=== PATIENT | male | born 1950 | race American Indian/Alaskan Native ===

== ENCOUNTER 2018-10-21 16:12 | Inpatient (IN) | payer MEDICARE ==
--- NOTE | 2018-10-21 17:28 | XRay Report ---
FINAL REPORT EXAM: XR CHEST 1V AP HISTORY: hypertension TECHNIQUE: Frontal portable view of the chest Comparison: Chest x-ray dated August 31, 2018 FINDINGS: The there is the appearance of patchy areas of pulmonary consolidation in both lung bases. Atelectasi s versus There is no evidence of pneumothorax or pleural fluid collection. The cardiomediastinal silhouette is not significantly changed. A right central venous catheter is not significantly changed with the tip projected in the region the right atrium. IMPRESSION: 1. Infiltrates. Atelectasis versus infiltrates both lung bases. If further imaging is required, CT may be helpful.
[2018-10-21] MEDS ORDERED: NACL 0.9% 500 ML 500 ML IV ONE (17:33)
[2018-10-21] MEDS ORDERED: MERREM 1,000 MG in NACL 0.9% 100 ML IV ONE (17:48)
[2018-10-21] MEDS ORDERED: VANCOMYCIN PHARMACY TO DOSE IV SCH (18:00)
--- NOTE | 2018-10-21 18:25 | Emergency Department Report ---
ED General Adult HPI - General Chief complaint: Medical Clearance Stated complaint: LOW HEMOGLOBIN Time Seen by Provider: 10/21/18 17:00 Source: EMS Mode of arrival: Stretcher Limitations: Physical Limitation - History of Present Illness Initial comments: This is a 68-year-old apparent total care patient from a assisted who was sent to dialysis. The information that I have received is very skeletal. The triage note states that dialysis found him to have a hemoglobin of 6.5. Patient has severe and extensive comorbidity. Apparently there is an extensive decubitus ulcer which was noted by nursing staff on arrival. The patient has a vas cath and a PEG tube. He has an indwelling Avila. He is awake but does not communicate to me. Although, the nursing staff stated that he was somewhat responsive to them. No further history is available to me at this time. The patient was admitted to this facility ICU in August 2018 with the followi ng discharge information: Consult to Case Management [CONS] Urgent Services Needed at Discharge: Home Health Services Notified:: no Additional Physician Instructions: [facility] M [phone] O [phone] F [phone] OUTPATIENT PARENTERAL ANTIBIOTIC THERAPY ORDERS Diagnoses: Psedomonas Aeriginosa Antimicrobial administration:Upon discharge will arrange Meropenem 500 mg q 24 hours for a total of 10 days until September 21, 2018 Remove Midline line after last dose unless otherwise instructed. Lines: MidLine Lab monitoring: CBC, BUN, Creatinine, ALT, AST, CK, vancomycin trough once a week preferly on Sunday morning. Please fax results to [phone] and call [phone] for critical lab results. May Hinojosa NP/Vicky Coon MD Date: 09/13/18 Primary care physician: [employer]TER Hospitalization Condition: Fair Hospital course: Patient is a 68 yo man with a history of HTN, DM, HLD, Obesity, ESRD on HD (T,R,Sa) presents to ED for AMS with lethargy. Pt history taken from and ED staff. As per , the patient went to [facility] for his scheduled dialysis session, but was found to be confused, and hypotensive. Pt seen and evaluated in ED and found to have Acute Respiratory Failure, as well as ESRD, Severe Sepsis with systolic blood pressure in the 70's, and Encephalopathy. Pt found to have poor prognosis. Pt poor prognosis discussed with . Pt admitted to ICU and initiated on Sepsis protocol, as well as IV pressor support, Intubated. Patient is now off pressors subsequently extubated. 09/12/18 CT abd/pelvis wo contrast IMPRESSION: Right lower lobe opacity. Corre late for pneumonia. Thickened bladder wall which could represent cystitis or trabeculation. No obvious abscess on noncontrast CT. 09/13/18 CT chest wo contrast Impression: Ill-defined density right lower lobe suggestive of pneumonitis. Single enlarged lymph node in the mediastinum. CT head wo contrast IMPRESSION: 1. No acute intracranial findings. 2. Chronic ischemic and atrophic changes. Cultures: 08/20/2018 blood culture: Klebsiella, Proteus, Enterococcus species 08/20/2018 urine culture: Pseudomonas aeruginosa (MDR but S to FQs) 08/20/2018 tracheal aspirate culture: Klebsiella, MRSA 08/22/2018 blood culture: no growth 09/09/2018 blood culture no growth 09/09/2018 urine culture Pseudomonas Aerugionosa Sepsis with multiple sources of infection, PNA/UTI/Sacral Debuticus Ulcer. Abx changed managed by ID, Acute hypoxemic resp failure. Resolved. Continue O2 to maintain sats greater than 92%. MRSA pneumonia. Continue antibiotics per infectious disease. Toxic metabolic encephalopathy. Cont to treat underlying causes. Also, patient with baseline multiple CVAs with likely underlying vascular dementia. Repeat CT negative. Vascular dementia. Neurology evaluated, NO CORDOVA Sacral unstageable Ulcer. Present on admission.- Surgeon consulted. Debridement planned for Sunday, Had extensive discussion about q2hr turns. Recommend hospital Bed Bilateral Heel ULCER-POA. CONTINUE WOUND CARE. ESRD. Cont HD per nephrology Anemia of ESRD, acute on chronic, worsening s/p 2units PRBC transfused, now stable. F/U H&H and transfuse for hemoglobin less than 7.0 Bladder mass. Urology follow-up, ask for exchange of catheter. Work up for mass outpatient. Hypokalemia. Replete potassium as needed. Diabetes mellitus type 2. Continue Accu-Cheks and sliding scale insulin. History of CVAs. Disposition. OT for passive range of motion. poor prognosis. D/w Had extensive discussion with spouse. she is adamant about taking patient home. Discharge post debridement. DVT/GI prophy reviewed I called at [phone] and gave her an update, she still wants to take him home, no hospice which I recommended Waiting on hospital bed and sacral debridement. Anticipate discharge home today after sacral debridement and hemodialysis and home abx setup Infectious Disease to arrange home abx ID Recs: Agree with surgical deridment of sacral wound on 09/16/18 -Continue Meropenem 500 mg every 24 hours to cover HAP/UTI, D5 of 10 -may need to repeat CT of chest in 4-6 weeks to rule out lung cancer upon discharge consider rehab placement for wound care and IV antibiotics Upon discharge will arrange Meropenem 500 mg q 24 hours for 10 days until September 21, 2018 Consult placed with Case Management Disposition: [id number] HOME [facility] Time spent for discharge: 36 minutes -: unknown Severity scale (0 -10): 0 - Related Data Previous Rx's Medication Instructions Recorded Last Taken Type Prazosin [Minipress] 2 mg PO HS #60 capsule 18 08/19/18 Rx ALBUTEROL NEB's [Proventil 0.083% 2.5 mg IH Q3HRT PRN #30 nebu 09/16/18 Unknown Rx NEBS] Famotidine [Pepcid] 20 mg FEEDTUBE DAILY #30 tablet 09/16/18 Unknown Rx Insulin Glargine [Lantus VIAL] 30 units SUB-Q QHS #90 units 09/16/18 Unknown Rx Lipase/Protease/Amylase [Pancreaze 1 each FEEDTUBE PRN PRN #30 capsule 09/16/[address],500 Unit] Lispro Insulin [Humalog] 1 dose SUB-Q Q4HR PRN #100 units 09/16/18 Unknown Rx Meropenem [Merrem] 500 mg IV Q24H #1 vial 09/16/18 Unknown Rx Min Oil/Petrolatum [Artificial 1 applic OU Q4HR PRN #1 tube 09/16/18 Unknown Rx Tears Ophth Oint] Petrolatum,White [Vaseline Lip 1 applic TP Q2HR PRN #1 tube 09/16/18 Unknown Rx Therapy] Scopolamine [Transderm-Scop] 1 each TD Q3D 30 Days patch 09/16/18 Unknown Rx Simple Syrup 15 ml FEEDTUBE PRN PRN #30 09/16/18 Unknown Rx oral.liqd Simple Syrup 30 ml FEEDTUBE PRN PRN #30 09/16/18 Unknown Rx oral.liqd Sodium Bicarbonate 325 mg FEEDTUBE PRN PRN #30 tablet 09/16/18 Unknown Rx hydrALAZINE [Apresoline TAB] 50 mg PO Q8HR #90 tablet 09/16/18 Unknown Rx Allergies Allergy/AdvReac Type Severity Reaction Status Date / Time No Known Allergies Allergy Verified 08/20/18 12:20 ED Review of Systems ROS: Stated complaint: LOW HEMOGLOBIN Other details as noted in HPI Comment: Unobtainable due to pts medical conditions ED Past Medical Hx - Past Medical History Hx Hypertension: Yes Hx Heart Attack/AMI: No Hx Congestive Heart Failure: No Hx Diabetes: Yes Hx Deep Vein Thrombosis: No Hx Liver Disease: No Hx Renal Disease: Yes Hx Sickle Cell Disease: No Hx Seizures: No Hx Kidney Stones: No Hx Asthma: No Hx COPD: No Hx Dementia: Yes Additional medical history: HIGH CHOLESTEROL - Surgical History Hx Coronary Stent: No Hx Pacemaker: No Hx Internal Defibrillator: No Additional Surgical History: SOFT TISSUE REMOVED FROM BACK. PARTIAL THYROIDECTOMY - Social History Smoking Status: Unknown if ever smoked Other Social History: assisted resident - Medications Home Medications: Home Medications Medication Instructions Recorded Confirmed Last Taken Type Prazosin [Minipress] 2 mg PO HS #60 capsule 08/07/18 08/20/18 08/19/18 Rx ALBUTEROL NEB's [Proventil 0.083% 2.5 mg IH Q3HRT PRN #30 nebu 09/16/18 Unknown Rx NEBS] Famotidine [Pepcid] 20 mg FEEDTUBE DAILY #30 tablet 09/16/18 Unknown Rx Insulin Glargine [Lantus VIAL] 30 units SUB-Q QHS #90 units 09/16/18 Unknown Rx Lipase/Protease/Amylase [Pancreaze 1 each FEEDTUBE PRN PRN #30 capsule 09/16/[address],500 Unit] Lispro Insulin [Humalog] 1 dose SUB-Q Q4HR PRN #100 units 09/16/18 Unknown Rx Meropenem [Merrem] 500 mg IV Q24H #1 vial 09/16/18 Unknown Rx Min Oil/Petrolatum [Artificial 1 applic OU Q4HR PRN #1 tube 09/16/18 Unknown Rx Tears Ophth Oint] Petrolatum,White [Vaseline Lip 1 applic TP Q2HR PRN #1 tube 09/16/18 Unknown Rx Therapy] Scopolamine [Transderm-Scop] 1 each TD Q3D 30 Days patch 09/16/18 Unknown Rx Simple Syrup 15 ml FEEDTUBE PRN PRN #30 09/16/18 Unknown Rx oral.liqd Simple Syrup 30 ml FEEDTUBE PRN PRN #30 09/16/18 Unknown Rx oral.liqd Sodium Bicarbonate 325 mg FEEDTUBE PRN PRN #30 tablet 09/16/18 Unknown Rx hydrALAZINE [Apresoline TAB] 50 mg PO Q8HR #90 tablet 09/16/18 Unknown Rx ED Physical Exam - General Limitations: Physical Limitation General appearance: lethargic - Head Head exam: Present: atraumatic - Eye Eye exam: Absent: scleral icterus - ENT ENT exam: Present: mucous membranes dry - Neck Neck exam: Present: normal inspection - Respiratory Respiratory exam: Present: normal lung sounds bilaterally. Absent: respiratory distress, accessory muscle use - Cardiovascular Cardiovascular Exam: Present: tachycardia - GI/Abdominal GI/Abdominal exam: Present: soft, other (peg). Absent: distended, tenderness, guarding, rebound, rigid - Extremities Exam Extremities exam: Present: normal inspection - Back Exam Back exam: Present: normal inspection - Neurological Exam Neurological exam: Present: other ED Course Vital Signs 10/21/18 10/21/18 10/21/18 16:46 18:00 18:16 Temperature Pulse Rate 90 140 H 142 H Respiratory 20 21 Rate Blood Pressure 147/82 Blood Pressure 122/84 [Left] O2 Sat by Pulse 98 Oximetry 10/21/18 10/21/18 18:30 18:44 Temperature 98.9 F Pulse Rate 146 H Respiratory 17 Rate Blood Pressure 147/82 Blood Pressure [Left] O2 Sat by Pulse Oximetry - Reevaluation(s) Reevaluation #1: I have called the lab to ascertain why the chemistries are not ready. They're checking into it. 10/21/18 19:25 Reevaluation #2: Discussed with nephrology by Dr. Giles. 10/21/18 19:41 ED Medical Decision Making - Lab Data Result diagrams: 10/21/18 18:27 01/14/19 18:27 Laboratory Results - last 24 hr 10/21/18 18:11 POC Glucose 217 H Laboratory Results - last 24 hr 10/21/18 18:11 POC Glucose 217 H Laboratory Results - last 24 hr 10/21/18 10/21/18 18:11 18:27 WBC 15.9 H RBC 2.83 L Hgb 7.7 L Hct 24.6 L MCV 87 MCH 27 L MCHC 31 L RDW 17.6 H Plt Count 439 Lymph % (Auto) 13.0 L [place] % (Auto) 7.3 Eos % (Auto) 0.1 Baso % (Auto) 0.1 Lymph # 2.1 [place] # 1.2 H Eos # 0.0 Baso # 0.0 Seg Neutrophils % 79.5 H Seg Neutrophils # 12.7 H POC Glucose 217 H Laboratory Results - last 24 hr 10/21/18 10/21/18 18:11 18:27 WBC 15.9 H RBC 2.83 L Hgb 7.7 L Hct 24.6 L MCV 87 MCH 27 L MCHC 31 L RDW 17.6 H Plt Count 439 Lymph % (Auto) 13.0 L [place] % (Auto) 7.3 Eos % (Auto) 0.1 Baso % (Auto) 0.1 Lymph # 2.1 [place] # 1.2 H Eos # 0.0 Baso # 0.0 Seg Neutrophils % 79.5 H Seg Neutrophils # 12.7 H POC Glucose 217 H Laboratory Results - last 24 hr 10/21/18 10/21/18 10/21/18 18:11 18:27 18:27 WBC 15.9 H RBC 2.83 L Hgb 7.7 L Hct 24.6 L MCV 87 MCH 27 L MCHC 31 L RDW 17.6 H Plt Count 439 Lymph % (Auto) 13.0 L [place] % (Auto) 7.3 Eos % (Auto) 0.1 Baso % (Auto) 0.1 Lymph # 2.1 [place] # 1.2 H Eos # 0.0 Baso # 0.0 Seg Neutrophils % 79.5 H Seg Neutrophils # 12.7 H POC Glucose 217 H Blood Type A POSITIVE Laboratory Results - last 24 hr 10/21/18 10/21/18 10/21/18 18:11 18:27 18:27 WBC 15.9 H RBC 2.83 L Hgb 7.7 L Hct 24.6 L MCV 87 MCH 27 L MCHC 31 L RDW 17.6 H Plt Count 439 Lymph % (Auto) 13.0 L [place] % (Auto) 7.3 Eos % (Auto) 0.1 Baso % (Auto) 0.1 Lymph # 2.1 [place] # 1.2 H Eos # 0.0 Baso # 0.0 Seg Neutrophils % 79.5 H Seg Neutrophils # 12.7 H PT INR VBG pH POC Glucose 217 H Blood Type A POSITIVE 10/21/18 10/21/18 18:27 18:27 WBC RBC Hgb Hct MCV MCH MCHC RDW Plt Count Lymph % (Auto) [place] % (Auto) Eos % (Auto) Baso % (Auto) Lymph # [place] # Eos # Baso # Seg Neutrophils % Seg Neutrophils # PT 14.6 INR 1.10 VBG pH 7.417 POC Glucose Blood Type - Radiology Data Radiology results: report reviewed (bibasilar slight inf) Critical Care Time: Yes Critical care time in (mins) excluding proc time.: 50 Critical care attestation.: If time is entered above; I have spent that time in minutes in the direct care of this critically ill patient, excluding procedure time. ED Disposition Clinical Impression: ESRD (end stage renal disease) Sepsis Qualifiers: Sepsis type: sepsis due to unspecified organism Qualified Code(s): A41.9 - Sepsis, unspecified organism Disposition: DC-01 TO HOME OR SELFCARE Is pt being admited?: Yes Does the pt Need Aspirin: No Condition: Stable Referrals: PRIMARY CARE, [Primary Care Provider] - 3-5 Days
[2018-10-21 18:59] LABS: Basophils % (Auto) 0.1 % (0.0-1.8); Eosinophils % (Auto) 0.1 % (0.0-4.3); Hematocrit 24.6 % (35.5-45.6); Hemoglobin 7.7 gm/dl (11.8-15.2); Lymphocytes # (Auto) 2.1 K/mm3 (1.2-5.4); Mean Corpuscular HGB Conc 31 % (32-34); Mean Corpuscular Volume 87 fl (84-94); Monocytes # (Auto) 1.2 K/mm3 (0.0-0.8); Monocytes % (Auto) 7.3 % (0.0-7.3); Platelet Count 439 K/mm3 (140-440); Red Blood Count 2.83 M/mm3 (3.65-5.03); Red Cell Distribution Width 17.6 % (13.2-15.2)
[2018-10-21] MEDS ORDERED: NACL 0.9% 1000 ML 500 ML IV ONE (18:59)
[2018-10-21 19:08] LABS: INR 1.1 (0.87-1.13)
[2018-10-21 19:28] LABS: Alanine Aminotransferase 9 units/L (7-56); Albumin 2.5 g/dL (3.9-5); BUN/Creatinine Ratio 17; Blood Urea Nitrogen 24 mg/dL (9-20); Hemolysis Index 0
[2018-10-21 19:37] LABS: Bilirubin,Direct < 0.2 mg/dL (0-0.2)
[2018-10-21] MEDS ORDERED: VANCOMYCIN 1,500 MG in NACL 0.9% 500 ML 500 ML IV ONE (20:00)
[2018-10-21] MEDS ORDERED: D50W (25GM) Syringe IV PRN (21:53)
[2018-10-21] MEDS ORDERED: ROBITUSSIN PO PRN (21:56)
[2018-10-21] MEDS ORDERED: LEVAQUIN 750MG/150ML 750 MG/150 ML BAG IV SCH (22:00)
[2018-10-21] MEDS ORDERED: ZOSYN/NS 3.375GM/50ML 3.375 GM/50 ML BAG IV SCH (22:00)
[2018-10-21] MEDS ORDERED: TYLENOL PO PRN (22:00)
[2018-10-21] MEDS ORDERED: TYLENOL PO ONE (23:00)
[2018-10-22 00:46] LABS: Bilirubin,Urine NEG (Negative); Blood,Urine MOD (Negative); Color,Urine Yellow (Yellow); Mucus,Urine 1+ /HPF
[2018-10-22 00:47] LABS: RBC,Urine > 182.0 /HPF (0.0-6.0); WBC,Urine > 182.0 /HPF (0.0-6.0)
[2018-10-22] MEDS ORDERED: ZOSYN/NS 4.5GM/100ML 0 GM/0 ML VIAL IV ONE (02:02)
[2018-10-22] MEDS ORDERED: LEVAQUIN 750MG/150ML 750 MG/150 ML BAG IV ONE (02:12)
[2018-10-22] MEDS: HEPARIN SUB-Q SCH ×3 (02:25→21:04)
[2018-10-22] MEDS ORDERED: KCL 10MEQ/100ML 10 MEQ/100 ML BAG IV SCH (05:00)
[2018-10-22 05:56] LABS: Hematocrit 22.4 % (35.5-45.6); Hemoglobin 6.9 gm/dl (11.8-15.2); Mean Corpuscular HGB Conc 31 % (32-34); Mean Corpuscular Volume 88 fl (84-94); Platelet Count 384 K/mm3 (140-440); Red Blood Count 2.55 M/mm3 (3.65-5.03); Red Cell Distribution Width 17.4 % (13.2-15.2)
[2018-10-22] MEDS ORDERED: HEPARIN ONE (06:10)
--- NOTE | 2018-10-22 07:11 | History and Physical Report ---
CHIEF COMPLAINT: Discovery of low hemoglobin. HISTORY OF PRESENTING ILLNESS: The patient is a 68-year-old male transferred from longterm for dialysis and the patient was reported to have a low hemoglobin of 6.5, and because of that, the patient was sent into the Emergency Room for evaluation. There was also complaint of extensive decubitus ulcers on the patient's body . There is no history of fever, No history of chills, No history of chest pain. There is history of cough and difficulty in breathing. The patient is a total care patient and unable to give any history. PAST MEDICAL HISTORY: Pertinent for hypertension; diabetes mellitus; end-stage renal disease, on dialysis; dementia; high cholesterol. PAST SURGICAL HISTORY: Pertinent for soft tissue removal from the back, partial thyroidectomy. FAMILY HISTORY: Noncontributory. SOCIAL HISTORY: The patient stays at a longterm. Does not smoke, does not drink alcohol, and does not use illicit drugs. MEDICATIONS: The patient is on prazosin 2mg mg by mouth at bedtime; albuterol inhaler 2.5 mg every 3 hours as needed for shortness of breath; Pepcid 20 mg through the feeding tube daily; Lantus insulin 30 units subcutaneous at bedtime; Pancrease ____ per feeding tube, frequency unknown; Humalog insulin subcutaneous q. 4 hours, dose unknown; meropenem 500 mg IV q. 24 hours; ____ one application to the right eye every 4 hours; Vaseline lip therapy one application topically every 2 hours; scopolamine transdermal patch one patch transdermally every 3 days; Simple syrup 15 mL via feeding tube p.r.n.; sodium bicarbonate 325 mg per feeding tube p.r.n., frequency unknown; hydralazine 50 mg by tube q. 8 hours. ALLERGIES: There are no known drug allergies. REVIEW OF SYSTEMS: CONSTITUTIONAL: There are no fevers, no chills, no diaphoresis. HEENT: There is no headache or sore throat. CARDIOVASCULAR SYSTEM: There is no chest pain or orthopnea. RESPIRATORY SYSTEM: Cough is present, congestion is present, and difficulty in breathing is present. GASTROINTESTINAL SYSTEM: There is no nausea, no vomiting. No abdominal pain, diarrhea, or constipation. NEUROLOGICAL SYSTEM: There is no numbness, no dizziness, no altered mental status. MUSCULOSKELETAL SYSTEM: There is no joint pain or swelling. DERMATOLOGICAL SYSTEM: There is no skin rash or itching. GENITOURINARY SYSTEM: There is dysuria. There is no hematuria or flank pain. Rest of system review is normal. PHYSICAL EXAMINATION: GENERAL: At the time of exam, the patient was found to be alert, disoriented x 3, and not in acute distress. VITAL SIGNS: Show temperature of 98.9 degrees Fahrenheit, pulse of 90, respirations 20, blood pressure 122/84, O2 sat of 98% on room air. HEENT: Shows pupils to be equal, round, reactive to light and accommodation. Extraocular muscles are intact. NECK: Supple with no JVD or carotid bruits. CARDIOVASCULAR SYSTEM: Shows normal first and second heart sounds with no gallops or murmurs. RESPIRATORY SYSTEM: Shows good air entry on both sides of the lungs with scattered crackles bilaterally. GASTROINTESTINAL SYSTEM: Shows abdomen to be full, soft, nontender with no organomegaly or rigidity. NEUROLOGIC: Shows no new focal deficit. The is patient is disoriented x 3. MUSCULOSKELETAL SYSTEM: Shows no joint swelling or tenderness. DERMATOLOGICAL SYSTEM: Shows dryness of the skin all over with both lower legs padded at the heels due to decubitus ulcer. GENITOURINARY SYSTEM: Shows no costovertebral angle tenderness. PERTINENT LABORATORY AND IMAGING STUDIES: The patient had chest x-ray that shows atelectasis versus infiltrate in both lung bases. Lab results; the patient's CBC shows elevated white count of 15,900 with low hemoglobin of 7.7, low hematocrit of 24.6. CBC with differential showing elevated segmented neutrophil count of 79.5%. The patient's coagulation studies were unremarkable. The patient's arterial blood gas shows high pH of 7.49 with low PCO2 of 30, normal PO2 of 83, and normal O2 sat of 97% and this was done on room air. The patient's chemistry showed low sodium of 134, low potassium level of 3.0 with low chloride level of 95.7. Has elevated blood glucose level of 224 with first lactic acid level showing high value of 2.2. The patient's urinalysis show high urine WBCs of greater than 182 with moderate urine leukocyte esterase and high urine RBCs of 182. DIAGNOSES: 1. End-stage renal disease, on dialysis. 2. Sepsis. 3. Hypokalemia. 4. Anemia. 5. Urinary tract infection. PLAN OF ACTION: 1. The patient will be admitted to telemetry. 2. The patient will be on Accu-Cheks a.c. and at bedtime followed by low-dose sliding scale using Regular insulin coverage. 3. The patient will continue nephrology consult with Dr. Giles, requested by the Emergency Room physician. 4. The patient will have wound care nurse consult for management of decubitus ulcer. 5. The patient will be on Tylenol 650 mg by mouth or per tube q. 4 hours for fever and headache. 6. The patient will be on IV Levaquin 750 mg daily and also the patient will be on IV vancomycin, with pharmacy to dose. 7. The patient will be on IV Zosyn 3.375 g q. 8 hours. 8. The patient will have IV potassium chloride replacement 20 mEq in 200 mL normal saline given over 2 hours. JOB# [id number] OCN/NTS MTDD
--- NOTE | 2018-10-22 09:02 | Consultation ---
History of Present Illness - History of Present Illness Thank you for the consultation ! Patient was evaluated today My assessment and plan are as follows; End-stage renal disease: Patient is currently on maintenance hemodialysis follwo labs , no need for urgent dialysis today , he is hypokalemic will follow in AM [facility] HD has had HD yesterday we'll need to reevaluate in the morning Anemia in end-stage renal disease: Severe requiring packed red blood cell transfusion Secondary hyperparathyroidism: Check phosphorus and PTH level Extensive decubitus ulcer Malnutrition risk high Leukocytosis severe 17.8 thousand somewhat worse compared to yesterday lifted count normal Lactic acidosis upon admission 2.2 Hypokalemia potassium was 3.0 yesterday patient does need follow-up Significant pyuria recommend doing a urine culture patient also does have hematuria as well as proteinuria History of bladder mass, status post PEG tube placement, history of gram- negative bacteremia, respiratory failure prognosis very poor , mortality risk very high , discussed with , she wants him to be full code and said Keep him going Expectations of family are unrealistically high , prognosis very poor, Had a long discussion with patient's at length over the phone explained that the patient's prognosis is very poor due to comorbidities, his mortality risk is very high. This was clarified with the patient's , We will continue to follow and make recommendations from renal standpoint. Thank you for the consultation Author: Janak Matias M.D. [facility], [address] [place] [address] Tel; [phone] Source of information: From patient History of present illness Patient is 68-year-old -Indian male who has been [facility], case was discussed with patient's is currently being dialyzed on Sunday schedule and has had hemodialysis yesterday. Patient has also been noted to have been severely anemic with a hemoglobin of 6.5. Patient is a very poor historian and is unable to provide me with any history he also appears to be encephalopathic even though he is alert. Patient currently is being dialyzed with a dialysis catheter and concurrently also have a PEG tube and a Avila catheter. Patient's health has been declining overall progressively however according to his she wants him to continue the current treatment plan knowing that his prognosis is not so good she wishes him to be a full code Past medical history is significant for, End-stage renal disease Chronic encephalopathy Sepsis hypotension and gram-negative bacteremia Anemia and end-stage renal disease Sacral decubitus ulcer Adult failure to thrive status post PEG tube placement Bladder mass Current allergies: Reviewed from the chart Social history: Unable to obtain due to encephalopathy Family history reviewed from the chart Current medication reviewed from the chart Review of systems Limited due to encephalopathy Patient's wishes him to be a full code even though she is aware that his health is not very good All other review of system could not be obtained due to above Physical examination Vitals: Reviewed General: No acute distress, encephalopathic HEENT: Oral mucosa moist no pallor or icterus Neck: Supple without any JVD thyromegaly or nodular mass patient has a central venous catheter Chest: Clear to auscultation Heart: Regular rate and rhythm S1-S2 heard no S3-S4 Abdomen: Soft nontender, bowel sounds present no renal bruit no suprapubic masses no CVA tenderness noted Extremity: Minimal edema dry skin no peripheral cyanosis Endocrine: Thyroid not enlarged Psychiatric: No agitation and aggression noted Musculoskeletal: No joint effusion noted Labs and x-rays: Reviewed from this admission Medications and Allergies Allergies Allergy/AdvReac Type Severity Reaction Status Date / Time No Known Allergies Allergy Verified 08/20/18 12:20 Home Medications Medication Instructions Recorded Confirmed Last Taken Type Prazosin [Minipress] 2 mg PO HS #60 capsule 08/07/18 10/21/18 10/20/18 Rx Insulin Glargine [Lantus VIAL] 40 units SUB-Q QHS 10/21/18 10/21/18 10/20/18 History Losartan [Cozaar] 100 mg PO QDAY 10/21/18 10/21/18 10/20/18 History cloNIDine [Catapres] 0.2 mg PO TID 10/21/18 10/21/18 10/21/18 History hydrALAZINE [Apresoline TAB] 100 mg PO Q8H 10/21/18 10/21/18 10/21/18 History Active Meds: Active Medications Acetaminophen (Tylenol) 650 mg PO Q4H PRN PRN Reason: Fever >101 Dextrose (D50w (25gm) Syringe) 50 ml IV PRN PRN PRN Reason: Hypoglycemia Guaifenesin (Robitussin) 200 mg PO Q4H PRN PRN Reason: Cough Heparin Sodium (Porcine) (Heparin) 5,000 unit SUB-Q Q12HR [facility]UEL Last Admin: 10/22/18 02:25 Dose: 5,000 unit Documented by: Piperacillin Sod/Tazobactam Sod (Zosyn/Ns 2.25 Gm/50ml) 2.25 gm in 50 mls @ 100 mls/hr IV Q8HR [facility]UEL Levofloxacin/Dextrose (Levaquin 500mg/100ml) 500 mg in 100 mls @ 100 mls/hr IV Q48HR@2200 SAMUEL Insulin Human Regular (Humulin R) 0 units SUB-Q Q6HR SAMUEL; Protocol Exam - Vital Signs Vital signs: Vital Signs Pulse Resp BP Pulse Ox 90 20 122/84 98 10/21/18 16:46 10/21/18 16:46 10/21/18 16:46 10/21/18 16:46 Results - Lab Results 10/22/18 05:11 10/21/18 18:27 Most recent lab results Calcium 9.0 mg/dL (8.4-10.2) 10/21/18 18:27
--- NOTE | 2018-10-22 09:39 | Progress Note ---
Assessment and Plan Assessment and plan: --Anemia; of chronic kidney disease Type and cross, transfuse 1 unit PRBC during hemodialysis today --End-stage renal disease; requiring hemodialysis HD per schedule, nephrology following --Hypokalemia; replenish per protocol and monitor levels Management per nephrology --Sepsis; continue empiric antibiotics follow cultures --Urinary tract infection; continue empiric antibiotics, follow cultures --Lactic acidosis; probably secondary to UTI, levels improved --Stage IV sacral decubitus ulcer; wound care surgeon has evaluated the patient Possible surgical debridement tomorrow --DVT prophylaxis; heparin renal dose History Interval history: Patient seen and examined medical records reviewed New events reported by nursing staff Patient chronically ill-looking minimally communicative Vital signs reviewed Hospitalist Physical - Constitutional Vitals: Temp Pulse Resp BP Pulse Ox 98.2 F 105 H 18 126/66 100 10/22/18 07:28 10/22/18 07:28 10/22/18 07:28 10/22/18 07:28 10/22/18 07:28 General appearance: Present: mild distress, cachectic, other (chronically ill looking ) - Neck Neck: Present: supple, normal ROM - Respiratory Respiratory effort: normal Respiratory: bilateral: diminished, rhonchi, negative: rales, wheezing - Cardiovascular Rhythm: regular Heart Sounds: Present: S1 & S2 - Extremities Extremities: no ischemia Extremity abnormal: edema - Abdominal General gastrointestinal: soft, non-tender, non-distended, normal bowel sounds - Integumentary Integumentary: Present: clear, warm, erythema (large stage IV sacral decubitus ulcer) - Psychiatric Psychiatric: other (noncommunicative) - Neurologic Neurologic: moves all extremities Results - Labs CBC & Chem 7: 10/22/18 05:11 10/21/18 18:27 Labs: Laboratory Last Values WBC 17.8 K/mm3 (4.5-11.0) H 10/22/18 05:11 RBC 2.55 M/mm3 (3.65-5.03) L 10/22/18 05:11 Hgb 6.9 gm/dl (11.8-15.2) L 10/22/18 05:11 Hct 22.4 % (35.5-45.6) L 10/22/18 05:11 MCV 88 fl (84-94) 10/22/18 05:11 MCH 27 pg (28-32) L 10/22/18 05:11 MCHC 31 % (32-34) L 10/22/18 05:11 RDW 17.4 % (13.2-15.2) H 10/22/18 05:11 Plt Count 384 K/mm3 (140-440) 10/22/18 05:11 Lymph % (Auto) 13.0 % (13.4-35.0) L 10/21/18 18:27 [place] % (Auto) 7.3 % (0.0-7.3) 10/21/18 18:27 Eos % (Auto) 0.1 % (0.0-4.3) 10/21/18 18:27 Baso % (Auto) 0.1 % (0.0-1.8) 10/21/18 18:27 Lymph # 2.1 K/mm3 (1.2-5.4) 10/21/18 18:27 [place] # 1.2 K/mm3 (0.0-0.8) H 10/21/18 18:27 Eos # 0.0 K/mm3 (0.0-0.4) 10/21/18 18:27 Baso # 0.0 K/mm3 (0.0-0.1) 10/21/18 18:27 Seg Neutrophils % 79.5 % (40.0-70.0) H 10/21/18 18:27 Seg Neutrophils # 12.7 K/mm3 (1.8-7.7) H 10/21/18 18:27 PT 14.6 Sec. (12.2-14.9) 10/21/18 18:27 INR 1.10 (0.87-1.13) 10/21/18 18:27 POC ABG pH 7.493 (7.35-7.45) H 10/21/18 19:26 POC ABG pCO2 30.3 (35-45) L 10/21/18 19:26 POC ABG pO2 83 (80-105) 10/21/18 19:26 POC ABG HCO3 23.2 10/21/18 19:26 POC ABG Total CO2 24 10/21/18 19:26 POC ABG O2 Sat 97 10/21/18 19: POC ABG Base Excess 0 10/21/18 19:26 VBG pH 7.417 (7.320-7.420) 10/21/18 18:27 FiO2 21 % 10/21/18 19:26 Sodium 134 mmol/L (137-145) L 10/21/18 18:27 Potassium 3.0 mmol/L (3.6-5.0) L 10/21/18 18:27 Chloride 95.7 mmol/L (98-107) L 10/21/18 18:27 Carbon Dioxide 24 mmol/L (22-30) 10/21/18 18:27 Anion Gap 17 mmol/L 10/21/18 18:27 BUN 24 mg/dL (9-20) H 10/21/18 18:27 Creatinine 1.4 mg/dL (0.8-1.5) 10/21/18 18:27 Estimated GFR > 60 ml/min 10/21/18 18:27 BUN/Creatinine Ratio 17 % 10/21/18 18:27 Glucose 224 mg/dL (75-100) H 10/21/18 18:27 POC Glucose 224 (70-105) H 10/22/18 08:57 Lactic Acid 1.20 mmol/L (0.7-2.0) 10/21/18 20:20 Calcium 9.0 mg/dL (8.4-10.2) 10/21/18 18:27 Total Bilirubin 0.40 mg/dL (0.1-1.2) 10/21/18 18:27 Direct Bilirubin < 0.2 mg/dL (0-0.2) 10/21/18 18:27 Indirect Bilirubin 0.2 mg/dL 10/21/18 18:27 AST 14 units/L (5-40) 10/21/18 18:27 ALT 9 units/L (7-56) 10/21/18 18:27 Alkaline Phosphatase 95 units/L (35-129) 10/21/18 18:27 Total Protein 7.5 g/dL (6.3-8.2) 10/21/18 18:27 Albumin 2.5 g/dL (3.9-5) L 10/21/18 18:27 Albumin/Globulin Ratio 0.5 % 10/21/18 18:27 Urine Color Yellow (Yellow) 10/22/18 00:16 Urine Turbidity Turbid (Clear) 10/22/18 00:16 Urine pH 5.0 (5.0-7.0) 10/22/18 00:16 Ur Specific [place] 1.018 (1.003-1.030) 10/22/18 00:16 Urine Protein 100 mg/dl mg/dL (Negative) 10/22/18 00:16 Urine Glucose (UA) 150 mg/dL (Negative) 10/22/18 00:16 Urine Ketones Tr mg/dL (Negative) 10/22/18 00:16 Urine Blood Mod (Negative) 10/22/18 00:16 Urine Nitrite Neg (Negative) 10/22/18 00:16 Urine Bilirubin Neg (Negative) 10/22/18 00:16 Urine Urobilinogen 2.0 mg/dL (<2.0) 10/22/18 00:16 Ur Leukocyte Esterase Mod (Negative) 10/22/18 00:16 Urine WBC (Auto) > 182.0 /HPF (0.0-6.0) H 10/22/18 00:16 Urine RBC (Auto) > 182.0 /HPF (0.0-6.0) 10/22/18 00:16 U Epithel Cells (Auto) 5.0 /HPF (0-13.0) 10/22/18 00:16 Urine WBC Clumps 3+ /HPF 10/22/18 00:16 Urine Mucus 1+ /HPF 10/22/18 00:16 Blood Type A POSITIVE 10/21/18 18:27 Antibody Screen Negative 10/21/18 18: Crossmatch See Detail 10/21/18 18:
[2018-10-22] MEDS ORDERED: NON-FORMULARY (Losartan [Cozaar] 100 MG) PO SCH (10:00)
[2018-10-22] MEDS ORDERED: PANCREAZE DR 10,500 UNIT FEEDTUBE PRN ×2 (10:10→14:19)
[2018-10-22] MEDS ORDERED: SIMPLE SYRUP FEEDTUBE PRN ×4 (10:10→14:19)
[2018-10-22] MEDS ORDERED: SODIUM BICARBONATE FEEDTUBE PRN ×2 (10:10→14:19)
[2018-10-22] MEDS ORDERED: NACL 0.9% 500 ML 500 ML IV ONE (10:30)
[2018-10-22] MEDS: HumuLIN R SUB-Q SCH ×2 (12:00→17:10)
[2018-10-22] MEDS: APRESOLINE PO SCH ×3 (12:30→21:05)
[2018-10-22] MEDS: COZAAR PO SCH (12:30)
[2018-10-22] MEDS: ZOSYN/NS 2.25 GM/50ML 2.25 GM/50 ML BAG IV SCH ×2 (13:50→21:05)
[2018-10-22] MEDS: CATAPRES PO SCH ×2 (14:03→21:00)
--- NOTE | 2018-10-22 14:14 | Consultation ---
History of Present Illness Consult date: 10/22/18 Reason for consult: other (Sacral pressure ulcer) - History of present illness History of present illness: 68 yo male with a large sacral pressure ulcer. He has had multiple strokes and is chronically non-ambulatory. He is non-conversant. Past History Past Medical History: diabetes, hypertension, stroke Medications and Allergies Allergies Allergy/AdvReac Type Severity Reaction Status Date / Time No Known Allergies Allergy Verified 08/20/18 12:20 Home Medications Medication Instructions Recorded Confirmed Last Taken Type Prazosin [Minipress] 2 mg PO HS #60 capsule 08/07/18 10/21/18 10/20/18 Rx Insulin Glargine [Lantus VIAL] 40 units SUB-Q QHS 10/21/18 10/21/18 10/20/18 History Losartan [Cozaar] 100 mg PO QDAY 10/21/18 10/21/18 10/20/18 History cloNIDine [Catapres] 0.2 mg PO TID 10/21/18 10/21/18 10/21/18 History hydrALAZINE [Apresoline TAB] 100 mg PO Q8H 10/21/18 10/21/18 10/21/18 History Active Meds: Active Medications Acetaminophen (Tylenol) 650 mg PO Q4H PRN PRN Reason: Fever >101 Lipase/Protease/Amylase (Pancreradha Dr 10,500 Unit) 1 each FEEDTUBE PRN PRN PRN Reason: For Clogged Feeding Tube Clonidine HCl (Catapres) 0.2 mg PO TID SAMUEL Dextrose (D50w (25gm) Syringe) 50 ml IV PRN PRN PRN Reason: Hypoglycemia Guaifenesin (Robitussin) 200 mg PO Q4H PRN PRN Reason: Cough Heparin Sodium (Porcine) (Heparin) 5,000 unit SUB-Q Q12HR [facility] Last Admin: 10/22/18 02:25 Dose: 5,000 unit Documented by: Hydralazine HCl (Apresoline) 100 mg PO Q8HR [facility] Last Admin: 10/22/18 12:30 Dose: 100 mg Documented by: Piperacillin Sod/Tazobactam Sod (Zosyn/Ns 2.25 Gm/50ml) 2.25 gm in 50 mls @ 100 mls/hr IV Q8HR [facility] Levofloxacin/Dextrose (Levaquin 500mg/100ml) 500 mg in 100 mls @ 100 mls/hr IV Q48HR@2200 [facility] Insulin Glargine (Lantus) 40 units SUB-Q QHS [facility] Insulin Human Regular (Humulin R) 0 units SUB-Q Q6HR [facility]; Protocol Losartan Potassium (Cozaar) 100 mg PO QDAY [facility] Last Admin: 10/22/18 12:30 Dose: 100 mg Documented by: Prazosin HCl (Minipress) 2 mg PO HS [facility]UEL Simple Syrup (Simple Syrup) 15 ml FEEDTUBE PRN PRN PRN Reason: Hypoglycemia Simple Syrup (Simple Syrup) 30 ml FEEDTUBE PRN PRN PRN Reason: Hypoglycemia Sodium Bicarbonate (Sodium Bicarbonate) 325 mg FEEDTUBE PRN PRN PRN Reason: For Clogged Feeding Tube Review of Systems All systems: negative (none) Exam Vital Signs Pulse Resp BP Pulse Ox 90 20 122/84 98 10/21/18 16:46 10/21/18 16:46 10/21/18 16:46 10/21/18 16:46 - General physical appearance Positive: well developed, well nourished, no distress - Eyes Positive: PERRL, normal occular movement - ENT Positive: normal pinna, normal nares, normal mucosa, no hearing loss, no congestion - Neck Positive: no masses, no bruits, trachea midline, no venous distension - Respiratory Positive: normal expansion, normal respiratory effort, clear to auscultation - Cardiovascular Rhythm: regular Heart Sounds: Present: S1 & S2. Absent: rub, click - Extremities Extremities: no ischemia, pulses symmetrical, No edema - Breasts Breasts: deferred - Abdomen Abdomen: Present: soft, bowel sounds normal. Absent: tender, distended Hernia: none - Genitourinary Male Genitourinary: deferred - Integumentary other (There is a 15 X 12 X 3 cm stage 4 sacral pressure ulcer with necrotic skin, SQ, muscle and bone. There is also some fecal soilage within the wound.) Results - Labs 10/22/18 05:11 10/21/18 18:27 Abnormal lab results 10/21/18 10/21/18 10/21/18 Range/Units 18:11 18:27 18:27 WBC 15.9 H (4.5-11.0) K/mm3 RBC 2.83 L (3.65-5.03) M/mm3 Hgb 7.7 L (11.8-15.2) gm/dl Hct 24.6 L (35.5-45.6) % MCH 27 L (28-32) pg MCHC 31 L (32-34) % RDW 17.6 H (13.2-15.2) % Lymph % (Auto) 13.0 L (13.4-35.0) % [place] # 1.2 H (0.0-0.8) K/mm3 Seg Neutrophils % 79.5 H (40.0-70.0) % Seg Neutrophils # 12.7 H (1.8-7.7) K/mm3 POC ABG pH (7.35-7.45) POC ABG pCO2 (35-45) Sodium (137-145) mmol/L Potassium (3.6-5.0) mmol/L Chloride (98-107) mmol/L BUN (9-20) mg/dL Glucose (75-100) mg/dL POC Glucose 217 H (70-105) Lactic Acid (0.7-2.0) mmol/L Albumin (3.9-5) g/dL Urine WBC (Auto) (0.0-6.0) /HPF Crossmatch See Detail 10/21/18 10/21/18 10/21/18 Range/Units 18:27 18:27 19:26 WBC (4.5-11.0) K/mm3 RBC (3.65-5.03) M/mm3 Hgb (11.8-15.2) gm/dl Hct (35.5-45.6) % MCH (28-32) pg MCHC (32-34) % RDW (13.2-15.2) % Lymph % (Auto) (13.4-35.0) % [place] # (0.0-0.8) K/mm3 Seg Neutrophils % (40.0-70.0) % Seg Neutrophils # (1.8-7.7) K/mm3 POC ABG pH 7.493 H (7.35-7.45) POC ABG pCO2 30.3 L (35-45) Sodium 134 L (137-145) mmol/L Potassium 3.0 L (3.6-5.0) mmol/L Chloride 95.7 L (98-107) mmol/L BUN 24 H (9-20) mg/dL Glucose 224 H (75-100) mg/dL POC Glucose (70-105) Lactic Acid 2.20 H* (0.7-2.0) mmol/L Albumin 2.5 L (3.9-5) g/dL Urine WBC (Auto) (0.0-6.0) /HPF Crossmatch 10/22/18 10/22/18 10/22/18 Range/Units 00:16 05:11 08:57 WBC 17.8 H (4.5-11.0) K/mm3 RBC 2.55 L (3.65-5.03) M/mm3 Hgb 6.9 L (11.8-15.2) gm/dl Hct 22.4 L (35.5-45.6) % MCH 27 L (28-32) pg MCHC 31 L (32-34) % RDW 17.4 H (13.2-15.2) % Lymph % (Auto) (13.4-35.0) % [place] # (0.0-0.8) K/mm3 Seg Neutrophils % (40.0-70.0) % Seg Neutrophils # (1.8-7.7) K/mm3 POC ABG pH (7.35-7.45) POC ABG pCO2 (35-45) Sodium (137-145) mmol/L Potassium (3.6-5.0) mmol/L Chloride (98-107) mmol/L BUN (9-20) mg/dL Glucose (75-100) mg/dL POC Glucose 224 H (70-105) Lactic Acid (0.7-2.0) mmol/L Albumin (3.9-5) g/dL Urine WBC (Auto) > 182.0 H (0.0-6.0) /HPF Crossmatch 10/22/18 Range/Units 11:58 WBC (4.5-11.0) K/mm3 RBC (3.65-5.03) M/mm3 Hgb (11.8-15.2) gm/dl Hct (35.5-45.6) % MCH (28-32) pg MCHC (32-34) % RDW (13.2-15.2) % Lymph % (Auto) (13.4-35.0) % [place] # (0.0-0.8) K/mm3 Seg Neutrophils % (40.0-70.0) % Seg Neutrophils # (1.8-7.7) K/mm3 POC ABG pH (7.35-7.45) POC ABG pCO2 (35-45) Sodium (137-145) mmol/L Potassium (3.6-5.0) mmol/L Chloride (98-107) mmol/L BUN (9-20) mg/dL Glucose (75-100) mg/dL POC Glucose 212 H (70-105) Lactic Acid (0.7-2.0) mmol/L Albumin (3.9-5) g/dL Urine WBC (Auto) (0.0-6.0) /HPF Crossmatch Diabetes panel 10/21/18 Range/Units 18:27 Sodium 134 L (137-145) mmol/L Potassium 3.0 L (3.6-5.0) mmol/L Chloride 95.7 L (98-107) mmol/L Carbon Dioxide 24 (22-30) mmol/L BUN 24 H (9-20) mg/dL Creatinine 1.4 (0.8-1.5) mg/dL Glucose 224 H (75-100) mg/dL Calcium 9.0 (8.4-10.2) mg/dL AST 14 (5-40) units/L ALT 9 (7-56) units/L Alkaline Phosphatase 95 (35-129) units/L Total Protein 7.5 (6.3-8.2) g/dL Albumin 2.5 L (3.9-5) g/dL Calcium panel 10/21/18 Range/Units 18:27 Calcium 9.0 (8.4-10.2) mg/dL Albumin 2.5 L (3.9-5) g/dL Pituitary panel 10/21/18 Range/Units 18:27 Sodium 134 L (137-145) mmol/L Potassium 3.0 L (3.6-5.0) mmol/L Chloride 95.7 L (98-107) mmol/L Carbon Dioxide 24 (22-30) mmol/L BUN 24 H (9-20) mg/dL Creatinine 1.4 (0.8-1.5) mg/dL Glucose 224 H (75-100) mg/dL Calcium 9.0 (8.4-10.2) mg/dL Adrenal panel 10/21/18 Range/Units 18:27 Sodium 134 L (137-145) mmol/L Potassium 3.0 L (3.6-5.0) mmol/L Chloride 95.7 L (98-107) mmol/L Carbon Dioxide 24 (22-30) mmol/L BUN 24 H (9-20) mg/dL Creatinine 1.4 (0.8-1.5) mg/dL Glucose 224 H (75-100) mg/dL Calcium 9.0 (8.4-10.2) mg/dL Total Bilirubin 0.40 (0.1-1.2) mg/dL AST 14 (5-40) units/L ALT 9 (7-56) units/L Alkaline Phosphatase 95 (35-129) units/L Total Protein 7.5 (6.3-8.2) g/dL Albumin 2.5 L (3.9-5) g/dL Assessment and Plan - Patient Problems (1) Pressure ulcer of sacral region, stage 4 Current Visit: Yes Status: Acute Plan to address problem: 1) Off loading 2) Will debride his sacral pressure ulcer in the OR tomorrow if a room is available. 3) Local wound care 4) Intense nutritional support
[2018-10-22] MEDS: LANTUS SUB-Q SCH (21:04)
[2018-10-22] MEDS: MINIPRESS PO SCH (21:05)
[2018-10-22] MEDS ORDERED: VANCOMYCIN 1,500 MG in NACL 0.9% 500 ML 500 ML IV SCH (22:00)
[2018-10-23] MEDS: HumuLIN R SUB-Q SCH ×4 (00:45→23:55)
[2018-10-23] MEDS: ZOSYN/NS 2.25 GM/50ML 2.25 GM/50 ML BAG IV SCH ×3 (05:08→23:18)
[2018-10-23] MEDS: APRESOLINE PO SCH ×2 (05:08→23:17)
[2018-10-23 06:22] LABS: Calcium 8.6 mg/dL (8.4-10.2)
--- NOTE | 2018-10-23 07:18 | Anesthesia Consultation ---
Anesthesia Consult and Med Hx Date of service: 10/23/18 (Patient with dementia, unable to participate with exam.) - Airway Anesthetic Teeth Evaluation: Poor ROM Head & Neck: Inadequate Mental/Hyoid Distance: Inadequate Mallampati Class: Class III - Pulmonary Exam CTA: Yes - Cardiac Exam Cardiac Exam: RRR - Pre-Operative Health Status ASA Pre-Surgery Classification: ASA4 Proposed Anesthetic Plan: General - Pulmonary Hx Smoking: Yes (quit over 30 yrs ago) Hx Asthma: No Hx Respiratory Symptoms: No SOB: Yes (patient is bedbound and is in [facility]. ) COPD: No Hx Pneumonia: No Hx Sleep Apnea: Yes ( reports snoring with occasionally gasping.) - Cardiovascular System Hx Hypertension: Yes Hx Coronary Artery Disease: No Hx Heart Attack/AMI: No Hx Angina: No Hx Percutaneous Transluminal Coronary Angioplasty (PTCA): No Hx Cardia Arrhythmia: No Hx Pacemaker: No Hx Internal Defibrillator: No Hx Valvular Heart Disease: No Hx Heart Murmur: No Hx Peripheral Vascular Disease: No - Central Nervous System Hx Neuromuscular Disorder: No Hx Seizures: No CVA: Yes (2014) Hx Back Pain: No Hx Psychiatric Problems: Yes (dementia) - Gastrointestinal Hx Ulcer: No Hx Gastroesophageal Reflux Disease: No - Endocrine Hx Renal Disease: Yes Hx End Stage Renal Disease: Yes (on dialysis ()) Hx Liver Disease: No Hx Insulin Dependent Diabetes: Yes Hx Thyroid Disease: Yes Hx Hypothyroidism: No Hx Hyperthyroidism: No - Hematic Hx Anemia: Yes Hx Sickle Cell Disease: No - Other Systems Hx Alcohol Use: No Hx Substance Use: No Hx Cancer: No Hx Obesity: No - Additional Comments Anesthesia Medical History Comments: Spoke with patient's , Lilibeth Mendoza. Patient is in [place] [facility], with dementia and noncommunicative. Has had previous procedures with no GAC, no FHAC per . Obtained phone consent from Mrs. Mendoza.
[2018-10-23 08:24] LABS: Hemoglobin 6.8 gm/dl (11.8-15.2)
--- NOTE | 2018-10-23 08:50 | Progress Note ---
Subjective Interval history: Patient was seen today for follow-up on multiple renal related issues Events of this hospitalization noted Interdisciplinary notes were reviewed Resting comfortably Remains encephalopathic On dialysis Sunday Vitals labs intake output medications were reviewed Social history: Reviewed Allergies: Reviewed Family history: Reviewed Physical examination HEENT: Oral mucosa moist no pallor or icterus Neck: Supple no JVD Chest: Clear to auscultation anteriorly Central venous catheter: Present right upper chest CVS: Regular rate and rhythm S1 and S2 heard Abdomen: Soft nontender no suprapubic masses no organomegaly appreciable Extremity: Dry skin less than 1+ peripheral edema Musculoskeletal: No joint effusion noted in knees and ankle Neurological: Alert awake Dermatology: No petechial rashes Psychiatry: Encephalopathic Assessment and plan End-stage renal disease: Patient will need hemodialysis treatment but she will also need two units of packed red blood cell with dialysis today which will be ordered Will give erythropoietin 40,000 units subcutaneous 1. Patient will be given potassium 20 mEq oral, will place him on 4K bath with dialysis ultrafiltration only as tolerated Patient is overall in very poor health, his prognosis is very poor this has been clearly explained to his she wants him to be a full code, Anemia in end-stage renal disease: This is multifactorial some also nutritional Stage IV decubitus ulcer, possible sepsis, hypokalemia, chronic encephalopathy Continue to monitor lab replace potassium We'll continue to follow and make recommendation from renal standpoint Objective - Vital Signs Vital signs: Vital Signs - 12hr 10/22/18 22:00 Pulse Rate 99 H - Lab 10/23/18 08:14 10/23/18 05:23 Most recent lab results Calcium 8.6 mg/dL (8.4-10.2) 10/23/18 05:23 Medications & Allergies - Medications Allergies/Adverse Reactions: Allergies No Known Allergies Allergy (Verified 08/20/18 12:20) Home Medications: Home Medications Medication Instructions Recorded Confirmed Last Taken Type Prazosin [Minipress] 2 mg PO HS #60 capsule 08/07/18 10/21/18 10/20/18 Rx Insulin Glargine [Lantus VIAL] 40 units SUB-Q QHS 10/21/18 10/21/18 10/20/18 History Losartan [Cozaar] 100 mg PO QDAY 10/21/18 10/21/18 10/20/18 History cloNIDine [Catapres] 0.2 mg PO TID 10/21/18 10/21/18 10/21/18 History hydrALAZINE [Apresoline TAB] 100 mg PO Q8H 10/21/18 10/21/18 10/21/18 History Active Medications: Generic Name Dose Route Start Last Admin Trade Name Freq PRN Reason Stop Dose Admin Acetaminophen 650 mg 10/21/18 22:00 Tylenol PO Q4H PRN Fever >101 Lipase/Protease/Amylase 1 each 10/22/18 14:[address] 10,500 Unit FEEDTUBE PRN PRN For Clogged Feeding Tube Clonidine HCl 0.2 mg 10/22/18 14:00 10/22/18 21:00 Catapres PO 0.2 mg TID SAMUEL Administration Dextrose 50 ml 10/21/18 21:53 D50w (25gm) Syringe IV PRN PRN Hypoglycemia Guaifenesin 200 mg 10/21/18 21:56 Robitussin PO Q4H PRN Cough Heparin Sodium (Porcine) 5,000 unit 10/21/18 22:00 10/22/18 21:04 Heparin SUB-Q 5,000 unit Q12HR [facility]UEL Administration Hydralazine HCl 100 mg 10/22/18 10:00 10/23/18 05:08 Apresoline PO 100 mg Q8HR [facility]UEL Administration Piperacillin Sod/Tazobactam Sod 2.25 gm in 50 mls @ 100 mls/hr 10/22/18 14:00 10/23/18 05:08 Zosyn/Ns 2.25 Gm/50ml IV 100 mls/hr Q8HR [facility] Administration Levofloxacin/Dextrose 500 mg in 100 mls @ 100 mls/hr 10/23/18 22:00 Levaquin 500mg/100ml IV Q48HR@2200 SAMUEL Insulin Glargine 40 units 10/22/18 22:00 10/22/18 21:04 Lantus SUB-Q 40 units QHS SAMUEL Administration Insulin Human Regular 0 units 10/22/18 00:00 10/23/18 06:32 Humulin R SUB-Q Not Given Q6HR [facility] Protocol Losartan Potassium 100 mg 10/22/18 10:30 10/22/18 12:30 Cozaar PO 100 mg QDAY SAMUEL Administration Prazosin HCl 2 mg 10/22/18 22:00 10/22/18 21:05 Minipress PO 2 mg HS SAMUEL Administration Simple Syrup 15 ml 10/22/18 14:19 Simple Syrup FEEDTUBE PRN PRN Hypoglycemia Simple Syrup 30 ml 10/22/18 14:19 Simple Syrup FEEDTUBE PRN PRN Hypoglycemia Sodium Bicarbonate 325 mg 10/22/18 14:19 Sodium Bicarbonate FEEDTUBE PRN PRN For Clogged Feeding Tube
[2018-10-23] MEDS ORDERED: NACL 0.9% 100 ML IV PRN (08:51)
[2018-10-23] MEDS ORDERED: POTASSIUM CHLORIDE FEEDTUBE ONE (08:52)
[2018-10-23] MEDS ORDERED: PROCRIT SUB-Q ONE (09:00)
[2018-10-23] MEDS: HEPARIN SUB-Q SCH ×2 (13:16→23:17)
[2018-10-23] MEDS: CATAPRES PO SCH ×2 (13:17→23:19)
[2018-10-23] MEDS: COZAAR PO SCH (13:17)
[2018-10-23] MEDS ORDERED: NACL 0.9% 1000 ML 1,000 ML IV SCH (14:40)
[2018-10-23] MEDS ORDERED: NACL 0.9% 1000 ML 1,000 ML ONE (14:40)
[2018-10-23] MEDS ORDERED: NACL 0.9% 500 ML 500 ML IV ONE (15:00)
--- NOTE | 2018-10-23 15:02 | Progress Note ---
Assessment and Plan Assessment and plan: --Stage IV sacral decubitus ulcer; wound care surgeon has evaluated the patient surgical debridement today --Anemia; of chronic kidney disease Type and cross, transfused 1 unit PRBC during hemodialysis Hemoglobin remains low, additional unit of PRBC transfusion during dialysis --End-stage renal disease; requiring hemodialysis HD per schedule, nephrology following --Hypokalemia; replenish per protocol and monitor levels Management per nephrology --Sepsis; continue empiric antibiotics follow cultures --Urinary tract infection; continue empiric antibiotics, follow cultures --Lactic acidosis; probably secondary to UTI, levels improved --DVT prophylaxis; heparin renal dose History Interval history: Patient has no new complaints No new events reported by the nursing staff Scheduled for surgical debridement of sacral decubitus ulcer Vital signs reviewed Hospitalist Physical - Constitutional Vitals: Temp Pulse Resp BP Pulse Ox 99.3 F 122 H 16 151/63 100 10/23/18 13:48 10/23/18 13:48 10/23/18 13:48 10/23/18 13:48 10/23/18 08:33 General appearance: Present: mild distress, cachectic, other (chronically ill looking ) - EENT Eyes: Present: PERRL, EOM intact - Neck Neck: Present: supple, normal ROM - Respiratory Respiratory effort: normal Respiratory: negative: rales, rhonchi, wheezing - Cardiovascular Rhythm: regular Heart Sounds: Present: S1 & S2 - Extremities Extremities: no ischemia - Abdominal General gastrointestinal: soft, non-tender, non-distended, normal bowel sounds - Integumentary Integumentary: Present: clear, warm - Psychiatric Psychiatric: other (noncommunicative) - Neurologic Neurologic: other (noncommunicative) Results - Labs CBC & Chem 7: 10/23/18 08:14 10/23/18 05:23 Labs: Laboratory Last Values WBC 17.8 K/mm3 (4.5-11.0) H 10/22/18 05:11 RBC 2.55 M/mm3 (3.65-5.03) L 10/22/18 05:11 Hgb 6.8 gm/dl (11.8-15.2) L 10/23/18 08:14 POC Hgb 7.5 (12-17) L 10/23/18 14:33 Hct 22.0 % (35.5-45.6) L 10/23/18 08:14 POC Hct 22 (38-51) L 10/23/18 14:33 MCV 88 fl (84-94) 10/22/18 05:11 MCH 27 pg (28-32) L 10/22/18 05:11 MCHC 31 % (32-34) L 10/22/18 05:11 RDW 17.4 % (13.2-15.2) H 10/22/18 05:11 Plt Count 384 K/mm3 (140-440) 10/22/18 05:11 Lymph % (Auto) 13.0 % (13.4-35.0) L 10/21/18 18:27 [place] % (Auto) 7.3 % (0.0-7.3) 10/21/18 18:27 Eos % (Auto) 0.1 % (0.0-4.3) 10/21/18 18:27 Baso % (Auto) 0.1 % (0.0-1.8) 10/21/18 18:27 Lymph # 2.1 K/mm3 (1.2-5.4) 10/21/18 18:27 [place] # 1.2 K/mm3 (0.0-0.8) H 10/21/18 18:27 Eos # 0.0 K/mm3 (0.0-0.4) 10/21/18 18:27 Baso # 0.0 K/mm3 (0.0-0.1) 10/21/18 18:27 Seg Neutrophils % 79.5 % (40.0-70.0) H 10/21/18 18:27 Seg Neutrophils # 12.7 K/mm3 (1.8-7.7) H 10/21/18 18:27 PT 14.6 Sec. (12.2-14.9) 10/21/18 18:27 INR 1.10 (0.87-1.13) 10/21/18 18:27 POC ABG pH 7.493 (7.35-7.45) H 10/21/18 19:26 POC ABG pCO2 30.3 (35-45) L 10/21/18 19: POC ABG pO2 83 (80-105) 10/21/18 19: POC ABG HCO3 23.2 10/21/18 19:26 POC ABG Total CO2 24 10/21/18 19:26 POC ABG O2 Sat 97 10/21/18 19:26 POC ABG Base Excess 0 10/21/18 19:26 VBG pH 7.417 (7.320-7.420) 10/21/18 18:27 POC Sodium 142 mmol/L (138-146) 10/23/18 14:33 POC Potassium 3.6 (3.5-4.9) 10/23/18 14:33 POC Chloride 101 (98-109) 10/23/18 14:33 FiO2 21 % 10/21/18 19:26 Sodium 140 mmol/L (137-145) 10/23/18 05:23 Potassium 3.2 mmol/L (3.6-5.0) L 10/23/18 05:23 Chloride 102.7 mmol/L (98-107) 10/23/18 05:23 Carbon Dioxide 26 mmol/L (22-30) 10/23/18 05:23 Anion Gap 15 mmol/L 10/23/18 05:23 POC BUN 15 mg/dl (8-26) 10/23/18 14:33 BUN 35 mg/dL (9-20) H 10/23/18 05:23 Creatinine 2.3 mg/dL (0.8-1.5) H D 10/23/18 05:23 Estimated GFR 34 ml/min 10/23/18 05:23 BUN/Creatinine Ratio 15 % 10/23/18 05:23 Glucose 179 mg/dL (75-100) H 10/23/18 05:23 POC Glucose 169 (70-105) H 10/23/18 14:33 Lactic Acid 1.20 mmol/L (0.7-2.0) 10/21/18 20:20 Calcium 8.6 mg/dL (8.4-10.2) 10/23/18 05:23 Total Bilirubin 0.40 mg/dL (0.1-1.2) 10/21/18 18:27 Direct Bilirubin < 0.2 mg/dL (0-0.2) 10/21/18 18:27 Indirect Bilirubin 0.2 mg/dL 10/21/18 18:27 AST 14 units/L (5-40) 10/21/18 18:27 ALT 9 units/L (7-56) 10/21/18 18:27 Alkaline Phosphatase 95 units/L (35-129) 10/21/18 18:27 Total Protein 7.5 g/dL (6.3-8.2) 10/21/18 18:27 Albumin 2.5 g/dL (3.9-5) L 10/21/18 18:27 Albumin/Globulin Ratio 0.5 % 10/21/18 18:27 Urine Color Yellow (Yellow) 10/22/18 00:16 Urine Turbidity Turbid (Clear) 10/22/18 00:16 Urine pH 5.0 (5.0-7.0) 10/22/18 00:16 Ur Specific [place] 1.018 (1.003-1.030) 10/22/18 00:16 Urine Protein 100 mg/dl mg/dL (Negative) 10/22/18 00:16 Urine Glucose (UA) 150 mg/dL (Negative) 10/22/18 00:16 Urine Ketones Tr mg/dL (Negative) 10/22/18 00:16 Urine Blood Mod (Negative) 10/22/18 00:16 Urine Nitrite Neg (Negative) 10/22/18 00:16 Urine Bilirubin Neg (Negative) 10/22/18 00:16 Urine Urobilinogen 2.0 mg/dL (<2.0) 10/22/18 00:16 Ur Leukocyte Esterase Mod (Negative) 10/22/18 00:16 Urine WBC (Auto) > 182.0 /HPF (0.0-6.0) H 10/22/18 00:16 Urine RBC (Auto) > 182.0 /HPF (0.0-6.0) 10/22/18 00:16 U Epithel Cells (Auto) 5.0 /HPF (0-13.0) 10/22/18 00:16 Urine WBC Clumps 3+ /HPF 10/22/18 00:16 Urine Mucus 1+ /HPF 10/22/18 00:16 Random Vancomycin 14 ug/mL (0-40.0) 10/23/18 05:23 Blood Type A POSITIVE 10/21/18 18:27 Antibody Screen Negative 10/21/18 18:27 Crossmatch See Detail 10/21/18 18:27 Nutrition/Malnutrition Assess - Dietary Evaluation Nutrition/Malnutrition Findings: Nutrition Notes Start: 10/22/18 14:10 Freq: Status: Active Protocol: Document 10/22/18 14:10 SOPHIE (Rec: 10/22/18 14:19 SOPHIE [email or web address]) Nutrition Notes Need for 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 Burn Absent Trauma Absent GI Symptoms None Difficulty In Swallowing Food Allergy No Current % PO Negligible #1 Nutrition Diagnosis Increased nutrient needs ( specify in comment below) Comments: protein Etiology increased demands of wound healing As Evidenced by Signs and Symptoms pt with multiple decubitus ulcers Is patient on ventilator? No Is Patient Ambulatory and/or Out of Bed No REE-([facility]-confined to bed) 2034.020 Calculation Used for Recommendations [facility] Additional Notes Pro needs 1.2-1.4g/k- 129g/day Fluid needs 1-1.5L/day Nutrition Intervention Nutrition Support: Nepro at 50ml/hr. Provide 100ml water flush q4h. Kcal 2,160 Protein (gm) 97 Fluid (mL) 872 Goal #1 TF tolerance Goal #2 TF to meet >80% energy and pro needs Goal #3 Wound healing Anticipated Discharge Needs: Continue TF Follow-Up By: 10/24/18 Additional Comments F/U: new TF
[2018-10-23] MEDS ORDERED: ZEMURON IV ONE (15:53)
[2018-10-23] MEDS ORDERED: DILAUDID ONE (15:53)
[2018-10-23] MEDS ORDERED: XYLOCAINE MPF 2% ONE (15:53)
[2018-10-23] MEDS ORDERED: AMIDATE IV ONE (15:53)
--- NOTE | 2018-10-23 17:22 | Procedure Note ---
Date of procedure: 10/23/18 Pre-op diagnosis: Stage 4 sacral pressure ulcer Post-op diagnosis: same Procedure: Debridement of necrotic skin, SQ, muscle and fascia with final wound measurements 18 X 13 X 4 cm * Description of procedure: Pt was intubated supine on his stretcher. He was repositioned prone on the OR table. Lower back, buttocks and upper thighs were prepped and draped. Necrotic skin, SQ, muscle and pre-sacral fascia were surgically debrided with the Bovie and curved Diaz scissors. C&S of SQ pus was obtained. Hemostasis was obtained with the Bovie. Final wound measurements were as noted above. Wound was irrigated with warm saline. Wound was packed open with two dilute Betadine moistened Kerlix rolls followed by dry gauze and ABD's. The ABD's were secured with tape and mesh underwear placed. Pt tolerated the procedure well. He was extubated in the OR and was taken to PACU in stabl condition. Anesthesia: GETA Surgeon: DAVE VILLARREAL Estimated blood loss: 50-100ml Pathology: list (C&S) Specimen disposition: to lab Condition: stable Disposition: PACU
[2018-10-23] MEDS ORDERED: VANCOMYCIN/NS 1 GM/250 ML 1 GM/250 ML BAG IV SCH (18:00)
[2018-10-23] MEDS ORDERED: VANCOMYCIN/NS 1 GM/250 ML 1 GM/250 ML BAG IV ONE (18:00)
[2018-10-23] MEDS ORDERED: SUBLIMAZE ONE (18:22)
--- NOTE | 2018-10-23 18:25 | Anesthesia Day of Surgery ---
Anesthesia Day of Surgery - Day of Surgery Patient Examined: Yes Patient H&P Reviewed: Yes Patient is NPO: Yes
--- NOTE | 2018-10-23 18:25 | Post Anesthesia Evaluation ---
- Post Anesthesia Evaluation Patient Participated: Yes Airway Patent: Yes Stable Respiratory Function: Yes Nausea/Vomiting: No Temp > 96.8F: Yes Pain Manageable: Yes Adequeate Hydration: Yes Anesthesia Complications: No
[2018-10-23] MEDS ORDERED: SUBLIMAZE IV ONE (18:56)
[2018-10-23] MEDS ORDERED: XOPENEX IH ONE ×2 (20:00→20:14)
--- NOTE | 2018-10-23 21:51 | Event Note ---
Date: 10/23/18 Patient in PACU on ventilator with minimal support for >1hr. Awake, apparently at baseline mentation. Patient extubated at 1999. Initially experienced desaturation and tachycardia which was attributed to poor cough and increased secretions. Assisted breathing with AMBU and suctioned airway resulting in prompt return to SpO2 100%. Administered levalbuterol neb and transitioned to NC 2L (baseline O2 requirement). Stable respiratory status at time of transfer to floor.
[2018-10-23] MEDS ORDERED: LEVAQUIN 500MG/100ML 500 MG/100 ML BAG IV SCH (22:00)
[2018-10-23] MEDS: MINIPRESS PO SCH (23:17)
[2018-10-23] MEDS: LANTUS SUB-Q SCH (23:18)
[2018-10-24] MEDS ORDERED: NACL 0.9% 500 ML 500 ML IV ONE (03:00)
[2018-10-24] MEDS: APRESOLINE PO SCH ×3 (06:18→22:39)
[2018-10-24] MEDS: ZOSYN/NS 2.25 GM/50ML 2.25 GM/50 ML BAG IV SCH ×3 (06:27→22:40)
[2018-10-24] MEDS: HumuLIN R SUB-Q SCH ×5 (06:27→23:10)
--- NOTE | 2018-10-24 09:33 | Progress Note ---
Subjective Interval history: Patient was seen today for follow-up on multiple renal related issues Events of this hospitalization noted Interdisciplinary notes were reviewed Resting comfortably Remains encephalopathic On dialysis Sunday Vitals labs intake output medications were reviewed Social history: Reviewed Allergies: Reviewed Family history: Reviewed Physical examination HEENT: Oral mucosa moist no pallor or icterus Neck: Supple no JVD Chest: Clear to auscultation anteriorly Central venous catheter: Present right upper chest CVS: Regular rate and rhythm S1 and S2 heard Abdomen: Soft nontender no suprapubic masses no organomegaly appreciable Extremity: Dry skin less than 1+ peripheral edema Musculoskeletal: No joint effusion noted in knees and ankle Neurological: Alert awake Dermatology: No petechial rashes Psychiatry: Encephalopathic Assessment and plan; End-stage renal disease patient will continue to be on hemodialysis on Sunday and Sunday, he is not in the best of his health and will be prone to problems during dialysis this has been discussed with patient's who wants to continue with full care for now Will dialyze only as tolerated Blood pressure has been on the low normal side 105/51 heart rate 113, would like to reduce hydralazine to 50 mg 3 times a day Status post debridement Encephalopathy: Multifactorial chronic Anemia in end-stage renal disease some resulting from blood loss last hemoglobin is 6.8 which was 6.9 yesterday and 7.7 on October 21 patient does need a follow-up Hypokalemia 3.2 yesterday will need a follow-up lab Continue to monitor lab replace potassium We'll continue to follow and make recommendation from renal standpoint Objective - Vital Signs Vital signs: Vital Signs - 12hr 10/23/18 10/23/18 10/23/18 22:00 23:17 23:58 Temperature 99.2 F Pulse Rate 117 H Pulse Rate [ 91 H Right Brachial] Respiratory Rate Blood Pressure 145/77 Blood Pressure [Left] O2 Sat by Pulse 100 Oximetry 10/24/18 10/24/18 10/24/18 02:00 02:54 03:22 Temperature 100.2 F H 101.0 F H Pulse Rate 115 H 111 H Pulse Rate [ Right Brachial] Respiratory 20 26 H Rate Blood Pressure 113/59 109/64 Blood Pressure 108/50 [Left] O2 Sat by Pulse 99 Oximetry 10/24/18 10/24/18 10/24/18 03:23 03:29 03:30 Temperature 100.5 F H Pulse Rate 121 H 59 L 117 H Pulse Rate [ Right Brachial] Respiratory 26 H Rate Blood Pressure Blood Pressure [Left] O2 Sat by Pulse 99 100 100 Oximetry 10/24/18 10/24/18 10/24/18 03:31 03:55 03:56 Temperature 100 F H Pulse Rate 118 H 114 H 114 H Pulse Rate [ Right Brachial] Respiratory 26 H Rate Blood Pressure 134/65 Blood Pressure [Left] O2 Sat by Pulse 100 100 100 Oximetry 10/24/18 10/24/18 10/24/18 03:57 04:21 05:24 Temperature 100.1 F H 99.8 F H Pulse Rate 113 H 108 H Pulse Rate [ Right Brachial] Respiratory Rate Blood Pressure 144/64 147/60 Blood Pressure [Left] O2 Sat by Pulse 100 98 Oximetry 10/24/18 10/24/18 10/24/18 05:27 05:39 07:51 Temperature 99.1 F 98.8 F 98.1 F Pulse Rate 91 H 113 H Pulse Rate [ Right Brachial] Respiratory 24 18 Rate Blood Pressure 108/44 102/42 105/51 Blood Pressure [Left] O2 Sat by Pulse 100 100 Oximetry - Lab 10/23/18 08:14 10/23/18 05:23 Most recent lab results Calcium 8.6 mg/dL (8.4-10.2) 10/23/18 05:23 Medications & Allergies - Medications Allergies/Adverse Reactions: Allergies No Known Allergies Allergy (Verified 08/20/18 12:20) Home Medications: Home Medications Medication Instructions Recorded Confirmed Last Taken Type Prazosin [Minipress] 2 mg PO HS #60 capsule 08/07/18 10/21/18 10/20/18 Rx Insulin Glargine [Lantus VIAL] 40 units SUB-Q QHS 10/21/18 10/21/18 10/20/18 History Losartan [Cozaar] 100 mg PO QDAY 10/21/18 10/21/18 10/20/18 History cloNIDine [Catapres] 0.2 mg PO TID 10/21/18 10/21/18 10/21/18 History hydrALAZINE [Apresoline TAB] 100 mg PO Q8H 10/21/18 10/21/18 10/21/18 History Active Medications: Generic Name Dose Route Start Last Admin Trade Name Freq PRN Reason Stop Dose Admin Acetaminophen 650 mg 10/21/18 22:00 10/24/18 03:07 Tylenol PO 650 mg Q4H PRN Administration Fever >101 Lipase/Protease/Amylase 1 each 10/22/18 14:19 [place] Cat 10,500 Unit FEEDTUBE PRN PRN For Clogged Feeding Tube Clonidine HCl 0.2 mg 10/22/18 14:00 10/23/18 23:19 Catapres PO Not Given TID SAMUEL Dextrose 50 ml 10/21/18 21:53 D50w (25gm) Syringe IV PRN PRN Hypoglycemia Guaifenesin 200 mg 10/21/18 21:56 Robitussin PO Q4H PRN Cough Heparin Sodium (Porcine) 5,000 unit 10/21/18 22:00 10/23/18 23:17 Heparin SUB-Q 5,000 unit Q12HR SAMUEL Administration Hydralazine HCl 100 mg 10/22/18 10:00 10/24/18 06:18 Apresoline PO Not Given Q8HR SAMUEL Piperacillin Sod/Tazobactam Sod 2.25 gm in 50 mls @ 100 mls/hr 10/22/18 14:00 10/24/18 06:27 Zosyn/Ns 2.25 Gm/50ml IV 100 mls/hr Q8HR SAMUEL Administration Levofloxacin/Dextrose 500 mg in 100 mls @ 100 mls/hr 10/23/18 22:00 10/23/18 23:17 Levaquin 500mg/100ml IV 100 mls/hr Q48HR@2200 SAMUEL Administration Sodium Chloride 100 mls @ 999 mls/hr 10/23/18 08:51 Nacl 0.9% IV DIMPLE PRN Hypotension Vancomycin HCl 1 gm in 250 mls @ 167.007 mls/hr 10/24/18 10:00 Vancomycin/Ns 1 Gm/250 Ml IV 10/24/18 11:29 ONCE ONE Insulin Glargine 40 units 10/22/18 22:00 10/23/18 23:18 Lantus SUB-Q 40 units QHS SAMUEL Administration Insulin Human Regular 0 units 10/22/18 00:00 10/24/18 06:27 Humulin R SUB-Q 3 units Q6HR SAMUEL Administration Protocol Losartan Potassium 100 mg 10/22/18 10:30 10/23/18 13:17 Cozaar PO Not Given QDAY SAMUEL Prazosin HCl 2 mg 10/22/18 22:00 10/23/18 23:17 Minipress PO 2 mg HS SAMUEL Administration Simple Syrup 15 ml 10/22/18 14:19 Simple Syrup FEEDTUBE PRN PRN Hypoglycemia Simple Syrup 30 ml 10/22/18 14:19 Simple Syrup FEEDTUBE PRN PRN Hypoglycemia Sodium Bicarbonate 325 mg 10/22/18 14:19 Sodium Bicarbonate FEEDTUBE PRN PRN For Clogged Feeding Tube
[2018-10-24] MEDS ORDERED: APRESOLINE PO SCH (09:35)
[2018-10-24] MEDS ORDERED: VANCOMYCIN/NS 1 GM/250 ML 1 GM/250 ML BAG IV ONE (10:00)
[2018-10-24 10:44] LABS: Basophils % (Auto) 0.2 % (0.0-1.8); Eosinophils % (Auto) 0.2 % (0.0-4.3); Hematocrit 24.1 % (35.5-45.6); Hemoglobin 7.5 gm/dl (11.8-15.2); Lymphocytes # (Auto) 1.7 K/mm3 (1.2-5.4); Lymphocytes % (Auto) 14.6 % (13.4-35.0); Mean Corpuscular HGB Conc 31 % (32-34); Mean Corpuscular Volume 88 fl (84-94); Monocytes # (Auto) 0.9 K/mm3 (0.0-0.8); Monocytes % (Auto) 7.4 % (0.0-7.3); Platelet Count 331 K/mm3 (140-440); Red Blood Count 2.73 M/mm3 (3.65-5.03)
--- NOTE | 2018-10-24 10:59 | Progress Note ---
Assessment and Plan - Patient Problems (1) Pressure ulcer of sacral region, stage 4 Current Visit: Yes Status: Acute Plan to address problem: 1) I will talk to the pt's re: a diverting colostomy. I believe this would be helpful re wound healing. 2) Place a wound vac 3) Pt can be discharged from my perspective. He can f[facility]u in [facility]. 4) He should off load his sacral area at all times. 5) Continue intense nutritional support. Subjective Date of service: 10/24/18 Patient Reports: Positive: no new complaints Objective Vital Signs - 12hr 10/23/18 10/23/18 10/24/18 23:17 23:58 02:00 Temperature 99.2 F 100.2 F H Pulse Rate 117 H 115 H Respiratory 20 Rate Blood Pressure 145/77 Blood Pressure 108/50 [Left] O2 Sat by Pulse 99 Oximetry 10/24/18 10/24/18 10/24/18 02:54 03:22 03:23 Temperature 101.0 F H 100.5 F H Pulse Rate 111 H 121 H Respiratory 26 H 26 H Rate Blood Pressure 113/59 109/64 Blood Pressure [Left] O2 Sat by Pulse 99 Oximetry 10/24/18 10/24/18 10/24/18 03:29 03:30 03:31 Temperature 100 F H Pulse Rate 59 L 117 H 118 H Respiratory 26 H Rate Blood Pressure 134/65 Blood Pressure [Left] O2 Sat by Pulse 100 100 100 Oximetry 10/24/18 10/24/18 10/24/18 03:55 03:56 03:57 Temperature 100.1 F H Pulse Rate 114 H 114 H Respiratory Rate Blood Pressure 144/64 Blood Pressure [Left] O2 Sat by Pulse 100 100 Oximetry 10/24/18 10/24/18 10/24/18 04:21 05:24 05:27 Temperature 99.8 F H 99.1 F Pulse Rate 113 H 108 H Respiratory Rate Blood Pressure 147/60 108/44 Blood Pressure [Left] O2 Sat by Pulse 100 98 Oximetry 10/24/18 10/24/18 05:39 07:51 Temperature 98.8 F 98.1 F Pulse Rate 91 H 113 H Respiratory 24 18 Rate Blood Pressure 102/42 105/51 Blood Pressure [Left] O2 Sat by Pulse 100 100 Oximetry - Labs 10/24/18 09:31 10/23/18 05:23
[2018-10-24 11:04] LABS: Albumin 1.9 g/dL (3.9-5); Calcium 8.4 mg/dL (8.4-10.2)
[2018-10-24] MEDS ORDERED: PANCREAZE DR 10,500 UNIT FEEDTUBE PRN (11:15)
[2018-10-24] MEDS ORDERED: SIMPLE SYRUP FEEDTUBE PRN ×2 (11:15)
[2018-10-24] MEDS ORDERED: SODIUM BICARBONATE FEEDTUBE PRN (11:15)
[2018-10-24] MEDS: COZAAR PO SCH (11:21)
[2018-10-24] MEDS: HEPARIN SUB-Q SCH ×2 (11:22→22:38)
[2018-10-24] MEDS: CATAPRES PO SCH ×4 (11:28→22:47)
--- NOTE | 2018-10-24 12:45 | Progress Note ---
Assessment and Plan Assessment and plan: --Stage IV sacral decubitus ulcer; s/p surgical debridement, continue wound care Surgery recommended wound VAC, antibiotics, outpatient wound care upon discharge --Anemia; of chronic kidney disease Status post 2 units PRBC transfusion, Hb 7.5 additional unit of PRBC transfusion as needed during dialysis --End-stage renal disease; requiring hemodialysis HD per schedule, nephrology following --Hypokalemia; replenish per protocol and monitor levels Management per nephrology --Sepsis; positive cultures probably contamination Repeat blood cultures, consider thyroid evaluation if needed --Urinary tract infection; continue empiric antibiotics, follow cultures --Lactic acidosis; probably secondary to UTI, levels improved --DVT prophylaxis; heparin renal dose History Interval history: Patient seen and exam and medical records reviewed Patient feels better no new complaints Underwent extensive surgical debridement of sacral decubitus ulcers yesterday Vital signs noted Hospitalist Physical - Constitutional Vitals: Temp Pulse Resp BP Pulse Ox 98.1 F 94 H 18 100/52 100 10/24/18 07:51 10/24/18 11:21 10/24/18 07:51 10/24/18 11:28 10/24/18 07:51 General appearance: Present: mild distress, cachectic, other (chronically ill looking ) - EENT Eyes: Present: PERRL, EOM intact - Neck Neck: Present: supple, normal ROM - Respiratory Respiratory effort: normal Respiratory: bilateral: diminished, negative: rales, rhonchi, wheezing - Cardiovascular Rhythm: regular Heart Sounds: Present: S1 & S2 - Extremities Extremities: no ischemia, pulses intact - Abdominal General gastrointestinal: soft, non-tender, non-distended, normal bowel sounds - Integumentary Integumentary: Present: clear, warm - Psychiatric Psychiatric: other (minimally communicate if) - Neurologic Neurologic: other (minimally communicative) Results - Labs CBC & Chem 7: 10/24/18 09:31 10/24/18 12:07 Labs: Laboratory Last Values WBC 11.8 K/mm3 (4.5-11.0) H 10/24/18 09:31 RBC 2.73 M/mm3 (3.65-5.03) L 10/24/18 09:31 Hgb 7.5 gm/dl (11.8-15.2) L 10/24/18 09:31 POC Hgb 7.5 (12-17) L 10/23/18 14:33 Hct 24.1 % (35.5-45.6) L 10/24/18 09:31 POC Hct 22 (38-51) L 10/23/18 14:33 MCV 88 fl (84-94) 10/24/18 09:31 MCH 27 pg (28-32) L 10/24/18 09:31 MCHC 31 % (32-34) L 10/24/18 09:31 RDW 17.0 % (13.2-15.2) H 10/24/18 09:31 Plt Count 331 K/mm3 (140-440) 10/24/18 09:31 Lymph % (Auto) 14.6 % (13.4-35.0) 10/24/18 09:31 [place] % (Auto) 7.4 % (0.0-7.3) H 10/24/18 09:31 Eos % (Auto) 0.2 % (0.0-4.3) 10/24/18 09:31 Baso % (Auto) 0.2 % (0.0-1.8) 10/24/18 09:31 Lymph # 1.7 K/mm3 (1.2-5.4) 10/24/18 09:31 [place] # 0.9 K/mm3 (0.0-0.8) H 10/24/18 09:31 Eos # 0.0 K/mm3 (0.0-0.4) 10/24/18 09:31 Baso # 0.0 K/mm3 (0.0-0.1) 10/24/18 09:31 Seg Neutrophils % 77.6 % (40.0-70.0) H 10/24/18 09:31 Seg Neutrophils # 9.1 K/mm3 (1.8-7.7) H 10/24/18 09:31 PT 14.6 Sec. (12.2-14.9) 10/21/18 18:27 INR 1.10 (0.87-1.13) 10/21/18 18:27 POC ABG pH 7.493 (7.35-7.45) H 10/21/18 19:26 POC ABG pCO2 30.3 (35-45) L 10/21/18 19:26 POC ABG pO2 83 (80-105) 10/21/18 19:26 POC ABG HCO3 23.2 10/21/18 19:26 POC ABG Total CO2 24 10/21/18 19:26 POC ABG O2 Sat 97 10/21/18 19:26 POC ABG Base Excess 0 10/21/18 19:26 VBG pH 7.417 (7.320-7.420) 10/21/18 18:27 POC Sodium 142 mmol/L (138-146) 10/23/18 14:33 POC Potassium 3.6 (3.5-4.9) 10/23/18 14:33 POC Chloride 101 (98-109) 10/23/18 14:33 FiO2 21 % 10/21/18 19:26 Sodium 142 mmol/L (137-145) 10/24/18 09:31 Potassium 3.3 mmol/L (3.6-5.0) L 10/24/18 09:31 Chloride 104.6 mmol/L (98-107) 10/24/18 09:31 Carbon Dioxide 26 mmol/L (22-30) 10/24/18 09:31 Anion Gap 15 mmol/L 10/24/18 09:31 POC BUN 15 mg/dl (8-26) 10/23/18 14:33 BUN 24 mg/dL (9-20) H 10/24/18 09:31 Creatinine 2.6 mg/dL (0.8-1.5) H 10/24/18 09:31 Estimated GFR 30 ml/min 10/24/18 09:31 BUN/Creatinine Ratio 9 % 10/24/18 09:31 Glucose 213 mg/dL (75-100) H 10/24/18 09:31 POC Glucose 270 (70-105) H 10/24/18 06:01 Lactic Acid 1.20 mmol/L (0.7-2.0) 10/21/18 20:20 Calcium 8.4 mg/dL (8.4-10.2) 10/24/18 09:31 Phosphorus 2.00 mg/dL (2.5-4.5) L 10/24/18 09:31 Magnesium 1.80 mg/dL (1.7-2.3) 10/24/18 09:31 Total Bilirubin 0.70 mg/dL (0.1-1.2) 10/24/18 09:31 Direct Bilirubin < 0.2 mg/dL (0-0.2) 10/21/18 18:27 Indirect Bilirubin 0.2 mg/dL 10/21/18 18:27 AST 12 units/L (5-40) 10/24/18 09:31 ALT 7 units/L (7-56) 10/24/18 09:31 Alkaline Phosphatase 68 units/L (35-129) 10/24/18 09:31 Total Protein 6.0 g/dL (6.3-8.2) L 10/24/18 09:31 Albumin 1.9 g/dL (3.9-5) L 10/24/18 09:31 Albumin/Globulin Ratio 0.5 % 10/24/18 09:31 Urine Color Yellow (Yellow) 10/22/18 00:16 Urine Turbidity Turbid (Clear) 10/22/18 00:16 Urine pH 5.0 (5.0-7.0) 10/22/18 00:16 Ur Specific [place] 1.018 (1.003-1.030) 10/22/18 00:16 Urine Protein 100 mg/dl mg/dL (Negative) 10/22/18 00:16 Urine Glucose (UA) 150 mg/dL (Negative) 10/22/18 00:16 Urine Ketones Tr mg/dL (Negative) 10/22/18 00:16 Urine Blood Mod (Negative) 10/22/18 00:16 Urine Nitrite Neg (Negative) 10/22/18 00:16 Urine Bilirubin Neg (Negative) 10/22/18 00:16 Urine Urobilinogen 2.0 mg/dL (<2.0) 10/22/18 00:16 Ur Leukocyte Esterase Mod (Negative) 10/22/18 00:16 Urine WBC (Auto) > 182.0 /HPF (0.0-6.0) H 10/22/18 00:16 Urine RBC (Auto) > 182.0 /HPF (0.0-6.0) 10/22/18 00:16 U Epithel Cells (Auto) 5.0 /HPF (0-13.0) 10/22/18 00:16 Urine WBC Clumps 3+ /HPF 10/22/18 00:16 Urine Mucus 1+ /HPF 10/22/18 00:16 Random Vancomycin 14 ug/mL (0-40.0) 10/23/18 05:23 Blood Type A POSITIVE 10/21/18 18:27 Antibody Screen Negative 10/21/18 18:27 Crossmatch See Detail 10/21/18 18:27 Nutrition/Malnutrition Assess - Dietary Evaluation Nutrition/Malnutrition Findings: Nutrition Notes Start: 10/22/18 14:10 Freq: Status: Active Protocol: Document 10/22/18 14:10 SOPHIE (Rec: 10/22/18 14:19 SOPHIE [email or web address]) Nutrition Notes Need for Assessment generated from: MD Order right of way clearer Initial or Follow up Assessment Current Diagnosis CKD (stage V CKD) Decubitus(Pressure Ulcer) Diabetes Sepsis Hypertension Hyperlipidemia Other Pertinent Diagnosis Anemia, UTI Current Diet No diet ordered Labs/Tests Reviewed Pertinent Medications Reviewed Height 5 ft 10 in Weight 92 kg [place] Body Weight (lbs) 166.0 BMI 29.0 Weight Status Overweight Subjective/Other Information RD consulted for TF; pt also screened for chewing difficulty, skin risk (Chao score: 11), and hx of receiving NTR support. Burn Absent Trauma Absent GI Symptoms None Difficulty In Swallowing Food Allergy No Current % PO Negligible #1 Nutrition Diagnosis Increased nutrient needs ( specify in comment below) Comments: protein Etiology increased demands of wound healing As Evidenced by Signs and Symptoms pt with multiple decubitus ulcers Is patient on ventilator? No Is Patient Ambulatory and/or Out of Bed No REE-([facility]-confined to bed) 2034.020 Calculation Used for Recommendations [facility] Additional Notes Pro needs 1.2-1.4g/k- 129g/day Fluid needs 1-1.5L/day Nutrition Intervention Nutrition Support: Nepro at 50ml/hr. Provide 100ml water flush q4h. Kcal 2,160 Protein (gm) 97 Fluid (mL) 872 Goal #1 TF tolerance Goal #2 TF to meet >80% energy and pro needs Goal #3 Wound healing Anticipated Discharge Needs: Continue TF Follow-Up By: 10/24/18 Additional Comments F/U: new TF
[2018-10-24 12:53] LABS: Calcium 8.4 mg/dL (8.4-10.2)
[2018-10-24] MEDS ORDERED: K-DUR PO ONE (13:00)
[2018-10-24] MEDS ORDERED: POTASSIUM CHLORIDE PO ONE (16:00)
[2018-10-24] MEDS: MINIPRESS PO SCH (22:37)
[2018-10-24] MEDS: LANTUS SUB-Q SCH (23:11)
[2018-10-25] MEDS: APRESOLINE PO SCH ×3 (05:54→21:33)
[2018-10-25] MEDS: ZOSYN/NS 2.25 GM/50ML 2.25 GM/50 ML BAG IV SCH ×3 (05:56→21:56)
[2018-10-25] MEDS: HumuLIN R SUB-Q SCH ×4 (06:40→18:11)
[2018-10-25] MEDS: CATAPRES PO SCH ×3 (08:50→20:45)
--- NOTE | 2018-10-25 08:51 | Progress Note ---
Subjective Interval history: Patient was seen today for follow-up on multiple renal related issues on hemodialysis Sunday No significant change in status Remains encephalopathic Vitals labs intake output medications were reviewed Social history: Reviewed Allergies: Reviewed Family history: Reviewed Physical examination HEENT: Oral mucosa moist no pallor or icterus Neck: Supple no JVD Chest: Clear to auscultation anteriorly Central venous catheter: Present right upper chest CVS: Regular rate and rhythm S1 and S2 heard Abdomen: Soft nontender no suprapubic masses no organomegaly appreciable Extremity: Dry skin less than 1+ peripheral edema Musculoskeletal: No joint effusion noted in knees and ankle Neurological: Alert awake Dermatology: No petechial rashes Psychiatry: Encephalopathic Assessment and plan; End-stage renal disease patient will continue to be on hemodialysis on Sunday and Sunday overall health has been very poor, prognosis is very poor Current hemoglobin 6.6, multi-factorial, potassium currently better 3.8 May require packed red blood cell transfusion Chronic indwelling Avila catheter Continue with supportive care Hypertension volume continue to monitor Encephalopathy: Multifactorial chronic Hypokalemia 3.2 yesterday will need a follow-up lab Continue to monitor lab replace potassium We'll continue to follow and make recommendation from renal standpoint Objective - Vital Signs Vital signs: Vital Signs - 12hr 10/24/18 10/24/18 10/25/18 22:00 22:37 02:00 Temperature 98.3 F Pulse Rate 91 H 93 H Pulse Rate [ 93 H Right Brachial] Respiratory 20 20 Rate Blood Pressure 127/53 Blood Pressure 133/65 [Left] O2 Sat by Pulse 100 100 Oximetry 10/25/18 10/25/18 10/25/18 05:54 07:41 08:00 Temperature 98.0 F Pulse Rate 129 H 72 Pulse Rate [ Right Brachial] Respiratory 20 Rate Blood Pressure 134/68 148/78 Blood Pressure [Left] O2 Sat by Pulse 100 100 100 Oximetry - Lab 10/25/18 09:50 10/25/18 09:50 Most recent lab results Calcium 8.4 mg/dL (8.4-10.2) 10/24/18 12:07 Phosphorus 2.00 mg/dL (2.5-4.5) L 10/24/18 09:31 Magnesium 1.80 mg/dL (1.7-2.3) 10/24/18 09:31 Medications & Allergies - Medications Allergies/Adverse Reactions: Allergies No Known Allergies Allergy (Verified 08/20/18 12:20) Home Medications: Home Medications Medication Instructions Recorded Confirmed Last Taken Type Prazosin [Minipress] 2 mg PO HS #60 capsule 08/07/18 10/21/18 10/20/18 Rx Insulin Glargine [Lantus VIAL] 40 units SUB-Q QHS 10/21/18 10/21/18 10/20/18 History Losartan [Cozaar] 100 mg PO QDAY 10/21/18 10/21/18 10/20/18 History cloNIDine [Catapres] 0.2 mg PO TID 10/21/18 10/21/18 10/21/18 History hydrALAZINE [Apresoline TAB] 100 mg PO Q8H 10/21/18 10/21/18 10/21/18 History Active Medications: Generic Name Dose Route Start Last Admin Trade Name Freq PRN Reason Stop Dose Admin Acetaminophen 650 mg 10/21/18 22:00 10/24/18 03:07 Tylenol PO 650 mg Q4H PRN Administration Fever >101 Lipase/Protease/Amylase 1 each 10/24/18 11:[address] 10,500 Unit FEEDTUBE PRN PRN For Clogged Feeding Tube Clonidine HCl 0.2 mg 10/22/18 14:00 10/24/18 22:47 Catapres PO 0.2 mg TID SAMUEL Administration Dextrose 50 ml 10/21/18 21:53 D50w (25gm) Syringe IV PRN PRN Hypoglycemia Guaifenesin 200 mg 10/21/18 21:56 Robitussin PO Q4H PRN Cough Heparin Sodium (Porcine) 5,000 unit 10/21/18 22:00 10/24/18 22:38 Heparin SUB-Q 5,000 unit Q12HR SAMUEL Administration Hydralazine HCl 50 mg 10/24/18 14:00 10/25/18 05:54 Apresoline PO 50 mg Q8HR SAMUEL Administration Piperacillin Sod/Tazobactam Sod 2.25 gm in 50 mls @ 100 mls/hr 10/22/18 14:00 10/25/18 05:56 Zosyn/Ns 2.25 Gm/50ml IV 100 mls/hr Q8HR SAMUEL Administration Levofloxacin/Dextrose 500 mg in 100 mls @ 100 mls/hr 10/23/18 22:00 10/23/18 23:17 Levaquin 500mg/100ml IV 100 mls/hr Q48HR@2200 SAMUEL Administration Sodium Chloride 100 mls @ 999 mls/hr 10/23/18 08:51 Nacl 0.9% IV DIMPLE PRN Hypotension Insulin Glargine 40 units 10/22/18 22:00 10/24/18 23:11 Lantus SUB-Q 40 units QHS SAMUEL Administration Insulin Human Regular 0 units 10/22/18 00:00 10/25/18 06:42 Humulin R SUB-Q 2 units Q6HR SAMUEL Administration Protocol Losartan Potassium 100 mg 10/22/18 10:30 10/24/18 11:21 Cozaar PO 100 mg QDAY SAMUEL Administration Prazosin HCl 2 mg 10/22/18 22:00 10/24/18 22:37 Minipress PO 2 mg HS SAMUEL Administration Simple Syrup 15 ml 10/24/18 11:15 Simple Syrup FEEDTUBE PRN PRN Hypoglycemia Simple Syrup 30 ml 10/24/18 11:15 Simple Syrup FEEDTUBE PRN PRN Hypoglycemia Sodium Bicarbonate 325 mg 10/24/18 11:15 Sodium Bicarbonate FEEDTUBE PRN PRN For Clogged Feeding Tube
[2018-10-25] MEDS: HEPARIN SUB-Q SCH ×2 (09:12→21:30)
[2018-10-25] MEDS: COZAAR PO SCH (09:17)
[2018-10-25 10:16] LABS: Basophils % (Auto) 0.3 % (0.0-1.8); Eosinophils # (Auto) 0.1 K/mm3 (0.0-0.4); Eosinophils % (Auto) 1.1 % (0.0-4.3); Hematocrit 20.8 % (35.5-45.6); Hemoglobin 6.6 gm/dl (11.8-15.2); Lymphocytes # (Auto) 1.4 K/mm3 (1.2-5.4); Lymphocytes % (Auto) 15.3 % (13.4-35.0); Mean Corpuscular HGB Conc 32 % (32-34); Mean Corpuscular Volume 89 fl (84-94); Monocytes # (Auto) 0.5 K/mm3 (0.0-0.8); Monocytes % (Auto) 5.8 % (0.0-7.3); Platelet Count 316 K/mm3 (140-440); Red Blood Count 2.35 M/mm3 (3.65-5.03); Red Cell Distribution Width 16.6 % (13.2-15.2)
[2018-10-25 10:45] LABS: Calcium 8.3 mg/dL (8.4-10.2)
[2018-10-25] MEDS ORDERED: NACL 0.9 (PRIMING MACHINE ONLY DIALYSIS) MC ONE (11:27)
--- NOTE | 2018-10-25 12:01 | Progress Note ---
Assessment and Plan Assessment and plan: --Stage IV sacral decubitus ulcer; s/p surgical debridement, continue wound care Surgery recommended wound VAC, antibiotics, outpatient wound care upon discharge --Anemia; of chronic kidney disease Status post 2 units PRBC transfusion, Hb 7.5 additional unit of PRBC transfusion as needed during dialysis --End-stage renal disease; requiring hemodialysis HD per schedule, nephrology following --Hypokalemia; replenish per protocol and monitor levels Management per nephrology --Sepsis; positive cultures probably contamination Repeat blood cultures, consider thyroid evaluation if needed --Urinary tract infection; continue empiric antibiotics, follow cultures --Lactic acidosis; probably secondary to UTI, levels improved --DVT prophylaxis; heparin renal dose Discharge planning ; per Case management Home health services, wound care, wound VAC in plan of care reviewed with the patient's nurse patient's and the case management History Interval history: Patient seen and examined medical records reviewed patient is scheduled for hemodialysis today No new complaints, vital signs noted Awaiting wound VAC and to set up home health services Hospitalist Physical - Constitutional Vitals: Temp Pulse Resp BP Pulse Ox 98.3 F 86 18 171/87 100 10/25/18 09:30 10/25/18 11:45 10/25/18 09:30 10/25/18 11:45 10/25/18 08:00 General appearance: Present: no acute distress, well-nourished - EENT Eyes: Present: PERRL, EOM intact - Neck Neck: Present: supple, normal ROM - Respiratory Respiratory effort: normal Respiratory: bilateral: diminished, negative: rales, rhonchi, wheezing - Cardiovascular Rhythm: regular Heart Sounds: Present: S1 & S2 - Extremities Extremities: no ischemia - Abdominal General gastrointestinal: soft, non-tender, non-distended, normal bowel sounds - Integumentary Integumentary: Present: clear, warm - Psychiatric Psychiatric: appropriate mood/affect, other (minimally communicative ) - Neurologic Neurologic: other (residual weakness) Results - Labs CBC & Chem 7: 10/25/18 09:50 10/25/18 09:50 Labs: Laboratory Last Values WBC 8.8 K/mm3 (4.5-11.0) 10/25/18 09:50 RBC 2.35 M/mm3 (3.65-5.03) L 10/25/18 09:50 Hgb 6.6 gm/dl (11.8-15.2) L 10/25/18 09:50 POC Hgb 7.5 (12-17) L 10/23/18 14:33 Hct 20.8 % (35.5-45.6) L 10/25/18 09:50 POC Hct 22 (38-51) L 10/23/18 14:33 MCV 89 fl (84-94) 10/25/18 09:50 MCH 28 pg (28-32) 10/25/18 09:50 MCHC 32 % (32-34) 10/25/18 09:50 RDW 16.6 % (13.2-15.2) H 10/25/18 09:50 Plt Count 316 K/mm3 (140-440) 10/25/18 09:50 Lymph % (Auto) 15.3 % (13.4-35.0) 10/25/18 09:50 [place] % (Auto) 5.8 % (0.0-7.3) 10/25/18 09:50 Eos % (Auto) 1.1 % (0.0-4.3) 10/25/18 09:50 Baso % (Auto) 0.3 % (0.0-1.8) 10/25/18 09:50 Lymph # 1.4 K/mm3 (1.2-5.4) 10/25/18 09:50 [place] # 0.5 K/mm3 (0.0-0.8) 10/25/18 09:50 Eos # 0.1 K/mm3 (0.0-0.4) 10/25/18 09:50 Baso # 0.0 K/mm3 (0.0-0.1) 10/25/18 09:50 Seg Neutrophils % 77.5 % (40.0-70.0) H 10/25/18 09:50 Seg Neutrophils # 6.8 K/mm3 (1.8-7.7) 10/25/18 09:50 PT 14.6 Sec. (12.2-14.9) 10/21/18 18:27 INR 1.10 (0.87-1.13) 10/21/18 18:27 POC ABG pH 7.493 (7.35-7.45) H 10/21/18 19:26 POC ABG pCO2 30.3 (35-45) L 10/21/18 19:26 POC ABG pO2 83 (80-105) 10/21/18 19:26 POC ABG HCO3 23.2 10/21/18 19:26 POC ABG Total CO2 24 10/21/18 19:26 POC ABG O2 Sat 97 10/21/18 19:26 POC ABG Base Excess 0 10/21/18 19:26 VBG pH 7.417 (7.320-7.420) 10/21/18 18:27 POC Sodium 142 mmol/L (138-146) 10/23/18 14:33 POC Potassium 3.6 (3.5-4.9) 10/23/18 14:33 POC Chloride 101 (98-109) 10/23/18 14:33 FiO2 21 % 10/21/18 19:26 Sodium 142 mmol/L (137-145) 10/25/18 09:50 Potassium 3.8 mmol/L (3.6-5.0) 10/25/18 09:50 Chloride 105.9 mmol/L (98-107) 10/25/18 09:50 Carbon Dioxide 26 mmol/L (22-30) 10/25/18 09:50 Anion Gap 14 mmol/L 10/25/18 09:50 POC BUN 15 mg/dl (8-26) 10/23/18 14:33 BUN 31 mg/dL (9-20) H 10/25/18 09:50 Creatinine 2.9 mg/dL (0.8-1.5) H 10/25/18 09:50 Estimated GFR 26 ml/min 10/25/18 09:50 BUN/Creatinine Ratio 11 % 10/25/18 09:50 Glucose 170 mg/dL (75-100) H 10/25/18 09:50 POC Glucose 202 (70-105) H 10/25/18 06:33 Lactic Acid 1.20 mmol/L (0.7-2.0) 10/21/18 20:20 Calcium 8.3 mg/dL (8.4-10.2) L 10/25/18 09:50 Phosphorus 2.00 mg/dL (2.5-4.5) L 10/24/18 09:31 Magnesium 1.80 mg/dL (1.7-2.3) 10/24/18 09:31 Total Bilirubin 0.70 mg/dL (0.1-1.2) 10/24/18 09:31 Direct Bilirubin < 0.2 mg/dL (0-0.2) 10/21/18 18:27 Indirect Bilirubin 0.2 mg/dL 10/21/18 18:27 AST 12 units/L (5-40) 10/24/18 09:31 ALT 7 units/L (7-56) 10/24/18 09:31 Alkaline Phosphatase 68 units/L (35-129) 10/24/18 09:31 Total Protein 6.0 g/dL (6.3-8.2) L 10/24/18 09:31 Albumin 1.9 g/dL (3.9-5) L 10/24/18 09:31 Albumin/Globulin Ratio 0.5 % 10/24/18 09:31 Urine Color Yellow (Yellow) 10/22/18 00:16 Urine Turbidity Turbid (Clear) 10/22/18 00:16 Urine pH 5.0 (5.0-7.0) 10/22/18 00:16 Ur Specific [place] 1.018 (1.003-1.030) 10/22/18 00:16 Urine Protein 100 mg/dl mg/dL (Negative) 10/22/18 00:16 Urine Glucose (UA) 150 mg/dL (Negative) 10/22/18 00:16 Urine Ketones Tr mg/dL (Negative) 10/22/18 00:16 Urine Blood Mod (Negative) 10/22/18 00:16 Urine Nitrite Neg (Negative) 10/22/18 00:16 Urine Bilirubin Neg (Negative) 10/22/18 00:16 Urine Urobilinogen 2.0 mg/dL (<2.0) 10/22/18 00:16 Ur Leukocyte Esterase Mod (Negative) 10/22/18 00:16 Urine WBC (Auto) > 182.0 /HPF (0.0-6.0) H 10/22/18 00:16 Urine RBC (Auto) > 182.0 /HPF (0.0-6.0) 10/22/18 00:16 U Epithel Cells (Auto) 5.0 /HPF (0-13.0) 10/22/18 00:16 Urine WBC Clumps 3+ /HPF 10/22/18 00:16 Urine Mucus 1+ /HPF 10/22/18 00:16 Random Vancomycin 14 ug/mL (0-40.0) 10/23/18 05:23 Blood Type A POSITIVE 10/21/18 18:27 Antibody Screen Negative 10/21/18 18:27 Crossmatch See Detail 10/21/18 18:27 Nutrition/Malnutrition Assess - Dietary Evaluation Nutrition/Malnutrition Findings: Nutrition Notes Start: 10/22/18 14:10 Freq: Status: Active Protocol: Document 10/24/18 15:56 RM (Rec: 10/24/18 16:06 RM [id number]) Nutrition Notes Initial or Follow up Reassessment Current Diagnosis CKD (stage V CKD) Decubitus(Pressure Ulcer) Diabetes Sepsis Hypertension Hyperlipidemia Other Pertinent Diagnosis Anemia, UTI, on HD (M/W/F), Sacral ulcer Current Diet Nepro at 50 ml/hr Labs/Tests Reviewed Pertinent Medications Reviewed Height 5 ft 10 in Weight 92 kg [place] Body Weight (lbs) 166.0 BMI 29.0 Weight Status Overweight Subjective/Other Information Observed Nepro infusing at 50 ml/hr. Per nurse pt is tolerating TF. Percent of energy/protein needs met: 106%/88% Burn Absent Trauma Absent #1 Nutrition Diagnosis Increased nutrient needs ( specify in comment below) Diagnosis Progress(for reassessment Continues documentation) Is patient on ventilator? No Is Patient Ambulatory and/or Out of Bed No REE-([facility]-confined to bed) 2034.020 Calculation Used for Recommendations [facility] Additional Notes Pro needs 1.2-1.4g/k- 129g/day Fluid needs 1-1.5L/day Nutrition Intervention Nutrition Support: Nepro at 50ml/hr. Provide 100ml water flush q4h. Kcal 2,160 Protein (gm) 97 Fluid (mL) 872 Goal #1 Continue to meet at least 75% of calorie an protein needs via TF Goal #2 Wound healing Anticipated Discharge Needs: TF Follow-Up By: 10/31/18 Additional Comments Follow for TF tolerance
[2018-10-25] MEDS: VANCOMYCIN/NS 1 GM/250 ML 1 GM/250 ML BAG IV SCH (18:11)
[2018-10-25] MEDS: MINIPRESS PO SCH (21:32)
[2018-10-25] MEDS: LEVAQUIN PO SCH (21:32)
[2018-10-26] MEDS: LANTUS SUB-Q SCH
[2018-10-26] MEDS: HumuLIN R SUB-Q SCH ×7 (00:05→17:39)
[2018-10-26] MEDS: APRESOLINE PO SCH ×3 (06:10→21:17)
[2018-10-26] MEDS: ZOSYN/NS 2.25 GM/50ML 2.25 GM/50 ML BAG IV SCH ×3 (06:11→23:14)
[2018-10-26] MEDS: CATAPRES PO SCH ×3 (08:58→21:06)
[2018-10-26] MEDS: COZAAR PO SCH (08:59)
[2018-10-26] MEDS: HEPARIN SUB-Q SCH ×2 (09:00→21:37)
--- NOTE | 2018-10-26 14:51 | Progress Note ---
Assessment and Plan Assessment: * ESRD * Decubitus ulcer, stage 4 --s/p debridement, wound vac * Encephalopathy * Anemia in ESRD * Hypertension * Bladder mass Plan: * Continue dialysis on MWF schedule for now * UF as tolerated * Note surgery recommendation for a diverting colostomy * Epogen TIW prn * Transfuse pRBC per primary team * Avoid nephrotoxins Subjective Date of service: 10/26/18 Interval history: No acute events Objective - Vital Signs Vital signs: Vital Signs - 12hr 10/26/18 10/26/18 10/26/18 06:10 07:32 08:53 Temperature 98.5 F Pulse Rate 84 72 Pulse Rate [ From Monitor] Respiratory 20 Rate Blood Pressure 153/73 129/63 O2 Sat by Pulse 100 100 Oximetry 10/26/18 10/26/18 10/26/18 08:58 08:59 10:00 Temperature Pulse Rate 72 72 Pulse Rate [ 72 From Monitor] Respiratory 20 Rate Blood Pressure 129/63 129/63 O2 Sat by Pulse Oximetry 10/26/18 10/26/18 13:21 13:40 Temperature 98.7 F Pulse Rate 132 H 132 H Pulse Rate [ From Monitor] Respiratory 20 Rate Blood Pressure 162/74 164/72 O2 Sat by Pulse 100 Oximetry - General Appearance General appearance: well-developed EENT: ATNC Respiratory: Present: Clear to Ascultation Cardiology: regular, S1S2 Gastrointestinal: no tenderness, no distended Neurologic: other (nonverbal) Musculoskeletal: other (no edema) - Lab 10/25/18 09:50 10/25/18 09:50 Most recent lab results Calcium 8.3 mg/dL (8.4-10.2) L 10/25/18 09:50 Phosphorus 2.00 mg/dL (2.5-4.5) L 10/24/18 09:31 Magnesium 1.80 mg/dL (1.7-2.3) 10/24/18 09:31 Medications & Allergies - Medications Allergies/Adverse Reactions: Allergies No Known Allergies Allergy (Verified 08/20/18 12:20) Home Medications: Home Medications Medication Instructions Recorded Confirmed Last Taken Type Prazosin [Minipress] 2 mg PO HS #60 capsule 08/07/18 10/21/18 10/20/18 Rx Insulin Glargine [Lantus VIAL] 40 units SUB-Q QHS 10/21/18 10/21/18 10/20/18 History Losartan [Cozaar] 100 mg PO QDAY 10/21/18 10/21/18 10/20/18 History cloNIDine [Catapres] 0.2 mg PO TID 10/21/18 10/21/18 10/21/18 History hydrALAZINE [Apresoline TAB] 100 mg PO Q8H 10/21/18 10/21/18 10/21/18 History Active Medications: Generic Name Dose Route Start Last Admin Trade Name Freq PRN Reason Stop Dose Admin Acetaminophen 650 mg 10/21/18 22:00 10/24/18 03:07 Tylenol PO 650 mg Q4H PRN Administration Fever >101 Lipase/Protease/Amylase 1 each 10/24/18 11:15 Pancreaze 10,500 Unit FEEDTUBE PRN PRN For Clogged Feeding Tube Clonidine HCl 0.2 mg 10/22/18 14:00 10/26/18 13:40 Catapres PO 0.2 mg TID SAMUEL Administration Dextrose 50 ml 10/21/18 21:53 D50w (25gm) Syringe IV PRN PRN Hypoglycemia Guaifenesin 200 mg 10/21/18 21:56 Robitussin PO Q4H PRN Cough Heparin Sodium (Porcine) 5,000 unit 10/21/18 22:00 10/26/18 09:00 Heparin SUB-Q 5,000 unit Q12HR SAMUEL Administration Hydralazine HCl 50 mg 10/24/18 14:00 10/26/18 13:40 Apresoline PO 50 mg Q8HR SAMUEL Administration Piperacillin Sod/Tazobactam Sod 2.25 gm in 50 mls @ 100 mls/hr 10/22/18 14:00 10/26/18 14:02 Zosyn/Ns 2.25 Gm/50ml IV Infused Q8HR SAMUEL Infusion Sodium Chloride 100 mls @ 999 mls/hr 10/23/18 08:51 Nacl 0.9% IV DIMPLE PRN Hypotension Vancomycin HCl 1 gm in 250 mls @ 167.007 mls/hr 10/25/18 18:00 10/25/18 18:11 Vancomycin/Ns 1 Gm/250 Ml IV 167.007 mls/hr [id number]@1800 SAMUEL Administration Insulin Glargine 40 units 10/22/18 22:00 10/26/18 00:00 Lantus SUB-Q 40 units QHS SAMUEL Administration Insulin Human Regular 0 units 10/22/18 00:00 10/26/18 11:45 Humulin R SUB-Q Not Given Q6HR [facility] Protocol Levofloxacin 500 mg 10/25/18 22:00 10/25/18 21:32 Levaquin PO 500 mg Q48HR@2200 SAMUEL Administration Losartan Potassium 100 mg 10/22/18 10:30 10/26/18 08:59 Cozaar PO Not Given QDAY SAMUEL Prazosin HCl 2 mg 10/22/18 22:00 10/25/18 21:32 Minipress PO 2 mg HS SAMUEL Administration Simple Syrup 15 ml 10/24/18 11:15 Simple Syrup FEEDTUBE PRN PRN Hypoglycemia Simple Syrup 30 ml 10/24/18 11:15 Simple Syrup FEEDTUBE PRN PRN Hypoglycemia Sodium Bicarbonate 325 mg 10/24/18 11:15 Sodium Bicarbonate FEEDTUBE PRN PRN For Clogged Feeding Tube
--- NOTE | 2018-10-26 15:46 | Progress Note ---
Assessment and Plan Assessment and plan: --End-stage renal disease; requiring hemodialysis HD per schedule, nephrology following --Stage IV sacral decubitus ulcer; s/p surgical debridement, continue wound care Surgery recommended wound VAC, antibiotics, outpatient wound care upon discharge --Anemia; of chronic kidney disease Status post 2 units PRBC transfusion, Hb 7.5 additional unit of PRBC transfusion as needed during dialysis --Hypokalemia; replenish per protocol and monitor levels Management per nephrology --Sepsis; positive cultures probably contamination Repeat blood cultures, consider thyroid evaluation if needed --Urinary tract infection; continue empiric antibiotics, follow cultures --Lactic acidosis; probably secondary to UTI, levels improved --DVT prophylaxis; heparin renal dose Discharge planning ; per Case management Pending, Home health services, wound care, wound VAC plan of care reviewed with the patient's nurse Patient is medically stable for discharge History Interval history: Patient seen and examined medical records reviewed No new events reported by the nursing Patient is clinically stable for discharge Awaiting wound VAC, home health services, and wound care Patient alert and awake, minimally communicative Vital signs noted Hospitalist Physical - Constitutional Vitals: Temp Pulse Resp BP Pulse Ox 98.7 F 132 H 20 164/72 100 10/26/18 13:21 10/26/18 13:40 10/26/18 13:21 10/26/18 13:40 10/26/18 13:21 General appearance: Present: no acute distress, well-nourished - EENT Eyes: Present: PERRL, EOM intact - Neck Neck: Present: supple, normal ROM - Respiratory Respiratory effort: normal Respiratory: bilateral: diminished, negative: rales, rhonchi, wheezing - Cardiovascular Rhythm: regular Heart Sounds: Present: S1 & S2 - Extremities Extremities: no ischemia, No edema - Abdominal General gastrointestinal: soft, non-tender, non-distended, normal bowel sounds - Integumentary Integumentary: Present: clear, warm - Psychiatric Psychiatric: other (non communicative) - Neurologic Neurologic: other (noncommunicative) Results - Labs CBC & Chem 7: 10/25/18 09:50 10/25/18 09:50 Labs: Laboratory Last Values WBC 8.8 K/mm3 (4.5-11.0) 10/25/18 09:50 RBC 2.35 M/mm3 (3.65-5.03) L 10/25/18 09:50 Hgb 6.6 gm/dl (11.8-15.2) L 10/25/18 09:50 POC Hgb 7.5 (12-17) L 10/23/18 14:33 Hct 20.8 % (35.5-45.6) L 10/25/18 09:50 POC Hct 22 (38-51) L 10/23/18 14:33 MCV 89 fl (84-94) 10/25/18 09:50 MCH 28 pg (28-32) 10/25/18 09:50 MCHC 32 % (32-34) 10/25/18 09:50 RDW 16.6 % (13.2-15.2) H 10/25/18 09:50 Plt Count 316 K/mm3 (140-440) 10/25/18 09:50 Lymph % (Auto) 15.3 % (13.4-35.0) 10/25/18 09:50 [place] % (Auto) 5.8 % (0.0-7.3) 10/25/18 09:50 Eos % (Auto) 1.1 % (0.0-4.3) 10/25/18 09:50 Baso % (Auto) 0.3 % (0.0-1.8) 10/25/18 09:50 Lymph # 1.4 K/mm3 (1.2-5.4) 10/25/18 09:50 [place] # 0.5 K/mm3 (0.0-0.8) 10/25/18 09:50 Eos # 0.1 K/mm3 (0.0-0.4) 10/25/18 09:50 Baso # 0.0 K/mm3 (0.0-0.1) 10/25/18 09:50 Seg Neutrophils % 77.5 % (40.0-70.0) H 10/25/18 09:50 Seg Neutrophils # 6.8 K/mm3 (1.8-7.7) 10/25/18 09:50 PT 14.6 Sec. (12.2-14.9) 10/21/18 18:27 INR 1.10 (0.87-1.13) 10/21/18 18:27 POC ABG pH 7.493 (7.35-7.45) H 10/21/18 19:26 POC ABG pCO2 30.3 (35-45) L 10/21/18 19:26 POC ABG pO2 83 (80-105) 10/21/18 19:26 POC ABG HCO3 23.2 10/21/18 19:26 POC ABG Total CO2 24 10/21/18 19:26 POC ABG O2 Sat 97 10/21/18 19:26 POC ABG Base Excess 0 10/21/18 19:26 VBG pH 7.417 (7.320-7.420) 10/21/18 18:27 POC Sodium 142 mmol/L (138-146) 10/23/18 14:33 POC Potassium 3.6 (3.5-4.9) 10/23/18 14:33 POC Chloride 101 (98-109) 10/23/18 14:33 FiO2 21 % 10/21/18 19:26 Sodium 142 mmol/L (137-145) 10/25/18 09:50 Potassium 3.8 mmol/L (3.6-5.0) 10/25/18 09:50 Chloride 105.9 mmol/L (98-107) 10/25/18 09:50 Carbon Dioxide 26 mmol/L (22-30) 10/25/18 09:50 Anion Gap 14 mmol/L 10/25/18 09:50 POC BUN 15 mg/dl (8-26) 10/23/18 14:33 BUN 31 mg/dL (9-20) H 10/25/18 09:50 Creatinine 2.9 mg/dL (0.8-1.5) H 10/25/18 09:50 Estimated GFR 26 ml/min 10/25/18 09:50 BUN/Creatinine Ratio 11 % 10/25/18 09:50 Glucose 170 mg/dL (75-100) H 10/25/18 09:50 POC Glucose 116 (70-105) H 10/26/18 11:42 Lactic Acid 1.20 mmol/L (0.7-2.0) 10/21/18 20:20 Calcium 8.3 mg/dL (8.4-10.2) L 10/25/18 09:50 Phosphorus 2.00 mg/dL (2.5-4.5) L 10/24/18 09:31 Magnesium 1.80 mg/dL (1.7-2.3) 10/24/18 09:31 Total Bilirubin 0.70 mg/dL (0.1-1.2) 10/24/18 09:31 Direct Bilirubin < 0.2 mg/dL (0-0.2) 10/21/18 18:27 Indirect Bilirubin 0.2 mg/dL 10/21/18 18:27 AST 12 units/L (5-40) 10/24/18 09:31 ALT 7 units/L (7-56) 10/24/18 09:31 Alkaline Phosphatase 68 units/L (35-129) 10/24/18 09:31 Total Protein 6.0 g/dL (6.3-8.2) L 10/24/18 09:31 Albumin 1.9 g/dL (3.9-5) L 10/24/18 09:31 Albumin/Globulin Ratio 0.5 % 10/24/18 09:31 Urine Color Yellow (Yellow) 10/22/18 00:16 Urine Turbidity Turbid (Clear) 10/22/18 00:16 Urine pH 5.0 (5.0-7.0) 10/22/18 00:16 Ur Specific [place] 1.018 (1.003-1.030) 10/22/18 00:16 Urine Protein 100 mg/dl mg/dL (Negative) 10/22/18 00:16 Urine Glucose (UA) 150 mg/dL (Negative) 10/22/18 00:16 Urine Ketones Tr mg/dL (Negative) 10/22/18 00:16 Urine Blood Mod (Negative) 10/22/18 00:16 Urine Nitrite Neg (Negative) 10/22/18 00:16 Urine Bilirubin Neg (Negative) 10/22/18 00:16 Urine Urobilinogen 2.0 mg/dL (<2.0) 10/22/18 00:16 Ur Leukocyte Esterase Mod (Negative) 10/22/18 00:16 Urine WBC (Auto) > 182.0 /HPF (0.0-6.0) H 10/22/18 00:16 Urine RBC (Auto) > 182.0 /HPF (0.0-6.0) 10/22/18 00:16 U Epithel Cells (Auto) 5.0 /HPF (0-13.0) 01/15/19 00:16 Urine WBC Clumps 3+ /HPF 10/22/18 00:16 Urine Mucus 1+ /HPF 10/22/18 00:16 Random Vancomycin 14 ug/mL (0-40.0) 10/23/18 05:23 Blood Type A POSITIVE 10/21/18 18:27 Antibody Screen Negative 10/21/18 18:27 Crossmatch See Detail 10/21/18 18:27 Nutrition/Malnutrition Assess - Dietary Evaluation Nutrition/Malnutrition Findings: Nutrition Notes Start: 10/22/18 14:10 Freq: Status: Active Protocol: Document 10/24/18 15:56 RM (Rec: 10/24/18 16:06 RM [id number]) Nutrition Notes Initial or Follow up Reassessment Current Diagnosis CKD (stage V CKD) Decubitus(Pressure Ulcer) Diabetes Sepsis Hypertension Hyperlipidemia Other Pertinent Diagnosis Anemia, UTI, on HD (M/W/F), Sacral ulcer Current Diet Nepro at 50 ml/hr Labs/Tests Reviewed Pertinent Medications Reviewed Height 5 ft 10 in Weight 92 kg [place] Body Weight (lbs) 166.0 BMI 29.0 Weight Status Overweight Subjective/Other Information Observed Nepro infusing at 50 ml/hr. Per nurse pt is tolerating TF. Percent of energy/protein needs met: 106%/88% Burn Absent Trauma Absent #1 Nutrition Diagnosis Increased nutrient needs ( specify in comment below) Diagnosis Progress(for reassessment Continues documentation) Is patient on ventilator? No Is Patient Ambulatory and/or Out of Bed No REE-([facility]-confined to bed) 2034.020 Calculation Used for Recommendations [facility] Additional Notes Pro needs 1.2-1.4g/k- 129g/day Fluid needs 1-1.5L/day Nutrition Intervention Nutrition Support: Nepro at 50ml/hr. Provide 100ml water flush q4h. Kcal 2,160 Protein (gm) 97 Fluid (mL) 872 Goal #1 Continue to meet at least 75% of calorie an protein needs via TF Goal #2 Wound healing Anticipated Discharge Needs: TF Follow-Up By: 10/31/18 Additional Comments Follow for TF tolerance
[2018-10-26] MEDS: MINIPRESS PO SCH (21:16)
[2018-10-27] MEDS: LANTUS SUB-Q SCH ×2 (01:15→22:34)
[2018-10-27] MEDS: HumuLIN R SUB-Q SCH ×4 (01:17→18:16)
[2018-10-27] MEDS: APRESOLINE PO SCH ×3 (05:11→21:13)
[2018-10-27] MEDS: ZOSYN/NS 2.25 GM/50ML 2.25 GM/50 ML BAG IV SCH ×3 (06:04→21:54)
[2018-10-27 06:41] LABS: Hematocrit 24.8 % (35.5-45.6); Hemoglobin 7.8 gm/dl (11.8-15.2); Mean Corpuscular HGB Conc 32 % (32-34); Mean Corpuscular Volume 87 fl (84-94); Platelet Count 352 K/mm3 (140-440); Red Blood Count 2.83 M/mm3 (3.65-5.03); Red Cell Distribution Width 16.9 % (13.2-15.2)
[2018-10-27 06:56] LABS: Calcium 8.5 mg/dL (8.4-10.2)
--- NOTE | 2018-10-27 07:48 | Progress Note ---
Assessment and Plan Assessment and plan: --Stage IV sacral decubitus ulcer; s/p surgical debridement, continue wound care Surg rec wound VAC, antibiotics, outpatient wound care upon discharge --End-stage renal disease; requiring hemodialysis HD per schedule, nephrology following --Anemia; of chronic kidney disease Status post 2 units PRBC transfusion, Hb 7.5 additional unit of PRBC transfusion as needed during dialysis --Hypokalemia; corrected --Severe protein calorie malnutrition; nutrition supplements nutrition consult --Sepsis; positive cultures probably contamination Repeat blood cultures, consider thyroid evaluation if needed --Urinary tract infection; continue empiric antibiotics, follow cultures --Lactic acidosis; probably secondary to UTI, levels improved --DVT prophylaxis; heparin renal dose Discharge planning ; per Case management Pending, Home health services, wound care, wound VAC plan of care reviewed with the patient's nurse Patient is medically stable for discharge History Interval history: Patient seen and examined medical records reviewed No new events reported by nursing staff Medically stable for discharge Awaiting, wound VAC and to set up home health services Patient is comfortable Vital signs noted Hospitalist Physical - Constitutional Vitals: Temp Pulse Resp BP Pulse Ox 98.2 F 76 16 116/63 100 10/27/18 07:10 10/27/18 05:11 10/27/18 07:10 10/27/18 07:10 10/27/18 02:58 General appearance: Present: no acute distress, well-nourished - EENT Eyes: Present: PERRL, EOM intact - Neck Neck: Present: supple, normal ROM - Respiratory Respiratory effort: normal Respiratory: bilateral: diminished, negative: rales, rhonchi, wheezing - Cardiovascular Rhythm: regular Heart Sounds: Present: S1 & S2 - Extremities Extremities: no ischemia, No edema - Abdominal General gastrointestinal: soft, non-tender, non-distended, other (PEG tube in place) - Integumentary Integumentary: Present: clear, warm, erythema (stage IV decubitus ulcer sacrum) - Psychiatric Psychiatric: other (noncommunicative) - Neurologic Neurologic: other (noncommunicative) Results - Labs CBC & Chem 7: 10/27/18 06:20 10/27/18 06:20 Labs: Laboratory Last Values WBC 8.1 K/mm3 (4.5-11.0) 10/27/18 06:20 RBC 2.83 M/mm3 (3.65-5.03) L 10/27/18 06:20 Hgb 7.8 gm/dl (11.8-15.2) L 10/27/18 06:20 POC Hgb 7.5 (12-17) L 10/23/18 14:33 Hct 24.8 % (35.5-45.6) L 10/27/18 06:20 POC Hct 22 (38-51) L 10/23/18 14:33 MCV 87 fl (84-94) 10/27/18 06:20 MCH 28 pg (28-32) 10/27/18 06:20 MCHC 32 % (32-34) 10/27/18 06:20 RDW 16.9 % (13.2-15.2) H 10/27/18 06:20 Plt Count 352 K/mm3 (140-440) 10/27/18 06:20 Lymph % (Auto) 15.3 % (13.4-35.0) 10/25/18 09:50 Dawson % (Auto) 5.8 % (0.0-7.3) 10/25/18 09:50 Eos % (Auto) 1.1 % (0.0-4.3) 10/25/18 09:50 Baso % (Auto) 0.3 % (0.0-1.8) 10/25/18 09:50 Lymph # 1.4 K/mm3 (1.2-5.4) 10/25/18 09:50 Dawson # 0.5 K/mm3 (0.0-0.8) 10/25/18 09:50 Eos # 0.1 K/mm3 (0.0-0.4) 10/25/18 09:50 Baso # 0.0 K/mm3 (0.0-0.1) 10/25/18 09:50 Seg Neutrophils % 77.5 % (40.0-70.0) H 10/25/18 09:50 Seg Neutrophils # 6.8 K/mm3 (1.8-7.7) 10/25/18 09:50 PT 14.6 Sec. (12.2-14.9) 10/21/18 18:27 INR 1.10 (0.87-1.13) 10/21/18 18:27 POC ABG pH 7.493 (7.35-7.45) H 10/21/18 19:26 POC ABG pCO2 30.3 (35-45) L 10/21/18 19:26 POC ABG pO2 83 (80-105) 10/21/18 19:26 POC ABG HCO3 23.2 10/21/18 19:26 POC ABG Total CO2 24 10/21/18 19:26 POC ABG O2 Sat 97 10/21/18 19:26 POC ABG Base Excess 0 10/21/18 19:26 VBG pH 7.417 (7.320-7.420) 10/21/18 18:27 POC Sodium 142 mmol/L (138-146) 10/23/18 14:33 POC Potassium 3.6 (3.5-4.9) 10/23/18 14:33 POC Chloride 101 (98-109) 10/23/18 14:33 FiO2 21 % 10/21/18 19:26 Sodium 141 mmol/L (137-145) 10/27/18 06:20 Potassium 3.7 mmol/L (3.6-5.0) 10/27/18 06:20 Chloride 101.4 mmol/L (98-107) 10/27/18 06:20 Carbon Dioxide 28 mmol/L (22-30) 10/27/18 06:20 Anion Gap 15 mmol/L 10/27/18 06:20 POC BUN 15 mg/dl (8-26) 10/23/18 14:33 BUN 32 mg/dL (9-20) H 10/27/18 06:20 Creatinine 2.4 mg/dL (0.8-1.5) H 10/27/18 06:20 Estimated GFR 33 ml/min 10/27/18 06:20 BUN/Creatinine Ratio 13 % 10/27/18 06:20 Glucose 175 mg/dL (75-100) H 10/27/18 06:20 POC Glucose 178 (70-105) H 10/27/18 06:32 Lactic Acid 1.20 mmol/L (0.7-2.0) 10/21/18 20:20 Calcium 8.5 mg/dL (8.4-10.2) 10/27/18 06:20 Phosphorus 2.00 mg/dL (2.5-4.5) L 10/24/18 09:31 Magnesium 1.80 mg/dL (1.7-2.3) 10/24/18 09:31 Total Bilirubin 0.70 mg/dL (0.1-1.2) 10/24/18 09:31 Direct Bilirubin < 0.2 mg/dL (0-0.2) 10/21/18 18:27 Indirect Bilirubin 0.2 mg/dL 10/21/18 18:27 AST 12 units/L (5-40) 10/24/18 09:31 ALT 7 units/L (7-56) 10/24/18 09:31 Alkaline Phosphatase 68 units/L (35-129) 10/24/18 09:31 Total Protein 6.0 g/dL (6.3-8.2) L 10/24/18 09:31 Albumin 1.9 g/dL (3.9-5) L 10/24/18 09:31 Albumin/Globulin Ratio 0.5 % 10/24/18 09:31 Urine Color Yellow (Yellow) 10/22/18 00:16 Urine Turbidity Turbid (Clear) 10/22/18 00:16 Urine pH 5.0 (5.0-7.0) 10/22/18 00:16 Ur Specific Mark Center 1.018 (1.003-1.030) 10/22/18 00:16 Urine Protein 100 mg/dl mg/dL (Negative) 10/22/18 00:16 Urine Glucose (UA) 150 mg/dL (Negative) 10/22/18 00:16 Urine Ketones Tr mg/dL (Negative) 10/22/18 00:16 Urine Blood Mod (Negative) 10/22/18 00:16 Urine Nitrite Neg (Negative) 10/22/18 00:16 Urine Bilirubin Neg (Negative) 10/22/18 00:16 Urine Urobilinogen 2.0 mg/dL (<2.0) 10/22/18 00:16 Ur Leukocyte Esterase Mod (Negative) 10/22/18 00:16 Urine WBC (Auto) > 182.0 /HPF (0.0-6.0) H 10/22/18 00:16 Urine RBC (Auto) > 182.0 /HPF (0.0-6.0) 10/22/18 00:16 U Epithel Cells (Auto) 5.0 /HPF (0-13.0) 10/22/18 00:16 Urine WBC Clumps 3+ /HPF 10/22/18 00:16 Urine Mucus 1+ /HPF 10/22/18 00:16 Random Vancomycin 14 ug/mL (0-40.0) 10/23/18 05:23 Blood Type A POSITIVE 10/21/18 18:27 Antibody Screen Negative 10/21/18 18:27 Crossmatch See Detail 10/21/18 18:27 Nutrition/Malnutrition Assess - Dietary Evaluation Nutrition/Malnutrition Findings: Nutrition Notes Start: 10/22/18 14:10 Freq: Status: Active Protocol: Document 10/24/18 15:56 RM (Rec: 10/24/18 16:06 RM [id number]) Nutrition Notes Initial or Follow up Reassessment Current Diagnosis CKD (stage V CKD) Decubitus(Pressure Ulcer) Diabetes Sepsis Hypertension Hyperlipidemia Other Pertinent Diagnosis Anemia, UTI, on HD (M/W/F), Sacral ulcer Current Diet Nepro at 50 ml/hr Labs/Tests Reviewed Pertinent Medications Reviewed Height 5 ft 10 in Weight 92 kg [place] Body Weight (lbs) 166.0 BMI 29.0 Weight Status Overweight Subjective/Other Information Observed Nepro infusing at 50 ml/hr. Per nurse pt is tolerating TF. Percent of energy/protein needs met: 106%/88% Burn Absent Trauma Absent #1 Nutrition Diagnosis Increased nutrient needs ( specify in comment below) Diagnosis Progress(for reassessment Continues documentation) Is patient on ventilator? No Is Patient Ambulatory and/or Out of Bed No REE-([facility]-confined to bed) 2034.020 Calculation Used for Recommendations [facility] Additional Notes Pro needs 1.2-1.4g/k- 129g/day Fluid needs 1-1.5L/day Nutrition Intervention Nutrition Support: Nepro at 50ml/hr. Provide 100ml water flush q4h. Kcal 2,160 Protein (gm) 97 Fluid (mL) 872 Goal #1 Continue to meet at least 75% of calorie an protein needs via TF Goal #2 Wound healing Anticipated Discharge Needs: TF Follow-Up By: 10/31/18 Additional Comments Follow for TF tolerance
[2018-10-27] MEDS: CATAPRES PO SCH ×3 (08:00→19:58)
[2018-10-27] MEDS: COZAAR PO SCH (09:35)
[2018-10-27] MEDS: HEPARIN SUB-Q SCH ×2 (09:36→21:14)
[2018-10-27 11:01] LABS: Anisocytosis 1+; Band Neutrophils # (Manual) 0.1 K/mm3; Basophils % (Manual) 0 % (0.0-1.8); Platelet Estimate Consistent w Auto; Total Cells Counted 100
--- NOTE | 2018-10-27 11:57 | Progress Note ---
Assessment and Plan Assessment: * ESRD * Decubitus ulcer, stage 4; infected --s/p debridement, wound vac --Wound cx: Enterococcus (Oct 24) * Encephalopathy * Anemia in ESRD * Hypertension * Bladder mass Plan: * Continue dialysis on MWF schedule for now * UF as tolerated * Note surgery recommendation for a diverting colostomy * Abx per primary team * Epogen TIW prn * Transfuse pRBC per primary team * Avoid nephrotoxins Subjective Date of service: 10/27/18 Interval history: No acute events Objective - Vital Signs Vital signs: Vital Signs - 12hr 10/27/18 10/27/18 10/27/18 02:58 05:11 07:10 Temperature 98.8 F 98.2 F Pulse Rate 82 76 Respiratory 20 16 Rate Blood Pressure 117/67 117/67 116/63 O2 Sat by Pulse 100 Oximetry 10/27/18 10/27/18 10/27/18 08:00 08:04 08:31 Temperature Pulse Rate 80 80 Respiratory Rate Blood Pressure 116/63 O2 Sat by Pulse 100 99 Oximetry 10/27/18 09:35 Temperature Pulse Rate 80 Respiratory Rate Blood Pressure 116/63 O2 Sat by Pulse Oximetry - General Appearance General appearance: well-developed, well-nourished EENT: ATNC Respiratory: Present: Clear to Ascultation Cardiology: regular, S1S2 Gastrointestinal: normal, no tenderness, no distended Integumentary: warm and dry Neurologic: other (nonverbal) Musculoskeletal: other (no edema) Psychiatric: cooperative - Lab 10/27/18 06:20 10/27/18 06:20 Most recent lab results Calcium 8.5 mg/dL (8.4-10.2) 10/27/18 06:20 Phosphorus 2.00 mg/dL (2.5-4.5) L 10/24/18 09:31 Magnesium 1.80 mg/dL (1.7-2.3) 10/24/18 09:31 Medications & Allergies - Medications Allergies/Adverse Reactions: Allergies No Known Allergies Allergy (Verified 08/20/18 12:20) Home Medications: Home Medications Medication Instructions Recorded Confirmed Last Taken Type Prazosin [Minipress] 2 mg PO HS #60 capsule 08/07/18 10/21/18 10/20/18 Rx Insulin Glargine [Lantus VIAL] 40 units SUB-Q QHS 10/21/18 10/21/18 10/20/18 History Losartan [Cozaar] 100 mg PO QDAY 10/21/18 10/21/18 10/20/18 History cloNIDine [Catapres] 0.2 mg PO TID 10/21/18 10/21/18 10/21/18 History hydrALAZINE [Apresoline TAB] 100 mg PO Q8H 10/21/18 10/21/18 10/21/18 History Active Medications: Generic Name Dose Route Start Last Admin Trade Name Freq PRN Reason Stop Dose Admin Acetaminophen 650 mg 10/21/18 22:00 10/24/18 03:07 Tylenol PO 650 mg Q4H PRN Administration Fever >101 Lipase/Protease/Amylase 1 each 10/24/18 11:15 Pancreazsammi Cat 10,500 Unit FEEDTUBE PRN PRN For Clogged Feeding Tube Clonidine HCl 0.2 mg 10/22/18 14:00 10/27/18 08:00 Catapres PO Not Given TID SAMUEL Dextrose 50 ml 10/21/18 21:53 D50w (25gm) Syringe IV PRN PRN Hypoglycemia Guaifenesin 200 mg 10/21/18 21:56 Robitussin PO Q4H PRN Cough Heparin Sodium (Porcine) 5,000 unit 10/21/18 22:00 10/27/18 09:36 Heparin SUB-Q 5,000 unit Q12HR SAMUEL Administration Hydralazine HCl 50 mg 10/24/18 14:00 10/27/18 05:11 Apresoline PO 50 mg Q8HR SAMUEL Administration Piperacillin Sod/Tazobactam Sod 2.25 gm in 50 mls @ 100 mls/hr 10/22/18 14:00 10/27/18 06:50 Zosyn/Ns 2.25 Gm/50ml IV Infused Q8HR SAMUEL Infusion Sodium Chloride 100 mls @ 999 mls/hr 10/23/18 08:51 Nacl 0.9% IV DIMPLE PRN Hypotension Vancomycin HCl 1 gm in 250 mls @ 167.007 mls/hr 10/25/18 18:00 10/25/18 18:11 Vancomycin/Ns 1 Gm/250 Ml IV 167.007 mls/hr [email or web address] SAMUEL Administration Insulin Glargine 40 units 10/22/18 22:00 10/27/18 01:15 Lantus SUB-Q 40 units QHS SAMUEL Administration Insulin Human Regular 0 units 10/22/18 00:00 10/27/18 06:39 Humulin R SUB-Q 1 units Q6HR SAMUEL Administration Protocol Levofloxacin 500 mg 10/25/18 22:00 10/25/18 21:32 Levaquin PO 500 mg Q48HR@2200 SAMUEL Administration Losartan Potassium 100 mg 10/22/18 10:30 10/27/18 09:35 Cozaar PO Not Given QDAY SAMUEL Prazosin HCl 2 mg 10/22/18 22:00 10/26/18 21:16 Minipress PO 2 mg HS SAMUEL Administration Simple Syrup 15 ml 10/24/18 11:15 Simple Syrup FEEDTUBE PRN PRN Hypoglycemia Simple Syrup 30 ml 10/24/18 11:15 Simple Syrup FEEDTUBE PRN PRN Hypoglycemia Sodium Bicarbonate 325 mg 10/24/18 11:15 Sodium Bicarbonate FEEDTUBE PRN PRN For Clogged Feeding Tube
[2018-10-27] MEDS: MINIPRESS PO SCH (21:13)
[2018-10-27] MEDS: LEVAQUIN PO SCH (21:14)
[2018-10-28] MEDS: HumuLIN R SUB-Q SCH ×4 (01:02→18:32)
[2018-10-28] MEDS: APRESOLINE PO SCH ×3 (05:03→21:39)
[2018-10-28] MEDS: ZOSYN/NS 2.25 GM/50ML 2.25 GM/50 ML BAG IV SCH (05:04)
[2018-10-28 06:17] LABS: Basophils % (Auto) 0.1 % (0.0-1.8); Eosinophils % (Auto) 0.6 % (0.0-4.3); Hematocrit 25.3 % (35.5-45.6); Lymphocytes # (Auto) 1.5 K/mm3 (1.2-5.4); Lymphocytes % (Auto) 19.7 % (13.4-35.0); Mean Corpuscular HGB Conc 32 % (32-34); Mean Corpuscular Volume 88 fl (84-94); Monocytes # (Auto) 0.7 K/mm3 (0.0-0.8); Monocytes % (Auto) 8.5 % (0.0-7.3); Platelet Count 327 K/mm3 (140-440); Red Blood Count 2.87 M/mm3 (3.65-5.03); Red Cell Distribution Width 16.9 % (13.2-15.2)
[2018-10-28 06:59] LABS: Calcium 8.8 mg/dL (8.4-10.2)
[2018-10-28] MEDS: CATAPRES PO SCH ×3 (08:28→20:22)
--- NOTE | 2018-10-28 09:01 | Progress Note ---
Assessment and Plan Assessment: * ESRD * Decubitus ulcer, stage 4; infected --s/p debridement, wound vac --Wound cx: Enterococcus (Oct 24) * Encephalopathy * Anemia in ESRD * Hypertension * Bladder mass Plan: * Continue dialysis on MWF schedule for now * UF as tolerated * Note surgery recommendation for a diverting colostomy * Abx per primary team * Epogen TIW prn * Transfuse pRBC per primary team * Avoid nephrotoxins Subjective Date of service: 10/28/18 Interval history: Patient has no complaints. Objective - Vital Signs Vital signs: Vital Signs - 12hr 10/27/18 10/28/18 10/28/18 21:13 01:43 05:03 Temperature 98.6 F Pulse Rate 90 98 H 98 H Respiratory 20 Rate Blood Pressure 157/71 158/77 158/77 O2 Sat by Pulse 99 Oximetry 10/28/18 07:49 Temperature 98.2 F Pulse Rate 96 H Respiratory 20 Rate Blood Pressure 156/74 O2 Sat by Pulse 99 Oximetry - General Appearance General appearance: well-developed, well-nourished EENT: ATNC Respiratory: Present: Clear to Ascultation Cardiology: regular, S1S2 Gastrointestinal: normal, no tenderness, no distended Neurologic: other (nonverbal) - Lab 10/28/18 Unknown 10/28/18 Unknown Most recent lab results Calcium 8.8 mg/dL (8.4-10.2) 10/28/18 Unknown Phosphorus 2.00 mg/dL (2.5-4.5) L 10/24/18 09:31 Magnesium 1.80 mg/dL (1.7-2.3) 10/24/18 09:31 Medications & Allergies - Medications Allergies/Adverse Reactions: Allergies No Known Allergies Allergy (Verified 08/20/18 12:20) Home Medications: Home Medications Medication Instructions Recorded Confirmed Last Taken Type Prazosin [Minipress] 2 mg PO HS #60 capsule 08/07/18 10/21/18 10/20/18 Rx Insulin Glargine [Lantus VIAL] 40 units SUB-Q QHS 10/21/18 10/21/18 10/20/18 History Losartan [Cozaar] 100 mg PO QDAY 10/21/18 10/21/18 10/20/18 History cloNIDine [Catapres] 0.2 mg PO TID 0110/21/18 10/21/18 History hydrALAZINE [Apresoline TAB] 100 mg PO Q8H 10/21/18 10/21/18 10/21/18 History Active Medications: Generic Name Dose Route Start Last Admin Trade Name Freq PRN Reason Stop Dose Admin Acetaminophen 650 mg 10/21/18 22:00 10/24/18 03:07 Tylenol PO 650 mg Q4H PRN Administration Fever >101 Lipase/Protease/Amylase 1 each 10/24/18 11:15 Pancreaze 10,500 Unit FEEDTUBE PRN PRN For Clogged Feeding Tube Clonidine HCl 0.2 mg 10/22/18 14:00 10/28/18 08:28 Catapres PO Not Given TID ASMUEL Dextrose 50 ml 10/21/18 21:53 D50w (25gm) Syringe IV PRN PRN Hypoglycemia Guaifenesin 200 mg 10/21/18 21:56 Robitussin PO Q4H PRN Cough Heparin Sodium (Porcine) 5,000 unit 10/21/18 22:00 10/27/18 21:14 Heparin SUB-Q 5,000 unit Q12HR SAMUEL Administration Hydralazine HCl 50 mg 10/24/18 14:00 10/28/18 05:03 Apresoline PO 50 mg Q8HR SAMUEL Administration Piperacillin Sod/Tazobactam Sod 2.25 gm in 50 mls @ 100 mls/hr 10/22/18 14:00 10/28/18 05:04 Zosyn/Ns 2.25 Gm/50ml IV 100 mls/hr Q8HR SAMUEL Administration Sodium Chloride 100 mls @ 999 mls/hr 10/23/18 08:51 Nacl 0.9% IV DIMPLE PRN Hypotension Vancomycin HCl 1 gm in 250 mls @ 167.007 mls/hr 10/25/18 18:00 10/25/18 18:11 Vancomycin/Ns 1 Gm/250 Ml IV 167.007 mls/hr [email or web address] SAMUEL Administration Insulin Glargine 40 units 10/22/18 22:00 10/27/18 22:34 Lantus SUB-Q 40 units QHS SAMUEL Administration Insulin Human Regular 0 units 10/22/18 00:00 10/28/18 06:10 Humulin R SUB-Q Not Given Q6HR [facility] Protocol Levofloxacin 500 mg 10/25/18 22:00 10/27/18 21:14 Levaquin PO 500 mg Q48HR@2200 SAMUEL Administration Losartan Potassium 100 mg 10/22/18 10:30 10/27/18 09:35 Cozaar PO Not Given QDAY SAMUEL Prazosin HCl 2 mg 10/22/18 22:00 10/27/18 21:13 Minipress PO 2 mg HS SAMUEL Administration Simple Syrup 15 ml 10/24/18 11:15 Simple Syrup FEEDTUBE PRN PRN Hypoglycemia Simple Syrup 30 ml 10/24/18 11:15 Simple Syrup FEEDTUBE PRN PRN Hypoglycemia Sodium Bicarbonate 325 mg 10/24/18 11:15 Sodium Bicarbonate FEEDTUBE PRN PRN For Clogged Feeding Tube
[2018-10-28] MEDS: COZAAR PO SCH (09:02)
[2018-10-28] MEDS: HEPARIN SUB-Q SCH ×2 (09:03→21:38)
[2018-10-28] MEDS ORDERED: NACL 0.9 (PRIMING MACHINE ONLY DIALYSIS) MC ONE (11:36)
--- NOTE | 2018-10-28 13:12 | Progress Note ---
Assessment and Plan Assessment and plan: --Stage IV sacral decubitus ulcer; s/p surgical debridement, continue wound care Surgery recommended diverting colostomy, patient/ refused Surg rec wound VAC, antibiotics, outpatient wound care upon discharge --End-stage renal disease; requiring hemodialysis HD per schedule, nephrology following --Anemia; of chronic kidney disease Status post 2 units PRBC transfusion, Hb 7.5 additional unit of PRBC transfusion as needed during dialysis --Hypokalemia; corrected --Severe protein calorie malnutrition; nutrition supplements nutrition consult --Sepsis; positive cultures probably contamination Repeat blood cultures, consider thyroid evaluation if needed --Urinary tract infection; continue empiric antibiotics, follow cultures --Lactic acidosis; probably secondary to UTI, levels improved --DVT prophylaxis; heparin renal dose Discharge planning ; per Case management Pending, Home health services, wound care, wound VAC plan of care reviewed with the patient's nurse Patient is medically stable for discharge History Interval history: Patient seen and examined medical records reviewed No new events reported by nursing staff Patient is scheduled for hemodialysis today Awaiting wound VAC delivery and resumption of home health services Vital signs reviewed Hospitalist Physical - Constitutional Vitals: Temp Pulse Resp BP Pulse Ox 98.2 F 93 H 18 139/63 100 10/28/18 10:13 10/28/18 12:15 10/28/18 10:13 10/28/18 12:15 10/28/18 10:00 General appearance: Present: no acute distress, well-nourished - EENT Eyes: Present: PERRL, EOM intact - Neck Neck: Present: supple, normal ROM - Respiratory Respiratory effort: normal Respiratory: bilateral: diminished, negative: rales, rhonchi, wheezing - Cardiovascular Rhythm: regular Heart Sounds: Present: S1 & S2 - Extremities Extremities: no ischemia, No edema - Abdominal General gastrointestinal: soft, non-tender, non-distended, normal bowel sounds, other (PEG in place) - Integumentary Integumentary: Present: clear, warm - Psychiatric Psychiatric: other (noncommunicative) - Neurologic Neurologic: other (noncommunicative) Results - Labs CBC & Chem 7: 10/28/18 Unknown 10/28/18 Unknown Labs: Laboratory Last Values WBC 7.7 K/mm3 (4.5-11.0) 10/28/18 Unknown RBC 2.87 M/mm3 (3.65-5.03) L 10/28/18 Unknown Hgb 8.0 gm/dl (11.8-15.2) L 10/28/18 Unknown POC Hgb 7.5 (12-17) L 10/23/18 14:33 Hct 25.3 % (35.5-45.6) L 10/28/18 Unknown POC Hct 22 (38-51) L 10/23/18 14:33 MCV 88 fl (84-94) 10/28/18 Unknown MCH 28 pg (28-32) 10/28/18 Unknown MCHC 32 % (32-34) 10/28/18 Unknown RDW 16.9 % (13.2-15.2) H 10/28/18 Unknown Plt Count 327 K/mm3 (140-440) 10/28/18 Unknown Lymph % (Auto) 19.7 % (13.4-35.0) 10/28/18 Unknown [place] % (Auto) 8.5 % (0.0-7.3) H 10/28/18 Unknown Eos % (Auto) 0.6 % (0.0-4.3) 10/28/18 Unknown Baso % (Auto) 0.1 % (0.0-1.8) 10/28/18 Unknown Lymph # 1.5 K/mm3 (1.2-5.4) 10/28/18 Unknown [place] # 0.7 K/mm3 (0.0-0.8) 10/28/18 Unknown Eos # 0.0 K/mm3 (0.0-0.4) 10/28/18 Unknown Baso # 0.0 K/mm3 (0.0-0.1) 10/28/18 Unknown Add Manual Diff Complete 10/27/18 06:20 Total Counted 100 10/27/18 06:20 Seg Neutrophils % 71.1 % (40.0-70.0) H 10/28/18 Unknown Seg Neuts % (Manual) 66.0 % (40.0-70.0) 10/27/18 06:20 Band Neutrophils % 1.0 % 10/27/18 06:20 Lymphocytes % (Manual) 16.0 % (13.4-35.0) 10/27/18 06:20 Reactive Lymphs % (Man) 2.0 % 10/27/18 06:20 Monocytes % (Manual) 12.0 % (0.0-7.3) H 10/27/18 06:20 Eosinophils % (Manual) 3.0 % (0.0-4.3) 10/27/18 06:20 Basophils % (Manual) 0 % (0.0-1.8) 10/27/18 06:20 Metamyelocytes % 0 % 10/27/18 06:20 Myelocytes % 0 % 10/27/18 06:20 Promyelocytes % 0 % 10/27/18 06:20 Blast Cells % 0 % 10/27/18 06:20 Nucleated RBC % Not Reportable 10/27/18 06:20 Seg Neutrophils # 5.5 K/mm3 (1.8-7.7) 10/28/18 Unknown Seg Neutrophils # Man 5.3 K/mm3 (1.8-7.7) 10/27/18 06:20 Band Neutrophils # 0.1 K/mm3 10/27/18 06:20 Lymphocytes # (Manual) 1.3 K/mm3 (1.2-5.4) 10/27/18 06:20 Abs React Lymphs (Man) 0.2 K/mm3 10/27/18 06:20 Monocytes # (Manual) 1.0 K/mm3 (0.0-0.8) H 10/27/18 06:20 Eosinophils # (Manual) 0.2 K/mm3 (0.0-0.4) 10/27/18 06:20 Basophils # (Manual) 0.0 K/mm3 (0.0-0.1) 10/27/18 06:20 Metamyelocytes # 0.0 K/mm3 10/27/18 06:20 Myelocytes # 0.0 K/mm3 10/27/18 06:20 Promyelocytes # 0.0 K/mm3 10/27/18 06:20 Blast Cells # 0.0 K/mm3 10/27/18 06:20 WBC Morphology Not Reportable 10/27/18 06:20 Hypersegmented Neuts Not Reportable 10/27/18 06:20 Hyposegmented Neuts Not Reportable 10/27/18 06:20 Hypogranular Neuts Not Reportable 10/27/18 06:20 Smudge Cells Not Reportable 10/27/18 06:20 Toxic Granulation Not Reportable 10/27/18 06:20 Toxic Vacuolation Not Reportable 10/27/18 06:20 Dohle Bodies Not Reportable 10/27/18 06:20 Pelger-Huet Anomaly Not Reportable 10/27/18 06:20 Sang Rods Not Reportable 10/27/18 06:20 Platelet Estimate Consistent w auto 10/27/18 06:20 Clumped Platelets Not Reportable 10/27/18 06:20 Plt Clumps, EDTA Not Reportable 10/27/18 06:20 Large Platelets Not Reportable 10/27/18 06:20 Giant Platelets Not Reportable 10/27/18 06:20 Platelet Satelliting Not Reportable 10/27/18 06:20 Plt Morphology Comment Not Reportable 10/27/18 06:20 RBC Morphology Not Reportable 10/27/18 06:20 Dimorphic RBCs Not Reportable 10/27/18 06:20 Polychromasia Not Reportable 10/27/18 06:20 Hypochromasia Not Reportable 10/27/18 06:20 Poikilocytosis Not Reportable 10/27/18 06:20 Anisocytosis 1+ 10/27/18 06:20 Microcytosis Not Reportable 10/27/18 06:20 Macrocytosis Not Reportable 10/27/18 06:20 Spherocytes Not Reportable 10/27/18 06:20 Pappenheimer Bodies Not Reportable 10/27/18 06:20 Sickle Cells Not Reportable 10/27/18 06:20 Target Cells Not Reportable 10/27/18 06:20 Tear Drop Cells Not Reportable 10/27/18 06:20 Ovalocytes Not Reportable 10/27/18 06:20 Helmet Cells Not Reportable 10/27/18 06:20 [place] Bodies Not Reportable 10/27/18 06:20 [place] Rings Not Reportable 10/27/18 06:20 [place] Cells Not Reportable 10/27/18 06:20 Bite Cells Not Reportable 10/27/18 06:20 Crenated Cell Not Reportable 10/27/18 06:20 Elliptocytes Not Reportable 10/27/18 06:20 Acanthocytes (Spur) Not Reportable 10/27/18 06:20 Rouleaux Not Reportable 10/27/18 06:20 Hemoglobin C Crystals Not Reportable 10/27/18 06:20 Schistocytes Not Reportable 10/27/18 06:20 Malaria parasites Not Reportable 10/27/18 06:20 David Bodies Not Reportable 10/27/18 06:20 Hem Pathologist Commnt No 10/27/18 06:20 PT 14.6 Sec. (12.2-14.9) 10/21/18 18:27 INR 1.10 (0.87-1.13) 10/21/18 18:27 POC ABG pH 7.493 (7.35-7.45) H 10/21/18 19:26 POC ABG pCO2 30.3 (35-45) L 10/21/18 19:26 POC ABG pO2 83 (80-105) 10/21/18 19:26 POC ABG HCO3 23.2 10/21/18 19:26 POC ABG Total CO2 24 10/21/18 19:26 POC ABG O2 Sat 97 10/21/18 19:26 POC ABG Base Excess 0 10/21/18 19:26 VBG pH 7.417 (7.320-7.420) 10/21/18 18:27 POC Sodium 142 mmol/L (138-146) 10/23/18 14:33 POC Potassium 3.6 (3.5-4.9) 10/23/18 14:33 POC Chloride 101 (98-109) 10/23/18 14:33 FiO2 21 % 10/21/18 19:26 Sodium 141 mmol/L (137-145) 10/28/18 Unknown Potassium 3.6 mmol/L (3.6-5.0) 10/28/18 Unknown Chloride 101.0 mmol/L (98-107) 10/28/18 Unknown Carbon Dioxide 29 mmol/L (22-30) 10/28/18 Unknown Anion Gap 15 mmol/L 10/28/18 Unknown POC BUN 15 mg/dl (8-26) 10/23/18 14:33 BUN 41 mg/dL (9-20) H 10/28/18 Unknown Creatinine 2.6 mg/dL (0.8-1.5) H 10/28/18 Unknown Estimated GFR 30 ml/min 10/28/18 Unknown BUN/Creatinine Ratio 16 % 10/28/18 Unknown Glucose 129 mg/dL (75-100) H 10/28/18 Unknown POC Glucose 117 (70-105) H 10/28/18 06:12 Lactic Acid 1.20 mmol/L (0.7-2.0) 10/21/18 20:20 Calcium 8.8 mg/dL (8.4-10.2) 10/28/18 Unknown Phosphorus 2.00 mg/dL (2.5-4.5) L 10/24/18 09:31 Magnesium 1.80 mg/dL (1.7-2.3) 10/24/18 09:31 Total Bilirubin 0.70 mg/dL (0.1-1.2) 10/24/18 09:31 Direct Bilirubin < 0.2 mg/dL (0-0.2) 10/21/18 18:27 Indirect Bilirubin 0.2 mg/dL 10/21/18 18:27 AST 12 units/L (5-40) 10/24/18 09:31 ALT 7 units/L (7-56) 10/24/18 09:31 Alkaline Phosphatase 68 units/L (35-129) 10/24/18 09:31 Total Protein 6.0 g/dL (6.3-8.2) L 10/24/18 09:31 Albumin 1.9 g/dL (3.9-5) L 10/24/18 09:31 Albumin/Globulin Ratio 0.5 % 10/24/18 09:31 Urine Color Yellow (Yellow) 10/22/18 00:16 Urine Turbidity Turbid (Clear) 10/22/18 00:16 Urine pH 5.0 (5.0-7.0) 10/22/18 00:16 Ur Specific [place] 1.018 (1.003-1.030) 10/22/18 00:16 Urine Protein 100 mg/dl mg/dL (Negative) 10/22/18 00:16 Urine Glucose (UA) 150 mg/dL (Negative) 10/22/18 00:16 Urine Ketones Tr mg/dL (Negative) 10/22/18 00:16 Urine Blood Mod (Negative) 10/22/18 00:16 Urine Nitrite Neg (Negative) 10/22/18 00:16 Urine Bilirubin Neg (Negative) 10/22/18 00:16 Urine Urobilinogen 2.0 mg/dL (<2.0) 10/22/18 00:16 Ur Leukocyte Esterase Mod (Negative) 10/22/18 00:16 Urine WBC (Auto) > 182.0 /HPF (0.0-6.0) H 10/22/18 00:16 Urine RBC (Auto) > 182.0 /HPF (0.0-6.0) 10/22/18 00:16 U Epithel Cells (Auto) 5.0 /HPF (0-13.0) 10/22/18 00:16 Urine WBC Clumps 3+ /HPF 10/22/18 00:16 Urine Mucus 1+ /HPF 10/22/18 00:16 Random Vancomycin 14 ug/mL (0-40.0) 10/23/18 05:23 Blood Type A POSITIVE 10/21/18 18:27 Antibody Screen Negative 10/21/18 18:27 Crossmatch See Detail 10/21/18 18:27 Nutrition/Malnutrition Assess - Dietary Evaluation Nutrition/Malnutrition Findings: Nutrition Notes Start: 10/22/18 14:10 Freq: Status: Active Protocol: Document 10/24/18 15:56 RM (Rec: 10/24/18 16:06 RM [id number]) Nutrition Notes Initial or Follow up Reassessment Current Diagnosis CKD (stage V CKD) Decubitus(Pressure Ulcer) Diabetes Sepsis Hypertension Hyperlipidemia Other Pertinent Diagnosis Anemia, UTI, on HD (M/W/F), Sacral ulcer Current Diet Nepro at 50 ml/hr Labs/Tests Reviewed Pertinent Medications Reviewed Height 5 ft 10 in Weight 92 kg [place] Body Weight (lbs) 166.0 BMI 29.0 Weight Status Overweight Subjective/Other Information Observed Nepro infusing at 50 ml/hr. Per nurse pt is tolerating TF. Percent of energy/protein needs met: 106%/88% Burn Absent Trauma Absent #1 Nutrition Diagnosis Increased nutrient needs ( specify in comment below) Diagnosis Progress(for reassessment Continues documentation) Is patient on ventilator? No Is Patient Ambulatory and/or Out of Bed No REE-([facility]-confined to bed) 2034. Calculation Used for Recommendations [facility] Additional Notes Pro needs 1.2-1.4g/k- 129g/day Fluid needs 1-1.5L/day Nutrition Intervention Nutrition Support: Nepro at 50ml/hr. Provide 100ml water flush q4h. Kcal 2,160 Protein (gm) 97 Fluid (mL) 872 Goal #1 Continue to meet at least 75% of calorie an protein needs via TF Goal #2 Wound healing Anticipated Discharge Needs: TF Follow-Up By: 10/31/18 Additional Comments Follow for TF tolerance
--- NOTE | 2018-10-28 14:13 | Discharge Summary ---
Providers - Providers Date of Admission: 10/21/18 21:46 Date of discharge: 10/29/18 Attending physician: LALITHA VARMA 10/21/18 19:36 Consult to Physician [CONS] Urgent Comment: Dr. Zimmer spoke with Dr. Giles @ 1939 Consulting Provider: FRANK GILES Physician Instructions: Reason For Exam: ESRD on dialysis 10/22/18 06:00 Consult to Wound/ET Nurse [CONS] Routine Reason For Exam: wound eval, large sacral wound, foul smell 10/22/18 10:11 Consult to Dietitian/Nutrition [CONS] Routine Physician Instructions: Assess nutrtn needs, initiate, modify, manage TF Reason For Exam: Reason for Consult: Write/Manage Tube Feeding Reason for Consult: Write/Manage Tube Feeding 10/24/18 11:15 Consult to Dietitian/Nutrition [CONS] Routine Physician Instructions: Assess nutrtn needs, initiate, modify, manage TF Reason For Exam: Reason for Consult: Write/Manage Tube Feeding Reason for Consult: Write/Manage Tube Feeding Primary care physician: MANAGER [employer]ER[employer]ESSING Hospitalization Reason for admission: Anemia Hb 6.5, Hemodialysis Condition: Stable Pertinent studies: CXR : infiltrates,atelectasis Procedures: Surgical debredement ; Stage IV sacral decubitus ulcer Hospital course: 68 yr old male patient , a [place] resident was admitted with low Hb,anemia with Hb of 6.5 and stage IV sacral decubitus ulcer. Patient evalated by nephrology,received HD per schedule received Blood transfusion during HD,Patient was also evaluated by wound care and wound care surgeon Had surgical debredement and received epmperic antibiotics. Case management evaluated and family wants to be discharged on [facility],wound care. Wound vac was set up and today patient is comfortable and is stable at discharge. Cleared by nephrology and surgery for DC Discharge diagnosis: --Stage IV sacral decubitus ulcer; s/p surgical debridement, wound care Surgery recommended diverting colostomy, patient/ refused Surg rec wound VAC, antibiotics, outpatient wound care upon discharge --End-stage renal disease; requiring hemodialysis HD per schedule, nephrology evaluated --Anemia; of chronic kidney disease S/P 2 units PRBC transfusion, Hb 7.5 additional unit of PRBC transfusion if needed during dialysis --Hypokalemia; corrected --Severe protein calorie malnutrition; nutrition supplements nutrition consult --Sepsis; positive cultures probably contamination Repeat blood cultures, --Urinary tract infection; on empiric antibiotics, follow cultures --Lactic acidosis; probably secondary to UTI, levels improved --DVT prophylaxis; heparin renal dose Discharge planning ; per Case management Home health services, wound care, wound VAC Patient is medically stable for discharge Disposition: [id number] HOME UNDER HOME [facility] Time spent for discharge: 35 min Core Measure Documentation - Palliative Care Palliative Care/ Comfort Measures: Not Applicable - Core Measures Any of the following diagnoses?: none Exam - Constitutional Vitals: Temp Pulse Resp BP Pulse Ox 98.3 F 95 H 18 141/73 100 10/28/18 13:00 10/28/18 13:00 10/28/18 13:00 10/28/18 13:00 10/28/18 10:00 General appearance: Present: no acute distress, well-nourished, cachectic - EENT Eyes: Present: PERRL, EOM intact - Neck Neck: Present: supple, normal ROM - Respiratory Respiratory effort: normal Respiratory: bilateral: diminished, negative: rales, rhonchi, wheezing - Cardiovascular Rhythm: regular Heart Sounds: Present: S1 & S2 - Extremities Extremities: no ischemia, No edema - Abdominal General gastrointestinal: Present: soft, non-tender, non-distended, normal bowel sounds - Integumentary Integumentary: Present: clear, warm - Musculoskeletal Musculoskeletal: strength equal bilaterally - Psychiatric Psychiatric: appropriate mood/affect, cooperative - Neurologic Neurologic: CNII-XII intact, moves all extremities Plan Activity: advance as tolerated, fall precautions Diet: other (tube feeds per protocol) Wound: per wound nurse instructions Additional Instructions: Follow-up renal/hemodialysis per schedule MWF. out Patient wound care with Dr. Villarreal per scheduled Follow up with: JESUS AMBROSE MD [Primary Care Provider] - 3-5 Days FRANK GILES MD [Staff Physician] - 7 Days DAVE VILLARREAL MD [Staff Physician] - 3 Days Prescriptions: Clindamycin [Clindamycin CAP] 300 mg PO Q6H #40 capsule hydrALAZINE [Apresoline TAB] 50 mg PO Q8HR #90 tablet
[2018-10-28] MEDS: VANCOMYCIN/NS 1 GM/250 ML 1 GM/250 ML BAG IV SCH (16:59)
[2018-10-28] MEDS: LANTUS SUB-Q SCH (21:39)
[2018-10-28] MEDS: MINIPRESS PO SCH (21:39)
[2018-10-29] MEDS: HumuLIN R SUB-Q SCH ×3 (00:57→11:47)
[2018-10-29] MEDS: APRESOLINE PO SCH (05:22)
[2018-10-29] MEDS: CATAPRES PO SCH (08:47)
--- NOTE | 2018-10-29 09:27 | Progress Note ---
Assessment and Plan Assessment: * ESRD * Decubitus ulcer, stage 4; infected --s/p debridement, wound vac --Wound cx: Enterococcus (Oct 24) * Encephalopathy * Anemia in ESRD * Hypertension * Bladder mass Plan: * Continue dialysis on MWF schedule for now * UF as tolerated * Note surgery recommendation for a diverting colostomy * Abx per primary team * Epogen TIW prn * Transfuse pRBC per primary team * Avoid nephrotoxins Subjective Date of service: 10/29/18 Objective - Vital Signs Vital signs: Vital Signs - 12hr 10/28/18 10/29/18 10/29/18 21:29 02:35 07:37 Temperature 98.7 F 97.7 F Pulse Rate 109 H 102 H Respiratory 20 20 Rate Blood Pressure 148/67 153/65 O2 Sat by Pulse 100 100 98 Oximetry 10/29/18 08:47 Temperature Pulse Rate 102 H Respiratory Rate Blood Pressure 153/65 O2 Sat by Pulse Oximetry - General Appearance General appearance: well-developed EENT: ATNC Respiratory: Present: Clear to Ascultation Cardiology: regular, S1S2 Gastrointestinal: normal, no tenderness, no distended Integumentary: warm and dry Neurologic: other (nonverbal) Musculoskeletal: other (no edema) - Lab 10/28/18 Unknown 10/28/18 Unknown Most recent lab results Calcium 8.8 mg/dL (8.4-10.2) 10/28/18 Unknown Phosphorus 2.00 mg/dL (2.5-4.5) L 10/24/18 09:31 Magnesium 1.80 mg/dL (1.7-2.3) 10/24/18 09:31 Medications & Allergies - Medications Allergies/Adverse Reactions: Allergies No Known Allergies Allergy (Verified 08/20/18 12:20) Home Medications: Home Medications Medication Instructions Recorded Confirmed Last Taken Type Prazosin [Minipress] 2 mg PO HS #60 capsule 08/07/18 10/21/18 10/20/18 Rx Insulin Glargine [Lantus VIAL] 40 units SUB-Q QHS 10/21/18 10/21/18 10/20/18 History Losartan [Cozaar] 100 mg PO QDAY 10/21/18 10/21/18 10/20/18 History cloNIDine [Catapres] 0.2 mg PO TID 10/21/18 10/21/1819 History Clindamycin [Clindamycin CAP] 300 mg PO Q6H #40 capsule 10/29/18 Unknown Rx Losartan [Cozaar] 100 mg PO QDAY #30 tablet 10/29/18 Unknown Rx hydrALAZINE [Apresoline TAB] 50 mg PO Q8HR #90 tablet 10/29/18 Unknown Rx Active Medications: Generic Name Dose Route Start Last Admin Trade Name Freq PRN Reason Stop Dose Admin Acetaminophen 650 mg 10/21/18 22:00 10/24/18 03:07 Tylenol PO 650 mg Q4H PRN Administration Fever >101 Lipase/Protease/Amylase 1 each 10/24/18 11:[address] 10,500 Unit FEEDTUBE PRN PRN For Clogged Feeding Tube Clonidine HCl 0.2 mg 10/22/18 14:00 10/29/18 08:47 Catapres PO 0.2 mg TID SAMUEL Administration Dextrose 50 ml 10/21/18 21:53 D50w (25gm) Syringe IV PRN PRN Hypoglycemia Guaifenesin 200 mg 10/21/18 21:56 10/28/18 17:05 Robitussin PO 200 mg Q4H PRN Administration Cough Heparin Sodium (Porcine) 5,000 unit 10/21/18 22:00 10/28/18 21:38 Heparin SUB-Q 5,000 unit Q12HR SAMUEL Administration Hydralazine HCl 50 mg 10/24/18 14:00 10/29/18 05:22 Apresoline PO 50 mg Q8HR SAMUEL Administration Sodium Chloride 100 mls @ 999 mls/hr 10/23/18 08:51 Nacl 0.9% IV DIMPLE PRN Hypotension Vancomycin HCl 1 gm in 250 mls @ 167.007 mls/hr 10/25/18 18:00 10/28/18 18:30 Vancomycin/Ns 1 Gm/250 Ml IV Infused [id number]@1800 SAMUEL Infusion Insulin Glargine 40 units 10/22/18 22:00 10/28/18 21:39 Lantus SUB-Q 40 units QHS SAMUEL Administration Insulin Human Regular 0 units 10/22/18 00:00 10/29/18 05:21 Humulin R SUB-Q Not Given Q6HR [facility] Protocol Levofloxacin 500 mg 10/25/18 22:00 10/27/18 21:14 Levaquin PO 500 mg Q48HR@2200 SAMUEL Administration Losartan Potassium 100 mg 10/22/18 10:30 10/28/18 09:02 Cozaar PO Not Given QDAY SAMUEL Prazosin HCl 2 mg 10/22/18 22:00 10/28/18 21:39 Minipress PO 2 mg HS SAMUEL Administration Simple Syrup 15 ml 10/24/18 11:15 Simple Syrup FEEDTUBE PRN PRN Hypoglycemia Simple Syrup 30 ml 10/24/18 11:15 Simple Syrup FEEDTUBE PRN PRN Hypoglycemia Sodium Bicarbonate 325 mg 10/24/18 11:15 Sodium Bicarbonate FEEDTUBE PRN PRN For Clogged Feeding Tube
[2018-10-29] MEDS: HEPARIN SUB-Q SCH (09:53)
[2018-10-29] MEDS: COZAAR PO SCH (09:53)
[2018-10-29 09:54] VITALS: BP 133/70
--- NOTE | 2018-10-29 13:50 | Progress Note ---
Assessment and Plan - Patient Problems (1) Pressure ulcer of sacral region, stage 4 Current Visit: Yes Status: Acute Plan to address problem: 1) Off load 2) F/u in Wound Clinic in one week 3) Continue wound vac Subjective Date of service: 10/29/18 Patient Reports: Positive: no new complaints Objective Vital Signs - 12hr 10/29/18 10/29/18 10/29/18 02:35 07:37 08:47 Temperature 98.7 F 97.7 F Pulse Rate 109 H 102 H 102 H Pulse Rate [ From Monitor] Respiratory 20 20 Rate Blood Pressure 148/67 153/65 153/65 O2 Sat by Pulse 100 98 Oximetry 10/29/18 10/29/18 10/29/18 09:53 09:55 10:00 Temperature Pulse Rate 97 H Pulse Rate [ 97 H From Monitor] Respiratory 20 Rate Blood Pressure 133/70 133/70 O2 Sat by Pulse 100 Oximetry - Integumentary other (Wound vac is in place on his sacrum.) - Labs 10/28/18 Unknown 10/28/18 Unknown
== END 2018-10-29 14:00 | disposition home health service (06) | DRG 853 ==
LOC: ED 16:12 → 2B-ACE 21:46
PROVIDERS: ADMIT Internal Medicine; ATTEND Internal Medicine
PROC: 4A033R1 Measurement of Arterial Saturation, Peripheral, Percutaneous Approach (ICD-10-PCS; 2018-10-21)
PROC: 30233N1 Transfusion of Nonautologous Red Blood Cells into Peripheral Vein, Percutaneous Approach (ICD-10-PCS; 2018-10-22)
PROC: 0KBP0ZZ Excision of Left Hip Muscle, Open Approach (ICD-10-PCS; principal; 2018-10-23)
PROC: 0KBN0ZZ Excision of Right Hip Muscle, Open Approach (ICD-10-PCS; 2018-10-23)
PROC: 5A1935Z Respiratory Ventilation, Less than 24 Consecutive Hours (ICD-10-PCS; 2018-10-23)
PROC: 0BH17EZ Insertion of Endotracheal Airway into Trachea, Via Natural or Artificial Opening (ICD-10-PCS; 2018-10-23)
PROC: 5A1D70Z Performance of Urinary Filtration, Intermittent, Less than 6 Hours Per Day (ICD-10-PCS; 2018-10-23)
PROC: 5A1D70Z Performance of Urinary Filtration, Intermittent, Less than 6 Hours Per Day (ICD-10-PCS; 2018-10-25)
PROC: 5A1D70Z Performance of Urinary Filtration, Intermittent, Less than 6 Hours Per Day (ICD-10-PCS; 2018-10-28)
DX: A41.9 Sepsis, unspecified organism (principal); L89.154 Pressure ulcer of sacral region, stage 4; N18.6 End stage renal disease; E43 Unspecified severe protein-calorie malnutrition; N39.0 Urinary tract infection, site not specified; E87.2 Acidosis; I12.0 Hypertensive chronic kidney disease with stage 5 chronic kidney disease or end stage renal disease; G93.40 Encephalopathy, unspecified; E87.6 Hypokalemia; N32.9 Bladder disorder, unspecified; E11.22 Type 2 diabetes mellitus with diabetic chronic kidney disease; F03.90 Unspecified dementia, unspecified severity, without behavioral disturbance, psychotic disturbance, mood disturbance, and anxiety; E78.00 Pure hypercholesterolemia, unspecified; E89.0 Postprocedural hypothyroidism; D63.1 Anemia in chronic kidney disease; G47.30 Sleep apnea, unspecified; Z79.4 Long term (current) use of insulin; Z79.899 Other long term (current) drug therapy; Z86.73 Personal history of transient ischemic attack (TIA), and cerebral infarction without residual deficits; Z95.828 Presence of other vascular implants and grafts; E11.51 Type 2 diabetes mellitus with diabetic peripheral angiopathy without gangrene; Z93.1 Gastrostomy status; Z68.29 Body mass index [BMI] 29.0-29.9, adult; Z87.891 Personal history of nicotine dependence; Z74.01 Bed confinement status; Z99.2 Dependence on renal dialysis
CPT/HCPCS: 36415; 71045; 80048; 80053; 80076; 80202; 81001; 82140; 82803; 82805; 82962; 83735; 84100; 85007; 85014; 85018; 85025; 85027; 85610; 86850; 86900; 86901; 86920; 87040; 87075; 87116; 93005; 93010; 94002; 94760; 96374; G0378; J1170; J1644; J1815; J1956; J2185; J2543; J3010; J3370; J3480; J7030; J7040; P9016

== ENCOUNTER 2019-01-10 15:16 | Inpatient (IN) | payer MEDICARE ==
[2019-01-10] MEDS ORDERED: NACL 0.9% 500 ML 500 ML IV ONE (15:44)
--- NOTE | 2019-01-10 16:28 | Emergency Department Report ---
ED Recheck HPI - General Chief Complaint: Recheck/Abnormal Lab/Rx Stated Complaint: LOW RBC/HIGH WBC Time Seen by Provider: 01/10/19 16:19 Source: EMS Mode of arrival: Stretcher Limitations: Altered Mental Status - History of Present Illness Initial Comments: Patient is a 68-year-old male that presents emergency room for abnormal labs. Patient at bedside and states that the patient is at baseline and was at dialysis today and found to have a elevated WBCs and low H&H. states that the patient has been medical responsive for several years since his last stroke. Patient is nonverbal. Patient essentially stares into space most of the day. denies any complaints at this time. On initial eval patient found to be tachycardic and hypotensive and with a fever. Patient is minimally responsive but is at bedside and states this is the patient's baseline MD Complaint: abnormal lab -: Sudden Symptoms Since Prior Visit: no new symptoms Associated Symptoms: none - Related Data Home Medications Medication Instructions Recorded Confirmed Last Taken Insulin Glargine [Lantus VIAL] 40 units SUB-Q QHS 10/21/18 10/30/18 10/20/18 cloNIDine [Catapres] 0.2 mg PO TID 10/21/18 10/30/18 10/21/18 Previous Rx's Medication Instructions Recorded Last Taken Type Prazosin [Minipress] 2 mg PO HS #60 capsule 08/07/18 10/20/18 Rx Clindamycin [Clindamycin CAP] 300 mg PO Q6H #40 capsule 10/29/18 Unknown Rx hydrALAZINE [Apresoline TAB] 50 mg PO Q8HR #90 tablet 10/29/18 Unknown Rx dilTIAZem [Cardizem] 60 mg PO Q6HR #90 tablet 11/04/18 Unknown Rx Allergies Allergy/AdvReac Type Severity Reaction Status Date / Time No Known Allergies Allergy Verified 01/10/19 16:37 ED Review of Systems ROS: Stated complaint: LOW RBC/HIGH WBC Other details as noted in HPI Comment: Unobtainable due to pts medical conditions ED Past Medical Hx - Past Medical History Previous Medical History?: Yes Hx Hypertension: Yes Hx CVA: Yes Hx Heart Attack/AMI: No Hx Congestive Heart Failure: No Hx Diabetes: Yes Hx Deep Vein Thrombosis: No Hx Liver Disease: No Hx Renal Disease: Yes ([id number]-W-[id number]) Hx Sickle Cell Disease: No Hx Seizures: No Hx Kidney Stones: No Hx Asthma: No Hx COPD: No Hx Dementia: Yes Hx HIV: No Additional medical history: HIGH CHOLESTEROL, ANEMIA - Surgical History Past Surgical History?: Yes Hx Coronary Stent: No Hx Pacemaker: No Hx Internal Defibrillator: No Additional Surgical History: SOFT TISSUE REMOVED FROM BACK, G-tube. PARTIAL THYROIDECTOMY. Rt permacath - Family History Family history: no significant - Social History Smoking Status: Former Smoker Substance Use Type: None - Medications Home Medications: Home Medications Medication Instructions Recorded Confirmed Last Taken Type Prazosin [Minipress] 2 mg PO HS #60 capsule 08/07/18 10/30/18 10/20/18 Rx Insulin Glargine [Lantus VIAL] 40 units SUB-Q QHS 10/21/18 10/30/18 10/20/18 History cloNIDine [Catapres] 0.2 mg PO TID 10/21/18 10/30/18 10/21/18 History Clindamycin [Clindamycin CAP] 300 mg PO Q6H #40 capsule 10/29/18 10/30/18 Unknown Rx hydrALAZINE [Apresoline TAB] 50 mg PO Q8HR #90 tablet 10/29/18 10/30/18 Unknown Rx dilTIAZem [Cardizem] 60 mg PO Q6HR #90 tablet 11/04/18 Unknown Rx ED Physical Exam - General Limitations: Altered Mental Status General appearance: obtunded - Head Head exam: Present: atraumatic, normocephalic - Eye Eye exam: Present: normal appearance, PERRL Pupils: Present: normal accommodation - ENT ENT exam: Present: mucous membranes dry - Neck Neck exam: Present: normal inspection - Respiratory Respiratory exam: Present: normal lung sounds bilaterally. Absent: respiratory distress, wheezes, rales - Cardiovascular Cardiovascular Exam: Present: regular rate, normal rhythm, other (right chest dialysis cath). Absent: systolic murmur, diastolic murmur, rubs, gallop - GI/Abdominal GI/Abdominal exam: Present: soft, normal bowel sounds - Rectal Rectal exam: Present: deferred - Extremities Exam Extremities exam: Present: normal inspection (except he feels) - Back Exam Back exam: Present: normal inspection (except back wound), other (wound noted to back with wound VAC in place) - Neurological Exam Neurological exam: Present: altered - Expanded Neurological Exam Expanded Speech: Present: total aphasia Best Eye Response ([place]): (4) open spontaneously Best Motor Response (Jacy): (2) extension to pain Best Verbal Response ([place]): (2) incomprehsible sounds [place] Total: 8 - Psychiatric Psychiatric exam: Present: normal affect, normal mood - Skin Skin exam: Present: warm, dry, normal color, other (lateral heel wounds noted. Wound on back and wound VAC is in place). Absent: rash ED Course Vital Signs 01/10/19 01/10/19 01/10/19 15:16 15:38 15:45 Temperature 99.4 F 99.4 F Pulse Rate 125 H 128 H 123 H Respiratory 32 H 42 H 38 H Rate Blood Pressure Blood Pressure 91/50 91/50 91/58 [Left] O2 Sat by Pulse 100 100 100 Oximetry 01/10/19 01/10/19 01/10/19 16:44 17:00 17:30 Temperature Pulse Rate 125 H 120 H 117 H Respiratory 40 H 38 H 40 H Rate Blood Pressure Blood Pressure 98/49 96/51 110/49 [Left] O2 Sat by Pulse 100 100 100 Oximetry 01/10/19 01/10/19 01/10/19 18:44 18:46 19:00 Temperature Pulse Rate 120 H 113 H 118 H Respiratory 42 H 47 H Rate Blood Pressure 106/52 Blood Pressure [Left] O2 Sat by Pulse 100 Oximetry 01/10/19 01/10/19 01/10/19 19:15 19:30 19:46 Temperature Pulse Rate 117 H 112 H 113 H Respiratory 39 H 43 H 46 H Rate Blood Pressure 107/48 108/53 112/50 Blood Pressure [Left] O2 Sat by Pulse 100 100 Oximetry 01/10/19 01/10/19 01/10/19 20:00 20:15 20:30 Temperature Pulse Rate 107 H 103 H 112 H Respiratory 39 H 26 H 44 H Rate Blood Pressure 108/51 111/51 107/52 Blood Pressure [Left] O2 Sat by Pulse 100 98 Oximetry 01/10/19 01/10/19 01/10/19 20:45 21:00 21:15 Temperature Pulse Rate 110 H 112 H 107 H Respiratory 41 H 47 H 49 H Rate Blood Pressure 109/44 101/50 106/53 Blood Pressure [Left] O2 Sat by Pulse Oximetry 01/10/19 01/10/19 01/10/19 21:30 21:45 22:00 Temperature Pulse Rate 109 H 110 H 104 H Respiratory 40 H 42 H 39 H Rate Blood Pressure 105/54 107/52 92/48 Blood Pressure [Left] O2 Sat by Pulse Oximetry 01/10/19 01/10/19 22:16 22:30 Temperature Pulse Rate 102 H 107 H Respiratory 37 H 33 H Rate Blood Pressure 90/45 94/46 Blood Pressure [Left] O2 Sat by Pulse Oximetry - Reevaluation(s) Reevaluation #1: Initial evaluation done. Patient appears to be septic. Patient will be given antibiotics and a sepsis protocol started. 01/10/19 16:35 Heart rate and blood pressure have improved. 01/10/19 17:20 Heart rate and blood pressure continued to improve. After discussing the case with the hospitalist, the hospitalist request a central venous line be placed for better access and possible pressors. 01/10/19 18:23 Central venous line placed. See procedure note. Patient will have a Avila placed 01/10/19 19:16 - Consultations Consultation #1: Hospitalist consultation for admission. Hospitalist to admit patient. 01/10/19 18:09 - Central Line Placement Right Femoral Consent Obtained: verbal consent Time Out Performed: Yes Patient Placed on Monitor/Pulse Ox: Yes Prep: mask, gown, gloves Central Line Prep: Chlorhexidine scrub, sterile drapes applied Local Anesthesia Used: Lidocaine 1% Amount of Anesthesia Used (mls): 5 Ultrasound Used for Placement: Yes Central Line Lumen Inserted: triple Bloods Obtained for Lab: Yes Central Line Position: good blood return, all ports aspirated, flus, sutured in place with 2-0 Dressing Applied: Tegaderm Patient Tolerated Procedure: well Complications: none - EJ/Peripheral Line Neck L Time Out Performed: Yes Indications: nurses unable to establis Skin Cleansed in Sterile Fashion: Yes Size: 20 Dressing Placed: Tegaderm, tape Patient Tolerated Procedure: well ED Recheck MDM - Core Measures AMI Core Measures Followed: Yes - Medical Decision Making is a 68-year-old male that presents emergency room with complaints of abnormal labs at dialysis, patient was found to have elevated WBC and a low H&H. Patient was sent to the ER for further evaluation and treatment. Patient is presumed to be septic most likely secondary to skin wounds or dialysis catheter. Patient started on sepsis protocol and given antibiotics in the ER. Patient given fluids and blood pressure and heart rate improved. Vital signs reviewed. Labs reviewed. Chemistry essentially unremarkable. CBC shows low H&H and elevated white count. Patient type and screen. Patient required left IJ due to peripheral line unable to be obtained. Chest x-ray is negative for acute process. Patient will be admitted to the hospitalist service. Discussed plan of care with family. Family agrees plan of care and admission. Central line placed. Avila placed Critical Care Time: Yes Critical care attestation.: If time is entered above; I have spent that time in minutes in the direct care of this critically ill patient, excluding procedure time. Critical Care Time: 65 minutes ED Disposition Clinical Impression: Abnormal laboratory test, Encephalopathy, ESRD (end stage renal disease), Lactic acidosis Hypotension Qualifiers: Hypotension type: unspecified hypotension type Qualified Code(s): I95.9 - Hypotension, unspecified Sepsis Qualifiers: Sepsis type: sepsis due to unspecified organism Qualified Code(s): A41.9 - Sepsis, unspecified organism Anemia Qualifiers: Anemia type: unspecified type Qualified Code(s): D64.9 - Anemia, unspecified Disposition: DC-09 OP ADMIT IP TO THIS HOSP Is pt being admited?: Yes Does the pt Need Aspirin: No Condition: Critical Time of Disposition: 18:13
[2019-01-10] MEDS ORDERED: NACL 0.9% 1000 ML IV ONE (16:29)
[2019-01-10] MEDS ORDERED: MAXIPIME/NS 2 GM/100 ML 2 GM/100 ML BAG IV ONE ×2 (16:29→22:05)
[2019-01-10 16:38] LABS: Mean Corpuscular HGB Conc 29 % (32-34); Mean Corpuscular Volume 86 fl (84-94); Platelet Count 566 K/mm3 (140-440); Red Blood Count 2.77 M/mm3 (3.65-5.03)
[2019-01-10 16:43] LABS: Hematocrit 23.9 % (35.5-45.6); Hemoglobin 6.9 gm/dl (11.8-15.2); Red Cell Distribution Width 20.8 % (13.2-15.2)
[2019-01-10 16:48] LABS: INR 1.08 (0.87-1.13)
[2019-01-10] MEDS ORDERED: VANCOMYCIN/NS 1 GM/250 ML 1 GM/250 ML BAG IV ONE (16:53)
[2019-01-10 16:54] LABS: Albumin 2.5 g/dL (3.9-5); Calcium 8.8 mg/dL (8.4-10.2)
--- NOTE | 2019-01-10 17:15 | XRay Report ---
PROCEDURE: XR CHEST 1V AP TECHNIQUE: Single AP chest HISTORY: possible Sepsis COMPARISONS: FINDINGS: There is a right central venous catheter with catheter tip at the SVC. Cardiac and mediastinal contou rs are unremarkable. No focal pulmonary infiltrate identified. No pleural fluid collection seen. Pulm onary vasculature is unremarkable IMPRESSION: Right dialysis catheter in satisfactory position. No acute pulmonary findings. This document is electronically signed by Misha Morales MD., January 10 2019 05:13:21 PM ET
[2019-01-10 18:17] LABS: Basophils % (Manual) 0 % (0.0-1.8); Eosinophils % (Manual) 0 % (0.0-4.3); RBC Morphology Normal; Total Cells Counted 100
--- NOTE | 2019-01-10 18:18 | History and Physical Report ---
History of Present Illness Chief complaint: Unresponsive History of present illness: 68 YO Male with HTN, CVA, DM, HLD, ESRD on HD (M,W,F), Sacral Decubitus Ulcer, Chronic Indwelling Avila Catheter for Urinary Retention presents to ED for evaluation. Pt in nonverbal, nonambulatory, debilitated and unable to provide h istory. Pt history taken from ED staff, EMS, and who is at bedside during exam and interview. As per , the patient presented to dialysis clinic today for routine dialysis and was found to have an elevated WBC count, and decreased responsiveness. EMS notified, and upon arrival the patient was found to be in distress and patient subsequently transported to [facility] ED. PT seen and evaluated in ED and found to have Sepsis, Hypotension with systolic BP in the 80's, Encephalopathy, ESRD, Acute on Chronic Renal Failure. heart rate in the 140's. EMS was notified and the patient was transported to [facility] for further care and evaluation. Pt seen and evaluated in ED and found to have SIRS, ESRD, Acidosis, and Acute Hypoxemic Respiratory Failure. Pt initiated on Sepsis protocol and admitted to ICU. Pulmonary team consulted in ED, Nephrology team consulted in ED. No further history obtainable. Prior admission on 10/30/18 reviewed. All listed medication reconciled at time of admission. Q sofa:4 Past History Past Medical History: diabetes, ESRD, hypertension, hyperlipidemia, other (Urinary Retention) Past Surgical History: thyroidectomy, Other (G tube, ) Social history: , lives with family. denies: smoking, alcohol abuse, prescription drug abuse Family history: diabetes, hypertension Medications and Allergies Allergies Allergy/AdvReac Type Severity Reaction Status Date / Time No Known Allergies Allergy Verified 01/10/19 16:37 Home Medications Medication Instructions Recorded Confirmed Last Taken Type Prazosin [Minipress] 2 mg PO HS #60 capsule 08/07/18 10/30/18 10/20/18 Rx Insulin Glargine [Lantus VIAL] 40 units SUB-Q QHS 10/21/18 10/30/18 10/20/18 History cloNIDine [Catapres] 0.2 mg PO TID 10/21/18 10/30/18 10/21/18 History Clindamycin [Clindamycin CAP] 300 mg PO Q6H #40 capsule 10/29/18 10/30/18 Unknown Rx hydrALAZINE [Apresoline TAB] 50 mg PO Q8HR #90 tablet 10/29/18 10/30/18 Unknown Rx dilTIAZem [Cardizem] 60 mg PO Q6HR #90 tablet 11/04/18 Unknown Rx Active Meds: Active Medications Vancomycin HCl (Vancomycin/Ns 1 Gm/250 Ml) 1 gm in 250 mls @ 167.007 mls/hr IV ONCE ONE; Protocol Stop: 01/10/19 18:22 Review of Systems ROS unobtainable: due to mental status Exam - Constitutional Vitals: Temp Pulse Resp BP Pulse Ox 99.4 F 125 H 32 H 91/50 100 01/10/19 15:16 01/10/19 15:16 01/10/19 15:16 01/10/19 15:16 01/10/19 15:16 - EENT Eyes: Present: miosis ENT: hearing decreased - Neck Neck: Present: supple, normal ROM - Respiratory Respiratory effort: labored Respiratory: bilateral: diminished, rhonchi - Cardiovascular Rhythm: regular (tachycardia) Heart Sounds: Present: S1 & S2 - Extremities Extremities: pulses symmetrical, No edema Peripheral Pulses: abnormal (capillary refill greater than 3.5 seconds) - Abdominal General gastrointestinal: Present: soft, non-tender, non-distended, normal bowel sounds, other (G tube in place.) Male genitourinary: Present: normal - Integumentary Integumentary: Present: dry, clammy, decreased turgor - Musculoskeletal Musculoskeletal: generalized weakness - Psychiatric Psychiatric: no appropriate mood/affect, no intact judgment & insight, no memory intact - Neurologic Neurologic: no CNII-XII intact, moves all extremities, no gait normal Results - Labs CBC & Chem 7: 01/10/19 16:25 01/10/19 16:25 Labs: Abnormal lab results 01/10/19 01/10/19 01/10/19 Range/Units 16:25 16:25 16:25 WBC 29.3 H (4.5-11.0) K/mm3 RBC 2.77 L (3.65-5.03) M/mm3 Hgb 6.9 L (11.8-15.2) gm/dl Hct 23.9 L (35.5-45.6) % MCH 25 L (28-32) pg MCHC 29 L (32-34) % RDW 20.8 H (13.2-15.2) % Plt Count 566 H (140-440) K/mm3 Seg Neuts % (Manual) 87.0 H (40.0-70.0) % Lymphocytes % (Manual) 7.0 L (13.4-35.0) % Seg Neutrophils # Man 25.5 H (1.8-7.7) K/mm3 Monocytes # (Manual) 1.8 H (0.0-0.8) K/mm3 VBG pH 7.488 H (7.320-7.420) Sodium 131 L (137-145) mmol/L Chloride 94.7 L (98-107) mmol/L BUN 35 H (9-20) mg/dL Creatinine 2.1 H (0.8-1.5) mg/dL Glucose 285 H (75-100) mg/dL Lactic Acid (0.7-2.0) mmol/L Albumin 2.5 L (3.9-5) g/dL 01/10/19 Range/Units 16:25 WBC (4.5-11.0) K/mm3 RBC (3.65-5.03) M/mm3 Hgb (11.8-15.2) gm/dl Hct (35.5-45.6) % MCH (28-32) pg MCHC (32-34) % RDW (13.2-15.2) % Plt Count (140-440) K/mm3 Seg Neuts % (Manual) (40.0-70.0) % Lymphocytes % (Manual) (13.4-35.0) % Seg Neutrophils # Man (1.8-7.7) K/mm3 Monocytes # (Manual) (0.0-0.8) K/mm3 VBG pH (7.320-7.420) Sodium (137-145) mmol/L Chloride (98-107) mmol/L BUN (9-20) mg/dL Creatinine (0.8-1.5) mg/dL Glucose (75-100) mg/dL Lactic Acid 2.30 H* (0.7-2.0) mmol/L Albumin (3.9-5) g/dL Assessment and Plan - Patient Problems (1) Sepsis Current Visit: Yes Status: Acute Qualifiers: Sepsis type: sepsis due to unspecified organism Qualified Code(s): A41.9 - Sepsis, unspecified organism Plan to address problem: Admit to ICU, IVF resuscitation therapy, IV pressors as clinically indicated to maintain MAP greater than or equal to 60, IV antibiotic therapy, blood cultures, urinalysis, chest x ray, CT head when medically stable, monitor uop q shift, daily weight. The high probability of a clinically significant, sudden or life threatening deterioration of the [cardiac, renal, neuro, respiratory] system(s) required my full and direct attention, intervention and personal management. The aggregate critical care time was [65] minutes. This time is in addition to time spent performing reported procedures but includes the following: [x] Data Review and interpretation [x] Patient assessment and monitoring of vital signs [x] Documentation [x] Medication orders and management (2) Acute respiratory failure Current Visit: Yes Status: Acute Qualifiers: Respiratory failure complication: hypoxia Qualified Code(s): J96.01 - Acute respiratory failure with hypoxia Plan to address problem: supplemental oxygen, nebulizer therapy, NIPPV as clinically indicated, ABG, Chest x ray, pulse oximetry (3) Encephalopathy Current Visit: Yes Status: Acute Plan to address problem: CT Head when medically stable, neuro checks, treat sepsis, (4) Hypotension Current Visit: Yes Status: Acute Qualifiers: Hypotension type: unspecified hypotension type Qualified Code(s): I95.9 - Hypotension, unspecified Plan to address problem: IVF resuscitation therapy, IV pressors to maintain MAP above or equal to 60 (5) ESRD (end stage renal disease) Current Visit: Yes Status: Chronic Plan to address problem: Nephrology consulted in ED, monitor uop q shift, daily weigh, avoid nephrotoxic agents. (6) DVT prophylaxis Current Visit: No Status: Acute Plan to address problem: SCD to BLE while in bed, prophylactic heparin (7) Diabetes Current Visit: Yes Status: Acute Plan to address problem: ADA diet, insulin, accu check, Nutrition consult
[2019-01-10] MEDS ORDERED: NACL 0.9% 1000 ML 1,000 ML IV ONE (18:23)
[2019-01-10] MEDS ORDERED: SODIUM CHLORIDE FLUSH SYRINGE 10 ML IV PRN (18:26)
[2019-01-10] MEDS ORDERED: VANCOMYCIN 1,500 MG in NACL 0.9% 500 ML 500 ML IV ONE (18:26)
[2019-01-10] MEDS ORDERED: VANCOMYCIN PHARMACY TO DOSE IV SCH (19:00)
[2019-01-10 19:37] LABS: Albumin 2.4 g/dL (3.9-5); Bilirubin,Direct 0.2 mg/dL (0-0.2)
[2019-01-10] MEDS ORDERED: VANCOMYCIN 500 MG in NACL 0.9% 100 ML IV ONE (19:45)
[2019-01-10] MEDS: SODIUM CHLORIDE FLUSH SYRINGE 10 ML IV SCH (22:01)
[2019-01-10] MEDS ORDERED: HEPARIN ONE (22:05)
[2019-01-10] MEDS: HEPARIN SUB-Q SCH (22:07)
[2019-01-10] MEDS: MAXIPIME/NS 2 GM/100 ML 2 GM/100 ML BAG IV SCH (22:07)
[2019-01-11 02:45] LABS: Bacteria,Urine 2+ /HPF (Negative); Bilirubin,Urine NEG (Negative); Blood,Urine SM (Negative); Color,Urine Amber (Yellow); Urobilinogen,Urine < 2.0 mg/dL (<2.0)
[2019-01-11 04:14] LABS: Basophils % (Auto) 0.2 % (0.0-1.8); Eosinophils % (Auto) 0.2 % (0.0-4.3); Hemoglobin 6.5 gm/dl (11.8-15.2); Lymphocytes # (Auto) 1.8 K/mm3 (1.2-5.4); Lymphocytes % (Auto) 8.9 % (13.4-35.0); Mean Corpuscular HGB Conc 30 % (32-34); Mean Corpuscular Volume 85 fl (84-94); Monocytes # (Auto) 1.3 K/mm3 (0.0-0.8); Monocytes % (Auto) 6.4 % (0.0-7.3); Platelet Count 440 K/mm3 (140-440)
[2019-01-11 04:18] LABS: Red Cell Distribution Width 20.1 % (13.2-15.2)
[2019-01-11 04:37] LABS: Calcium 8.6 mg/dL (8.4-10.2)
--- NOTE | 2019-01-11 08:08 | Progress Note ---
Assessment and Plan Assessment and plan: --Sepsis; probably secondary to UTI Empiric antibiotics, follow cultures, supportive care --Hypertension/septic shock; fluid bolus, mild improvement Start Levophed as needed --Leukocytosis; secondary to sepsis --Sepsis secondary to urinary tract infection; Antibiotics, follow cultures, continue vancomycin and cefepime --Hematuria; probably traumatic Closely monitor, irrigate the bladder, if no improvement, CT abdomen and pelvis, urology consult --End-stage renal disease; on hemodialysis per schedule Nephrology consultation --Anemia; secondary to end-stage renal disease Transfuse 1 unit PRBC during dialysis --History of PEG in place; PEG care and PEG feeds per protocol --Type 2 diabetes mellitus Accu-Chek sliding scale coverage and ADA diet and insulin --History of BPH; on prazosin[Minipress] held due to hypotension --DVT prophylaxis; SCD, no pharmacologic anticoagulation in view of anemia, and hematuria --Full CODE STATUS Monitor the patient closely and adjust the management as needed Patient will be downgraded from ICU to IMCU Plan of care reviewed with the patient's nurse, will check that family and get additional history Critical care time 35 minutes History Interval history: Patient seen and examined medical records reviewed Admitted with sepsis and hypotension Blood pressures improved with fluid boluses Chronically looking, noncommunicative but responding to Simple commands by moving his head Vital signs noted Hospitalist Physical - Constitutional Vitals: Temp Pulse Resp BP Pulse Ox 99.4 F 113 H 26 H 107/50 98 01/10/19 15:38 01/11/19 06:15 01/11/19 06:15 01/11/19 06:15 01/10/19 20:15 General appearance: Present: mild distress, cachectic, disheveled, other (chronically ill-looking) - EENT Eyes: Present: PERRL, EOM intact - Neck Neck: Present: supple, normal ROM - Respiratory Respiratory: bilateral: diminished, rhonchi, negative: rales, wheezing - Cardiovascular Rhythm: regular Heart Sounds: Present: S1 & S2 - Extremities Extremities: no ischemia, No edema, abnormal (chronic skin changes) - Abdominal General gastrointestinal: soft, non-tender, non-distended, normal bowel sounds, other (PEG tube in place) - Integumentary Integumentary: Present: clear, warm - Psychiatric Psychiatric: cooperative - Neurologic Neurologic: other (residual weakness) Results - Labs CBC & Chem 7: 01/11/19 04:04 01/11/19 04:04 Labs: Laboratory Last Values WBC 20.0 K/mm3 (4.5-11.0) H 01/11/19 04:04 RBC 2.60 M/mm3 (3.65-5.03) L 01/11/19 04:04 Hgb 6.5 gm/dl (11.8-15.2) L 01/11/19 04:04 Hct 22.0 % (35.5-45.6) L 01/11/19 04:04 MCV 85 fl (84-94) 01/11/19 04:04 MCH 25 pg (28-32) L 01/11/19 04:04 MCHC 30 % (32-34) L 01/11/19 04:04 RDW 20.1 % (13.2-15.2) H 01/11/19 04:04 Plt Count 440 K/mm3 (140-440) 01/11/19 04:04 Lymph % (Auto) 8.9 % (13.4-35.0) L 01/11/19 04:04 [place] % (Auto) 6.4 % (0.0-7.3) 01/11/19 04:04 Eos % (Auto) 0.2 % (0.0-4.3) 01/11/19 04:04 Baso % (Auto) 0.2 % (0.0-1.8) 01/11/19 04:04 Lymph # 1.8 K/mm3 (1.2-5.4) 01/11/19 04:04 [place] # 1.3 K/mm3 (0.0-0.8) H 01/11/19 04:04 Eos # 0.0 K/mm3 (0.0-0.4) 01/11/19 04:04 Baso # 0.0 K/mm3 (0.0-0.1) 01/11/19 04:04 Add Manual Diff Complete 01/10/19 16:25 Total Counted 100 01/10/19 16:25 Seg Neutrophils % 84.3 % (40.0-70.0) H 01/11/19 04:04 Seg Neuts % (Manual) 87.0 % (40.0-70.0) H 01/10/19 16:25 Band Neutrophils % 0 % 01/10/19 16:25 Lymphocytes % (Manual) 7.0 % (13.4-35.0) L 01/10/19 16:25 Reactive Lymphs % (Man) 0 % 01/10/19 16:25 Monocytes % (Manual) 6.0 % (0.0-7.3) 01/10/19 16:25 Eosinophils % (Manual) 0 % (0.0-4.3) 01/10/19 16:25 Basophils % (Manual) 0 % (0.0-1.8) 01/10/19 16:25 Metamyelocytes % 0 % 01/10/19 16:25 Myelocytes % 0 % 01/10/19 16: Promyelocytes % 0 % 01/10/19 16: Blast Cells % 0 % 01/10/19 16:25 Nucleated RBC % Not Reportable 01/10/19 16:25 Seg Neutrophils # 16.8 K/mm3 (1.8-7.7) H 01/11/19 04:04 Seg Neutrophils # Man 25.5 K/mm3 (1.8-7.7) H 01/10/19 16:25 Band Neutrophils # 0.0 K/mm3 01/10/19 16:25 Lymphocytes # (Manual) 2.1 K/mm3 (1.2-5.4) 01/10/19 16:25 Abs React Lymphs (Man) 0.0 K/mm3 01/10/19 16:25 Monocytes # (Manual) 1.8 K/mm3 (0.0-0.8) H 01/10/19 16:25 Eosinophils # (Manual) 0.0 K/mm3 (0.0-0.4) 01/10/19 16:25 Basophils # (Manual) 0.0 K/mm3 (0.0-0.1) 01/10/19 16:25 Metamyelocytes # 0.0 K/mm3 01/10/19 16:25 Myelocytes # 0.0 K/mm3 01/10/19 16:25 Promyelocytes # 0.0 K/mm3 01/10/19 16:25 Blast Cells # 0.0 K/mm3 01/10/19 16:25 WBC Morphology Not Reportable 01/10/19 16:25 Hypersegmented Neuts Not Reportable 01/10/19 16:25 Hyposegmented Neuts Not Reportable 01/10/19 16:25 Hypogranular Neuts Not Reportable 01/10/19 16:25 Smudge Cells Not Reportable 01/10/19 16:25 Toxic Granulation Not Reportable 01/10/19 16:25 Toxic Vacuolation Not Reportable 01/10/19 16:25 Dohle Bodies Not Reportable 01/10/19 16:25 Pelger-Huet Anomaly Not Reportable 01/10/19 16:25 Sang Rods Not Reportable 01/10/19 16:25 Platelet Estimate Not Reportable 01/10/19 16:25 Clumped Platelets Not Reportable 01/10/19 16:25 Plt Clumps, EDTA Not Reportable 01/10/19 16:25 Large Platelets Not Reportable 01/10/19 16:25 Giant Platelets Not Reportable 01/10/19 16:25 Platelet Satelliting Not Reportable 01/10/19 16:25 Plt Morphology Comment Not Reportable 01/10/19 16:25 RBC Morphology Normal 01/10/19 16:25 Dimorphic RBCs Not Reportable 01/10/19 16:25 Polychromasia Not Reportable 01/10/19 16:25 Hypochromasia Not Reportable 01/10/19 16:25 Poikilocytosis Not Reportable 01/10/19 16:25 Anisocytosis Not Reportable 01/10/19 16:25 Microcytosis Not Reportable 01/10/19 16:25 Macrocytosis Not Reportable 01/10/19 16:25 Spherocytes Not Reportable 01/10/19 16:25 Pappenheimer Bodies Not Reportable 01/10/19 16:25 Sickle Cells Not Reportable 01/10/19 16:25 Target Cells Not Reportable 01/10/19 16:25 Tear Drop Cells Not Reportable 01/10/19 16:25 Ovalocytes Not Reportable 01/10/19 16:25 Helmet Cells Not Reportable 01/10/19 16:25 Montero-[place]lin Bodies Not Reportable 01/10/19 16:25 Robert Lee Rings Not Reportable 01/10/19 16:25 [place] Cells Not Reportable 01/10/19 16:25 Bite Cells Not Reportable 01/10/19 16:25 Crenated Cell Not Reportable 01/10/19 16:25 Elliptocytes Not Reportable 01/10/19 16:25 Acanthocytes (Spur) Not Reportable 01/10/19 16:25 Rouleaux Not Reportable 01/10/19 16:25 Hemoglobin C Crystals Not Reportable 01/10/19 16:25 Schistocytes Not Reportable 01/10/19 16:25 Malaria parasites Not Reportable 01/10/19 16:25 David Bodies Not Reportable 01/10/19 16:25 Hem Pathologist Commnt No 01/10/19 16:25 PT 14.7 Sec. (12.2-14.9) 01/10/19 16:25 INR 1.08 (0.87-1.13) 01/10/19 16:25 VBG pH 7.488 (7.320-7.420) H 01/10/19 16:25 Sodium 131 mmol/L (137-145) L 01/11/19 04:04 Potassium 3.8 mmol/L (3.6-5.0) 01/11/19 04:04 Chloride 97.6 mmol/L (98-107) L 01/11/19 04:04 Carbon Dioxide 22 mmol/L (22-30) 01/11/19 04:04 Anion Gap 15 mmol/L 01/11/19 04:04 BUN 42 mg/dL (9-20) H 01/11/19 04:04 Creatinine 2.5 mg/dL (0.8-1.5) H 01/11/19 04:04 Estimated GFR 31 ml/min 01/11/19 04:04 BUN/Creatinine Ratio 17 % 01/11/19 04:04 Glucose 235 mg/dL (75-100) H 01/11/19 04:04 Lactic Acid 1.10 mmol/L (0.7-2.0) 01/11/19 00:39 Calcium 8.6 mg/dL (8.4-10.2) 01/11/19 04:04 Total Bilirubin 0.40 mg/dL (0.1-1.2) 01/11/19 04:04 Direct Bilirubin 0.2 mg/dL (0-0.2) 01/10/19 16:25 Indirect Bilirubin 0.2 mg/dL 01/10/19 16:25 AST 13 units/L (5-40) 01/11/19 04:04 ALT 7 units/L (7-56) 01/11/19 04:04 Alkaline Phosphatase 104 units/L (35-129) 01/11/19 04:04 Total Protein 6.8 g/dL (6.3-8.2) 01/11/19 04:04 Albumin 2.0 g/dL (3.9-5) L 01/11/19 04:04 Albumin/Globulin Ratio 0.4 % 01/11/19 04:04 Urine Color [place] (Yellow) 01/11/19 02:24 Urine Turbidity Slightly-cloudy (Clear) 01/11/19 02:24 Urine pH 5.0 (5.0-7.0) 01/11/19 02:24 Ur Specific [place] 1.028 (1.003-1.030) 01/11/19 02:24 Urine Protein 30 mg/dl mg/dL (Negative) 01/11/19 02:24 Urine Glucose (UA) 50 mg/dL (Negative) 01/11/19 02:24 Urine Ketones Neg mg/dL (Negative) 01/11/19 02:24 Urine Blood Sm (Negative) 01/11/19 02:24 Urine Nitrite Neg (Negative) 01/11/19 02:24 Urine Bilirubin Neg (Negative) 01/11/19 02:24 Urine Urobilinogen < 2.0 mg/dL (<2.0) 01/11/19 02:24 Ur Leukocyte Esterase Tr (Negative) 01/11/19 02:24 Urine WBC (Auto) 10.0 /HPF (0.0-6.0) H 01/11/19 02:24 Urine RBC (Auto) 5.0 /HPF (0.0-6.0) 01/11/19 02:24 Urine Bacteria (Auto) 2+ /HPF (Negative) 01/11/19 02:24 Urine WBC Clumps 2+ /HPF 01/11/19 02:24 Urine Yeast (Budding) 2+ /HPF 01/11/19 02:24 Blood Type A POSITIVE 01/10/19 16:25 Antibody Screen Negative 01/10/19 16:25 Active Medications - Current Medications Current Medications: Generic Name Dose Route Start Last Admin Trade Name Freq PRN Reason Stop Dose Admin Heparin Sodium (Porcine) 5,000 unit 01/10/19 22:00 01/10/19 22:07 Heparin SUB-Q 5,000 unit Q12HR SAMUEL Administration Cefepime HCl 2 gm in 100 mls @ 200 mls/hr 01/10/19 22:00 01/10/19 22:07 Maxipime/Ns 2 Gm/100 Ml IV 200 mls/hr Q12HR SAMUEL Administration Protocol Vancomycin HCl 1 gm in 250 mls @ 166.667 mls/hr 01/11/19 19:00 Vancomycin/Ns 1 Gm/250 Ml IV Q24H SAMUEL Sodium Chloride 10 ml 01/10/19 22:00 01/10/19 22:01 Sodium Chloride Flush Syringe 10 Ml IV 10 ml BID SAMUEL Administration Sodium Chloride 10 ml 01/10/19 18:26 Sodium Chloride Flush Syringe 10 Ml IV PRN PRN LINE FLUSH
[2019-01-11] MEDS ORDERED: NACL 0.9% 500 ML 500 ML IV ONE (08:10)
[2019-01-11] MEDS ORDERED: NACL 0.9% 500 ML 500 ML ONE ×2 (09:28→12:29)
[2019-01-11] MEDS ORDERED: MAXIPIME/NS 2 GM/100 ML 2 GM/100 ML BAG IV ONE (09:29)
[2019-01-11] MEDS ORDERED: NACL 0.9% 50 ML ONE (09:29)
[2019-01-11] MEDS: MAXIPIME/NS 2 GM/100 ML 2 GM/100 ML BAG IV SCH (09:37)
[2019-01-11] MEDS: SODIUM CHLORIDE FLUSH SYRINGE 10 ML IV SCH ×2 (09:38→21:59)
[2019-01-11] MEDS ORDERED: SODIUM BICARBONATE FEEDTUBE PRN ×2 (09:44→11:48)
[2019-01-11] MEDS ORDERED: SIMPLE SYRUP FEEDTUBE PRN ×4 (09:44→11:48)
[2019-01-11] MEDS ORDERED: PANCREAZE DR 10,500 UNIT FEEDTUBE PRN ×2 (09:44→11:48)
--- NOTE | 2019-01-11 11:29 | Consultation ---
History of Present Illness - Reason for Consult Consult date: 01/11/19 end stage renal disease Requesting physician: DAVID TANNER - History of Present Illness 68 YO Male with HTN, CVA, DM, HLD, ESRD on HD (M,W,F), Sacral Decubitus Ulcer, Chronic Indwelling Avila Catheter for Urinary Retention presents to ED for evaluation. Pt in nonverbal, nonambulatory, debilitated and unable to provide history. Pt history taken from ED staff, EMS, patient was sent over from the dialysis clinic because of altered mental status. EMS notified, and upon arrival the patient was found to be in distress and patient subsequently transported to [facility] ED. PT seen and evaluated in ED and found to have Sepsis, Hypotension with systolic BP in the 80's, Encephalopathy, ESRD, Acute on Chronic Renal Failure. heart rate in the 140's. EMS was notified and the patient was transported to [facility] for further care and evaluation. Pt seen and evaluated in ED and found to have SIRS, ESRD, Acidosis, and Acute Hypoxemic Respiratory Failure. Pt initiated on Sepsis protocol and admitted to ICU. Patient seen in the emergency room. He currently has indwelling Avila catheter in place. Approximately 1500 of hemorrhagic urine in the back. Confirmed with patient's nurse that it is not irrigation fluid. Past History Past Medical History: diabetes, ESRD, hypertension, hyperlipidemia, other (Urinary Retention) Past Surgical History: thyroidectomy, Other (G tube, ) Social history: , lives with family. denies: smoking, alcohol abuse, prescription drug abuse Family history: diabetes, hypertension Medications and Allergies Allergies Allergy/AdvReac Type Severity Reaction Status Date / Time No Known Allergies Allergy Verified 01/10/19 16:37 Home Medications Medication Instructions Recorded Confirmed Last Taken Type Prazosin [Minipress] 2 mg PO HS #60 capsule 08/07/18 10/30/18 10/20/18 Rx Insulin Glargine [Lantus VIAL] 40 units SUB-Q QHS 10/21/18 10/30/18 10/20/18 History cloNIDine [Catapres] 0.2 mg PO TID 10/21/18 10/30/18 10/21/18 History Clindamycin [Clindamycin CAP] 300 mg PO Q6H #40 capsule 10/29/18 10/30/18 Unknown Rx hydrALAZINE [Apresoline TAB] 50 mg PO Q8HR #90 tablet 10/29/18 10/30/18 Unknown Rx dilTIAZem [Cardizem] 60 mg PO Q6HR #90 tablet 11/04/18 Unknown Rx Active Meds: Active Medications Lipase/Protease/Amylase (Marcos Cat 10,500 Unit) 1 each FEEDTUBE PRN PRN PRN Reason: For Clogged Feeding Tube Heparin Sodium (Porcine) (Heparin) 5,000 unit SUB-Q Q12HR SAMUEL Last Admin: 01/10/19 22:07 Dose: 5,000 unit Documented by: Cefepime HCl (Maxipime/Ns 1 Gm/100 Ml) 1 gm in 100 mls @ 200 mls/hr IV Q24H SAMUEL Insulin Human Lispro (Humalog) 0 unit SUB-Q Q6HR SAMUEL; Protocol Prazosin HCl (Minipress) 2 mg PO HS SAMUEL Simple Syrup (Simple Syrup) 15 ml FEEDTUBE PRN PRN PRN Reason: Hypoglycemia Simple Syrup (Simple Syrup) 30 ml FEEDTUBE PRN PRN PRN Reason: Hypoglycemia Sodium Bicarbonate (Sodium Bicarbonate) 325 mg FEEDTUBE PRN PRN PRN Reason: For Clogged Feeding Tube Sodium Chloride (Sodium Chloride Flush Syringe 10 Ml) 10 ml IV BID [facility] Last Admin: 01/11/19 09:38 Dose: 10 ml Documented by: Sodium Chloride (Sodium Chloride Flush Syringe 10 Ml) 10 ml IV PRN PRN PRN Reason: LINE FLUSH Review of Systems ROS unobtainable: due to mental status Exam - Vital Signs Vital signs: Vital Signs Temp Pulse Resp BP Pulse Ox 99.4 F 125 H 32 H 91/50 100 01/10/19 15:16 01/10/19 15:16 01/10/19 15:16 01/10/19 15:16 01/10/19 15:16 - General Appearance General appearance: chronically ill, frail EENT: PERRL, mucous membranes moist Neck: Present: neck supple, trachea midline, Other (right IJ PermCath in place). Absent: JVD/HJR, Masses Respiratory: Clear to Ascultation Heart: regular, normal heart rate, S1S2, no murmurs Gastrointestinal: Present: normal, normoactive bowel sounds Integumentary: other (no peripheral edema. Avila catheter in place.) Results - Lab Results 01/11/19 04:04 01/11/19 04:04 Most recent lab results Calcium 8.6 mg/dL (8.4-10.2) 01/11/19 04:04 Assessment and Plan Impression * End-stage renal disease * Urinary retention * Sepsis * Hypertension * Diabetes * History of CVA Recommendations * Patient has approximately 1500 mL of bloody urine urine in his Avila bag. No irrigation fluid as confirmed by his nurse * History of creatinine is noted to be 2.5 and clinically he is not volume overloaded. No urgent indication for dialysis today * He may have some recovery of his renal function * Shall monitor him off dialysis. Monitor fluid status and electrolytes closely * Avoid nephrotoxins * Consider urology evaluation for his gross hematuria * Consider packed RBC transfusion * IV antibiotic as per primary care team * Thank you very much for the consultation. Shall follow along with you
[2019-01-11] MEDS ORDERED: NACL 0.9% 500 ML IR ONE ×2 (11:36→11:37)
[2019-01-11] MEDS: HumaLOG SUB-Q SCH ×2 (13:48→18:56)
[2019-01-11] MEDS ORDERED: HumaLOG SUB-Q ONE ×2 (13:48→18:57)
--- NOTE | 2019-01-11 15:54 | Event Note ---
Date: 01/11/19 Patient continues to have hematuria, no clots Check CT abdomen and pelvis without contrast, renal ultrasound Monitor H&H, consult urology, informed . I also called and discussed patient condition and treatment plan with his Ms.Patricia Mendoza [phone], I answered all her questions. She reports that the patient never had urinary retention. She does not remember her seeing any urologist
--- NOTE | 2019-01-11 18:42 | Event Note ---
Date: 01/11/19 Patient downgraded to IMCU.
[2019-01-11] MEDS ORDERED: VANCOMYCIN/NS 1 GM/250 ML 1 GM/250 ML BAG IV SCH (19:00)
[2019-01-11] MEDS: HEPARIN SUB-Q SCH ×2 (20:06→21:58)
[2019-01-11] MEDS: MINIPRESS PO SCH (21:59)
[2019-01-11] MEDS ORDERED: HEPARIN ONE (22:03)
[2019-01-12] MEDS: HumaLOG SUB-Q SCH ×4 (00:22→17:49)
[2019-01-12] MEDS ORDERED: HumaLOG SUB-Q ONE ×2 (00:24→06:01)
[2019-01-12 04:59] LABS: Basophils % (Auto) 0.1 % (0.0-1.8); Hematocrit 23.8 % (35.5-45.6); Hemoglobin 7.3 gm/dl (11.8-15.2); Mean Corpuscular HGB Conc 31 % (32-34); Mean Corpuscular Volume 86 fl (84-94); Monocytes % (Auto) 6.3 % (0.0-7.3); Platelet Count 359 K/mm3 (140-440); Red Blood Count 2.78 M/mm3 (3.65-5.03)
[2019-01-12 05:24] LABS: Alanine Aminotransferase 6 units/L (7-56); Albumin 1.7 g/dL (3.9-5); BUN/Creatinine Ratio 16; Blood Urea Nitrogen 50 mg/dL (9-20); Calcium 9.1 mg/dL (8.4-10.2); Hemolysis Index 4
[2019-01-12 05:25] LABS: Bilirubin,Direct < 0.2 mg/dL (0-0.2)
--- NOTE | 2019-01-12 08:09 | Progress Note ---
Assessment and Plan consult dictated ct not done nubia cysto when stable make npo p midnight Subjective Date of service: 01/12/19 Principal diagnosis: hematuria Objective - Constitutional Vitals: Vital Signs - 12hr 01/11/19 01/11/19 01/11/19 20:16 20:30 20:46 Pulse Rate 111 H 111 H 112 H Respiratory 23 24 26 H Rate Blood Pressure 134/60 133/70 133/70 01/11/19 01/11/19 01/11/19 21:00 21:16 21:30 Pulse Rate 110 H 110 H 116 H Respiratory 26 H 30 H 29 H Rate Blood Pressure 142/68 142/68 155/62 01/11/19 01/11/19 01/11/19 21:46 22:00 22:16 Pulse Rate 108 H 109 H 113 H Respiratory 26 H 27 H 20 Rate Blood Pressure 155/62 137/64 155/62 01/11/19 01/11/19 01/11/19 22:30 22:46 23:00 Pulse Rate 133 H 123 H 127 H Respiratory 32 H 27 H 18 Rate Blood Pressure 126/54 137/64 117/47 01/11/19 01/11/19 01/11/19 23:15 23:30 23:46 Pulse Rate 128 H 128 H 124 H Respiratory 27 H 30 H 29 H Rate Blood Pressure 117/47 117/51 117/47 01/12/19 01/12/19 01/12/19 00:00 00:09 00:16 Pulse Rate 122 H 122 H 139 H Respiratory 29 H 32 H 32 H Rate Blood Pressure 126/58 126/58 117/51 01/12/19 01/12/19 01/12/19 00:30 00:46 01:00 Pulse Rate 120 H 115 H 117 H Respiratory 30 H 35 H 32 H Rate Blood Pressure 123/52 126/58 113/53 01/12/19 01/12/19 01/12/19 01:16 01:30 01:46 Pulse Rate 123 H 117 H 123 H Respiratory 25 H 28 H 25 H Rate Blood Pressure 123/52 104/53 113/53 01/12/19 01/12/19 01/12/19 02:00 02:16 02:30 Pulse Rate 113 H 120 H 118 H Respiratory 29 H 50 H 29 H Rate Blood Pressure 110/56 104/53 118/51 01/12/19 01/12/19 01/12/19 02:46 03:00 03:16 Pulse Rate 119 H 113 H 116 H Respiratory 28 H 31 H 32 H Rate Blood Pressure 110/56 127/61 127/61 01/12/19 01/12/19 01/12/19 03:30 03:46 04:00 Pulse Rate 125 H 119 H 117 H Respiratory 30 H 27 H 31 H Rate Blood Pressure 138/56 127/61 130/60 01/12/19 01/12/19 01/12/19 04:16 04:30 04:46 Pulse Rate 112 H 114 H 113 H Respiratory 22 27 H 27 H Rate Blood Pressure 130/60 112/55 130/60 01/12/19 01/12/19 01/12/19 05:00 05:16 05:30 Pulse Rate 110 H 110 H 110 H Respiratory 19 21 31 H Rate Blood Pressure 121/60 121/60 118/64 01/12/19 01/12/19 01/12/19 05:46 06:00 06:16 Pulse Rate 111 H 109 H 111 H Respiratory 24 27 H 15 Rate Blood Pressure 118/64 123/55 123/55 01/12/19 01/12/19 01/12/19 06:30 06:46 07:00 Pulse Rate 116 H 112 H 109 H Respiratory 26 H 18 27 H Rate Blood Pressure 126/57 126/57 116/57 01/12/19 01/12/19 07:16 07:30 Pulse Rate 113 H 111 H Respiratory 27 H 23 Rate Blood Pressure 116/57 117/60 General appearance: Present: mild distress - Labs CBC & Chem 7: 01/12/19 04:08 01/12/19 04:08 Labs: Abnormal lab results 01/10/19 01/11/19 01/11/19 Range/Units 16:25 13:34 18:55 WBC (4.5-11.0) K/mm3 RBC (3.65-5.03) M/mm3 Hgb (11.8-15.2) gm/dl Hct (35.5-45.6) % MCH (28-32) pg MCHC (32-34) % RDW (13.2-15.2) % Lymph % (Auto) (13.4-35.0) % Lymph # (1.2-5.4) K/mm3 [place] # (0.0-0.8) K/mm3 Seg Neutrophils % (40.0-70.0) % Seg Neutrophils # (1.8-7.7) K/mm3 Carbon Dioxide (22-30) mmol/L BUN (9-20) mg/dL Creatinine (0.8-1.5) mg/dL Glucose (75-100) mg/dL POC Glucose 225 H 163 H (70-105) ALT (7-56) units/L Total Protein (6.3-8.2) g/dL Albumin (3.9-5) g/dL Crossmatch See Detail 01/11/19 01/12/19 01/12/19 Range/Units 21:37 00:24 04:08 WBC 16.4 H (4.5-11.0) K/mm3 RBC 2.78 L (3.65-5.03) M/mm3 Hgb 7.3 L (11.8-15.2) gm/dl Hct 23.8 L (35.5-45.6) % MCH 26 L (28-32) pg MCHC 31 L (32-34) % RDW 19.0 H (13.2-15.2) % Lymph % (Auto) 6.0 L (13.4-35.0) % Lymph # 1.0 L (1.2-5.4) K/mm3 [place] # 1.0 H (0.0-0.8) K/mm3 Seg Neutrophils % 87.6 H (40.0-70.0) % Seg Neutrophils # 14.4 H (1.8-7.7) K/mm3 Carbon Dioxide (22-30) mmol/L BUN (9-20) mg/dL Creatinine (0.8-1.5) mg/dL Glucose (75-100) mg/dL POC Glucose 169 H 215 H (70-105) ALT (7-56) units/L Total Protein (6.3-8.2) g/dL Albumin (3.9-5) g/dL Crossmatch 01/12/19 Range/Units 04:08 WBC (4.5-11.0) K/mm3 RBC (3.65-5.03) M/mm3 Hgb (11.8-15.2) gm/dl Hct (35.5-45.6) % MCH (28-32) pg MCHC (32-34) % RDW (13.2-15.2) % Lymph % (Auto) (13.4-35.0) % Lymph # (1.2-5.4) K/mm3 [place] # (0.0-0.8) K/mm3 Seg Neutrophils % (40.0-70.0) % Seg Neutrophils # (1.8-7.7) K/mm3 Carbon Dioxide 20 L (22-30) mmol/L BUN 50 H (9-20) mg/dL Creatinine 3.2 H (0.8-1.5) mg/dL Glucose 225 H (75-100) mg/dL POC Glucose (70-105) ALT 6 L (7-56) units/L Total Protein 6.2 L (6.3-8.2) g/dL Albumin 1.7 L (3.9-5) g/dL Crossmatch Medications & Allergies - Medications Allergies/Adverse Reactions: Allergies No Known Allergies Allergy (Verified 01/10/19 16:37) Home Medications: Home Medications Medication Instructions Recorded Confirmed Last Taken Type Prazosin [Minipress] 2 mg PO HS #60 capsule 08/07/18 10/30/18 10/20/18 Rx Insulin Glargine [Lantus VIAL] 40 units SUB-Q QHS 10/21/18 10/30/18 10/20/18 History cloNIDine [Catapres] 0.2 mg PO TID 10/21/18 10/30/18 10/21/18 History Clindamycin [Clindamycin CAP] 300 mg PO Q6H #40 capsule 10/29/18 10/30/18 Unknown Rx hydrALAZINE [Apresoline TAB] 50 mg PO Q8HR #90 tablet 10/29/18 10/30/18 Unknown Rx dilTIAZem [Cardizem] 60 mg PO Q6HR #90 tablet 11/04/18 Unknown Rx Active Medications: Generic Name Dose Route Start Last Admin Trade Name Freq PRN Reason Stop Dose Admin Lipase/Protease/Amylase 1 each 01/11/19 09:44 Pancreaze 10,500 Unit FEEDTUBE PRN PRN For Clogged Feeding Tube Heparin Sodium (Porcine) 5,000 unit 01/10/19 22:00 01/11/19 21:58 Heparin SUB-Q 5,000 unit Q12HR SAMUEL Administration Cefepime HCl 1 gm in 100 mls @ 200 mls/hr 01/12/19 10:00 Maxipime/Ns 1 Gm/100 Ml IV Q24H SAMUEL Insulin Human Lispro 0 unit 01/11/19 12:00 01/12/19 05:57 Humalog SUB-Q 4 unit Q6HR SAMUEL Administration Protocol Prazosin HCl 2 mg 01/11/19 22:00 01/11/19 21:59 Minipress PO 2 mg HS SAMUEL Administration Simple Syrup 15 ml 01/11/19 09:44 Simple Syrup FEEDTUBE PRN PRN Hypoglycemia Simple Syrup 30 ml 01/11/19 09:44 Simple Syrup FEEDTUBE PRN PRN Hypoglycemia Sodium Bicarbonate 325 mg 01/11/19 09:44 Sodium Bicarbonate FEEDTUBE PRN PRN For Clogged Feeding Tube Sodium Chloride 10 ml 01/10/19 22:00 01/11/19 21:59 Sodium Chloride Flush Syringe 10 Ml IV 10 ml BID SAMUEL Administration Sodium Chloride 10 ml 01/10/19 18:26 Sodium Chloride Flush Syringe 10 Ml IV PRN PRN LINE FLUSH
--- NOTE | 2019-01-12 09:12 | Cat Scan Report ---
PROCEDURE: CT ABDOMEN PELVIS WO CON TECHNIQUE: CT imaging is obtained through the abdomen and pelvis without contrast HISTORY: hematuria COMPARISONS: 09/12/2018, 07/19/2018 FINDINGS: Imaged intrathoracic contents are remarkable for focal left basilar atelectasis versus airspace disea se. Kidneys are normal in size, axis and position. Moderate left hydroureteronephrosis. No nephrolithiasi s. Avila catheter within the urinary bladder with associated iatrogenic air. Heterogeneous material i s faintly seen in the urinary bladder. Unchanged cystic lesions showing both increased and decreased attenuation within both kidneys. No right-sided hydroureteronephrosis. Distended gallbladder is suggested surrounding edema. No calcified gallstones. The liver, pancreas, s pleen, and adrenal glands demonstrate an unremarkable noncontrast appearance. Percutaneous gastrostomy. Hollow enteric organs are normal in course and caliber. Moderate to large s tool burden. Mild perirectal edema is suggested. Appendix is normal. No intra-abdominal free air/flui d or lymphadenopathy. Aorta is normal in course and caliber with scattered atherosclerosis. Superficial soft tissues are unremarkable. Right iliac lytic lesion on coronal image 76 measures up t o 15 mm. Left sacroiliac lytic lesions also seen on coronal image 122 and axial series 2, image 127. IMPRESSION: Moderate left hydroureteronephrosis without obstructing stone. A Avila catheter is present in the uri nary bladder with associated iatrogenic air. Heterogeneous material faintly seen in the urinary bladd er is compatible with reported history of hematuria. Lytic lesions in the pelvis are compatible with metastatic disease. Distended gallbladder with suggested surrounding edema and no calcified gallstones. Consider follow-u p ultrasound as warranted. Moderate to large stool burden with mild perirectal edema is suggested. Correlation with symptoms of proctitis is requested. Focal left basilar atelectasis versus airspace disease This document is electronically signed by Flavio Javed MD., January 12 2019 09:10:25 AM ET
--- NOTE | 2019-01-12 09:15 | Progress Note ---
Assessment and Plan Assessment and plan: --Hematuria; urology evaluation noted and appreciated CT abdomen and pelvis/renal ultrasound, reports pending Continue supportive care, NPO from midnight for possible procedure --Sepsis; probably secondary to UTI Empiric antibiotics, follow cultures, supportive care --Hypertension/septic shock; fluid bolus, mild improvement Start Levophed as needed --Leukocytosis; secondary to sepsis --Sepsis secondary to urinary tract infection; Antibiotics, follow cultures, continue vancomycin and cefepime --End-stage renal disease; on hemodialysis per schedule Nephrology consultation --Anemia; secondary to end-stage renal disease Transfuse 1 unit PRBC during dialysis --History of PEG in place; PEG care and PEG feeds per protocol --Type 2 diabetes mellitus Accu-Chek sliding scale coverage and ADA diet and insulin --History of BPH; on prazosin[Minipress] held due to hypotension --DVT prophylaxis; SCD, no pharmacologic anticoagulation in view of anemia, and hematuria --Full CODE STATUS Monitor the patient closely and adjust the management as needed Patient will be downgraded from ICU to IMCU Plan of care reviewed with the patient's nurse, will check that family and get additional history Critical care time 35 minutes History Interval history: Patient seen and evaluated medical records reviewed Patient continues to have hematuria Urology evaluated the patient Recommend urology procedure tomorrow Nothing by mouth from midnight Patient noncommunicative Vital signs reviewed Hospitalist Physical - Constitutional Vitals: Temp Pulse Resp BP Pulse Ox 98.5 F 113 H 18 121/61 100 01/12/19 08:42 01/12/19 08:42 01/12/19 08:42 01/12/19 08:42 01/12/19 08:42 General appearance: Present: mild distress, cachectic, disheveled - EENT Eyes: Present: PERRL, EOM intact - Neck Neck: Present: supple, normal ROM - Respiratory Respiratory effort: normal Respiratory: bilateral: diminished, negative: rales, rhonchi, wheezing - Cardiovascular Rhythm: regular Heart Sounds: Present: S1 & S2 - Extremities Extremities: no ischemia, pulses intact, pulses symmetrical Peripheral Pulses: within normal limits - Abdominal General gastrointestinal: soft, non-tender, non-distended, distended - Integumentary Integumentary: Present: clear, warm - Psychiatric Psychiatric: other (non-communicative) - Neurologic Neurologic: other (noncommunicative) Results - Labs CBC & Chem 7: 01/12/19 04:08 01/12/19 04:08 Labs: Laboratory Last Values WBC 16.4 K/mm3 (4.5-11.0) H 01/12/19 04:08 RBC 2.78 M/mm3 (3.65-5.03) L 01/12/19 04:08 Hgb 7.3 gm/dl (11.8-15.2) L 01/12/19 04:08 Hct 23.8 % (35.5-45.6) L 01/12/19 04:08 MCV 86 fl (84-94) 01/12/19 04:08 MCH 26 pg (28-32) L 01/12/19 04:08 MCHC 31 % (32-34) L 01/12/19 04:08 RDW 19.0 % (13.2-15.2) H 01/12/19 04:08 Plt Count 359 K/mm3 (140-440) 01/12/19 04:08 Lymph % (Auto) 6.0 % (13.4-35.0) L 01/12/19 04:08 Gregg % (Auto) 6.3 % (0.0-7.3) 01/12/19 04:08 Eos % (Auto) 0.0 % (0.0-4.3) 01/12/19 04:08 Baso % (Auto) 0.1 % (0.0-1.8) 01/12/19 04:08 Lymph # 1.0 K/mm3 (1.2-5.4) L 01/12/19 04:08 Gregg # 1.0 K/mm3 (0.0-0.8) H 01/12/19 04:08 Eos # 0.0 K/mm3 (0.0-0.4) 01/12/19 04:08 Baso # 0.0 K/mm3 (0.0-0.1) 01/12/19 04:08 Add Manual Diff Complete 01/10/19 16:25 Total Counted 100 01/10/19 16:25 Seg Neutrophils % 87.6 % (40.0-70.0) H 01/12/19 04:08 Seg Neuts % (Manual) 87.0 % (40.0-70.0) H 01/10/19 16:25 Band Neutrophils % 0 % 01/10/19 16:25 Lymphocytes % (Manual) 7.0 % (13.4-35.0) L 01/10/19 16:25 Reactive Lymphs % (Man) 0 % 01/10/19 16:25 Monocytes % (Manual) 6.0 % (0.0-7.3) 01/10/19 16:25 Eosinophils % (Manual) 0 % (0.0-4.3) 01/10/19 16:25 Basophils % (Manual) 0 % (0.0-1.8) 01/10/19 16:25 Metamyelocytes % 0 % 01/10/19 16:25 Myelocytes % 0 % 01/10/19 16:25 Promyelocytes % 0 % 01/10/19 16: Blast Cells % 0 % 01/10/19 16:25 Nucleated RBC % Not Reportable 01/10/19 16:25 Seg Neutrophils # 14.4 K/mm3 (1.8-7.7) H 01/12/19 04:08 Seg Neutrophils # Man 25.5 K/mm3 (1.8-7.7) H 01/10/19 16:25 Band Neutrophils # 0.0 K/mm3 01/10/19 16:25 Lymphocytes # (Manual) 2.1 K/mm3 (1.2-5.4) 01/10/19 16:25 Abs React Lymphs (Man) 0.0 K/mm3 01/10/19 16:25 Monocytes # (Manual) 1.8 K/mm3 (0.0-0.8) H 01/10/19 16:25 Eosinophils # (Manual) 0.0 K/mm3 (0.0-0.4) 01/10/19 16:25 Basophils # (Manual) 0.0 K/mm3 (0.0-0.1) 01/10/19 16:25 Metamyelocytes # 0.0 K/mm3 01/10/19 16:25 Myelocytes # 0.0 K/mm3 01/10/19 16:25 Promyelocytes # 0.0 K/mm3 01/10/19 16:25 Blast Cells # 0.0 K/mm3 01/10/19 16:25 WBC Morphology Not Reportable 01/10/19 16:25 Hypersegmented Neuts Not Reportable 01/10/19 16:25 Hyposegmented Neuts Not Reportable 01/10/19 16:25 Hypogranular Neuts Not Reportable 01/10/19 16:25 Smudge Cells Not Reportable 01/10/19 16:25 Toxic Granulation Not Reportable 01/10/19 16:25 Toxic Vacuolation Not Reportable 01/10/19 16:25 Dohle Bodies Not Reportable 01/10/19 16:25 Pelger-Huet Anomaly Not Reportable 01/10/19 16:25 Sang Rods Not Reportable 01/10/19 16:25 Platelet Estimate Not Reportable 01/10/19 16:25 Clumped Platelets Not Reportable 01/10/19 16:25 Plt Clumps, EDTA Not Reportable 01/10/19 16:25 Large Platelets Not Reportable 01/10/19 16:25 Giant Platelets Not Reportable 01/10/19 16:25 Platelet Satelliting Not Reportable 01/10/19 16:25 Plt Morphology Comment Not Reportable 01/10/19 16:25 RBC Morphology Normal 01/10/19 16:25 Dimorphic RBCs Not Reportable 01/10/19 16:25 Polychromasia Not Reportable 01/10/19 16:25 Hypochromasia Not Reportable 01/10/19 16:25 Poikilocytosis Not Reportable 01/10/19 16:25 Anisocytosis Not Reportable 01/10/19 16:25 Microcytosis Not Reportable 01/10/19 16:25 Macrocytosis Not Reportable 01/10/19 16:25 Spherocytes Not Reportable 01/10/19 16:25 Pappenheimer Bodies Not Reportable 01/10/19 16:25 Sickle Cells Not Reportable 01/10/19 16:25 Target Cells Not Reportable 01/10/19 16:25 Tear Drop Cells Not Reportable 01/10/19 16:25 Ovalocytes Not Reportable 01/10/19 16:25 Helmet Cells Not Reportable 01/10/19 16:25 Montero-Atoka Bodies Not Reportable 01/10/19 16:25 Pitman Rings Not Reportable 01/10/19 16:25 [place]nee Cells Not Reportable 01/10/19 16:25 Bite Cells Not Reportable 01/10/19 16:25 Crenated Cell Not Reportable 01/10/19 16:25 Elliptocytes Not Reportable 01/10/19 16:25 Acanthocytes (Spur) Not Reportable 01/10/19 16:25 Rouleaux Not Reportable 01/10/19 16:25 Hemoglobin C Crystals Not Reportable 01/10/19 16:25 Schistocytes Not Reportable 01/10/19 16:25 Malaria parasites Not Reportable 01/10/19 16:25 David Bodies Not Reportable 01/10/19 16:25 Hem Pathologist Commnt No 01/10/19 16:25 PT 14.7 Sec. (12.2-14.9) 01/10/19 16:25 INR 1.08 (0.87-1.13) 01/10/19 16:25 VBG pH 7.488 (7.320-7.420) H 01/10/19 16:25 Sodium 138 mmol/L (137-145) D 01/12/19 04:08 Potassium 3.6 mmol/L (3.6-5.0) 01/12/19 04:08 Chloride 101.9 mmol/L (98-107) 01/12/19 04:08 Carbon Dioxide 20 mmol/L (22-30) L 01/12/19 04:08 Anion Gap 20 mmol/L 01/12/19 04:08 BUN 50 mg/dL (9-20) H 01/12/19 04:08 Creatinine 3.2 mg/dL (0.8-1.5) H 01/12/19 04:08 Estimated GFR 23 ml/min 01/12/19 04:08 BUN/Creatinine Ratio 16 % 01/12/19 04:08 Glucose 225 mg/dL (75-100) H 01/12/19 04:08 POC Glucose 284 (70-105) H 01/12/19 06:01 Lactic Acid 1.10 mmol/L (0.7-2.0) 01/11/19 00:39 Calcium 9.1 mg/dL (8.4-10.2) 01/12/19 04:08 Phosphorus 2.60 mg/dL (2.5-4.5) 01/12/19 04:08 Magnesium 2.00 mg/dL (1.7-2.3) 01/12/19 04:08 Total Bilirubin 0.40 mg/dL (0.1-1.2) 01/12/19 04:08 Direct Bilirubin < 0.2 mg/dL (0-0.2) 01/12/19 04:08 Indirect Bilirubin 0.2 mg/dL 01/12/19 04:08 AST 10 units/L (5-40) 01/12/19 04:08 ALT 6 units/L (7-56) L 01/12/19 04:08 Alkaline Phosphatase 97 units/L (35-129) 01/12/19 04:08 Total Protein 6.2 g/dL (6.3-8.2) L 01/12/19 04:08 Albumin 1.7 g/dL (3.9-5) L 01/12/19 04:08 Albumin/Globulin Ratio 0.4 % 01/12/19 04:08 Urine Color Isabel (Yellow) 01/11/19 02:24 Urine Turbidity Slightly-cloudy (Clear) 01/11/19 02:24 Urine pH 5.0 (5.0-7.0) 01/11/19 02:24 Ur Specific [place] 1.028 (1.003-1.030) 01/11/19 02:24 Urine Protein 30 mg/dl mg/dL (Negative) 01/11/19 02:24 Urine Glucose (UA) 50 mg/dL (Negative) 01/11/19 02:24 Urine Ketones Neg mg/dL (Negative) 01/11/19 02:24 Urine Blood Sm (Negative) 01/11/19 02:24 Urine Nitrite Neg (Negative) 01/11/19 02:24 Urine Bilirubin Neg (Negative) 01/11/19 02:24 Urine Urobilinogen < 2.0 mg/dL (<2.0) 01/11/19 02:24 Ur Leukocyte Esterase Tr (Negative) 01/11/19 02:24 Urine WBC (Auto) 10.0 /HPF (0.0-6.0) H 01/11/19 02:24 Urine RBC (Auto) 5.0 /HPF (0.0-6.0) 01/11/19 02:24 Urine Bacteria (Auto) 2+ /HPF (Negative) 01/11/19 02:24 Urine WBC Clumps 2+ /HPF 01/11/19 02:24 Urine Yeast (Budding) 2+ /HPF 01/11/19 02:24 Random Vancomycin 12.6 ug/mL (0-40.0) 01/12/19 04:08 Blood Type A POSITIVE 01/10/19 16:25 Antibody Screen Negative 01/10/19 16:25 Crossmatch See Detail 01/10/19 16:25 Active Medications - Current Medications Current Medications: Generic Name Dose Route Start Last Admin Trade Name Freq PRN Reason Stop Dose Admin Lipase/Protease/Amylase 1 each 01/11/19 09:[address] 10,500 Unit FEEDTUBE PRN PRN For Clogged Feeding Tube Heparin Sodium (Porcine) 5,000 unit 01/10/19 22:00 01/11/19 21:58 Heparin SUB-Q 5,000 unit Q12HR SAMUEL Administration Cefepime HCl 1 gm in 100 mls @ 200 mls/hr 01/12/19 10:00 Maxipime/Ns 1 Gm/100 Ml IV Q24H SAMUEL Vancomycin HCl 1 gm in 250 mls @ 250 mls/hr 01/12/19 12:00 Vancomycin/Ns 1 Gm/250 Ml IV 01/12/19 12:59 ONCE ONE Insulin Human Lispro 0 unit 01/11/19 12:00 01/12/19 05:57 Humalog SUB-Q 4 unit Q6HR SAMUEL Administration Protocol Prazosin HCl 2 mg 01/11/19 22:00 01/11/19 21:59 Minipress PO 2 mg HS SAMUEL Administration Simple Syrup 15 ml 01/11/19 09:44 Simple Syrup FEEDTUBE PRN PRN Hypoglycemia Simple Syrup 30 ml 01/11/19 09:44 Simple Syrup FEEDTUBE PRN PRN Hypoglycemia Sodium Bicarbonate 325 mg 01/11/19 09:44 Sodium Bicarbonate FEEDTUBE PRN PRN For Clogged Feeding Tube Sodium Chloride 10 ml 01/10/19 22:00 01/11/19 21:59 Sodium Chloride Flush Syringe 10 Ml IV 10 ml BID SAMUEL Administration Sodium Chloride 10 ml 01/10/19 18:26 Sodium Chloride Flush Syringe 10 Ml IV PRN PRN LINE FLUSH Nutrition/Malnutrition Assess - Dietary Evaluation Nutrition/Malnutrition Findings: Nutrition Notes Start: 01/11/19 11:42 Freq: Status: Active Protocol: Document 01/11/19 11:42 SOPHIE (Rec: 01/11/19 11:48 NHALL SR- [email or web address]) Nutrition Notes Need for Assessment generated from: MD Order Initial or Follow up Assessment Current Diagnosis CKD (stage V CKD),Decubitus( Pressure Ulcer),Diabetes, Sepsis,Hypertension, Respiratory Failure,Stroke, Hyperlipidemia Other Pertinent Diagnosis Hypotension, Encephalopathy Current Diet NPO Labs/Tests Na 131 BUN 42 Cr 2.5 BG 235 Pertinent Medications Reviewed Height 6 ft Weight 75.75 kg [place] Body Weight (kg) 80.90 BMI 22.6 Subjective/Other Information RD consulted for TF. Pt in ED at this time. He has a PEG tube. Burn Absent Trauma Absent #1 Nutrition Diagnosis Inadequate oral intake Etiology pt requires EN support As Evidenced by Signs and Symptoms pt NPO Is patient on ventilator? No Is Patient Ambulatory and/or Out of Bed No REE-([facility]-confined to bed) 6718.312 Calculation Used for Recommendations [facility] Additional Notes Pro needs 1.2-1.4g/k-106g /day Fluid needs 1-1.5L/day Nutrition Intervention Nutrition Support: Nepro at 45ml/hr with 125ml water flush q4h. Kcal 1,944 Protein (gm) 87 Carbohydrates (gm) 174 Fluid (mL) 785 Fiber (gm) 14 Goal #1 TF tolerance Goal #2 TF to meet 90-100% energy and pro needs Goal #3 Wound healing Goal #4 Wt maintenance and/or gain Anticipated Discharge Needs: Continue TF Follow-Up By: 01/13/19 Additional Comments F/U: new TF
--- NOTE | 2019-01-12 10:53 | Ultrasound Report ---
PROCEDURE: US RENAL BILAT TECHNIQUE: Transverse longitudinal sonograms obtained with salgado scale sonography HISTORY: hematuria/h/o urinary retention COMPARISONS: Abdominal CT January 12, 2019 FINDINGS: Right kidney measures 10.2 x 4.6 x 4.9 cm. Cortex 1.4 cm. Left kidney measures 9.1 x 5.4 x 6.1 cm. Cortex 1.5 cm. Kidneys demonstrate normal cortical thickness and echogenicity. 2.1 cm cyst superior pole right kidney. Kidneys demonstrate no calculus Fety-xg-fvkmemja hydronephrosis noted left kidney. This is similar to CT scan. Avila catheter bladder. Bladder is decompressed. IMPRESSION: Normal-sized kidneys with normal cortical thickness Simple cyst superior pole right kidney Edmy-ba-lywyrzut left hydronephrosis. Avila catheter bladder. This document is electronically signed by Herman Deluca MD., January 12 2019 10:50:53 AM ET
[2019-01-12] MEDS: MAXIPIME/NS 1 GM/100 ML 1 GM/100 ML BAG IV SCH (11:06)
[2019-01-12] MEDS: SODIUM CHLORIDE FLUSH SYRINGE 10 ML IV SCH ×2 (11:10→22:49)
[2019-01-12] MEDS: HEPARIN SUB-Q SCH ×2 (11:12→22:34)
--- NOTE | 2019-01-12 11:26 | Progress Note ---
Assessment and Plan Impression * End-stage renal disease * Urinary retention * Sepsis * Hypertension * Diabetes * History of CVA Recommendations * Patient has indwelling Avila catheter in place with bloody urine. * He has urinary retention. Approximately 300 mL of urine in the bag * Monitor renal function and fluid status and decide regarding need for next dialysis . No urgent indication for dialysis today * He may have some recovery of his renal function * Avoid nephrotoxins * Consider urology evaluation for his gross hematuria * Consider packed RBC transfusion * IV antibiotic as per primary care team Subjective Date of service: 01/12/19 Principal diagnosis: hematuria Interval history: Patient currently in IMCU. Not answering any questions. Objective - Vital Signs Vital signs: Vital Signs - 12hr 01/11/19 01/11/19 01/12/19 23:30 23:46 00:00 Temperature Pulse Rate 128 H 124 H 122 H Respiratory 30 H 29 H 29 H Rate Blood Pressure 117/51 117/47 126/58 Blood Pressure [Left] O2 Sat by Pulse Oximetry 01/12/19 01/12/19 01/12/19 00:09 00:16 00:30 Temperature Pulse Rate 122 H 139 H 120 H Respiratory 32 H 32 H 30 H Rate Blood Pressure 126/58 117/51 123/52 Blood Pressure [Left] O2 Sat by Pulse Oximetry 01/12/19 01/12/19 01/12/19 00:46 01:00 01:16 Temperature Pulse Rate 115 H 117 H 123 H Respiratory 35 H 32 H 25 H Rate Blood Pressure 126/58 113/53 123/52 Blood Pressure [Left] O2 Sat by Pulse Oximetry 01/12/19 01/12/19 01/12/19 01:30 01:46 02:00 Temperature Pulse Rate 117 H 123 H 113 H Respiratory 28 H 25 H 29 H Rate Blood Pressure 104/53 113/53 110/56 Blood Pressure [Left] O2 Sat by Pulse Oximetry 01/12/19 01/12/19 01/12/19 02:16 02:30 02:46 Temperature Pulse Rate 120 H 118 H 119 H Respiratory 50 H 29 H 28 H Rate Blood Pressure 104/53 118/51 110/56 Blood Pressure [Left] O2 Sat by Pulse Oximetry 01/12/19 01/12/19 01/12/19 03:00 03:16 03:30 Temperature Pulse Rate 113 H 116 H 125 H Respiratory 31 H 32 H 30 H Rate Blood Pressure 127/61 127/61 138/56 Blood Pressure [Left] O2 Sat by Pulse Oximetry 01/12/19 01/12/19 01/12/19 03:46 04:00 04:16 Temperature Pulse Rate 119 H 117 H 112 H Respiratory 27 H 31 H 22 Rate Blood Pressure 127/61 130/60 130/60 Blood Pressure [Left] O2 Sat by Pulse Oximetry 01/12/19 01/12/19 01/12/19 04:30 04:46 05:00 Temperature Pulse Rate 114 H 113 H 110 H Respiratory 27 H 27 H 19 Rate Blood Pressure 112/55 130/60 121/60 Blood Pressure [Left] O2 Sat by Pulse Oximetry 01/12/19 01/12/19 01/12/19 05:16 05:30 05:46 Temperature Pulse Rate 110 H 110 H 111 H Respiratory 21 31 H 24 Rate Blood Pressure 121/60 118/64 118/64 Blood Pressure [Left] O2 Sat by Pulse Oximetry 01/12/19 01/12/19 01/12/19 06:00 06:16 06:30 Temperature Pulse Rate 109 H 111 H 116 H Respiratory 27 H 15 26 H Rate Blood Pressure 123/55 123/55 126/57 Blood Pressure [Left] O2 Sat by Pulse Oximetry 01/12/19 01/12/19 01/12/19 06:46 07:00 07:16 Temperature Pulse Rate 112 H 109 H 113 H Respiratory 18 27 H 27 H Rate Blood Pressure 126/57 116/57 116/57 Blood Pressure [Left] O2 Sat by Pulse Oximetry 01/12/19 01/12/19 07:30 08:42 Temperature 98.5 F Pulse Rate 111 H 113 H Respiratory 23 18 Rate Blood Pressure 117/60 Blood Pressure 121/61 [Left] O2 Sat by Pulse 100 Oximetry - General Appearance General appearance: chronically ill, frail EENT: PERRL, mucous membranes moist Neck: no JVD, no thyromegaly, no carotid bruit, supple, other Respiratory: Present: Clear to Ascultation Cardiology: regular, normal heart rate Gastrointestinal: normal, normoactive bowel sounds, other (PEG tube in place) Integumentary: other (no edema) - Lab 01/12/19 04:08 01/12/19 04:08 Most recent lab results Calcium 9.1 mg/dL (8.4-10.2) 01/12/19 04:08 Phosphorus 2.60 mg/dL (2.5-4.5) 01/12/19 04:08 Magnesium 2.00 mg/dL (1.7-2.3) 01/12/19 04:08 Medications & Allergies - Medications Allergies/Adverse Reactions: Allergies No Known Allergies Allergy (Verified 01/10/19 16:37) Home Medications: Home Medications Medication Instructions Recorded Confirmed Last Taken Type Prazosin [Minipress] 2 mg PO HS #60 capsule 08/07/18 10/30/18 10/20/18 Rx Insulin Glargine [Lantus VIAL] 40 units SUB-Q QHS 10/21/18 10/30/18 10/20/18 History cloNIDine [Catapres] 0.2 mg PO TID 10/21/18 10/30/18 10/21/18 History Clindamycin [Clindamycin CAP] 300 mg PO Q6H #40 capsule 10/29/18 10/30/18 Unknown Rx hydrALAZINE [Apresoline TAB] 50 mg PO Q8HR #90 tablet 10/29/18 10/30/18 Unknown Rx dilTIAZem [Cardizem] 60 mg PO Q6HR #90 tablet 11/04/18 Unknown Rx Active Medications: Generic Name Dose Route Start Last Admin Trade Name Freq PRN Reason Stop Dose Admin Lipase/Protease/Amylase 1 each 01/11/19 09:44 Pancreaze 10,500 Unit FEEDTUBE PRN PRN For Clogged Feeding Tube Heparin Sodium (Porcine) 5,000 unit 01/10/19 22:00 01/12/19 11:12 Heparin SUB-Q 5,000 unit Q12HR SAMUEL Administration Cefepime HCl 1 gm in 100 mls @ 200 mls/hr 01/12/19 10:00 01/12/19 11:06 Maxipime/Ns 1 Gm/100 Ml IV 200 mls/hr Q24H SAMUEL Administration Vancomycin HCl 1 gm in 250 mls @ 250 mls/hr 01/12/19 12:00 Vancomycin/Ns 1 Gm/250 Ml IV 01/12/19 12:59 ONCE ONE Insulin Human Lispro 0 unit 01/11/19 12:00 01/12/19 05:57 Humalog SUB-Q 4 unit Q6HR SAMUEL Administration Protocol Prazosin HCl 2 mg 01/11/19 22:00 01/11/19 21:59 Minipress PO 2 mg HS SAMUEL Administration Simple Syrup 15 ml 01/11/19 09:44 Simple Syrup FEEDTUBE PRN PRN Hypoglycemia Simple Syrup 30 ml 01/11/19 09:44 Simple Syrup FEEDTUBE PRN PRN Hypoglycemia Sodium Bicarbonate 325 mg 01/11/19 09:44 Sodium Bicarbonate FEEDTUBE PRN PRN For Clogged Feeding Tube Sodium Chloride 10 ml 01/10/19 22:00 01/12/19 11:10 Sodium Chloride Flush Syringe 10 Ml IV 10 ml BID SAMUEL Administration Sodium Chloride 10 ml 01/10/19 18:26 Sodium Chloride Flush Syringe 10 Ml IV PRN PRN LINE FLUSH
[2019-01-12] MEDS ORDERED: VANCOMYCIN/NS 1 GM/250 ML 1 GM/250 ML BAG IV ONE (12:00)
--- NOTE | 2019-01-12 14:03 | Consultation ---
HISTORY OF PRESENT ILLNESS: The patient is a 68-year-old gentleman who has had multiple strokes. He is noncommunicative. He has diabetes, renal failure, has had dialysis, has had hypoxia, has a feeding tube, Vas-Cath and has hematuria. He had a high white count and less responsive. He has been in the Emergency Room a couple of days with no rooms in the ICU. PAST MEDICAL HISTORY: Diabetes, renal failure. PAST SURGICAL HISTORY: Gastrostomy tube. SOCIAL HISTORY: Unobtainable. FAMILY HISTORY: Unobtainable. MEDICATIONS: He is on insulin, clonidine, hydralazine, Cardizem based on the chart. ALLERGIES: None known. REVIEW OF SYSTEMS: Unobtainable. PHYSICAL EXAMINATION: GENERAL: He is nonresponsive. He is almost in a decorticate position. ABDOMEN: Soft. There is a feeding tube. There is no suprapubic distention. There is a Avila catheter that is draining bloody urine, it is now blood-tinged that is coming out. IMPRESSION: Gross hematuria. He will get a CT scan. He was supposed to get yesterday, he did not get it and get it today. We will make him n.p.o. past midnight. I reviewed the ultrasound without the report, looks like he has a renal cyst. There is no hydronephrosis based on what I saw on the computer. PLAN: He will need cystoscopy. We will make him n.p.o. He needs to be resuscitated with fluids, antibiotics and make him n.p.o. after midnight. JOB# [id number] JANINA/MEAGAN
--- NOTE | 2019-01-12 16:49 | Consultation ---
History of Present Illness Consult date: 01/12/19 Reason for consult: cough History of present illness: PULMONARY AND CRITICAL CARE CONSULTATION DR. VARMA THANK YOU FOR ASKING US TO PARTICIPATE IN THE CARE OF THIS PATIENT. 68 YO Male with HTN, CVA, DM, HLD, ESRD on HD (M,W,F), Sacral Decubitus Ulcer, Chronic Indwelling Avila Catheter for Urinary Retention presents to ED for evaluation. Pt in nonverbal, nonambulatory, debilitated and unable to provide history. Pt history taken from ED staff, EMS, and who is at bedside during exam and interview. As per , the patient presented to dialysis clinic today for routine dialysis and was found to have an elevated WBC count, and decreased responsiveness. EMS notified, and upon arrival the patient was found to be in distress and patient subsequently transported to [facility] ED. PT seen and evaluated in ED and found to have Sepsis, Hypotension with systolic BP in the 80's, Encephalopathy, ESRD, Acute on Chronic Renal Failure. heart rate in the 140's. EMS was notified and the patient was transported to [facility] for further care and evaluation. Pt seen and evaluated in ED and found to have SIRS, ESRD, Acidosis, and Acute Hypoxemic Respiratory Failure. Patient is demented. Unable to give any history. Smoking, alcohol or drug history not known at this time. Patient having non productive cough. Patient moaning and groning.Patient is on 2 litres O2. O2 saturation 100%. Chest xray , no acute pulmonary findings. Past History Past Medical History: diabetes, ESRD, hypertension, hyperlipidemia, other (Urinary Retention) Past Surgical History: thyroidectomy, Other (G tube, ) Social history: , lives with family. denies: smoking, alcohol abuse, prescription drug abuse Family history: diabetes, hypertension Medications and Allergies Allergies Allergy/AdvReac Type Severity Reaction Status Date / Time No Known Allergies Allergy Verified 01/10/19 16:37 Home Medications Medication Instructions Recorded Confirmed Last Taken Type Prazosin [Minipress] 2 mg PO HS #60 capsule 08/07/18 10/30/18 10/20/18 Rx Insulin Glargine [Lantus VIAL] 40 units SUB-Q QHS 10/21/18 10/30/18 10/20/18 History cloNIDine [Catapres] 0.2 mg PO TID 10/21/18 10/30/18 10/21/18 History Clindamycin [Clindamycin CAP] 300 mg PO Q6H #40 capsule 10/29/18 10/30/18 Unknown Rx hydrALAZINE [Apresoline TAB] 50 mg PO Q8HR #90 tablet 10/29/18 10/30/18 Unknown Rx dilTIAZem [Cardizem] 60 mg PO Q6HR #90 tablet 11/04/18 Unknown Rx Active Meds: Active Medications Lipase/Protease/Amylase (Marcos Cat 10,500 Unit) 1 each FEEDTUBE PRN PRN PRN Reason: For Clogged Feeding Tube Heparin Sodium (Porcine) (Heparin) 5,000 unit SUB-Q Q12HR [facility] Last Admin: 01/12/19 11:12 Dose: 5,000 unit Documented by: Cefepime HCl (Maxipime/Ns 1 Gm/100 Ml) 1 gm in 100 mls @ 200 mls/hr IV Q24H [facility] Last Admin: 01/12/19 11:06 Dose: 200 mls/hr Documented by: Insulin Human Lispro (Humalog) 0 unit SUB-Q Q6HR [facility]; Protocol Last Admin: 01/12/19 11:59 Dose: 4 unit Documented by: Prazosin HCl (Minipress) 2 mg PO HS [facility] Last Admin: 01/11/19 21:59 Dose: 2 mg Documented by: Simple Syrup (Simple Syrup) 15 ml FEEDTUBE PRN PRN PRN Reason: Hypoglycemia Simple Syrup (Simple Syrup) 30 ml FEEDTUBE PRN PRN PRN Reason: Hypoglycemia Sodium Bicarbonate (Sodium Bicarbonate) 325 mg FEEDTUBE PRN PRN PRN Reason: For Clogged Feeding Tube Sodium Chloride (Sodium Chloride Flush Syringe 10 Ml) 10 ml IV BID [facility] Last Admin: 01/12/19 11:10 Dose: 10 ml Documented by: Sodium Chloride (Sodium Chloride Flush Syringe 10 Ml) 10 ml IV PRN PRN PRN Reason: LINE FLUSH Review of Systems All systems: negative Physical Examination Vital signs: Vital Signs Temp Pulse Resp BP Pulse Ox 99.4 F 125 H 32 H 91/50 100 01/10/19 15:16 01/10/19 15:16 01/10/19 15:16 01/10/19 15:16 01/10/19 15:16 General appearance: alert, agitated, other (Moaning and groning.) Eyes: non-icteric ENT: oropharynx moist Neck: supple, no JVD Ascultation: Bilateral: rhonchi Cardiovascular: regular rate and rhythm Gastrointestinal: normoactive bowel sounds, soft, non-tender Integumentary: normal Extremities: no cyanosis, no edema Musculoskeletal: no deformities Gait: other (Unable to assess. Patient is in the bed.) unable to assess other (Unable to assess due to mental status.) Results - Laboratory Findings CBC and BMP: 01/13/19 04:40 01/13/19 04:40 PT/INR, D-dimer PT 14.7 Sec. (12.2-14.9) 01/10/19 16:25 INR 1.08 (0.87-1.13) 01/10/19 16:25 Abnormal lab findings: Abnormal Labs 01/10/19 01/10/19 01/10/19 16:25 16:25 16:25 WBC 29.3 H RBC 2.77 L Hgb 6.9 L Hct 23.9 L MCH 25 L MCHC 29 L RDW 20.8 H Plt Count 566 H Lymph % (Auto) Lymph # [place] # Seg Neutrophils % Seg Neuts % (Manual) 87.0 H Lymphocytes % (Manual) 7.0 L Seg Neutrophils # Seg Neutrophils # Man 25.5 H Monocytes # (Manual) 1.8 H VBG pH 7.488 H Sodium 131 L Chloride 94.7 L Carbon Dioxide BUN 35 H Creatinine 2.1 H Glucose 285 H POC Glucose Lactic Acid ALT Total Protein Albumin 2.5 L Urine WBC (Auto) Crossmatch 01/10/19 01/10/19 01/10/19 16:25 16:25 16:25 WBC RBC Hgb Hct MCH MCHC RDW Plt Count Lymph % (Auto) Lymph # [place] # Seg Neutrophils % Seg Neuts % (Manual) Lymphocytes % (Manual) Seg Neutrophils # Seg Neutrophils # Man Monocytes # (Manual) VBG pH Sodium Chloride Carbon Dioxide BUN Creatinine Glucose POC Glucose Lactic Acid 2.30 H* ALT Total Protein Albumin 2.4 L Urine WBC (Auto) Crossmatch See Detail 01/11/19 01/11/19 01/11/19 02:24 04:04 04:04 WBC 20.0 H RBC 2.60 L Hgb 6.5 L Hct 22.0 L MCH 25 L MCHC 30 L RDW 20.1 H Plt Count Lymph % (Auto) 8.9 L Lymph # [place] # 1.3 H Seg Neutrophils % 84.3 H Seg Neuts % (Manual) Lymphocytes % (Manual) Seg Neutrophils # 16.8 H Seg Neutrophils # Man Monocytes # (Manual) VBG pH Sodium 131 L Chloride 97.6 L Carbon Dioxide BUN 42 H Creatinine 2.5 H Glucose 235 H POC Glucose Lactic Acid ALT Total Protein Albumin 2.0 L Urine WBC (Auto) 10.0 H Crossmatch 01/11/19 01/11/19 01/11/19 13:34 18:55 21:37 WBC RBC Hgb Hct MCH MCHC RDW Plt Count Lymph % (Auto) Lymph # [place] # Seg Neutrophils % Seg Neuts % (Manual) Lymphocytes % (Manual) Seg Neutrophils # Seg Neutrophils # Man Monocytes # (Manual) VBG pH Sodium Chloride Carbon Dioxide BUN Creatinine Glucose POC Glucose 225 H 163 H 169 H Lactic Acid ALT Total Protein Albumin Urine WBC (Auto) Crossmatch 01/12/19 01/12/19 01/12/19 00:24 04:08 04:08 WBC 16.4 H RBC 2.78 L Hgb 7.3 L Hct 23.8 L MCH 26 L MCHC 31 L RDW 19.0 H Plt Count Lymph % (Auto) 6.0 L Lymph # 1.0 L [place] # 1.0 H Seg Neutrophils % 87.6 H Seg Neuts % (Manual) Lymphocytes % (Manual) Seg Neutrophils # 14.4 H Seg Neutrophils # Man Monocytes # (Manual) VBG pH Sodium Chloride Carbon Dioxide 20 L BUN 50 H Creatinine 3.2 H Glucose 225 H POC Glucose 215 H Lactic Acid ALT 6 L Total Protein 6.2 L Albumin 1.7 L Urine WBC (Auto) Crossmatch 01/12/19 01/12/19 01/12/19 06:01 11:35 16:26 WBC RBC Hgb Hct MCH MCHC RDW Plt Count Lymph % (Auto) Lymph # [place] # Seg Neutrophils % Seg Neuts % (Manual) Lymphocytes % (Manual) Seg Neutrophils # Seg Neutrophils # Man Monocytes # (Manual) VBG pH Sodium Chloride Carbon Dioxide BUN Creatinine Glucose POC Glucose 284 H 266 H 258 H Lactic Acid ALT Total Protein Albumin Urine WBC (Auto) Crossmatch - Diagnostic Findings Chest x-ray: report reviewed (RIGHT DIALYSIS CATHETER IN PLACE.NO PULMONARY ABNORMALITY REPORTED.), image reviewed Assessment and Plan 68 YO Male with HTN, CVA, DM, HLD, ESRD on HD (M,W,F), Sacral Decubitus Ulcer, Chronic Indwelling Avila Catheter for Urinary Retention presents to ED for evaluation. Pt in nonverbal, nonambulatory, debilitated and unable to provide history. Pt history taken from ED staff, EMS, and who is at bedside during exam and interview. As per , the patient presented to dialysis clinic today for routine dialysis and was found to have an elevated WBC count, and decreased responsiveness. EMS notified, and upon arrival the patient was found to be in distress and patient subsequently transported to [facility] ED. PT seen and evaluated in ED and found to have Sepsis, Hypotension with systolic BP in the 80's, Encephalopathy, ESRD, Acute on Chronic Renal Failure. heart rate in the 140's. EMS was notified and the patient was transported to [facility] for further care and evaluation. Pt seen and evaluated in ED and found to have SIRS, ESRD, Acidosis, and Acute Hypoxemic Respiratory Failure. Patient is demented. Unable to give any history. Smoking, alcohol or drug history not known at this time. Patient having non productive cough. Patient moaning and groning.Patient is on 2 litres O2. O2 saturation 100%. Chest xray , no acute pulmonary findings. - Patient Problems (1) Acute respiratory failure Current Visit: Yes Status: Acute Qualifiers: Respiratory failure complication: hypoxia Qualified Code(s): J96.01 - Acute respiratory failure with hypoxia Plan to address problem: Patients O2 saturation running good. O2 saturation 100% on 2 litres O2. (2) Sepsis Current Visit: Yes Status: Acute Qualifiers: Sepsis type: sepsis due to unspecified organism Qualified Code(s): A41.9 - Sepsis, unspecified organism Plan to address problem: Patient is on cefepime. (3) ESRD (end stage renal disease) Current Visit: Yes Status: Chronic Plan to address problem: Management as per nephrology. (4) Acidosis Current Visit: No Status: Acute Plan to address problem: Supplementing Bicarb. (5) Encephalopathy Current Visit: No Status: Acute Plan to address problem: Management as per primary care (6) Diabetes Current Visit: No Status: Chronic Plan to address problem: Management as per primary care.
--- NOTE | 2019-01-12 20:42 | Event Note ---
Date: 01/12/19 Discussed patient care with Dr. Calero. Will continue supportive care at this time, and reassess patient condition in AM to determine if patient is medically stable for urologic intervention.
[2019-01-12] MEDS: MINIPRESS PO SCH (22:49)
[2019-01-13] MEDS: HumaLOG SUB-Q SCH ×4 (01:05→17:12)
[2019-01-13 05:27] LABS: Hematocrit 22.2 % (35.5-45.6); Hemoglobin 6.6 gm/dl (11.8-15.2); Mean Corpuscular HGB Conc 30 % (32-34); Mean Corpuscular Volume 87 fl (84-94); Platelet Count 376 K/mm3 (140-440); Red Blood Count 2.57 M/mm3 (3.65-5.03); Red Cell Distribution Width 19.1 % (13.2-15.2)
[2019-01-13 05:35] LABS: INR 1.28 (0.87-1.13)
[2019-01-13 05:46] LABS: Calcium 9.5 mg/dL (8.4-10.2)
[2019-01-13 06:10] LABS: Anisocytosis 1+; Band Neutrophils # (Manual) 0.1 K/mm3; Basophils % (Manual) 0 % (0.0-1.8); Eosinophils % (Manual) 0 % (0.0-4.3); Hypochromasia 1+; Total Cells Counted 100
[2019-01-13 06:11] LABS: Platelet Estimate Consistent w Auto; Toxic Granulation Few
[2019-01-13] MEDS ORDERED: NACL 0.9% 500 ML 500 ML IV ONE (07:40)
--- NOTE | 2019-01-13 08:27 | Progress Note ---
Assessment and Plan Assessment and plan: --Acute blood loss anemia; due to hematuria Type and cross, transfuse 2 units PRBC today Closely monitor H&H and transfuse additional if needed --Hematuria; urology evaluation noted and appreciated CT abdomen and pelvis/renal ultrasound,findings reviewed Management per urology ,NPO from midnight for possible procedure --Sepsis; secondary to UTI Empiric antibiotics, follow cultures, ID evaluation if needed --Hypotension/septic shock; blood pressures low-normal Start Levophed if no improvement --Leukocytosis; secondary to sepsis, trending down --End-stage renal disease; on hemodialysis per schedule Nephrology consultation --Anemia; secondary to end-stage renal disease Transfuse 1 unit PRBC during dialysis --History of PEG in place; PEG care and PEG feeds per protocol --Type 2 diabetes mellitus Accu-Chek sliding scale coverage and ADA diet and insulin --History of BPH; on prazosin[Minipress] held due to hypotension --DVT prophylaxis; SCD, no pharmacologic anticoagulation in view of anemia, and hematuria --Full CODE STATUS Consultation and recommendations noted and appreciated Patient is critically ill with multiple medical problems Prognosis guarded, family aware Critical care time 31 minutes Plan of care reviewed with the patient and her nurse History Interval history: Patient Seen and examined medical records reviewed Significant drop in hemoglobin secondary to hematuria Patient is noncommunicative Not in acute distress vital signs reviewed Hospitalist Physical - Constitutional Vitals: Temp Pulse Resp BP Pulse Ox 98.7 F 108 H 24 106/57 100 01/13/19 04:00 01/13/19 08:00 01/13/19 08:00 01/13/19 08:00 01/13/19 08:00 General appearance: Present: mild distress, cachectic, disheveled - EENT Eyes: Present: PERRL, EOM intact - Neck Neck: Present: supple, normal ROM - Respiratory Respiratory effort: normal Respiratory: bilateral: diminished, rhonchi, negative: rales, wheezing - Cardiovascular Rhythm: regular Heart Sounds: Present: S1 & S2 - Extremities Extremities: no ischemia, No edema, abnormal (chronic changes) - Abdominal General gastrointestinal: soft, non-tender, non-distended, normal bowel sounds - Integumentary Integumentary: Present: clear, warm - Psychiatric Psychiatric: other (minimally communicative) - Neurologic Neurologic: other (residual weakness, minimal communication) Results - Labs CBC & Chem 7: 01/13/19 04:40 01/13/19 04:40 Labs: Laboratory Last Values WBC 13.0 K/mm3 (4.5-11.0) H 01/13/19 04:40 RBC 2.57 M/mm3 (3.65-5.03) L 01/13/19 04:40 Hgb 6.6 gm/dl (11.8-15.2) L 01/13/19 04:40 Hct 22.2 % (35.5-45.6) L 01/13/19 04:40 MCV 87 fl (84-94) 01/13/19 04:40 MCH 26 pg (28-32) L 01/13/19 04:40 MCHC 30 % (32-34) L 01/13/19 04:40 RDW 19.1 % (13.2-15.2) H 01/13/19 04:40 Plt Count 376 K/mm3 (140-440) 01/13/19 04:40 Lymph % (Auto) 6.0 % (13.4-35.0) L 01/12/19 04:08 [facility] % (Auto) 6.3 % (0.0-7.3) 01/12/19 04:08 Eos % (Auto) 0.0 % (0.0-4.3) 01/12/19 04:08 Baso % (Auto) 0.1 % (0.0-1.8) 01/12/19 04:08 Lymph # 1.0 K/mm3 (1.2-5.4) L 01/12/19 04:08 [facility] # 1.0 K/mm3 (0.0-0.8) H 01/12/19 04:08 Eos # 0.0 K/mm3 (0.0-0.4) 01/12/19 04:08 Baso # 0.0 K/mm3 (0.0-0.1) 01/12/19 04:08 Add Manual Diff Complete 01/13/19 04:40 Total Counted 100 01/13/19 04:40 Seg Neutrophils % 87.6 % (40.0-70.0) H 01/12/19 04:08 Seg Neuts % (Manual) 94.0 % (40.0-70.0) H 01/13/19 04:40 Band Neutrophils % 1.0 % 01/13/19 04:40 Lymphocytes % (Manual) 2.0 % (13.4-35.0) L 01/13/19 04:40 Reactive Lymphs % (Man) 0 % 01/13/19 04:40 Monocytes % (Manual) 3.0 % (0.0-7.3) 01/13/19 04:40 Eosinophils % (Manual) 0 % (0.0-4.3) 01/13/19 04:40 Basophils % (Manual) 0 % (0.0-1.8) 01/13/19 04:40 Metamyelocytes % 0 % 01/13/19 04:40 Myelocytes % 0 % 01/13/19 04:40 Promyelocytes % 0 % 01/13/19 04:40 Blast Cells % 0 % 01/13/19 04:40 Nucleated RBC % Not Reportable 01/13/19 04:40 Seg Neutrophils # 14.4 K/mm3 (1.8-7.7) H 01/12/19 04:08 Seg Neutrophils # Man 12.2 K/mm3 (1.8-7.7) H 01/13/19 04:40 Band Neutrophils # 0.1 K/mm3 01/13/19 04:40 Lymphocytes # (Manual) 0.3 K/mm3 (1.2-5.4) L 01/13/19 04:40 Abs React Lymphs (Man) 0.0 K/mm3 01/13/19 04:40 Monocytes # (Manual) 0.4 K/mm3 (0.0-0.8) 01/13/19 04:40 Eosinophils # (Manual) 0.0 K/mm3 (0.0-0.4) 01/13/19 04:40 Basophils # (Manual) 0.0 K/mm3 (0.0-0.1) 01/13/19 04:40 Metamyelocytes # 0.0 K/mm3 01/13/19 04:40 Myelocytes # 0.0 K/mm3 01/13/19 04:40 Promyelocytes # 0.0 K/mm3 01/13/19 04:40 Blast Cells # 0.0 K/mm3 01/13/19 04:40 WBC Morphology Not Reportable 01/13/19 04:40 Hypersegmented Neuts Not Reportable 01/13/19 04:40 Hyposegmented Neuts Not Reportable 01/13/19 04:40 Hypogranular Neuts Not Reportable 01/13/19 04:40 Smudge Cells Not Reportable 01/13/19 04:40 Toxic Granulation Few 01/13/19 04:40 Toxic Vacuolation Not Reportable 01/13/19 04:40 Dohle Bodies Not Reportable 01/13/19 04:40 Pelger-Huet Anomaly Not Reportable 01/13/19 04:40 Sang Rods Not Reportable 01/13/19 04:40 Platelet Estimate Consistent w auto 01/13/19 04:40 Clumped Platelets Not Reportable 01/13/19 04:40 Plt Clumps, EDTA Not Reportable 01/13/19 04:40 Large Platelets Not Reportable 01/13/19 04:40 Giant Platelets Not Reportable 01/13/19 04:40 Platelet Satelliting Not Reportable 01/13/19 04:40 Plt Morphology Comment Not Reportable 01/13/19 04:40 RBC Morphology Not Reportable 01/13/19 04:40 Dimorphic RBCs Not Reportable 01/13/19 04:40 Polychromasia Not Reportable 01/13/19 04:40 Hypochromasia 1+ 01/13/19 04:40 Poikilocytosis Not Reportable 01/13/19 04:40 Anisocytosis 1+ 01/13/19 04:40 Microcytosis Not Reportable 01/13/19 04:40 Macrocytosis Not Reportable 01/13/19 04:40 Spherocytes Not Reportable 01/13/19 04:40 Pappenheimer Bodies Not Reportable 01/13/19 04:40 Sickle Cells Not Reportable 01/13/19 04:40 Target Cells Not Reportable 01/13/19 04:40 Tear Drop Cells Not Reportable 01/13/19 04:40 Ovalocytes Not Reportable 01/13/19 04:40 Helmet Cells Not Reportable 01/13/19 04:40 [place] Bodies Not Reportable 01/13/19 04:40 Dresser Rings Not Reportable 01/13/19 04:40 Nestor Cells Not Reportable 01/13/19 04:40 Bite Cells Not Reportable 01/13/19 04:40 Crenated Cell Not Reportable 01/13/19 04:40 Elliptocytes Not Reportable 01/13/19 04:40 Acanthocytes (Spur) Not Reportable 01/13/19 04:40 Rouleaux Not Reportable 01/13/19 04:40 Hemoglobin C Crystals Not Reportable 01/13/19 04:40 Schistocytes Not Reportable 01/13/19 04:40 Malaria parasites Not Reportable 01/13/19 04:40 David Bodies Not Reportable 01/13/19 04:40 Hem Pathologist Commnt No 01/13/19 04:40 PT 16.8 Sec. (12.2-14.9) H 01/13/19 04:40 INR 1.28 (0.87-1.13) H 01/13/19 04:40 VBG pH 7.488 (7.320-7.420) H 01/10/19 16:25 Sodium 137 mmol/L (137-145) 01/13/19 04:40 Potassium 3.5 mmol/L (3.6-5.0) L 01/13/19 04:40 Chloride 101.9 mmol/L (98-107) 01/13/19 04:40 Carbon Dioxide 20 mmol/L (22-30) L 01/13/19 04:40 Anion Gap 19 mmol/L 01/13/19 04:40 BUN 60 mg/dL (9-20) H 01/13/19 04:40 Creatinine 3.7 mg/dL (0.8-1.5) H 01/13/19 04:40 Estimated GFR 20 ml/min 01/13/19 04:40 BUN/Creatinine Ratio 16 % 01/13/19 04:40 Glucose 304 mg/dL (75-100) H 01/13/19 04:40 POC Glucose 341 (70-105) H 01/13/19 00:51 Lactic Acid 1.10 mmol/L (0.7-2.0) 01/11/19 00:39 Calcium 9.5 mg/dL (8.4-10.2) 01/13/19 04:40 Phosphorus 2.60 mg/dL (2.5-4.5) 01/12/19 04:08 Magnesium 2.00 mg/dL (1.7-2.3) 01/12/19 04:08 Total Bilirubin 0.40 mg/dL (0.1-1.2) 01/12/19 04:08 Direct Bilirubin < 0.2 mg/dL (0-0.2) 01/12/19 04:08 Indirect Bilirubin 0.2 mg/dL 01/12/19 04:08 AST 10 units/L (5-40) 01/12/19 04:08 ALT 6 units/L (7-56) L 01/12/19 04:08 Alkaline Phosphatase 97 units/L (35-129) 01/12/19 04:08 Total Protein 6.2 g/dL (6.3-8.2) L 01/12/19 04:08 Albumin 1.7 g/dL (3.9-5) L 01/12/19 04:08 Albumin/Globulin Ratio 0.4 % 01/12/19 04:08 Urine Color Isabel (Yellow) 01/11/19 02:24 Urine Turbidity Slightly-cloudy (Clear) 01/11/19 02:24 Urine pH 5.0 (5.0-7.0) 01/11/19 02:24 Ur Specific [place] 1.028 (1.003-1.030) 01/11/19 02:24 Urine Protein 30 mg/dl mg/dL (Negative) 01/11/19 02:24 Urine Glucose (UA) 50 mg/dL (Negative) 01/11/19 02:24 Urine Ketones Neg mg/dL (Negative) 01/11/19 02:24 Urine Blood Sm (Negative) 01/11/19 02:24 Urine Nitrite Neg (Negative) 01/11/19 02:24 Urine Bilirubin Neg (Negative) 01/11/19 02:24 Urine Urobilinogen < 2.0 mg/dL (<2.0) 01/11/19 02:24 Ur Leukocyte Esterase Tr (Negative) 01/11/19 02:24 Urine WBC (Auto) 10.0 /HPF (0.0-6.0) H 01/11/19 02:24 Urine RBC (Auto) 5.0 /HPF (0.0-6.0) 01/11/19 02:24 Urine Bacteria (Auto) 2+ /HPF (Negative) 01/11/19 02:24 Urine WBC Clumps 2+ /HPF 01/11/19 02:24 Urine Yeast (Budding) 2+ /HPF 01/11/19 02:24 Random Vancomycin 12.6 ug/mL (0-40.0) 01/12/19 04:08 Blood Type A POSITIVE 01/10/19 16:25 Antibody Screen Negative 01/10/19 16:25 Crossmatch See Detail 01/10/19 16:25 Active Medications - Current Medications Current Medications: Generic Name Dose Route Start Last Admin Trade Name Freq PRN Reason Stop Dose Admin Lipase/Protease/Amylase 1 each 01/11/19 09:[address] 10,500 Unit FEEDTUBE PRN PRN For Clogged Feeding Tube Heparin Sodium (Porcine) 5,000 unit 01/10/19 22:00 01/12/19 22:34 Heparin SUB-Q Not Given Q12HR [facility]UEL Cefepime HCl 1 gm in 100 mls @ 200 mls/hr 01/12/19 10:00 01/12/19 19:02 Maxipime/Ns 1 Gm/100 Ml IV Infused Q24H [facility]UEL Infusion Insulin Human Isoph/Insulin Regular 10 unit 01/13/19 17:00 Humulin 70/30 SUB-Q BIDDIAB SAMUEL Insulin Human Lispro 0 unit 01/11/19 12:00 01/13/19 06:24 Humalog SUB-Q 6 unit Q6HR [facility]UEL Administration Protocol Prazosin HCl 2 mg 01/11/19 22:00 01/12/19 22:49 Minipress PO 2 mg HS SAMUEL Administration Simple Syrup 15 ml 01/11/19 09:44 Simple Syrup FEEDTUBE PRN PRN Hypoglycemia Simple Syrup 30 ml 01/11/19 09:44 Simple Syrup FEEDTUBE PRN PRN Hypoglycemia Sodium Bicarbonate 325 mg 01/11/19 09:44 Sodium Bicarbonate FEEDTUBE PRN PRN For Clogged Feeding Tube Sodium Chloride 10 ml 01/10/19 22:00 01/12/19 22:49 Sodium Chloride Flush Syringe 10 Ml IV 10 ml BID SAMUEL Administration Sodium Chloride 10 ml 01/10/19 18:26 Sodium Chloride Flush Syringe 10 Ml IV PRN PRN LINE FLUSH Nutrition/Malnutrition Assess - Dietary Evaluation Nutrition/Malnutrition Findings: Nutrition Notes Start: 01/11/19 11:42 Freq: Status: Active Protocol: Document 01/11/19 11:42 SOPHIE (Rec: 01/11/19 11:48 SOPHIE [email or web address]- [email or web address]) Nutrition Notes Need for Assessment generated from: MD Order Initial or Follow up Assessment Current Diagnosis CKD (stage V CKD),Decubitus( Pressure Ulcer),Diabetes, Sepsis,Hypertension, Respiratory Failure,Stroke, Hyperlipidemia Other Pertinent Diagnosis Hypotension, Encephalopathy Current Diet NPO Labs/Tests Na 131 BUN 42 Cr 2.5 BG 235 Pertinent Medications Reviewed Height 6 ft Weight 75.75 kg [place] Body Weight (kg) 80.90 BMI 22.6 Subjective/Other Information RD consulted for TF. Pt in ED at this time. He has a PEG tube. Burn Absent Trauma Absent #1 Nutrition Diagnosis Inadequate oral intake Etiology pt requires EN support As Evidenced by Signs and Symptoms pt NPO Is patient on ventilator? No Is Patient Ambulatory and/or Out of Bed No REE-([facility]-confined to bed) [phone] Calculation Used for Recommendations [facility] Additional Notes Pro needs 1.2-1.4g/k-106g /day Fluid needs 1-1.5L/day Nutrition Intervention Nutrition Support: Nepro at 45ml/hr with 125ml water flush q4h. Kcal 1,944 Protein (gm) 87 Carbohydrates (gm) 174 Fluid (mL) 785 Fiber (gm) 14 Goal #1 TF tolerance Goal #2 TF to meet 90-100% energy and pro needs Goal #3 Wound healing Goal #4 Wt maintenance and/or gain Anticipated Discharge Needs: Continue TF Follow-Up By: 01/13/19 Additional Comments F/U: new TF
[2019-01-13] MEDS: HEPARIN SUB-Q SCH ×2 (09:27→21:52)
[2019-01-13] MEDS: SODIUM CHLORIDE FLUSH SYRINGE 10 ML IV SCH ×2 (09:28→21:53)
[2019-01-13] MEDS: MAXIPIME/NS 1 GM/100 ML 1 GM/100 ML BAG IV SCH (09:29)
--- NOTE | 2019-01-13 11:00 | Progress Note ---
Assessment and Plan Impression * End-stage renal disease * Urinary retention * anemia * Sepsis * Hypertension * Diabetes * History of CVA Recommendations * Patient has indwelling Avila catheter in place with bloody urine. * no plans for hd today, rec give prbcss--hb is 6.6 * stop all bp meds * He has urinary retention. * Monitor renal function and fluid status and decide regarding need for next dialysis. No urgent indication for dialysis today * Avoid nephrotoxins * noted event not for urology evaluation for his gross hematuria * Consider packed RBC transfusion * IV antibiotic as per primary care team Subjective Date of service: 01/13/19 Principal diagnosis: hematuria Interval history: events noted Objective - Exam Narrative Exam: General appearance: chronically ill, frail EENT: PERRL, mucous membranes moist Neck: no JVD, no thyromegaly, no carotid bruit, supple, other Respiratory: Present: Clear to Ascultation Cardiology: regular, normal heart rate Gastrointestinal: normal, normoactive bowel sounds, other (PEG tube in place) Integumentary: other (no edema) - Vital Signs Vital signs: Vital Signs - 12hr 01/12/19 01/12/19 01/12/19 23:00 23:07 23:10 Temperature Pulse Rate 119 H 122 H 129 H Respiratory 35 H 39 H 36 H Rate Blood Pressure 103/42 103/42 103/42 O2 Sat by Pulse 100 100 100 Oximetry 01/12/19 01/12/19 01/12/19 23:20 23:30 23:40 Temperature Pulse Rate 124 H 121 H 122 H Respiratory 35 H 36 H 37 H Rate Blood Pressure 103/42 101/43 101/43 O2 Sat by Pulse 100 100 100 Oximetry 01/12/19 01/13/19 01/13/19 23:50 00:00 00:10 Temperature 98.7 F Pulse Rate 133 H 122 H 118 H Respiratory 30 H 38 H 29 H Rate Blood Pressure 96/38 89/41 93/40 O2 Sat by Pulse 99 100 100 Oximetry 01/13/19 01/13/19 01/13/19 00:20 00:30 00:40 Temperature Pulse Rate 122 H 123 H 126 H Respiratory 38 H 29 H 31 H Rate Blood Pressure 93/40 105/52 105/52 O2 Sat by Pulse 100 100 100 Oximetry 01/13/19 01/13/19 01/13/19 00:50 01:00 01:10 Temperature Pulse Rate 132 H 122 H 122 H Respiratory 38 H 40 H 39 H Rate Blood Pressure 105/52 114/54 114/54 O2 Sat by Pulse 100 100 100 Oximetry 01/13/19 01/13/19 01/13/19 01:20 01:28 01:30 Temperature Pulse Rate 128 H 129 H Respiratory 41 H 40 H 36 H Rate Blood Pressure 114/54 104/51 O2 Sat by Pulse 100 100 Oximetry 01/13/19 01/13/19 01/13/19 01:40 01:50 02:00 Temperature Pulse Rate 131 H 127 H 123 H Respiratory 36 H 39 H 39 H Rate Blood Pressure 104/51 104/51 120/58 O2 Sat by Pulse 100 100 100 Oximetry 01/13/19 01/13/19 01/13/19 02:10 02:20 02:30 Temperature Pulse Rate 138 H 122 H 120 H Respiratory 42 H 42 H 40 H Rate Blood Pressure 120/58 120/54 114/55 O2 Sat by Pulse 100 100 98 Oximetry 01/13/19 01/13/19 01/13/19 02:40 02:50 03:00 Temperature Pulse Rate 118 H 157 H 126 H Respiratory 39 H 43 H 40 H Rate Blood Pressure 114/55 103/49 120/53 O2 Sat by Pulse 99 100 100 Oximetry 01/13/19 01/13/19 01/13/19 03:10 03:20 03:30 Temperature Pulse Rate 123 H 119 H 118 H Respiratory 41 H 40 H 33 H Rate Blood Pressure 120/53 130/64 113/49 O2 Sat by Pulse 100 100 100 Oximetry 01/13/19 01/13/19 01/13/19 03:40 03:50 04:00 Temperature 98.7 F Pulse Rate 114 H 114 H 119 H Respiratory 30 H 30 H 31 H Rate Blood Pressure 113/49 116/51 109/53 O2 Sat by Pulse 100 100 100 Oximetry 01/13/19 01/13/19 01/13/19 04:10 04:20 04:26 Temperature Pulse Rate 115 H 114 H Respiratory 31 H 31 H 33 H Rate Blood Pressure 109/53 106/43 O2 Sat by Pulse 100 100 Oximetry 01/13/19 01/13/19 01/13/19 04:30 04:40 04:50 Temperature Pulse Rate 113 H 113 H 118 H Respiratory 33 H 32 H 32 H Rate Blood Pressure 97/46 97/46 109/53 O2 Sat by Pulse 100 100 100 Oximetry 01/13/19 01/13/19 01/13/19 05:00 05:10 05:20 Temperature Pulse Rate 120 H 111 H 110 H Respiratory 21 20 25 H Rate Blood Pressure 97/46 108/56 117/58 O2 Sat by Pulse 100 100 100 Oximetry 01/13/19 01/13/19 01/13/19 05:30 05:40 05:50 Temperature Pulse Rate 111 H 120 H 118 H Respiratory 25 H 18 25 H Rate Blood Pressure 112/59 112/59 122/65 O2 Sat by Pulse 100 100 100 Oximetry 01/13/19 01/13/19 01/13/19 06:00 06:10 06:20 Temperature Pulse Rate 110 H 114 H 117 H Respiratory Rate Blood Pressure 117/56 117/56 115/57 O2 Sat by Pulse 100 100 100 Oximetry 01/13/19 01/13/19 01/13/19 06:30 06:40 07:00 Temperature Pulse Rate 114 H 112 H 128 H Respiratory 28 H 29 H 26 H Rate Blood Pressure 115/59 115/59 128/50 O2 Sat by Pulse 100 100 100 Oximetry 01/13/19 01/13/19 01/13/19 08:00 08:17 09:00 Temperature 98.1 F Pulse Rate 108 H 104 H Respiratory 24 26 H Rate Blood Pressure 106/57 115/55 O2 Sat by Pulse 100 100 Oximetry 01/13/19 01/13/19 01/13/19 10:00 10:10 10:20 Temperature 97.9 F 97.9 F Pulse Rate 103 H Respiratory 25 H Rate Blood Pressure 105/53 O2 Sat by Pulse 100 Oximetry 01/13/19 01/13/19 10:33 10:40 Temperature 97.8 F Pulse Rate Respiratory Rate Blood Pressure O2 Sat by Pulse 100 Oximetry - Lab 01/13/19 04:40 01/13/19 04:40 Most recent lab results Calcium 9.5 mg/dL (8.4-10.2) 01/13/19 04:40 Phosphorus 2.60 mg/dL (2.5-4.5) 01/12/19 04:08 Magnesium 2.00 mg/dL (1.7-2.3) 01/12/19 04:08 Medications & Allergies - Medications Allergies/Adverse Reactions: Allergies No Known Allergies Allergy (Verified 01/10/19 16:37) Home Medications: Home Medications Medication Instructions Recorded Confirmed Last Taken Type Prazosin [Minipress] 2 mg PO HS #60 capsule 08/07/18 10/30/18 10/20/18 Rx Insulin Glargine [Lantus VIAL] 40 units SUB-Q QHS 10/21/18 10/30/18 10/20/18 History cloNIDine [Catapres] 0.2 mg PO TID 10/21/18 10/30/18 10/21/18 History Clindamycin [Clindamycin CAP] 300 mg PO Q6H #40 capsule 10/29/18 10/30/18 Unknown Rx hydrALAZINE [Apresoline TAB] 50 mg PO Q8HR #90 tablet 10/29/18 10/30/18 Unknown Rx dilTIAZem [Cardizem] 60 mg PO Q6HR #90 tablet 11/04/18 Unknown Rx Active Medications: Generic Name Dose Route Start Last Admin Trade Name Freq PRN Reason Stop Dose Admin Lipase/Protease/Amylase 1 each 01/11/19 09:44 Pancreaze 10,500 Unit FEEDTUBE PRN PRN For Clogged Feeding Tube Heparin Sodium (Porcine) 5,000 unit 01/10/19 22:00 01/13/19 09:27 Heparin SUB-Q Not Given Q12HR SAMUEL Cefepime HCl 1 gm in 100 mls @ 200 mls/hr 01/12/19 10:00 01/13/19 09:29 Maxipime/Ns 1 Gm/100 Ml IV 200 mls/hr Q24H SAMUEL Administration Insulin Human Isoph/Insulin Regular 10 unit 01/13/19 17:00 Humulin 70/30 SUB-Q BIDDIAB SAMUEL Insulin Human Lispro 0 unit 01/11/19 12:00 01/13/19 06:24 Humalog SUB-Q 6 unit Q6HR SAMUEL Administration Protocol Prazosin HCl 2 mg 01/11/19 22:00 01/12/19 22:49 Minipress PO 2 mg HS SAMUEL Administration Simple Syrup 15 ml 01/11/19 09:44 Simple Syrup FEEDTUBE PRN PRN Hypoglycemia Simple Syrup 30 ml 01/11/19 09:44 Simple Syrup FEEDTUBE PRN PRN Hypoglycemia Sodium Bicarbonate 325 mg 01/11/19 09:44 Sodium Bicarbonate FEEDTUBE PRN PRN For Clogged Feeding Tube Sodium Chloride 10 ml 01/10/19 22:00 01/13/19 09:28 Sodium Chloride Flush Syringe 10 Ml IV 10 ml BID SAMUEL Administration Sodium Chloride 10 ml 01/10/19 18:26 Sodium Chloride Flush Syringe 10 Ml IV PRN PRN LINE FLUSH
--- NOTE | 2019-01-13 14:39 | Progress Note ---
Assessment and Plan 68 YO Male with HTN, CVA, DM, HLD, ESRD on HD (M,W,F), Sacral Decubitus Ulcer, Chronic Indwelling Avila Catheter for Urinary Retention presents to ED for evaluation. Pt in nonverbal, nonambulatory, debilitated and unable to provide history. Pt history taken from ED staff, EMS, and who is at bedside during exam and interview. As per , the patient presented to dialysis clinic today for routine dialysis and was found to have an elevated WBC count, and decreased responsiveness. EMS notified, and upon arrival the patient was found to be in distress and patient subsequently transported to [facility] ED. PT seen and evaluated in ED and found to have Sepsis, Hypotension with systolic BP in the 80's, Encephalopathy, ESRD, Acute on Chronic Renal Failure. heart rate in the 140's. EMS was notified and the patient was transported to [facility] for further care and evaluation. Pt seen and evaluated in ED and found to have SIRS, ESRD, Acidosis, and Acute Hypoxemic Respiratory Failure. Patient is demented. Unable to give any history. Smoking, alcohol or drug history not known at this time. Patient having non productive cough. Patient moaning and groning.Patient is on 2 litres O2. O2 saturation 100%. Chest xray , no acute pulmonary findings. - Patient Problems (1) Acute respiratory failure Current Visit: Yes Status: Acute Qualifiers: Respiratory failure complication: hypoxia Qualified Code(s): J96.01 - Acute respiratory failure with hypoxia Plan to address problem: Patients O2 saturation running good. O2 saturation 100% on 2 litres O2. (2) Sepsis Current Visit: Yes Status: Acute Qualifiers: Sepsis type: sepsis due to unspecified organism Qualified Code(s): A41.9 - Sepsis, unspecified organism Plan to address problem: Patient is on cefepime. (3) ESRD (end stage renal disease) Current Visit: Yes Status: Chronic Plan to address problem: Management as per nephrology. (4) Acidosis Current Visit: No Status: Acute Plan to address problem: Supplementing Bicarb. (5) Encephalopathy Current Visit: No Status: Acute Plan to address problem: Management as per primary care (6) Diabetes Current Visit: No Status: Chronic Plan to address problem: Management as per primary care. Subjective Date of service: 01/13/19 Principal diagnosis: hematuria Interval history: Patient still moaning ang groning. On 2 litres O2. O2 saturation 100%. Patient demented. No acute respiratory distress.Patient afebrile and has mild Leukocytosis. Objective Vital Signs - 12hr 01/13/19 01/13/19 01/13/19 02:40 02:50 03:00 Temperature Pulse Rate 118 H 157 H 126 H Respiratory 39 H 43 H 40 H Rate Blood Pressure 114/55 103/49 120/53 O2 Sat by Pulse 99 100 100 Oximetry 01/13/19 01/13/19 01/13/19 03:10 03:20 03:30 Temperature Pulse Rate 123 H 119 H 118 H Respiratory 41 H 40 H 33 H Rate Blood Pressure 120/53 130/64 113/49 O2 Sat by Pulse 100 100 100 Oximetry 01/13/19 01/13/19 01/13/19 03:40 03:50 04:00 Temperature 98.7 F Pulse Rate 114 H 114 H 119 H Respiratory 30 H 30 H 31 H Rate Blood Pressure 113/49 116/51 109/53 O2 Sat by Pulse 100 100 100 Oximetry 01/13/19 01/13/19 01/13/19 04:10 04:20 04:26 Temperature Pulse Rate 115 H 114 H Respiratory 31 H 31 H 33 H Rate Blood Pressure 109/53 106/43 O2 Sat by Pulse 100 100 Oximetry 01/13/19 01/13/19 01/13/19 04:30 04:40 04:50 Temperature Pulse Rate 113 H 113 H 118 H Respiratory 33 H 32 H 32 H Rate Blood Pressure 97/46 97/46 109/53 O2 Sat by Pulse 100 100 100 Oximetry 01/13/19 01/13/19 01/13/19 05:00 05:10 05:20 Temperature Pulse Rate 120 H 111 H 110 H Respiratory 21 20 25 H Rate Blood Pressure 97/46 108/56 117/58 O2 Sat by Pulse 100 100 100 Oximetry 01/13/19 01/13/19 01/13/19 05:30 05:40 05:50 Temperature Pulse Rate 111 H 120 H 118 H Respiratory 25 H 18 25 H Rate Blood Pressure 112/59 112/59 122/65 O2 Sat by Pulse 100 100 100 Oximetry 01/13/19 01/13/19 01/13/19 06:00 06:10 06:20 Temperature Pulse Rate 110 H 114 H 117 H Respiratory Rate Blood Pressure 117/56 117/56 115/57 O2 Sat by Pulse 100 100 100 Oximetry 01/13/19 01/13/19 01/13/19 06:30 06:40 07:00 Temperature Pulse Rate 114 H 112 H 128 H Respiratory 28 H 29 H 26 H Rate Blood Pressure 115/59 115/59 128/50 O2 Sat by Pulse 100 100 100 Oximetry 01/13/19 01/13/19 01/13/19 08:00 08:17 09:00 Temperature 98.1 F Pulse Rate 108 H 104 H Respiratory 24 26 H Rate Blood Pressure 106/57 115/55 O2 Sat by Pulse 100 100 Oximetry 01/13/19 01/13/19 01/13/19 10:00 10:10 10:20 Temperature 97.9 F 97.9 F Pulse Rate 103 H Respiratory 25 H Rate Blood Pressure 105/53 O2 Sat by Pulse 100 Oximetry 01/13/19 01/13/19 01/13/19 10:33 10:40 11:00 Temperature 97.8 F Pulse Rate 105 H Respiratory 24 Rate Blood Pressure 123/58 O2 Sat by Pulse 100 100 Oximetry 01/13/19 01/13/19 01/13/19 11:10 11:20 11:29 Temperature 97.9 F Pulse Rate 105 H 105 H Respiratory 24 23 Rate Blood Pressure 123/58 119/53 O2 Sat by Pulse 100 100 Oximetry 01/13/19 01/13/19 01/13/19 12:00 12:20 12:30 Temperature 97.8 F Pulse Rate 106 H 105 H 105 H Respiratory 26 H 24 25 H Rate Blood Pressure 126/66 118/59 128/55 O2 Sat by Pulse 100 100 100 Oximetry 01/13/19 01/13/19 01/13/19 12:40 12:45 13:00 Temperature 98.1 F Pulse Rate 107 H 105 H 107 H Respiratory 21 25 H 25 H Rate Blood Pressure 118/59 127/62 105/49 O2 Sat by Pulse 100 100 100 Oximetry 01/13/19 13:15 Temperature Pulse Rate 105 H Respiratory 25 H Rate Blood Pressure 104/53 O2 Sat by Pulse 100 Oximetry Constitutional: asleep, other (Moaning and groning.) Eyes: non-icteric ENT: oropharynx moist Neck: supple, no JVD Ascultation: Bilateral: rhonchi Cardiovascular: regular rate and rhythm Gastrointestinal: normoactive bowel sounds, soft, non-tender Integumentary: normal Extremities: no cyanosis, no edema Neurologic: unable to assess Psychiatric: other (Unable to assess due to mental status.) CBC and BMP: 01/13/19 04:40 01/13/19 04:40 ABG, PT/INR, D-dimer: PT/INR, D-dimer PT 16.8 Sec. (12.2-14.9) H 01/13/19 04:40 INR 1.28 (0.87-1.13) H 01/13/19 04:40 Abnormal lab findings: Abnormal Labs 01/10/19 01/10/19 01/10/19 16:25 16:25 16:25 WBC 29.3 H RBC 2.77 L Hgb 6.9 L Hct 23.9 L MCH 25 L MCHC 29 L RDW 20.8 H Plt Count 566 H Lymph % (Auto) Lymph # Saunders # Seg Neutrophils % Seg Neuts % (Manual) 87.0 H Lymphocytes % (Manual) 7.0 L Seg Neutrophils # Seg Neutrophils # Man 25.5 H Lymphocytes # (Manual) Monocytes # (Manual) 1.8 H PT INR VBG pH 7.488 H Sodium 131 L Potassium Chloride 94.7 L Carbon Dioxide BUN 35 H Creatinine 2.1 H Glucose 285 H POC Glucose Hemoglobin A1c Lactic Acid ALT Total Protein Albumin 2.5 L Urine WBC (Auto) Crossmatch 01/10/19 01/10/19 01/10/19 16:25 16:25 16:25 WBC RBC Hgb Hct MCH MCHC RDW Plt Count Lymph % (Auto) Lymph # Saunders # Seg Neutrophils % Seg Neuts % (Manual) Lymphocytes % (Manual) Seg Neutrophils # Seg Neutrophils # Man Lymphocytes # (Manual) Monocytes # (Manual) PT INR VBG pH Sodium Potassium Chloride Carbon Dioxide BUN Creatinine Glucose POC Glucose Hemoglobin A1c Lactic Acid 2.30 H* ALT Total Protein Albumin 2.4 L Urine WBC (Auto) Crossmatch See Detail 01/11/19 01/11/19 01/11/19 02:24 04:04 04:04 WBC 20.0 H RBC 2.60 L Hgb 6.5 L Hct 22.0 L MCH 25 L MCHC 30 L RDW 20.1 H Plt Count Lymph % (Auto) 8.9 L Lymph # Saunders # 1.3 H Seg Neutrophils % 84.3 H Seg Neuts % (Manual) Lymphocytes % (Manual) Seg Neutrophils # 16.8 H Seg Neutrophils # Man Lymphocytes # (Manual) Monocytes # (Manual) PT INR VBG pH Sodium 131 L Potassium Chloride 97.6 L Carbon Dioxide BUN 42 H Creatinine 2.5 H Glucose 235 H POC Glucose Hemoglobin A1c Lactic Acid ALT Total Protein Albumin 2.0 L Urine WBC (Auto) 10.0 H Crossmatch 01/11/19 01/11/19 01/11/19 13:34 18:55 21:37 WBC RBC Hgb Hct MCH MCHC RDW Plt Count Lymph % (Auto) Lymph # Saunders # Seg Neutrophils % Seg Neuts % (Manual) Lymphocytes % (Manual) Seg Neutrophils # Seg Neutrophils # Man Lymphocytes # (Manual) Monocytes # (Manual) PT INR VBG pH Sodium Potassium Chloride Carbon Dioxide BUN Creatinine Glucose POC Glucose 225 H 163 H 169 H Hemoglobin A1c Lactic Acid ALT Total Protein Albumin Urine WBC (Auto) Crossmatch 01/12/19 01/12/19 01/12/19 00:24 04:08 04:08 WBC 16.4 H RBC 2.78 L Hgb 7.3 L Hct 23.8 L MCH 26 L MCHC 31 L RDW 19.0 H Plt Count Lymph % (Auto) 6.0 L Lymph # 1.0 L Saunders # 1.0 H Seg Neutrophils % 87.6 H Seg Neuts % (Manual) Lymphocytes % (Manual) Seg Neutrophils # 14.4 H Seg Neutrophils # Man Lymphocytes # (Manual) Monocytes # (Manual) PT INR VBG pH Sodium Potassium Chloride Carbon Dioxide 20 L BUN 50 H Creatinine 3.2 H Glucose 225 H POC Glucose 215 H Hemoglobin A1c Lactic Acid ALT 6 L Total Protein 6.2 L Albumin 1.7 L Urine WBC (Auto) Crossmatch 01/12/19 01/12/19 01/12/19 06:01 11:35 16:26 WBC RBC Hgb Hct MCH MCHC RDW Plt Count Lymph % (Auto) Lymph # Saunders # Seg Neutrophils % Seg Neuts % (Manual) Lymphocytes % (Manual) Seg Neutrophils # Seg Neutrophils # Man Lymphocytes # (Manual) Monocytes # (Manual) PT INR VBG pH Sodium Potassium Chloride Carbon Dioxide BUN Creatinine Glucose POC Glucose 284 H 266 H 258 H Hemoglobin A1c Lactic Acid ALT Total Protein Albumin Urine WBC (Auto) Crossmatch 01/13/19 01/13/19 01/13/19 00:51 04:40 04:40 WBC 13.0 H RBC 2.57 L Hgb 6.6 L Hct 22.2 L MCH 26 L MCHC 30 L RDW 19.1 H Plt Count Lymph % (Auto) Lymph # Saunders # Seg Neutrophils % Seg Neuts % (Manual) 94.0 H Lymphocytes % (Manual) 2.0 L Seg Neutrophils # Seg Neutrophils # Man 12.2 H Lymphocytes # (Manual) 0.3 L Monocytes # (Manual) PT 16.8 H INR 1.28 H VBG pH Sodium Potassium Chloride Carbon Dioxide BUN Creatinine Glucose POC Glucose 341 H Hemoglobin A1c Lactic Acid ALT Total Protein Albumin Urine WBC (Auto) Crossmatch 01/13/19 01/13/19 01/13/19 04:40 04:40 06:09 WBC RBC Hgb Hct MCH MCHC RDW Plt Count Lymph % (Auto) Lymph # Saunders # Seg Neutrophils % Seg Neuts % (Manual) Lymphocytes % (Manual) Seg Neutrophils # Seg Neutrophils # Man Lymphocytes # (Manual) Monocytes # (Manual) PT INR VBG pH Sodium Potassium 3.5 L Chloride Carbon Dioxide 20 L BUN 60 H Creatinine 3.7 H Glucose 304 H POC Glucose 305 H Hemoglobin A1c 7.5 H Lactic Acid ALT Total Protein Albumin Urine WBC (Auto) Crossmatch 01/13/19 11:14 WBC RBC Hgb Hct MCH MCHC RDW Plt Count Lymph % (Auto) Lymph # Saunders # Seg Neutrophils % Seg Neuts % (Manual) Lymphocytes % (Manual) Seg Neutrophils # Seg Neutrophils # Man Lymphocytes # (Manual) Monocytes # (Manual) PT INR VBG pH Sodium Potassium Chloride Carbon Dioxide BUN Creatinine Glucose POC Glucose 261 H Hemoglobin A1c Lactic Acid ALT Total Protein Albumin Urine WBC (Auto) Crossmatch
[2019-01-13 16:51] LABS: Hematocrit 28.7 % (35.5-45.6); Hemoglobin 8.9 gm/dl (11.8-15.2)
[2019-01-13 22:43] LABS: Hematocrit 28.2 % (35.5-45.6); Hemoglobin 8.7 gm/dl (11.8-15.2)
[2019-01-14] MEDS: HumaLOG SUB-Q SCH ×4 (00:13→18:40)
[2019-01-14 04:55] LABS: Eosinophils # (Auto) 0.1 K/mm3 (0.0-0.4); Eosinophils % (Auto) 0.9 % (0.0-4.3); Hematocrit 28.3 % (35.5-45.6); Hemoglobin 8.7 gm/dl (11.8-15.2); Lymphocytes # (Auto) 1.2 K/mm3 (1.2-5.4); Lymphocytes % (Auto) 9.2 % (13.4-35.0); Mean Corpuscular HGB Conc 31 % (32-34); Mean Corpuscular Volume 88 fl (84-94); Monocytes # (Auto) 1.1 K/mm3 (0.0-0.8); Monocytes % (Auto) 8.5 % (0.0-7.3); Platelet Count 348 K/mm3 (140-440); Red Blood Count 3.22 M/mm3 (3.65-5.03); Red Cell Distribution Width 18.1 % (13.2-15.2)
[2019-01-14 05:13] LABS: Calcium 9.9 mg/dL (8.4-10.2)
--- NOTE | 2019-01-14 09:05 | Progress Note ---
Assessment and Plan Assessment and plan: --Acute blood loss anemia; due to hematuria, ESRD Received 3 units of PRBC, hemoglobin 8.7 today, closely monitor --Hematuria; significant improvement ,urology evaluated CT abdomen and pelvis/renal ultrasound,findings reviewed Management per urology --Sepsis; secondary to UTI Empiric antibiotics, follow cultures, ID evaluation if needed --Hypotension/septic shock; blood pressures low-normal Start Levophed if no improvement --Leukocytosis; secondary to sepsis, trending down --End-stage renal disease; on hemodialysis per schedule Nephrology following --History of PEG in place; PEG care and PEG feeds per protocol --Type 2 diabetes mellitus Accu-Chek sliding scale coverage and ADA diet and in sulin --History of BPH; on prazosin[Minipress] held due to hypotension --Stage III/IV sacral decubitus ulcers; continue wound care, surgical debridement if needed --DVT prophylaxis; SCD, no pharmacologic anticoagulation in view of anemia, and hematuria --Full CODE STATUS Consultation and recommendations noted and appreciated Patient is critically ill with multiple medical problems Prognosis guarded, family aware Critical care time 31 minutes Plan of care reviewed with the patient and her nurse History Interval history: Patient seen and examined medical records have Patient feels slightly better Noncommunicative, not in acute distress Vital signs reviewed Hematuria significantly improved Hospitalist Physical - Constitutional Vitals: Temp Pulse Resp BP Pulse Ox 98.5 F 115 H 38 H 127/69 98 01/14/19 04:00 01/14/19 07:00 01/14/19 07:00 01/14/19 07:00 01/14/19 08:40 General appearance: Present: no acute distress, cachectic, disheveled - EENT Eyes: Present: PERRL, EOM intact - Neck Neck: Present: supple, normal ROM - Respiratory Respiratory effort: normal Respiratory: bilateral: diminished, rhonchi, negative: rales, wheezing - Cardiovascular Rhythm: regular Heart Sounds: Present: S1 & S2 - Extremities Extremities: no ischemia, No edema - Abdominal General gastrointestinal: soft, non-tender, non-distended, normal bowel sounds, other (PEG tube in place) - Integumentary Integumentary: Present: clear, warm - Psychiatric Psychiatric: other (noncommunicative) - Neurologic Neurologic: other (noncommunicative) Results - Labs CBC & Chem 7: 01/14/19 04:26 01/14/19 04:26 Labs: Laboratory Last Values WBC 13.1 K/mm3 (4.5-11.0) H 01/14/19 04:26 RBC 3.22 M/mm3 (3.65-5.03) L 01/14/19 04:26 Hgb 8.7 gm/dl (11.8-15.2) L 01/14/19 04:26 Hct 28.3 % (35.5-45.6) L 01/14/19 04:26 MCV 88 fl (84-94) 01/14/19 04:26 MCH 27 pg (28-32) L 01/14/19 04:26 MCHC 31 % (32-34) L 01/14/19 04:26 RDW 18.1 % (13.2-15.2) H 01/14/19 04:26 Plt Count 348 K/mm3 (140-440) 01/14/19 04:26 Lymph % (Auto) 9.2 % (13.4-35.0) L 01/14/19 04:26 [place] % (Auto) 8.5 % (0.0-7.3) H 01/14/19 04:26 Eos % (Auto) 0.9 % (0.0-4.3) 01/14/19 04:26 Baso % (Auto) 0.0 % (0.0-1.8) 01/14/19 04:26 Lymph # 1.2 K/mm3 (1.2-5.4) 01/14/19 04:26 [place] # 1.1 K/mm3 (0.0-0.8) H 01/14/19 04:26 Eos # 0.1 K/mm3 (0.0-0.4) 01/14/19 04:26 Baso # 0.0 K/mm3 (0.0-0.1) 01/14/19 04:26 Add Manual Diff Complete 01/13/19 04:40 Total Counted 100 01/13/19 04:40 Seg Neutrophils % 81.4 % (40.0-70.0) H 01/14/19 04:26 Seg Neuts % (Manual) 94.0 % (40.0-70.0) H 01/13/19 04:40 Band Neutrophils % 1.0 % 01/13/19 04:40 Lymphocytes % (Manual) 2.0 % (13.4-35.0) L 01/13/19 04:40 Reactive Lymphs % (Man) 0 % 01/13/19 04:40 Monocytes % (Manual) 3.0 % (0.0-7.3) 01/13/19 04:40 Eosinophils % (Manual) 0 % (0.0-4.3) 01/13/19 04:40 Basophils % (Manual) 0 % (0.0-1.8) 01/13/19 04:40 Metamyelocytes % 0 % 01/13/19 04:40 Myelocytes % 0 % 01/13/19 04:40 Promyelocytes % 0 % 01/13/19 04:40 Blast Cells % 0 % 01/13/19 04:40 Nucleated RBC % Not Reportable 01/13/19 04:40 Seg Neutrophils # 10.7 K/mm3 (1.8-7.7) H 01/14/19 04:26 Seg Neutrophils # Man 12.2 K/mm3 (1.8-7.7) H 01/13/19 04:40 Band Neutrophils # 0.1 K/mm3 01/13/19 04:40 Lymphocytes # (Manual) 0.3 K/mm3 (1.2-5.4) L 01/13/19 04:40 Abs React Lymphs (Man) 0.0 K/mm3 01/13/19 04:40 Monocytes # (Manual) 0.4 K/mm3 (0.0-0.8) 01/13/19 04:40 Eosinophils # (Manual) 0.0 K/mm3 (0.0-0.4) 01/13/19 04:40 Basophils # (Manual) 0.0 K/mm3 (0.0-0.1) 01/13/19 04:40 Metamyelocytes # 0.0 K/mm3 01/13/19 04:40 Myelocytes # 0.0 K/mm3 01/13/19 04:40 Promyelocytes # 0.0 K/mm3 01/13/19 04:40 Blast Cells # 0.0 K/mm3 01/13/19 04:40 WBC Morphology Not Reportable 01/13/19 04:40 Hypersegmented Neuts Not Reportable 01/13/19 04:40 Hyposegmented Neuts Not Reportable 01/13/19 04:40 Hypogranular Neuts Not Reportable 01/13/19 04:40 Smudge Cells Not Reportable 01/13/19 04:40 Toxic Granulation Few 01/13/19 04:40 Toxic Vacuolation Not Reportable 01/13/19 04:40 Dohle Bodies Not Reportable 01/13/19 04:40 Pelger-Huet Anomaly Not Reportable 01/13/19 04:40 Sang Rods Not Reportable 01/13/19 04:40 Platelet Estimate Consistent w auto 01/13/19 04:40 Clumped Platelets Not Reportable 01/13/19 04:40 Plt Clumps, EDTA Not Reportable 01/13/19 04:40 Large Platelets Not Reportable 01/13/19 04:40 Giant Platelets Not Reportable 01/13/19 04:40 Platelet Satelliting Not Reportable 01/13/19 04:40 Plt Morphology Comment Not Reportable 01/13/19 04:40 RBC Morphology Not Reportable 01/13/19 04:40 Dimorphic RBCs Not Reportable 01/13/19 04:40 Polychromasia Not Reportable 01/13/19 04:40 Hypochromasia 1+ 01/13/19 04:40 Poikilocytosis Not Reportable 01/13/19 04:40 Anisocytosis 1+ 01/13/19 04:40 Microcytosis Not Reportable 01/13/19 04:40 Macrocytosis Not Reportable 01/13/19 04:40 Spherocytes Not Reportable 01/13/19 04:40 Pappenheimer Bodies Not Reportable 01/13/19 04:40 Sickle Cells Not Reportable 01/13/19 04:40 Target Cells Not Reportable 01/13/19 04:40 Tear Drop Cells Not Reportable 01/13/19 04:40 Ovalocytes Not Reportable 01/13/19 04:40 Helmet Cells Not Reportable 01/13/19 04:40 Montero-Llano Bodies Not Reportable 01/13/19 04:40 [place] Rings Not Reportable 01/13/19 04:40 Nestor Cells Not Reportable 01/13/19 04:40 Bite Cells Not Reportable 01/13/19 04:40 Crenated Cell Not Reportable 01/13/19 04:40 Elliptocytes Not Reportable 01/13/19 04:40 Acanthocytes (Spur) Not Reportable 01/13/19 04:40 Rouleaux Not Reportable 01/13/19 04:40 Hemoglobin C Crystals Not Reportable 01/13/19 04:40 Schistocytes Not Reportable 01/13/19 04:40 Malaria parasites Not Reportable 01/13/19 04:40 David Bodies Not Reportable 01/13/19 04:40 Hem Pathologist Commnt No 01/13/19 04:40 PT 16.8 Sec. (12.2-14.9) H 01/13/19 04:40 INR 1.28 (0.87-1.13) H 01/13/19 04:40 POC ABG pH 7.425 (7.35-7.45) 01/13/19 21:37 POC ABG pCO2 33.4 (35-45) L 01/13/19 21:37 POC ABG pO2 71 (80-105) L 01/13/19 21:37 POC ABG HCO3 21.9 (22-26 mml/L) 01/13/19 21:37 POC ABG Total CO2 23 (23-27mmol/L) 01/13/19 21:37 POC ABG O2 Sat 95 01/13/19 21:37 POC ABG Base Excess -2 ((-2) - (+3)mmol/L) 01/13/19 21:37 VBG pH 7.488 (7.320-7.420) H 01/10/19 16:25 FiO2 21 % 01/13/19 21:37 Sodium 139 mmol/L (137-145) 01/14/19 04:26 Potassium 3.4 mmol/L (3.6-5.0) L 01/14/19 04:26 Chloride 104.5 mmol/L (98-107) 01/14/19 04:26 Carbon Dioxide 20 mmol/L (22-30) L 01/14/19 04:26 Anion Gap 18 mmol/L 01/14/19 04:26 BUN 67 mg/dL (9-20) H 01/14/19 04:26 Creatinine 3.7 mg/dL (0.8-1.5) H 01/14/19 04:26 Estimated GFR 20 ml/min 01/14/19 04:26 BUN/Creatinine Ratio 18 % 01/14/19 04:26 Glucose 264 mg/dL (75-100) H 01/14/19 04:26 POC Glucose 296 (70-105) H 01/14/19 07:18 Hemoglobin A1c 7.5 % (4-6) H 01/13/19 04:40 Lactic Acid 1.10 mmol/L (0.7-2.0) 01/11/19 00:39 Calcium 9.9 mg/dL (8.4-10.2) 01/14/19 04:26 Phosphorus 2.60 mg/dL (2.5-4.5) 01/12/19 04:08 Magnesium 2.00 mg/dL (1.7-2.3) 01/12/19 04:08 Total Bilirubin 0.40 mg/dL (0.1-1.2) 01/12/19 04:08 Direct Bilirubin < 0.2 mg/dL (0-0.2) 01/12/19 04:08 Indirect Bilirubin 0.2 mg/dL 01/12/19 04:08 AST 10 units/L (5-40) 01/12/19 04:08 ALT 6 units/L (7-56) L 01/12/19 04:08 Alkaline Phosphatase 97 units/L (35-129) 01/12/19 04:08 Total Protein 6.2 g/dL (6.3-8.2) L 01/12/19 04:08 Albumin 1.7 g/dL (3.9-5) L 01/12/19 04:08 Albumin/Globulin Ratio 0.4 % 01/12/19 04:08 Urine Color Isabel (Yellow) 01/11/19 02:24 Urine Turbidity Slightly-cloudy (Clear) 01/11/19 02:24 Urine pH 5.0 (5.0-7.0) 01/11/19 02:24 Ur Specific [place] 1.028 (1.003-1.030) 01/11/19 02:24 Urine Protein 30 mg/dl mg/dL (Negative) 01/11/19 02:24 Urine Glucose (UA) 50 mg/dL (Negative) 01/11/19 02:24 Urine Ketones Neg mg/dL (Negative) 01/11/19 02:24 Urine Blood Sm (Negative) 01/11/19 02:24 Urine Nitrite Neg (Negative) 01/11/19 02:24 Urine Bilirubin Neg (Negative) 01/11/19 02:24 Urine Urobilinogen < 2.0 mg/dL (<2.0) 01/11/19 02:24 Ur Leukocyte Esterase Tr (Negative) 01/11/19 02:24 Urine WBC (Auto) 10.0 /HPF (0.0-6.0) H 01/11/19 02:24 Urine RBC (Auto) 5.0 /HPF (0.0-6.0) 01/11/19 02:24 Urine Bacteria (Auto) 2+ /HPF (Negative) 01/11/19 02:24 Urine WBC Clumps 2+ /HPF 01/11/19 02:24 Urine Yeast (Budding) 2+ /HPF 01/11/19 02:24 Random Vancomycin 12.6 ug/mL (0-40.0) 01/12/19 04:08 Blood Type A POSITIVE 01/10/19 16:25 Antibody Screen Negative 01/10/19 16:25 Crossmatch See Detail 01/10/19 16:25 Active Medications - Current Medications Current Medications: Generic Name Dose Route Start Last Admin Trade Name Freq PRN Reason Stop Dose Admin Lipase/Protease/Amylase 1 each 01/11/19 09:44 Pancreaze 10,500 Unit FEEDTUBE PRN PRN For Clogged Feeding Tube Heparin Sodium (Porcine) 5,000 unit 01/10/19 22:00 01/13/19 21:52 Heparin SUB-Q 5,000 unit Q12HR SAMUEL Administration Cefepime HCl 1 gm in 100 mls @ 200 mls/hr 01/12/19 10:00 01/13/19 09:29 Maxipime/Ns 1 Gm/100 Ml IV 200 mls/hr Q24H SAMUEL Administration Insulin Human Isoph/Insulin Regular 10 unit 01/13/19 17:00 01/13/19 17:10 Humulin 70/30 SUB-Q 10 unit BIDDIAB SAMUEL Administration Insulin Human Lispro 0 unit 01/11/19 12:00 01/14/19 06:40 Humalog SUB-Q 4 unit Q6HR SAMUEL Administration Protocol Simple Syrup 15 ml 01/11/19 09:44 Simple Syrup FEEDTUBE PRN PRN Hypoglycemia Simple Syrup 30 ml 01/11/19 09:44 Simple Syrup FEEDTUBE PRN PRN Hypoglycemia Sodium Bicarbonate 325 mg 01/11/19 09:44 Sodium Bicarbonate FEEDTUBE PRN PRN For Clogged Feeding Tube Sodium Chloride 10 ml 01/10/19 22:00 01/13/19 21:53 Sodium Chloride Flush Syringe 10 Ml IV 10 ml BID SAMUEL Administration Sodium Chloride 10 ml 01/10/19 18:26 Sodium Chloride Flush Syringe 10 Ml IV PRN PRN LINE FLUSH Nutrition/Malnutrition Assess - Dietary Evaluation Nutrition/Malnutrition Findings: Nutrition Notes Start: 01/11/19 11:42 Freq: Status: Active Protocol: Document 01/13/19 14:57 SOPHIE (Rec: 01/13/19 15:01 SOPHIE [id number]) Nutrition Notes Initial or Follow up Reassessment Current Diagnosis CKD (stage V CKD),Decubitus( Pressure Ulcer),Diabetes, Sepsis,Hypertension, Respiratory Failure,Stroke, Hyperlipidemia Other Pertinent Diagnosis Hypotension, Encephalopathy Current Diet NPO Labs/Tests K 3.5 BUN 60 Cr 3.7 BG 304 Pertinent Medications reviewed Height 6 ft Weight 75.75 kg [place] Body Weight (kg) 80.90 BMI 22.6 Subjective/Other Information TF was started, but pt NPO for urologic procedure today ( cystoscopy); pt with bloody urine. CT scan revealed a stone in the urinary tract. Burn Absent Trauma Absent #1 Nutrition Diagnosis Inadequate oral intake Diagnosis Progress(for reassessment Continues documentation) Is patient on ventilator? No Is Patient Ambulatory and/or Out of Bed No REE-([facility]-confined to bed) 0941.312 Calculation Used for Recommendations [facility] Additional Notes Pro needs 1.2-1.4g/k-106g /day Fluid needs 1-1.5L/day Nutrition Intervention Nutrition Support: Resume Nepro at 45ml/hr with 125ml water flush q4h. Kcal 1,944 Protein (gm) 87 Carbohydrates (gm) 174 Fluid (mL) 785 Fiber (gm) 14 Goal #1 Restart TF to meet nutrient needs and promote wound healing Goal #2 Wt maintenance and/or gain Follow-Up By: 01/14/19 Additional Comments F/U: TF restart/tolerance
[2019-01-14] MEDS: MAXIPIME/NS 1 GM/100 ML 1 GM/100 ML BAG IV SCH (09:28)
[2019-01-14] MEDS: HEPARIN SUB-Q SCH ×2 (09:28→22:27)
[2019-01-14] MEDS: SODIUM CHLORIDE FLUSH SYRINGE 10 ML IV SCH ×2 (09:31→22:27)
--- NOTE | 2019-01-14 09:50 | Consultation ---
History of Present Illness Consult date: 01/14/19 Chief complaint: sacral wound - History of present illness History of present illness: 68 yo M with hx of ESRD on HD, CVA presented to ER from dialysis for evaluation of abnormal labs. He is nonverbal and all history is obtained from chart. No family at bedside. On admission he had an elevated WBC and was anemic. Patient has chronic sacral wound which is cared for by his . Wound dressing is usually a wound vac. Patient was evaluated by fixed income manager yesterday and the wound had some slough and necrotic debris. It was felt the wound needed debridement and surgery was consulted for evaluation. Past History Past Medical History: diabetes, ESRD, hypertension, hyperlipidemia, other (Urinary Retention) Past Surgical History: thyroidectomy, Other (G tube, ) Social history: , lives with family. denies: smoking, alcohol abuse, prescription drug abuse Family history: diabetes, hypertension Medications and Allergies Allergies Allergy/AdvReac Type Severity Reaction Status Date / Time No Known Allergies Allergy Verified 01/10/19 16:37 Home Medications Medication Instructions Recorded Confirmed Last Taken Type Prazosin [Minipress] 2 mg PO HS #60 capsule 08/07/18 10/30/18 10/20/18 Rx Insulin Glargine [Lantus VIAL] 40 units SUB-Q QHS 10/21/18 10/30/18 10/20/18 History cloNIDine [Catapres] 0.2 mg PO TID 10/21/18 10/30/18 10/21/18 History Clindamycin [Clindamycin CAP] 300 mg PO Q6H #40 capsule 10/29/18 10/30/18 Unknown Rx hydrALAZINE [Apresoline TAB] 50 mg PO Q8HR #90 tablet 10/29/18 10/30/18 Unknown Rx dilTIAZem [Cardizem] 60 mg PO Q6HR #90 tablet 11/04/18 Unknown Rx Active Meds: Active Medications Lipase/Protease/Amylase ([place] 10,500 Unit) 1 each FEEDTUBE PRN PRN PRN Reason: For Clogged Feeding Tube Heparin Sodium (Porcine) (Heparin) 5,000 unit SUB-Q Q12HR SAMUEL Last Admin: 01/14/19 09:28 Dose: 5,000 unit Documented by: Cefepime HCl (Maxipime/Ns 1 Gm/100 Ml) 1 gm in 100 mls @ 200 mls/hr IV Q24H [facility] Last Admin: 01/14/19 09:28 Dose: 200 mls/hr Documented by: Insulin Human Isoph/Insulin Regular (Humulin 70/30) 10 unit SUB-Q BIDDIAB [facility] Last Admin: 01/14/19 09:28 Dose: 10 unit Documented by: Insulin Human Lispro (Humalog) 0 unit SUB-Q Q6HR [facility]; Protocol Last Admin: 01/14/19 06:40 Dose: 4 unit Documented by: Lidocaine HCl (Xylocaine Topical 4%) 2.5 ml TP ONCE ONE Stop: 01/14/19 10:01 Simple Syrup (Simple Syrup) 15 ml FEEDTUBE PRN PRN PRN Reason: Hypoglycemia Simple Syrup (Simple Syrup) 30 ml FEEDTUBE PRN PRN PRN Reason: Hypoglycemia Sodium Bicarbonate (Sodium Bicarbonate) 325 mg FEEDTUBE PRN PRN PRN Reason: For Clogged Feeding Tube Sodium Chloride (Sodium Chloride Flush Syringe 10 Ml) 10 ml IV BID [facility] Last Admin: 01/14/19 09:31 Dose: 10 ml Documented by: Sodium Chloride (Sodium Chloride Flush Syringe 10 Ml) 10 ml IV PRN PRN PRN Reason: LINE FLUSH Review of Systems ROS unobtainable: due to mental status Exam Vital Signs Temp Pulse Resp BP Pulse Ox 99.4 F 125 H 32 H 91/50 100 01/10/19 15:16 01/10/19 15:16 01/10/19 15:16 01/10/19 15:16 01/10/19 15:16 Narrative exam: Gen: Sleeping comfortably. Nonverbal CV: s1, s2+. tachy resp; even and unlabored Abd: Ext: Sacrum: large sacral wound with slough over portions of wound bed. Results - Labs 01/14/19 04:26 01/14/19 04:26 Abnormal lab results 01/10/19 01/13/19 01/13/19 Range/Units 16:25 06:09 11:14 WBC (4.5-11.0) K/mm3 RBC (3.65-5.03) M/mm3 Hgb (11.8-15.2) gm/dl Hct (35.5-45.6) % MCH (28-32) pg MCHC (32-34) % RDW (13.2-15.2) % Lymph % (Auto) (13.4-35.0) % [place] % (Auto) (0.0-7.3) % Cook # (0.0-0.8) K/mm3 Seg Neutrophils % (40.0-70.0) % Seg Neutrophils # (1.8-7.7) K/mm3 POC ABG pCO2 (35-45) POC ABG pO2 (80-105) Potassium (3.6-5.0) mmol/L Carbon Dioxide (22-30) mmol/L BUN (9-20) mg/dL Creatinine (0.8-1.5) mg/dL Glucose (75-100) mg/dL POC Glucose 305 H 261 H (70-105) Crossmatch See Detail 01/13/19 01/13/19 01/13/19 Range/Units 16:03 17:02 21:37 WBC (4.5-11.0) K/mm3 RBC (3.65-5.03) M/mm3 Hgb 8.9 L (11.8-15.2) gm/dl Hct 28.7 L D (35.5-45.6) % MCH (28-32) pg MCHC (32-34) % RDW (13.2-15.2) % Lymph % (Auto) (13.4-35.0) % [place] % (Auto) (0.0-7.3) % Cook # (0.0-0.8) K/mm3 Seg Neutrophils % (40.0-70.0) % Seg Neutrophils # (1.8-7.7) K/mm3 POC ABG pCO2 33.4 L (35-45) POC ABG pO2 71 L (80-105) Potassium (3.6-5.0) mmol/L Carbon Dioxide (22-30) mmol/L BUN (9-20) mg/dL Creatinine (0.8-1.5) mg/dL Glucose (75-100) mg/dL POC Glucose 263 H (70-105) Crossmatch 01/13/19 01/13/19 01/14/19 Range/Units 22:27 23:37 04:26 WBC 13.1 H (4.5-11.0) K/mm3 RBC 3.22 L (3.65-5.03) M/mm3 Hgb 8.7 L 8.7 L (11.8-15.2) gm/dl Hct 28.2 L 28.3 L (35.5-45.6) % MCH 27 L (28-32) pg MCHC 31 L (32-34) % RDW 18.1 H (13.2-15.2) % Lymph % (Auto) 9.2 L (13.4-35.0) % Cook % (Auto) 8.5 H (0.0-7.3) % Cook # 1.1 H (0.0-0.8) K/mm3 Seg Neutrophils % 81.4 H (40.0-70.0) % Seg Neutrophils # 10.7 H (1.8-7.7) K/mm3 POC ABG pCO2 (35-45) POC ABG pO2 (80-105) Potassium (3.6-5.0) mmol/L Carbon Dioxide (22-30) mmol/L BUN (9-20) mg/dL Creatinine (0.8-1.5) mg/dL Glucose (75-100) mg/dL POC Glucose 345 H (70-105) Crossmatch 01/14/19 01/14/19 Range/Units 04:26 07:18 WBC (4.5-11.0) K/mm3 RBC (3.65-5.03) M/mm3 Hgb (11.8-15.2) gm/dl Hct (35.5-45.6) % MCH (28-32) pg MCHC (32-34) % RDW (13.2-15.2) % Lymph % (Auto) (13.4-35.0) % [place] % (Auto) (0.0-7.3) % Cook # (0.0-0.8) K/mm3 Seg Neutrophils % (40.0-70.0) % Seg Neutrophils # (1.8-7.7) K/mm3 POC ABG pCO2 (35-45) POC ABG pO2 (80-105) Potassium 3.4 L (3.6-5.0) mmol/L Carbon Dioxide 20 L (22-30) mmol/L BUN 67 H (9-20) mg/dL Creatinine 3.7 H (0.8-1.5) mg/dL Glucose 264 H (75-100) mg/dL POC Glucose 296 H (70-105) Crossmatch Diabetes panel 01/14/19 Range/Units 04:26 Sodium 139 (137-145) mmol/L Potassium 3.4 L (3.6-5.0) mmol/L Chloride 104.5 (98-107) mmol/L Carbon Dioxide 20 L (22-30) mmol/L BUN 67 H (9-20) mg/dL Creatinine 3.7 H (0.8-1.5) mg/dL Glucose 264 H (75-100) mg/dL Calcium 9.9 (8.4-10.2) mg/dL Calcium panel 01/14/19 Range/Units 04:26 Calcium 9.9 (8.4-10.2) mg/dL Pituitary panel 01/14/19 Range/Units 04:26 Sodium 139 (137-145) mmol/L Potassium 3.4 L (3.6-5.0) mmol/L Chloride 104.5 (98-107) mmol/L Carbon Dioxide 20 L (22-30) mmol/L BUN 67 H (9-20) mg/dL Creatinine 3.7 H (0.8-1.5) mg/dL Glucose 264 H (75-100) mg/dL Calcium 9.9 (8.4-10.2) mg/dL Adrenal panel 01/14/19 Range/Units 04:26 Sodium 139 (137-145) mmol/L Potassium 3.4 L (3.6-5.0) mmol/L Chloride 104.5 (98-107) mmol/L Carbon Dioxide 20 L (22-30) mmol/L BUN 67 H (9-20) mg/dL Creatinine 3.7 H (0.8-1.5) mg/dL Glucose 264 H (75-100) mg/dL Calcium 9.9 (8.4-10.2) mg/dL Assessment and Plan 68 yo M with stage 3 sacral wound Plan: 1. Will attempt bedside debridement today - attempted to call two times for consent but no answer 2. topical 4% lidocaine ordered 3. If wound is stable after debridement, will have fixed income manager place wound vac 4. optimize nutrition 5. offloading 6. recommend follow up in wound care clinic on discharge Thank you, please call with questions
[2019-01-14] MEDS ORDERED: XYLOCAINE TOPICAL 4% TP ONE (10:00)
[2019-01-14] MEDS ORDERED: SIMPLE SYRUP FEEDTUBE PRN ×4 (10:01→13:55)
[2019-01-14] MEDS ORDERED: PANCREAZE DR 10,500 UNIT FEEDTUBE PRN ×2 (10:01→13:55)
[2019-01-14] MEDS ORDERED: SODIUM BICARBONATE FEEDTUBE PRN ×2 (10:01→13:55)
--- NOTE | 2019-01-14 14:00 | Progress Note ---
Assessment and Plan Patient undergoing sacral decubitus ulcer debridement.On 2 litres O2. O2 saturation 99%. Patient demented. No acute respiratory distress.Patient afebrile and has mild Leukocytosis. Patient is tachycardic probaly from debridement and rotation. . - Patient Problems (1) Acute respiratory failure Current Visit: Yes Status: Acute Qualifiers: Respiratory failure complication: hypoxia Qualified Code(s): J96.01 - Acute respiratory failure with hypoxia Plan to address problem: Patients O2 saturation running good. O2 saturation 99% on 2 litres O2. (2) Sepsis Current Visit: Yes Status: Acute Qualifiers: Sepsis type: sepsis due to unspecified organism Qualified Code(s): A41.9 - Sepsis, unspecified organism Plan to address problem: Patient is on cefepime. (3) ESRD (end stage renal disease) Current Visit: Yes Status: Chronic Plan to address problem: Management as per nephrology. (4) Acidosis Current Visit: No Status: Acute Plan to address problem: Supplementing Bicarb. (5) Encephalopathy Current Visit: No Status: Acute Plan to address problem: Management as per primary care (6) Diabetes Current Visit: No Status: Chronic Plan to address problem: Management as per primary care. (7) Pressure ulcer of sacral region, stage 4 Current Visit: No Status: Acute Plan to address problem: Patient undergoing debridement. Subjective Date of service: 01/14/19 Principal diagnosis: hematuria Interval history: Patient undergoing sacral decubitus ulcer debridement.On 2 litres O2. O2 saturation 99%. Patient demented. No acute respiratory distress.Patient afebrile and has mild Leukocytosis. Patient is tachycardic probaly from debridement and rotation. Objective Vital Signs - 12hr 01/14/19 01/14/19 01/14/19 02:00 03:00 04:00 Temperature 98.5 F Pulse Rate 111 H 104 H 113 H Respiratory 15 30 H 29 H Rate Blood Pressure 119/61 120/60 128/58 O2 Sat by Pulse 99 100 99 Oximetry 01/14/19 01/14/19 01/14/19 05:00 06:00 07:00 Temperature Pulse Rate 110 H 114 H 115 H Respiratory 35 H 37 H 38 H Rate Blood Pressure 124/61 123/61 127/69 O2 Sat by Pulse 99 98 98 Oximetry 01/14/19 01/14/19 01/14/19 08:00 08:40 09:00 Temperature 98.6 F Pulse Rate 105 H 113 H Respiratory 31 H 36 H Rate Blood Pressure 128/61 136/70 O2 Sat by Pulse 100 98 98 Oximetry 01/14/19 01/14/19 01/14/19 10:00 11:00 12:00 Temperature 98.2 F Pulse Rate 111 H 114 H 114 H Respiratory 28 H 36 H 35 H Rate Blood Pressure 136/70 122/63 122/68 O2 Sat by Pulse 99 98 99 Oximetry Constitutional: no acute distress, alert, other (Moaning and groning.) Eyes: non-icteric ENT: oropharynx moist Neck: supple, no JVD Ascultation: Bilateral: rhonchi Cardiovascular: regular rate and rhythm Gastrointestinal: normoactive bowel sounds, soft, non-tender Integumentary: decubitus ulcer, other (Stage four infected sacral decubitus ulcer.) Extremities: no cyanosis, no edema Neurologic: unable to assess Psychiatric: other (Unable to assess due to mental status.) CBC and BMP: 01/14/19 04:26 01/14/19 04:26 ABG, PT/INR, D-dimer: ABG POC ABG pH 7.425 (7.35-7.45) 01/13/19 21:37 POC ABG pCO2 33.4 (35-45) L 01/13/19 21:37 POC ABG pO2 71 (80-105) L 01/13/19 21:37 POC ABG HCO3 21.9 (22-26 mml/L) 01/13/19 21:37 POC ABG Total CO2 23 (23-27mmol/L) 01/13/19 21:37 POC ABG O2 Sat 95 01/13/19 21:37 PT/INR, D-dimer PT 16.8 Sec. (12.2-14.9) H 01/13/19 04:40 INR 1.28 (0.87-1.13) H 01/13/19 04:40 Abnormal lab findings: Abnormal Labs 01/10/19 01/10/19 01/10/19 16:25 16:25 16:25 WBC 29.3 H RBC 2.77 L Hgb 6.9 L Hct 23.9 L MCH 25 L MCHC 29 L RDW 20.8 H Plt Count 566 H Lymph % (Auto) [place] % (Auto) Lymph # [place] # Seg Neutrophils % Seg Neuts % (Manual) 87.0 H Lymphocytes % (Manual) 7.0 L Seg Neutrophils # Seg Neutrophils # Man 25.5 H Lymphocytes # (Manual) Monocytes # (Manual) 1.8 H PT INR POC ABG pCO2 POC ABG pO2 VBG pH 7.488 H Sodium 131 L Potassium Chloride 94.7 L Carbon Dioxide BUN 35 H Creatinine 2.1 H Glucose 285 H POC Glucose Hemoglobin A1c Lactic Acid ALT Total Protein Albumin 2.5 L Urine WBC (Auto) Crossmatch 01/10/19 01/10/19 01/10/19 16:25 16:25 16:25 WBC RBC Hgb Hct MCH MCHC RDW Plt Count Lymph % (Auto) [place] % (Auto) Lymph # [place] # Seg Neutrophils % Seg Neuts % (Manual) Lymphocytes % (Manual) Seg Neutrophils # Seg Neutrophils # Man Lymphocytes # (Manual) Monocytes # (Manual) PT INR POC ABG pCO2 POC ABG pO2 VBG pH Sodium Potassium Chloride Carbon Dioxide BUN Creatinine Glucose POC Glucose Hemoglobin A1c Lactic Acid 2.30 H* ALT Total Protein Albumin 2.4 L Urine WBC (Auto) Crossmatch See Detail 01/11/19 01/11/19 01/11/19 02:24 04:04 04:04 WBC 20.0 H RBC 2.60 L Hgb 6.5 L Hct 22.0 L MCH 25 L MCHC 30 L RDW 20.1 H Plt Count Lymph % (Auto) 8.9 L [place] % (Auto) Lymph # [place] # 1.3 H Seg Neutrophils % 84.3 H Seg Neuts % (Manual) Lymphocytes % (Manual) Seg Neutrophils # 16.8 H Seg Neutrophils # Man Lymphocytes # (Manual) Monocytes # (Manual) PT INR POC ABG pCO2 POC ABG pO2 VBG pH Sodium 131 L Potassium Chloride 97.6 L Carbon Dioxide BUN 42 H Creatinine 2.5 H Glucose 235 H POC Glucose Hemoglobin A1c Lactic Acid ALT Total Protein Albumin 2.0 L Urine WBC (Auto) 10.0 H Crossmatch 01/11/19 01/11/19 01/11/19 13:34 18:55 21:37 WBC RBC Hgb Hct MCH MCHC RDW Plt Count Lymph % (Auto) [place] % (Auto) Lymph # [place] # Seg Neutrophils % Seg Neuts % (Manual) Lymphocytes % (Manual) Seg Neutrophils # Seg Neutrophils # Man Lymphocytes # (Manual) Monocytes # (Manual) PT INR POC ABG pCO2 POC ABG pO2 VBG pH Sodium Potassium Chloride Carbon Dioxide BUN Creatinine Glucose POC Glucose 225 H 163 H 169 H Hemoglobin A1c Lactic Acid ALT Total Protein Albumin Urine WBC (Auto) Crossmatch 01/12/19 01/12/19 01/12/19 00:24 04:08 04:08 WBC 16.4 H RBC 2.78 L Hgb 7.3 L Hct 23.8 L MCH 26 L MCHC 31 L RDW 19.0 H Plt Count Lymph % (Auto) 6.0 L [place] % (Auto) Lymph # 1.0 L [place] # 1.0 H Seg Neutrophils % 87.6 H Seg Neuts % (Manual) Lymphocytes % (Manual) Seg Neutrophils # 14.4 H Seg Neutrophils # Man Lymphocytes # (Manual) Monocytes # (Manual) PT INR POC ABG pCO2 POC ABG pO2 VBG pH Sodium Potassium Chloride Carbon Dioxide 20 L BUN 50 H Creatinine 3.2 H Glucose 225 H POC Glucose 215 H Hemoglobin A1c Lactic Acid ALT 6 L Total Protein 6.2 L Albumin 1.7 L Urine WBC (Auto) Crossmatch 01/12/19 01/12/19 01/12/19 06:01 11:35 16:26 WBC RBC Hgb Hct MCH MCHC RDW Plt Count Lymph % (Auto) [place] % (Auto) Lymph # [place] # Seg Neutrophils % Seg Neuts % (Manual) Lymphocytes % (Manual) Seg Neutrophils # Seg Neutrophils # Man Lymphocytes # (Manual) Monocytes # (Manual) PT INR POC ABG pCO2 POC ABG pO2 VBG pH Sodium Potassium Chloride Carbon Dioxide BUN Creatinine Glucose POC Glucose 284 H 266 H 258 H Hemoglobin A1c Lactic Acid ALT Total Protein Albumin Urine WBC (Auto) Crossmatch 01/13/19 01/13/19 01/13/19 00:51 04:40 04:40 WBC 13.0 H RBC 2.57 L Hgb 6.6 L Hct 22.2 L MCH 26 L MCHC 30 L RDW 19.1 H Plt Count Lymph % (Auto) [place] % (Auto) Lymph # [place] # Seg Neutrophils % Seg Neuts % (Manual) 94.0 H Lymphocytes % (Manual) 2.0 L Seg Neutrophils # Seg Neutrophils # Man 12.2 H Lymphocytes # (Manual) 0.3 L Monocytes # (Manual) PT 16.8 H INR 1.28 H POC ABG pCO2 POC ABG pO2 VBG pH Sodium Potassium Chloride Carbon Dioxide BUN Creatinine Glucose POC Glucose 341 H Hemoglobin A1c Lactic Acid ALT Total Protein Albumin Urine WBC (Auto) Crossmatch 01/13/19 01/13/19 01/13/19 04:40 04:40 06:09 WBC RBC Hgb Hct MCH MCHC RDW Plt Count Lymph % (Auto) [place] % (Auto) Lymph # [place] # Seg Neutrophils % Seg Neuts % (Manual) Lymphocytes % (Manual) Seg Neutrophils # Seg Neutrophils # Man Lymphocytes # (Manual) Monocytes # (Manual) PT INR POC ABG pCO2 POC ABG pO2 VBG pH Sodium Potassium 3.5 L Chloride Carbon Dioxide 20 L BUN 60 H Creatinine 3.7 H Glucose 304 H POC Glucose 305 H Hemoglobin A1c 7.5 H Lactic Acid ALT Total Protein Albumin Urine WBC (Auto) Crossmatch 01/13/19 01/13/19 01/13/19 11:14 16:03 17:02 WBC RBC Hgb 8.9 L Hct 28.7 L D MCH MCHC RDW Plt Count Lymph % (Auto) [place] % (Auto) Lymph # [place] # Seg Neutrophils % Seg Neuts % (Manual) Lymphocytes % (Manual) Seg Neutrophils # Seg Neutrophils # Man Lymphocytes # (Manual) Monocytes # (Manual) PT INR POC ABG pCO2 POC ABG pO2 VBG pH Sodium Potassium Chloride Carbon Dioxide BUN Creatinine Glucose POC Glucose 261 H 263 H Hemoglobin A1c Lactic Acid ALT Total Protein Albumin Urine WBC (Auto) Crossmatch 01/13/19 01/13/19 01/13/19 21:37 22:27 23:37 WBC RBC Hgb 8.7 L Hct 28.2 L MCH MCHC RDW Plt Count Lymph % (Auto) [place] % (Auto) Lymph # [place] # Seg Neutrophils % Seg Neuts % (Manual) Lymphocytes % (Manual) Seg Neutrophils # Seg Neutrophils # Man Lymphocytes # (Manual) Monocytes # (Manual) PT INR POC ABG pCO2 33.4 L POC ABG pO2 71 L VBG pH Sodium Potassium Chloride Carbon Dioxide BUN Creatinine Glucose POC Glucose 345 H Hemoglobin A1c Lactic Acid ALT Total Protein Albumin Urine WBC (Auto) Crossmatch 01/14/19 01/14/19 01/14/19 04:26 04:26 07:18 WBC 13.1 H RBC 3.22 L Hgb 8.7 L Hct 28.3 L MCH 27 L MCHC 31 L RDW 18.1 H Plt Count Lymph % (Auto) 9.2 L [place] % (Auto) 8.5 H Lymph # [place] # 1.1 H Seg Neutrophils % 81.4 H Seg Neuts % (Manual) Lymphocytes % (Manual) Seg Neutrophils # 10.7 H Seg Neutrophils # Man Lymphocytes # (Manual) Monocytes # (Manual) PT INR POC ABG pCO2 POC ABG pO2 VBG pH Sodium Potassium 3.4 L Chloride Carbon Dioxide 20 L BUN 67 H Creatinine 3.7 H Glucose 264 H POC Glucose 296 H Hemoglobin A1c Lactic Acid ALT Total Protein Albumin Urine WBC (Auto) Crossmatch 01/14/19 12:28 WBC RBC Hgb Hct MCH MCHC RDW Plt Count Lymph % (Auto) [place] % (Auto) Lymph # [place] # Seg Neutrophils % Seg Neuts % (Manual) Lymphocytes % (Manual) Seg Neutrophils # Seg Neutrophils # Man Lymphocytes # (Manual) Monocytes # (Manual) PT INR POC ABG pCO2 POC ABG pO2 VBG pH Sodium Potassium Chloride Carbon Dioxide BUN Creatinine Glucose POC Glucose 248 H Hemoglobin A1c Lactic Acid ALT Total Protein Albumin Urine WBC (Auto) Crossmatch
--- NOTE | 2019-01-14 14:29 | Procedure Note ---
Date of procedure: 01/14/19 Pre-op diagnosis: infected unstageable sacral wound Post-op diagnosis: other (infected stage 4 sacral wound) Procedure: excisional debridement of stage 4 sacral wound, evacuation of multiple abscesses Findings: Consent verified on chart. Time out performed. Lidocaine 4% topical placed on wound for 5-10 minutes prior to starting procedure. Patient placed in lateral decubitus position. The sacral wound had slough, necrotic tissue on the base and along the periphery of the wound. The wound was probed and two large abscess cavities containing a copious amount of purulent fluid were found at the 11 oclock and 1 oclock positions with tunneling to the back of approximately 4 cm. All purulent fluid was evacuated. The skin, subcutaneous tissue, and fascia overlying the bone was debrided sharply using foreceps, 15 blade, scissors, and curette. The majority of the devitalized tissue and slough was removed. Deep wound cultures were obtained. The bone was visible. Hemostasis was achieved using pressure and surgicel. The wound was cleansed and hemostasis was adequate. Surgicel was left in the wound. The wound was packed with dakins moistened kerlex x2 - tied together. The wound was covered with a sacral foam dressing. The patient tolerated the procedure well. All sharps were disposed of appropriately. Anesthesia: local Surgeon: JONH SHIELDS Estimated blood loss: other (30cc) Pathology: list (wound cultures) Specimen disposition: to lab Condition: stable Disposition: no change
--- NOTE | 2019-01-14 15:14 | Progress Note ---
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 He is s/p debridement of decubitus ulcer today. Objective - Vital Signs Vital signs: Vital Signs - 12hr 01/14/19 01/14/19 01/14/19 04:00 05:00 06:00 Temperature 98.5 F Pulse Rate 113 H 110 H 114 H Respiratory 29 H 35 H 37 H Rate Blood Pressure 128/58 124/61 123/61 O2 Sat by Pulse 99 99 98 Oximetry 01/14/19 01/14/19 01/14/19 07:00 08:00 08:40 Temperature 98.6 F Pulse Rate 115 H 105 H Respiratory 38 H 31 H Rate Blood Pressure 127/69 128/61 O2 Sat by Pulse 98 100 98 Oximetry 01/14/19 01/14/19 01/14/19 09:00 10:00 11:00 Temperature Pulse Rate 113 H 111 H 114 H Respiratory 36 H 28 H 36 H Rate Blood Pressure 136/70 136/70 122/63 O2 Sat by Pulse 98 99 98 Oximetry 01/14/19 12:00 Temperature 98.2 F Pulse Rate 114 H Respiratory 35 H Rate Blood Pressure 122/68 O2 Sat by Pulse 99 Oximetry - General Appearance General appearance: chronically ill EENT: ATNC Cardiology: tachycardia Gastrointestinal: normal, no tenderness, no distended Neurologic: other (nonvebal) Musculoskeletal: other (trace pedal edema) - Lab 01/14/19 04:26 01/14/19 04:26 Most recent lab results Calcium 9.9 mg/dL (8.4-10.2) 01/14/19 04:26 Phosphorus 2.60 mg/dL (2.5-4.5) 01/12/19 04:08 Magnesium 2.00 mg/dL (1.7-2.3) 01/12/19 04:08 Medications & Allergies - Medications Allergies/Adverse Reactions: Allergies No Known Allergies Allergy (Verified 01/10/19 16:37) Home Medications: Home Medications Medication Instructions Recorded Confirmed Last Taken Type Prazosin [Minipress] 2 mg PO HS #60 capsule 08/07/18 10/30/18 10/20/18 Rx Insulin Glargine [Lantus VIAL] 40 units SUB-Q QHS 10/21/18 10/30/18 10/20/18 History cloNIDine [Catapres] 0.2 mg PO TID 10/21/18 10/30/18 10/21/18 History Clindamycin [Clindamycin CAP] 300 mg PO Q6H #40 capsule 10/29/18 10/30/18 Unknown Rx hydrALAZINE [Apresoline TAB] 50 mg PO Q8HR #90 tablet 10/29/18 10/30/18 Unknown Rx dilTIAZem [Cardizem] 60 mg PO Q6HR #90 tablet 11/04/18 Unknown Rx Active Medications: Generic Name Dose Route Start Last Admin Trade Name Freq PRN Reason Stop Dose Admin Lipase/Protease/Amylase 1 each 01/14/19 13:55 Pancreaze 10,500 Unit FEEDTUBE PRN PRN For Clogged Feeding Tube Heparin Sodium (Porcine) 5,000 unit 01/10/19 22:00 01/14/19 09:28 Heparin SUB-Q 5,000 unit Q12HR SAMUEL Administration Cefepime HCl 1 gm in 100 mls @ 200 mls/hr 01/12/19 10:00 01/14/19 09:28 Maxipime/Ns 1 Gm/100 Ml IV 200 mls/hr Q24H SAMUEL Administration Insulin Human Isoph/Insulin Regular 10 unit 01/13/19 17:00 01/14/19 09:28 Humulin 70/30 SUB-Q 10 unit BIDDIAB SAMUEL Administration Insulin Human Lispro 0 unit 01/11/19 12:00 01/14/19 12:00 Humalog SUB-Q 3 unit Q6HR SAMUEL Administration Protocol Simple Syrup 15 ml 01/14/19 13:55 Simple Syrup FEEDTUBE PRN PRN Hypoglycemia Simple Syrup 30 ml 01/14/19 13:55 Simple Syrup FEEDTUBE PRN PRN Hypoglycemia Sodium Bicarbonate 325 mg 01/14/19 13:55 Sodium Bicarbonate FEEDTUBE PRN PRN For Clogged Feeding Tube Sodium Chloride 10 ml 01/10/19 22:00 01/14/19 09:31 Sodium Chloride Flush Syringe 10 Ml IV 10 ml BID SAMUEL Administration Sodium Chloride 10 ml 01/10/19 18:26 Sodium Chloride Flush Syringe 10 Ml IV PRN PRN LINE FLUSH Sodium Hypochlorite 1 applic 01/14/19 14:00 Dakin's Half Strength TP BID SAMUEL
[2019-01-14] MEDS: DAKIN'S HALF STRENGTH TP SCH ×2 (18:33→22:27)
[2019-01-15 06:31] LABS: Basophils % (Auto) 0.2 % (0.0-1.8); Eosinophils # (Auto) 0.1 K/mm3 (0.0-0.4); Eosinophils % (Auto) 0.6 % (0.0-4.3); Hematocrit 27.2 % (35.5-45.6); Hemoglobin 8.4 gm/dl (11.8-15.2); Lymphocytes # (Auto) 1.6 K/mm3 (1.2-5.4); Lymphocytes % (Auto) 11.9 % (13.4-35.0); Mean Corpuscular HGB Conc 31 % (32-34); Mean Corpuscular Volume 89 fl (84-94); Monocytes # (Auto) 1.3 K/mm3 (0.0-0.8); Platelet Count 379 K/mm3 (140-440); Red Blood Count 3.05 M/mm3 (3.65-5.03); Red Cell Distribution Width 18.3 % (13.2-15.2)
[2019-01-15 06:50] LABS: Calcium 10.3 mg/dL (8.4-10.2)
[2019-01-15] MEDS: HumaLOG SUB-Q SCH ×4 (06:55→19:02)
--- NOTE | 2019-01-15 09:48 | Progress Note ---
Assessment and Plan Assessment and plan: --Acute blood loss anemia; due to hematuria, ESRD Received 3 units of PRBC, hemoglobin 8.7 today, closely monitor --Hematuria; significant improvement ,urology evaluated CT abdomen and pelvis/renal ultrasound,findings reviewed Management per urology --Sepsis; secondary to UTI Empiric antibiotics, follow cultures, ID evaluation if needed --Hypotension/septic shock; blood pressures low-normal Start Levophed if no improvement --Leukocytosis; secondary to sepsis, trending down --End-stage renal disease; on hemodialysis per schedule Nephrology following --History of PEG in place; PEG care and PEG feeds per protocol --Type 2 diabetes mellitus Accu-Chek sliding scale coverage and ADA diet and in sulin --History of BPH; on prazosin[Minipress] held due to hypotension --Stage IV sacral decubitus ulcers; continue wound care, s/p surgical debridement, evacuation of abscesses --DVT prophylaxis; SCD, no pharmacologic anticoagulation in view of anemia, and hematuria --Full CODE STATUS Patient is critically ill with multiple medical problems Prognosis guarded, family aware I again addressed the CODE STATUS. Plan of care reviewed with the patient,s family and her nurse History Interval history: Patient seen and examined medical records reviewed. no new events reported by the nursing staff Patient is unresponsive and is noncommunicative. Vital signs noted, Hospitalist Physical - Constitutional Vitals: Temp Pulse Resp BP Pulse Ox 98.9 F 118 H 36 H 123/64 100 01/15/19 08:00 01/15/19 05:00 01/15/19 05:00 01/15/19 05:00 01/15/19 09:30 General appearance: Present: no acute distress, cachectic, disheveled - EENT Eyes: Present: PERRL, EOM intact - Neck Neck: Present: supple, normal ROM - Respiratory Respiratory effort: normal Respiratory: bilateral: diminished, negative: rales, rhonchi, wheezing - Cardiovascular Rhythm: regular Heart Sounds: Present: S1 & S2 - Extremities Extremities: no ischemia, No edema - Abdominal General gastrointestinal: soft, non-tender, non-distended, normal bowel sounds - Integumentary Integumentary: Present: clear, warm - Psychiatric Psychiatric: appropriate mood/affect, cooperative - Neurologic Neurologic: CNII-XII intact, moves all extremities Results - Labs CBC & Chem 7: 01/15/19 05:45 01/15/19 05:45 Labs: Laboratory Last Values WBC 13.1 K/mm3 (4.5-11.0) H 01/15/19 05:45 RBC 3.05 M/mm3 (3.65-5.03) L 01/15/19 05:45 Hgb 8.4 gm/dl (11.8-15.2) L 01/15/19 05:45 Hct 27.2 % (35.5-45.6) L 01/15/19 05:45 MCV 89 fl (84-94) 01/15/19 05:45 MCH 27 pg (28-32) L 01/15/19 05:45 MCHC 31 % (32-34) L 01/15/19 05:45 RDW 18.3 % (13.2-15.2) H 01/15/19 05:45 Plt Count 379 K/mm3 (140-440) 01/15/19 05:45 Lymph % (Auto) 11.9 % (13.4-35.0) L 01/15/19 05:45 Mckean % (Auto) 10.0 % (0.0-7.3) H 01/15/19 05:45 Eos % (Auto) 0.6 % (0.0-4.3) 01/15/19 05:45 Baso % (Auto) 0.2 % (0.0-1.8) 01/15/19 05:45 Lymph # 1.6 K/mm3 (1.2-5.4) 01/15/19 05:45 Mckean # 1.3 K/mm3 (0.0-0.8) H 01/15/19 05:45 Eos # 0.1 K/mm3 (0.0-0.4) 01/15/19 05:45 Baso # 0.0 K/mm3 (0.0-0.1) 01/15/19 05:45 Add Manual Diff Complete 01/13/19 04:40 Total Counted 100 01/13/19 04:40 Seg Neutrophils % 77.3 % (40.0-70.0) H 01/15/19 05:45 Seg Neuts % (Manual) 94.0 % (40.0-70.0) H 01/13/19 04:40 Band Neutrophils % 1.0 % 01/13/19 04:40 Lymphocytes % (Manual) 2.0 % (13.4-35.0) L 01/13/19 04:40 Reactive Lymphs % (Man) 0 % 01/13/19 04:40 Monocytes % (Manual) 3.0 % (0.0-7.3) 01/13/19 04:40 Eosinophils % (Manual) 0 % (0.0-4.3) 01/13/19 04:40 Basophils % (Manual) 0 % (0.0-1.8) 01/13/19 04:40 Metamyelocytes % 0 % 01/13/19 04:40 Myelocytes % 0 % 01/13/19 04:40 Promyelocytes % 0 % 01/13/19 04:40 Blast Cells % 0 % 01/13/19 04:40 Nucleated RBC % Not Reportable 01/13/19 04:40 Seg Neutrophils # 10.1 K/mm3 (1.8-7.7) H 01/15/19 05:45 Seg Neutrophils # Man 12.2 K/mm3 (1.8-7.7) H 01/13/19 04:40 Band Neutrophils # 0.1 K/mm3 01/13/19 04:40 Lymphocytes # (Manual) 0.3 K/mm3 (1.2-5.4) L 01/13/19 04:40 Abs React Lymphs (Man) 0.0 K/mm3 01/13/19 04:40 Monocytes # (Manual) 0.4 K/mm3 (0.0-0.8) 01/13/19 04:40 Eosinophils # (Manual) 0.0 K/mm3 (0.0-0.4) 01/13/19 04:40 Basophils # (Manual) 0.0 K/mm3 (0.0-0.1) 01/13/19 04:40 Metamyelocytes # 0.0 K/mm3 01/13/19 04:40 Myelocytes # 0.0 K/mm3 01/13/19 04:40 Promyelocytes # 0.0 K/mm3 01/13/19 04:40 Blast Cells # 0.0 K/mm3 01/13/19 04:40 WBC Morphology Not Reportable 01/13/19 04:40 Hypersegmented Neuts Not Reportable 01/13/19 04:40 Hyposegmented Neuts Not Reportable 01/13/19 04:40 Hypogranular Neuts Not Reportable 01/13/19 04:40 Smudge Cells Not Reportable 01/13/19 04:40 Toxic Granulation Few 01/13/19 04:40 Toxic Vacuolation Not Reportable 01/13/19 04:40 Dohle Bodies Not Reportable 01/13/19 04:40 Pelger-Huet Anomaly Not Reportable 01/13/19 04:40 Sang Rods Not Reportable 01/13/19 04:40 Platelet Estimate Consistent w auto 01/13/19 04:40 Clumped Platelets Not Reportable 01/13/19 04:40 Plt Clumps, EDTA Not Reportable 01/13/19 04:40 Large Platelets Not Reportable 01/13/19 04:40 Giant Platelets Not Reportable 01/13/19 04:40 Platelet Satelliting Not Reportable 01/13/19 04:40 Plt Morphology Comment Not Reportable 01/13/19 04:40 RBC Morphology Not Reportable 01/13/19 04:40 Dimorphic RBCs Not Reportable 01/13/19 04:40 Polychromasia Not Reportable 01/13/19 04:40 Hypochromasia 1+ 01/13/19 04:40 Poikilocytosis Not Reportable 01/13/19 04:40 Anisocytosis 1+ 01/13/19 04:40 Microcytosis Not Reportable 01/13/19 04:40 Macrocytosis Not Reportable 01/13/19 04:40 Spherocytes Not Reportable 01/13/19 04:40 Pappenheimer Bodies Not Reportable 01/13/19 04:40 Sickle Cells Not Reportable 01/13/19 04:40 Target Cells Not Reportable 01/13/19 04:40 Tear Drop Cells Not Reportable 01/13/19 04:40 Ovalocytes Not Reportable 01/13/19 04:40 Helmet Cells Not Reportable 01/13/19 04:40 [place] Bodies Not Reportable 01/13/19 04:40 [place] Rings Not Reportable 01/13/19 04:40 [place] Cells Not Reportable 01/13/19 04:40 Bite Cells Not Reportable 01/13/19 04:40 Crenated Cell Not Reportable 01/13/19 04:40 Elliptocytes Not Reportable 01/13/19 04:40 Acanthocytes (Spur) Not Reportable 01/13/19 04:40 Rouleaux Not Reportable 01/13/19 04:40 Hemoglobin C Crystals Not Reportable 01/13/19 04:40 Schistocytes Not Reportable 01/13/19 04:40 Malaria parasites Not Reportable 01/13/19 04:40 David Bodies Not Reportable 01/13/19 04:40 Hem Pathologist Commnt No 01/13/19 04:40 PT 16.8 Sec. (12.2-14.9) H 01/13/19 04:40 INR 1.28 (0.87-1.13) H 01/13/19 04:40 POC ABG pH 7.425 (7.35-7.45) 01/13/19 21:37 POC ABG pCO2 33.4 (35-45) L 01/13/19 21:37 POC ABG pO2 71 (80-105) L 01/13/19 21:37 POC ABG HCO3 21.9 (22-26 mml/L) 01/13/19 21:37 POC ABG Total CO2 23 (23-27mmol/L) 01/13/19 21:37 POC ABG O2 Sat 95 01/13/19 21:37 POC ABG Base Excess -2 ((-2) - (+3)mmol/L) 01/13/19 21:37 VBG pH 7.488 (7.320-7.420) H 01/10/19 16:25 FiO2 21 % 01/13/19 21:37 Sodium 140 mmol/L (137-145) 01/15/19 05:45 Potassium 3.4 mmol/L (3.6-5.0) L 01/15/19 05:45 Chloride 105.5 mmol/L (98-107) 01/15/19 05:45 Carbon Dioxide 21 mmol/L (22-30) L 01/15/19 05:45 Anion Gap 17 mmol/L 01/15/19 05:45 BUN 80 mg/dL (9-20) H 01/15/19 05:45 Creatinine 3.7 mg/dL (0.8-1.5) H 01/15/19 05:45 Estimated GFR 20 ml/min 01/15/19 05:45 BUN/Creatinine Ratio 22 % 01/15/19 05:45 Glucose 355 mg/dL (75-100) H 01/15/19 05:45 POC Glucose 358 (70-105) H 01/15/19 06:40 Hemoglobin A1c 7.5 % (4-6) H 01/13/19 04:40 Lactic Acid 1.10 mmol/L (0.7-2.0) 01/11/19 00:39 Calcium 10.3 mg/dL (8.4-10.2) H 01/15/19 05:45 Phosphorus 2.60 mg/dL (2.5-4.5) 01/12/19 04:08 Magnesium 2.00 mg/dL (1.7-2.3) 01/12/19 04:08 Total Bilirubin 0.40 mg/dL (0.1-1.2) 01/12/19 04:08 Direct Bilirubin < 0.2 mg/dL (0-0.2) 01/12/19 04:08 Indirect Bilirubin 0.2 mg/dL 01/12/19 04:08 AST 10 units/L (5-40) 01/12/19 04:08 ALT 6 units/L (7-56) L 01/12/19 04:08 Alkaline Phosphatase 97 units/L (35-129) 01/12/19 04:08 Total Protein 6.2 g/dL (6.3-8.2) L 01/12/19 04:08 Albumin 1.7 g/dL (3.9-5) L 01/12/19 04:08 Albumin/Globulin Ratio 0.4 % 01/12/19 04:08 Urine Color Isabel (Yellow) 01/11/19 02:24 Urine Turbidity Slightly-cloudy (Clear) 01/11/19 02:24 Urine pH 5.0 (5.0-7.0) 01/11/19 02:24 Ur Specific [place] 1.028 (1.003-1.030) 01/11/19 02:24 Urine Protein 30 mg/dl mg/dL (Negative) 01/11/19 02:24 Urine Glucose (UA) 50 mg/dL (Negative) 01/11/19 02:24 Urine Ketones Neg mg/dL (Negative) 01/11/19 02:24 Urine Blood Sm (Negative) 01/11/19 02:24 Urine Nitrite Neg (Negative) 01/11/19 02:24 Urine Bilirubin Neg (Negative) 01/11/19 02:24 Urine Urobilinogen < 2.0 mg/dL (<2.0) 01/11/19 02:24 Ur Leukocyte Esterase Tr (Negative) 01/11/19 02:24 Urine WBC (Auto) 10.0 /HPF (0.0-6.0) H 01/11/19 02:24 Urine RBC (Auto) 5.0 /HPF (0.0-6.0) 01/11/19 02:24 Urine Bacteria (Auto) 2+ /HPF (Negative) 01/11/19 02:24 Urine WBC Clumps 2+ /HPF 01/11/19 02:24 Urine Yeast (Budding) 2+ /HPF 01/11/19 02:24 Random Vancomycin 12.6 ug/mL (0-40.0) 01/12/19 04:08 Blood Type A POSITIVE 01/10/19 16:25 Antibody Screen Negative 01/10/19 16:25 Crossmatch See Detail 01/10/19 16:25 Active Medications - Current Medications Current Medications: Generic Name Dose Route Start Last Admin Trade Name Freq PRN Reason Stop Dose Admin Lipase/Protease/Amylase 1 each 01/14/19 13:55 Pancreaze 10,500 Unit FEEDTUBE PRN PRN For Clogged Feeding Tube Heparin Sodium (Porcine) 5,000 unit 01/10/19 22:00 01/14/19 22:27 Heparin SUB-Q 5,000 unit Q12HR SAMUEL Administration Cefepime HCl 1 gm in 100 mls @ 200 mls/hr 01/12/19 10:00 01/14/19 09:28 Maxipime/Ns 1 Gm/100 Ml IV 200 mls/hr Q24H SAMUEL Administration Insulin Human Isoph/Insulin Regular 10 unit 01/13/19 17:00 01/15/19 08:43 Humulin 70/30 SUB-Q 10 unit BIDDIAB SAMUEL Administration Insulin Human Lispro 0 unit 01/11/19 12:00 01/15/19 06:55 Humalog SUB-Q 8 unit Q6HR SAMUEL Administration Protocol Simple Syrup 15 ml 01/14/19 13:55 Simple Syrup FEEDTUBE PRN PRN Hypoglycemia Simple Syrup 30 ml 01/14/19 13:55 Simple Syrup FEEDTUBE PRN PRN Hypoglycemia Sodium Bicarbonate 325 mg 01/14/19 13:55 Sodium Bicarbonate FEEDTUBE PRN PRN For Clogged Feeding Tube Sodium Chloride 10 ml 01/10/19 22:00 01/14/19 22:27 Sodium Chloride Flush Syringe 10 Ml IV 10 ml BID SAMUEL Administration Sodium Chloride 10 ml 01/10/19 18:26 Sodium Chloride Flush Syringe 10 Ml IV PRN PRN LINE FLUSH Sodium Hypochlorite 1 applic 01/14/19 14:00 01/14/19 22:27 Dakin's Half Strength TP Not Given BID SAMUEL Nutrition/Malnutrition Assess - Dietary Evaluation Nutrition/Malnutrition Findings: Nutrition Notes Start: 01/11/19 11:42 Freq: Status: Active Protocol: Document 01/14/19 12:58 EB (Rec: 01/14/19 13:07 EB [id number]) Co-Sign 01/14/19 12:58 LP Nutrition Notes Initial or Follow up Reassessment Current Diagnosis CKD (stage V CKD),Decubitus( Pressure Ulcer),Diabetes, Sepsis,Hypertension, Respiratory Failure,Stroke, Hyperlipidemia Other Pertinent Diagnosis Hypotension, Encephalopathy Current Diet NPO Labs/Tests Reviewed Pertinent Medications Reviewed Height 6 ft Weight 75.75 kg [place] Body Weight (kg) 80.90 BMI 22.6 Subjective/Other Information TF running at goal rate at time of visit. Per RN, pt had only been receiving TF for 1 hr this am after it was paused yesterday for upcoming procedure, however MD called and told RN to restart it this am. Prior to this, pt was tolerating TF with minimal residuals. Percent of energy/protein needs met: 4%/4% Burn Absent Trauma Absent #1 Nutrition Diagnosis Inadequate oral intake Diagnosis Progress(for reassessment Continues documentation) Is patient on ventilator? No Is Patient Ambulatory and/or Out of Bed No REE-([facility]-confined to bed) [phone] Calculation Used for Recommendations [facility] Additional Notes Pro needs 1.2-1.4g/k-106g /day Fluid needs 1-1.5L/day Nutrition Intervention Nutrition Support: Resume Nepro at 45ml/hr with 125ml water flush q4h. Kcal 1,944 Protein (gm) 87 Carbohydrates (gm) 174 Fluid (mL) 785 Fiber (gm) 14 Goal #1 TF to meet nutrient needs and promote wound healing Goal #2 Wt maintenance and/or gain Follow-Up By: 01/16/19 Additional Comments F/U: TF tolerance
[2019-01-15] MEDS: HEPARIN SUB-Q SCH ×2 (10:31→22:43)
[2019-01-15] MEDS: DAKIN'S HALF STRENGTH TP SCH ×2 (10:31→22:44)
[2019-01-15] MEDS: MAXIPIME/NS 1 GM/100 ML 1 GM/100 ML BAG IV SCH (10:32)
[2019-01-15] MEDS: SODIUM CHLORIDE FLUSH SYRINGE 10 ML IV SCH ×2 (10:33→22:46)
--- NOTE | 2019-01-15 10:46 | Progress Note ---
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 Recommendations * No acute indication for HD today * Resume once hemodynamically stable - HR currently in 120-130s * Abx per primary team * Transfuse pRBC prn * Urology recommendations noted * Avoid nephrotoxins * Dose medications for renal function * Recommend hospice/palliative care Subjective Date of service: 01/15/19 Principal diagnosis: hematuria Interval history: events noted Objective - Exam Narrative Exam: General appearance: chronically ill, frail EENT: PERRL, mucous membranes moist Neck: no JVD, no thyromegaly, no carotid bruit, supple, other Respiratory: Present: Clear to Ascultation Cardiology: regular, normal heart rate Gastrointestinal: normal, normoactive bowel sounds, other (PEG tube in place) Integumentary: other (no edema) - Vital Signs Vital signs: Vital Signs - 12hr 01/14/19 01/15/19 01/15/19 23:00 00:00 01:00 Temperature 99.2 F Pulse Rate 113 H 114 H 121 H Respiratory 45 H 37 H 40 H Rate Blood Pressure 126/57 131/68 129/62 O2 Sat by Pulse 100 100 100 Oximetry 01/15/19 01/15/19 01/15/19 01:25 02:00 03:00 Temperature Pulse Rate 117 H 125 H Respiratory 35 H 40 H 41 H Rate Blood Pressure 122/62 118/59 O2 Sat by Pulse 100 99 Oximetry 01/15/19 01/15/19 01/15/19 04:00 05:00 08:00 Temperature 99.5 F 98.9 F Pulse Rate 114 H 118 H Respiratory 38 H 36 H Rate Blood Pressure 129/62 123/64 O2 Sat by Pulse 100 100 Oximetry 01/15/19 09:30 Temperature Pulse Rate Respiratory Rate Blood Pressure O2 Sat by Pulse 100 Oximetry - Lab 01/15/19 05:45 01/15/19 05:45 Most recent lab results Calcium 10.3 mg/dL (8.4-10.2) H 01/15/19 05:45 Phosphorus 2.60 mg/dL (2.5-4.5) 01/12/19 04:08 Magnesium 2.00 mg/dL (1.7-2.3) 01/12/19 04:08 Medications & Allergies - Medications Allergies/Adverse Reactions: Allergies No Known Allergies Allergy (Verified 01/10/19 16:37) Home Medications: Home Medications Medication Instructions Recorded Confirmed Last Taken Type Prazosin [Minipress] 2 mg PO HS #60 capsule 08/07/18 10/30/18 10/20/18 Rx Insulin Glargine [Lantus VIAL] 40 units SUB-Q QHS 10/21/18 10/30/18 10/20/18 History cloNIDine [Catapres] 0.2 mg PO TID 10/21/18 10/30/18 10/21/18 History Clindamycin [Clindamycin CAP] 300 mg PO Q6H #40 capsule 10/29/18 10/30/18 Unknown Rx hydrALAZINE [Apresoline TAB] 50 mg PO Q8HR #90 tablet 10/29/18 10/30/18 Unknown Rx dilTIAZem [Cardizem] 60 mg PO Q6HR #90 tablet 11/04/18 Unknown Rx Active Medications: Generic Name Dose Route Start Last Admin Trade Name Freq PRN Reason Stop Dose Admin Lipase/Protease/Amylase 1 each 01/14/19 13:55 Pancreazsammi Cat 10,500 Unit FEEDTUBE PRN PRN For Clogged Feeding Tube Heparin Sodium (Porcine) 5,000 unit 01/10/19 22:00 01/15/19 10:31 Heparin SUB-Q 5,000 unit Q12HR SAMUEL Administration Cefepime HCl 1 gm in 100 mls @ 200 mls/hr 01/12/19 10:00 01/15/19 10:32 Maxipime/Ns 1 Gm/100 Ml IV 200 mls/hr Q24H SAMUEL Administration Insulin Human Isoph/Insulin Regular 10 unit 01/13/19 17:00 01/15/19 08:43 Humulin 70/30 SUB-Q 10 unit BIDDIAB SAMUEL Administration Insulin Human Lispro 0 unit 01/11/19 12:00 01/15/19 06:55 Humalog SUB-Q 8 unit Q6HR SAMUEL Administration Protocol Simple Syrup 15 ml 01/14/19 13:55 Simple Syrup FEEDTUBE PRN PRN Hypoglycemia Simple Syrup 30 ml 01/14/19 13:55 Simple Syrup FEEDTUBE PRN PRN Hypoglycemia Sodium Bicarbonate 325 mg 01/14/19 13:55 Sodium Bicarbonate FEEDTUBE PRN PRN For Clogged Feeding Tube Sodium Chloride 10 ml 01/10/19 22:00 01/15/19 10:33 Sodium Chloride Flush Syringe 10 Ml IV 10 ml BID SAMUEL Administration Sodium Chloride 10 ml 01/10/19 18:26 Sodium Chloride Flush Syringe 10 Ml IV PRN PRN LINE FLUSH Sodium Hypochlorite 1 applic 01/14/19 14:00 01/15/19 10:31 Dakin's Half Strength TP 1 cc BID SAMUEL Administration
--- NOTE | 2019-01-15 15:00 | Progress Note ---
Assessment and Plan 68 yo M s/p debridement of infected stage 4 sacral wound, POD 1 Plan: 1. continue dakins daily 2. eventual wound vac 3. c/w TF 4. optimize nutrition 5. offloading, turning q2 Overall poor prognosis for wound healing. Recommend hospice evaluation. Thank you, please call with questions. Subjective Date of service: 01/15/19 Narrative: Pt seen and examined. No overnight events. Objective Vital Signs - 12hr 01/15/19 01/15/19 01/15/19 03:00 04:00 05:00 Temperature 99.5 F Pulse Rate 125 H 114 H 118 H Respiratory 41 H 38 H 36 H Rate Blood Pressure 118/59 129/62 123/64 O2 Sat by Pulse 99 100 100 Oximetry 01/15/19 01/15/19 01/15/19 06:00 07:00 08:00 Temperature 98.9 F Pulse Rate 111 H 115 H 117 H Respiratory 36 H 36 H 34 H Rate Blood Pressure 138/74 128/71 133/70 O2 Sat by Pulse 100 98 100 Oximetry 01/15/19 01/15/19 01/15/19 09:00 09:30 10:00 Temperature Pulse Rate 112 H 111 H Respiratory 34 H 39 H Rate Blood Pressure 133/64 137/74 O2 Sat by Pulse 100 100 100 Oximetry 01/15/19 01/15/19 11:00 12:00 Temperature 98.9 F Pulse Rate 117 H 131 H Respiratory 28 H 38 H Rate Blood Pressure 137/71 134/79 O2 Sat by Pulse 100 99 Oximetry - General physical appearance Narrative Exam: Gen: Not responsive CV: S1, S2+. tachy Resp: even and unlabored Sacrum: Stage 4 sacral wound with slough on portions of base and overlying exposed bone. Some purulent drainage in left upper part of wound at 11 oclock. No active bleeding. - Labs 01/15/19 05:45 01/15/19 05:45 Diabetes panel 01/15/19 Range/Units 05:45 Sodium 140 (137-145) mmol/L Potassium 3.4 L (3.6-5.0) mmol/L Chloride 105.5 (98-107) mmol/L Carbon Dioxide 21 L (22-30) mmol/L BUN 80 H (9-20) mg/dL Creatinine 3.7 H (0.8-1.5) mg/dL Glucose 355 H (75-100) mg/dL Calcium 10.3 H (8.4-10.2) mg/dL Calcium panel 01/15/19 Range/Units 05:45 Calcium 10.3 H (8.4-10.2) mg/dL Pituitary panel 01/15/19 Range/Units 05:45 Sodium 140 (137-145) mmol/L Potassium 3.4 L (3.6-5.0) mmol/L Chloride 105.5 (98-107) mmol/L Carbon Dioxide 21 L (22-30) mmol/L BUN 80 H (9-20) mg/dL Creatinine 3.7 H (0.8-1.5) mg/dL Glucose 355 H (75-100) mg/dL Calcium 10.3 H (8.4-10.2) mg/dL Adrenal panel 01/15/19 Range/Units 05:45 Sodium 140 (137-145) mmol/L Potassium 3.4 L (3.6-5.0) mmol/L Chloride 105.5 (98-107) mmol/L Carbon Dioxide 21 L (22-30) mmol/L BUN 80 H (9-20) mg/dL Creatinine 3.7 H (0.8-1.5) mg/dL Glucose 355 H (75-100) mg/dL Calcium 10.3 H (8.4-10.2) mg/dL
--- NOTE | 2019-01-15 17:59 | Progress Note ---
Assessment and Plan Patient undergone sacral decubitus ulcer debridement.Resting on On 2 litres O2. O2 saturation 98%. Patient demented. No acute respiratory distress.Patient afebrile and has mild Leukocytosis. . - Patient Problems (1) Acute respiratory failure Current Visit: Yes Status: Acute Qualifiers: Respiratory failure complication: hypoxia Qualified Code(s): J96.01 - Acute respiratory failure with hypoxia Plan to address problem: Patients O2 saturation running good. O2 saturation 98% on 2 litres O2. (2) Sepsis Current Visit: Yes Status: Acute Qualifiers: Sepsis type: sepsis due to unspecified organism Qualified Code(s): A41.9 - Sepsis, unspecified organism Plan to address problem: Patient is on cefepime. (3) ESRD (end stage renal disease) Current Visit: Yes Status: Chronic Plan to address problem: Management as per nephrology. (4) Acidosis Current Visit: No Status: Acute Plan to address problem: Supplementing Bicarb. (5) Encephalopathy Current Visit: No Status: Acute Plan to address problem: Management as per primary care (6) Diabetes Current Visit: No Status: Chronic Plan to address problem: Management as per primary care. (7) Pressure ulcer of sacral region, stage 4 Current Visit: No Status: Acute Plan to address problem: Patient undergoing debridement. Subjective Date of service: 01/15/19 Principal diagnosis: hematuria Interval history: Patient undergone sacral decubitus ulcer debridement.Resting on On 2 litres O2. O2 saturation 98%. Patient demented. No acute respiratory distress.Patient afebrile and has mild Leukocytosis. Objective Vital Signs - 12hr 01/15/19 01/15/19 01/15/19 06:00 07:00 08:00 Temperature 98.9 F Pulse Rate 111 H 115 H 117 H Respiratory 36 H 36 H 28 H Rate Blood Pressure 138/74 128/71 133/70 O2 Sat by Pulse 100 98 100 Oximetry 01/15/19 01/15/19 01/15/19 09:00 09:30 10:00 Temperature Pulse Rate 112 H 111 H Respiratory 34 H 39 H Rate Blood Pressure 133/64 137/74 O2 Sat by Pulse 100 100 100 Oximetry 01/15/19 01/15/19 01/15/19 11:00 12:00 13:00 Temperature 98.9 F Pulse Rate 117 H 131 H 117 H Respiratory 28 H 26 H 42 H Rate Blood Pressure 137/71 134/79 132/81 O2 Sat by Pulse 100 99 100 Oximetry 01/15/19 01/15/19 14:00 15:01 Temperature Pulse Rate 117 H 119 H Respiratory 41 H 20 Rate Blood Pressure 139/79 145/81 O2 Sat by Pulse 100 100 Oximetry Constitutional: no acute distress, alert, other (Moaning and groning.) Eyes: non-icteric ENT: oropharynx moist Neck: supple, no JVD Ascultation: Bilateral: rhonchi Cardiovascular: regular rate and rhythm Gastrointestinal: normoactive bowel sounds, soft, non-tender Integumentary: decubitus ulcer, other (Stage four infected sacral decubitus ulcer.) Extremities: no cyanosis, no edema Neurologic: unable to assess Psychiatric: other (Unable to assess due to mental status.) CBC and BMP: 01/15/19 05:45 01/15/19 05:45 ABG, PT/INR, D-dimer: ABG POC ABG pH 7.425 (7.35-7.45) 01/13/19 21:37 POC ABG pCO2 33.4 (35-45) L 01/13/19 21:37 POC ABG pO2 71 (80-105) L 01/13/19 21:37 POC ABG HCO3 21.9 (22-26 mml/L) 01/13/19 21:37 POC ABG Total CO2 23 (23-27mmol/L) 01/13/19 21:37 POC ABG O2 Sat 95 01/13/19 21:37 PT/INR, D-dimer PT 16.8 Sec. (12.2-14.9) H 01/13/19 04:40 INR 1.28 (0.87-1.13) H 01/13/19 04:40 Abnormal lab findings: Abnormal Labs 01/10/19 01/10/19 01/10/19 16:25 16:25 16:25 WBC 29.3 H RBC 2.77 L Hgb 6.9 L Hct 23.9 L MCH 25 L MCHC 29 L RDW 20.8 H Plt Count 566 H Lymph % (Auto) Gr[place] % (Auto) Lymph # Grundy # Seg Neutrophils % Seg Neuts % (Manual) 87.0 H Lymphocytes % (Manual) 7.0 L Seg Neutrophils # Seg Neutrophils # Man 25.5 H Lymphocytes # (Manual) Monocytes # (Manual) 1.8 H PT INR POC ABG pCO2 POC ABG pO2 VBG pH 7.488 H Sodium 131 L Potassium Chloride 94.7 L Carbon Dioxide BUN 35 H Creatinine 2.1 H Glucose 285 H POC Glucose Hemoglobin A1c Lactic Acid Calcium ALT Total Protein Albumin 2.5 L Urine WBC (Auto) Crossmatch 01/10/19 01/10/19 01/10/19 16:25 16:25 16:25 WBC RBC Hgb Hct MCH MCHC RDW Plt Count Lymph % (Auto) [place] % (Auto) Lymph # [place] # Seg Neutrophils % Seg Neuts % (Manual) Lymphocytes % (Manual) Seg Neutrophils # Seg Neutrophils # Man Lymphocytes # (Manual) Monocytes # (Manual) PT INR POC ABG pCO2 POC ABG pO2 VBG pH Sodium Potassium Chloride Carbon Dioxide BUN Creatinine Glucose POC Glucose Hemoglobin A1c Lactic Acid 2.30 H* Calcium ALT Total Protein Albumin 2.4 L Urine WBC (Auto) Crossmatch See Detail 01/11/19 01/11/19 01/11/19 02:24 04:04 04:04 WBC 20.0 H RBC 2.60 L Hgb 6.5 L Hct 22.0 L MCH 25 L MCHC 30 L RDW 20.1 H Plt Count Lymph % (Auto) 8.9 L [place]undy % (Auto) Lymph # [place] # 1.3 H Seg Neutrophils % 84.3 H Seg Neuts % (Manual) Lymphocytes % (Manual) Seg Neutrophils # 16.8 H Seg Neutrophils # Man Lymphocytes # (Manual) Monocytes # (Manual) PT INR POC ABG pCO2 POC ABG pO2 VBG pH Sodium 131 L Potassium Chloride 97.6 L Carbon Dioxide BUN 42 H Creatinine 2.5 H Glucose 235 H POC Glucose Hemoglobin A1c Lactic Acid Calcium ALT Total Protein Albumin 2.0 L Urine WBC (Auto) 10.0 H Crossmatch 01/11/19 01/11/19 01/11/19 13:34 18:55 21:37 WBC RBC Hgb Hct MCH MCHC RDW Plt Count Lymph % (Auto) [place] % (Auto) Lymph # [place] # Seg Neutrophils % Seg Neuts % (Manual) Lymphocytes % (Manual) Seg Neutrophils # Seg Neutrophils # Man Lymphocytes # (Manual) Monocytes # (Manual) PT INR POC ABG pCO2 POC ABG pO2 VBG pH Sodium Potassium Chloride Carbon Dioxide BUN Creatinine Glucose POC Glucose 225 H 163 H 169 H Hemoglobin A1c Lactic Acid Calcium ALT Total Protein Albumin Urine WBC (Auto) Crossmatch 01/12/19 01/12/19 01/12/19 00:24 04:08 04:08 WBC 16.4 H RBC 2.78 L Hgb 7.3 L Hct 23.8 L MCH 26 L MCHC 31 L RDW 19.0 H Plt Count Lymph % (Auto) 6.0 L [place] % (Auto) Lymph # 1.0 L [place] # 1.0 H Seg Neutrophils % 87.6 H Seg Neuts % (Manual) Lymphocytes % (Manual) Seg Neutrophils # 14.4 H Seg Neutrophils # Man Lymphocytes # (Manual) Monocytes # (Manual) PT INR POC ABG pCO2 POC ABG pO2 VBG pH Sodium Potassium Chloride Carbon Dioxide 20 L BUN 50 H Creatinine 3.2 H Glucose 225 H POC Glucose 215 H Hemoglobin A1c Lactic Acid Calcium ALT 6 L Total Protein 6.2 L Albumin 1.7 L Urine WBC (Auto) Crossmatch 01/12/19 01/12/19 01/12/19 06:01 11:35 16:26 WBC RBC Hgb Hct MCH MCHC RDW Plt Count Lymph % (Auto) [place] % (Auto) Lymph # [place] # Seg Neutrophils % Seg Neuts % (Manual) Lymphocytes % (Manual) Seg Neutrophils # Seg Neutrophils # Man Lymphocytes # (Manual) Monocytes # (Manual) PT INR POC ABG pCO2 POC ABG pO2 VBG pH Sodium Potassium Chloride Carbon Dioxide BUN Creatinine Glucose POC Glucose 284 H 266 H 258 H Hemoglobin A1c Lactic Acid Calcium ALT Total Protein Albumin Urine WBC (Auto) Crossmatch 01/13/19 01/13/19 01/13/19 00:51 04:40 04:40 WBC 13.0 H RBC 2.57 L Hgb 6.6 L Hct 22.2 L MCH 26 L MCHC 30 L RDW 19.1 H Plt Count Lymph % (Auto) [place] % (Auto) Lymph # [place] # Seg Neutrophils % Seg Neuts % (Manual) 94.0 H Lymphocytes % (Manual) 2.0 L Seg Neutrophils # Seg Neutrophils # Man 12.2 H Lymphocytes # (Manual) 0.3 L Monocytes # (Manual) PT 16.8 H INR 1.28 H POC ABG pCO2 POC ABG pO2 VBG pH Sodium Potassium Chloride Carbon Dioxide BUN Creatinine Glucose POC Glucose 341 H Hemoglobin A1c Lactic Acid Calcium ALT Total Protein Albumin Urine WBC (Auto) Crossmatch 01/13/19 01/13/19 01/13/19 04:40 04:40 06:09 WBC RBC Hgb Hct MCH MCHC RDW Plt Count Lymph % (Auto) [place] % (Auto) Lymph # [place] # Seg Neutrophils % Seg Neuts % (Manual) Lymphocytes % (Manual) Seg Neutrophils # Seg Neutrophils # Man Lymphocytes # (Manual) Monocytes # (Manual) PT INR POC ABG pCO2 POC ABG pO2 VBG pH Sodium Potassium 3.5 L Chloride Carbon Dioxide 20 L BUN 60 H Creatinine 3.7 H Glucose 304 H POC Glucose 305 H Hemoglobin A1c 7.5 H Lactic Acid Calcium ALT Total Protein Albumin Urine WBC (Auto) Crossmatch 01/13/19 01/13/19 01/13/19 11:14 16:03 17:02 WBC RBC Hgb 8.9 L Hct 28.7 L D MCH MCHC RDW Plt Count Lymph % (Auto) [place] % (Auto) Lymph # [place] # Seg Neutrophils % Seg Neuts % (Manual) Lymphocytes % (Manual) Seg Neutrophils # Seg Neutrophils # Man Lymphocytes # (Manual) Monocytes # (Manual) PT INR POC ABG pCO2 POC ABG pO2 VBG pH Sodium Potassium Chloride Carbon Dioxide BUN Creatinine Glucose POC Glucose 261 H 263 H Hemoglobin A1c Lactic Acid Calcium ALT Total Protein Albumin Urine WBC (Auto) Crossmatch 01/13/19 01/13/19 01/13/19 21:37 22:27 23:37 WBC RBC Hgb 8.7 L Hct 28.2 L MCH MCHC RDW Plt Count Lymph % (Auto) [place] % (Auto) Lymph # [place] # Seg Neutrophils % Seg Neuts % (Manual) Lymphocytes % (Manual) Seg Neutrophils # Seg Neutrophils # Man Lymphocytes # (Manual) Monocytes # (Manual) PT INR POC ABG pCO2 33.4 L POC ABG pO2 71 L VBG pH Sodium Potassium Chloride Carbon Dioxide BUN Creatinine Glucose POC Glucose 345 H Hemoglobin A1c Lactic Acid Calcium ALT Total Protein Albumin Urine WBC (Auto) Crossmatch 01/14/19 01/14/19 01/14/19 04:26 04:26 07:18 WBC 13.1 H RBC 3.22 L Hgb 8.7 L Hct 28.3 L MCH 27 L MCHC 31 L RDW 18.1 H Plt Count Lymph % (Auto) 9.2 L [place] % (Auto) 8.5 H Lymph # [place] # 1.1 H Seg Neutrophils % 81.4 H Seg Neuts % (Manual) Lymphocytes % (Manual) Seg Neutrophils # 10.7 H Seg Neutrophils # Man Lymphocytes # (Manual) Monocytes # (Manual) PT INR POC ABG pCO2 POC ABG pO2 VBG pH Sodium Potassium 3.4 L Chloride Carbon Dioxide 20 L BUN 67 H Creatinine 3.7 H Glucose 264 H POC Glucose 296 H Hemoglobin A1c Lactic Acid Calcium ALT Total Protein Albumin Urine WBC (Auto) Crossmatch 01/14/19 01/14/19 01/15/19 12:28 23:36 05:45 WBC 13.1 H RBC 3.05 L Hgb 8.4 L Hct 27.2 L MCH 27 L MCHC 31 L RDW 18.3 H Plt Count Lymph % (Auto) 11.9 L [place] % (Auto) 10.0 H Lymph # [place] # 1.3 H Seg Neutrophils % 77.3 H Seg Neuts % (Manual) Lymphocytes % (Manual) Seg Neutrophils # 10.1 H Seg Neutrophils # Man Lymphocytes # (Manual) Monocytes # (Manual) PT INR POC ABG pCO2 POC ABG pO2 VBG pH Sodium Potassium Chloride Carbon Dioxide BUN Creatinine Glucose POC Glucose 248 H 375 H Hemoglobin A1c Lactic Acid Calcium ALT Total Protein Albumin Urine WBC (Auto) Crossmatch 01/15/19 01/15/19 01/15/19 05:45 06:40 12:01 WBC RBC Hgb Hct MCH MCHC RDW Plt Count Lymph % (Auto) [place] % (Auto) Lymph # [place] # Seg Neutrophils % Seg Neuts % (Manual) Lymphocytes % (Manual) Seg Neutrophils # Seg Neutrophils # Man Lymphocytes # (Manual) Monocytes # (Manual) PT INR POC ABG pCO2 POC ABG pO2 VBG pH Sodium Potassium 3.4 L Chloride Carbon Dioxide 21 L BUN 80 H Creatinine 3.7 H Glucose 355 H POC Glucose 358 H 376 H Hemoglobin A1c Lactic Acid Calcium 10.3 H ALT Total Protein Albumin Urine WBC (Auto) Crossmatch
[2019-01-16 05:06] LABS: Basophils % (Auto) 0.3 % (0.0-1.8); Eosinophils # (Auto) 0.1 K/mm3 (0.0-0.4); Eosinophils % (Auto) 0.5 % (0.0-4.3); Hematocrit 28.1 % (35.5-45.6); Hemoglobin 8.7 gm/dl (11.8-15.2); Lymphocytes # (Auto) 1.6 K/mm3 (1.2-5.4); Lymphocytes % (Auto) 12.4 % (13.4-35.0); Mean Corpuscular HGB Conc 31 % (32-34); Mean Corpuscular Volume 89 fl (84-94); Monocytes # (Auto) 1.3 K/mm3 (0.0-0.8); Monocytes % (Auto) 9.8 % (0.0-7.3); Platelet Count 360 K/mm3 (140-440); Red Blood Count 3.17 M/mm3 (3.65-5.03); Red Cell Distribution Width 18.3 % (13.2-15.2)
[2019-01-16 05:15] LABS: Calcium 10.5 mg/dL (8.4-10.2)
[2019-01-16] MEDS: HumaLOG SUB-Q SCH ×3 (06:24→12:35)
[2019-01-16] MEDS: DAKIN'S HALF STRENGTH TP SCH (09:38)
[2019-01-16] MEDS: MAXIPIME/NS 1 GM/100 ML 1 GM/100 ML BAG IV SCH (09:39)
[2019-01-16] MEDS: HEPARIN SUB-Q SCH (09:39)
[2019-01-16] MEDS: SODIUM CHLORIDE FLUSH SYRINGE 10 ML IV SCH (09:40)
[2019-01-16] MEDS ORDERED: NACL 0.9% 100 ML IV PRN (11:12)
[2019-01-16] MEDS ORDERED: PROCRIT IV PRN (11:12)
--- NOTE | 2019-01-16 12:47 | Progress Note ---
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 Recommendations * .attempt HD today and prn * Abx per primary team * Transfuse pRBC prn * Urology recommendations noted * Avoid nephrotoxins * Dose medications for renal function * Recommend hospice/palliative care Subjective Date of service: 01/16/19 Principal diagnosis: hematuria Interval history: events noted Objective - Exam Narrative Exam: General appearance: chronically ill, frail EENT: PERRL, mucous membranes moist Neck: no JVD, no thyromegaly, no carotid bruit, supple, other Respiratory: Present: Clear to Ascultation Cardiology: regular, normal heart rate Gastrointestinal: normal, normoactive bowel sounds, other (PEG tube in place) Integumentary: other (no edema) - Vital Signs Vital signs: Vital Signs - 12hr 01/16/19 01/16/19 01/16/19 01:00 02:00 03:01 Temperature Pulse Rate 115 H 123 H 114 H Respiratory 20 15 33 H Rate Blood Pressure 123/71 133/69 136/68 O2 Sat by Pulse 100 99 Oximetry 01/16/19 01/16/19 01/16/19 04:00 05:00 06:00 Temperature 99.1 F Pulse Rate 119 H 112 H 108 H Respiratory 36 H 27 H 27 H Rate Blood Pressure 152/74 137/68 135/59 O2 Sat by Pulse 99 100 100 Oximetry 01/16/19 01/16/19 01/16/19 07:01 08:00 09:00 Temperature 98.2 F Pulse Rate 114 H 114 H 107 H Respiratory 30 H 30 H 31 H Rate Blood Pressure 137/68 119/68 126/74 O2 Sat by Pulse 100 100 100 Oximetry - Lab 01/16/19 04:12 01/16/19 04:12 Most recent lab results Calcium 10.5 mg/dL (8.4-10.2) H 01/16/19 04:12 Phosphorus 2.60 mg/dL (2.5-4.5) 01/12/19 04:08 Magnesium 2.00 mg/dL (1.7-2.3) 01/12/19 04:08 Medications & Allergies - Medications Allergies/Adverse Reactions: Allergies No Known Allergies Allergy (Verified 01/10/19 16:37) Home Medications: Home Medications Medication Instructions Recorded Confirmed Last Taken Type Prazosin [Minipress] 2 mg PO HS #60 capsule 08/07/18 10/30/18 10/20/18 Rx Insulin Glargine [Lantus VIAL] 40 units SUB-Q QHS 10/21/18 10/30/18 10/20/18 History cloNIDine [Catapres] 0.2 mg PO TID 10/21/18 10/30/18 10/21/18 History Clindamycin [Clindamycin CAP] 300 mg PO Q6H #40 capsule 10/29/18 10/30/18 Unknown Rx hydrALAZINE [Apresoline TAB] 50 mg PO Q8HR #90 tablet 10/29/18 10/30/18 Unknown Rx dilTIAZem [Cardizem] 60 mg PO Q6HR #90 tablet 11/04/18 Unknown Rx Active Medications: Generic Name Dose Route Start Last Admin Trade Name Freq PRN Reason Stop Dose Admin Lipase/Protease/Amylase 1 each 01/14/19 13:[address] 10,500 Unit FEEDTUBE PRN PRN For Clogged Feeding Tube Epoetin Haja 20,000 unit 01/16/19 11:12 Procrit IV DIMPLE PRN hemodialysis Heparin Sodium (Porcine) 5,000 unit 01/10/19 22:00 01/16/19 09:39 Heparin SUB-Q 5,000 unit Q12HR SAMUEL Administration Cefepime HCl 1 gm in 100 mls @ 200 mls/hr 01/12/19 10:00 01/16/19 09:39 Maxipime/Ns 1 Gm/100 Ml IV 200 mls/hr Q24H SAMUEL Administration Sodium Chloride 100 mls @ 999 mls/hr 01/16/19 11:12 Nacl 0.9% IV DIMPLE PRN Hypotension Insulin Human Isoph/Insulin Regular 15 unit 01/15/19 17:00 01/16/19 09:38 Humulin 70/30 SUB-Q 15 unit BIDDIAB SAMUEL Administration Insulin Human Lispro 0 unit 01/11/19 12:00 01/16/19 06:24 Humalog SUB-Q 6 unit Q6HR SAMUEL Administration Protocol Simple Syrup 15 ml 01/14/19 13:55 Simple Syrup FEEDTUBE PRN PRN Hypoglycemia Simple Syrup 30 ml 01/14/19 13:55 Simple Syrup FEEDTUBE PRN PRN Hypoglycemia Sodium Bicarbonate 325 mg 01/14/19 13:55 Sodium Bicarbonate FEEDTUBE PRN PRN For Clogged Feeding Tube Sodium Chloride 10 ml 01/10/19 22:00 01/16/19 09:40 Sodium Chloride Flush Syringe 10 Ml IV 10 ml BID SAMUEL Administration Sodium Chloride 10 ml 01/10/19 18:26 Sodium Chloride Flush Syringe 10 Ml IV PRN PRN LINE FLUSH Sodium Hypochlorite 1 applic 01/14/19 14:00 01/16/19 09:38 Dakin's Half Strength TP 1 cc BID SAMUEL Administration
[2019-01-16] MEDS ORDERED: NACL 0.9 (PRIMING MACHINE ONLY DIALYSIS) MC ONE (16:10)
--- NOTE | 2019-01-16 16:55 | Discharge Summary ---
Providers - Providers Date of Admission: 01/10/19 18:26 Date of discharge: 01/16/19 Attending physician: LALITHA VARMA 01/10/19 18:30 Consult to Physician [CONS] Routine Comment: Consulting Provider: MICAH NOVAK Physician Instructions: Reason For Exam: sepsis 01/10/19 18:44 Consult to Physician [CONS] Routine Comment: Spoke with Dr. Brady @ 2026 Consulting Provider: ALBA ZULETA Physician Instructions: Reason For Exam: ESRD 01/10/19 18:54 Consult to Dietitian/Nutrition [CONS] Routine Physician Instructions: Reason For Exam: Reason for Consult: Write/Manage Tube Feeding 01/11/19 09:45 Consult to Dietitian/Nutrition [CONS] Routine Physician Instructions: Assess nutrtn needs, initiate, modify, manage TF Reason For Exam: Reason for Consult: Write/Manage Tube Feeding Reason for Consult: Write/Manage Tube Feeding 01/11/19 15:38 Consult to Physician [CONS] Routine Comment: Consulting Provider: DANIELA LOPEZ Physician Instructions: Reason For Exam: Hematuria 01/13/19 05:54 Consult to Wound/ET Nurse [CONS] Urgent Reason For Exam: wound eval 01/13/19 16:43 Consult to Physician [CONS] Urgent Comment: Consulting Provider: JOHN SHIELDS Physician Instructions: EVALUATE FOR DEBRIDEMENT Reason For Exam: EVALUATE SACRAL WOUND 01/14/19 10:01 Consult to Dietitian/Nutrition [CONS] Routine Physician Instructions: Assess nutrtn needs, initiate, modify, manage TF Reason For Exam: Reason for Consult: Write/Manage Tube Feeding Reason for Consult: Write/Manage Tube Feeding Primary care physician: SEAM STAY STITCHER Hospitalization Reason for admission: Altered level of consciousness ,Sepsis,anemia Condition: Poor Pertinent studies: CXR ABD CT Renal US Transfusion 3 units PRBC Procedures: Surgical debredement og Stage $ sacral decubitus ulcer Hospital course: 68 YO Male with HTN, CVA, DM, HLD, ESRD on HD (M,W,F), Sacral Decubitus Ulcer, Chronic Indwelling Avila Catheter for Urinary Retention presents to ED patient presented to dialysis clinic today for routine dialysis and was found to have an elevated WBC count, and decreased responsiveness, found to have Sepsis, Hypotension with systolic BP in the 80's, Encephalopathy, ESRD, Acute on Chronic Renal Failure. heart rate in the 140's. admitted through ER with sepsis.. Symptomatically managed.Evaluated by nephrology,received HD,seen by surg,s/p surgical debredement and received blood transfusion. Today pt feels better,no new symptoms,vital signs stable,Physical exam stable at discharge Discharge Diagnosis: --Acute blood loss anemia; due to hematuria, ESRD Received 3 units of PRBC, hemoglobin 8.7 today, closely monitor --Hematuria; significant improvement ,urology evaluated CT abdomen and pelvis/renal ultrasound,findings reviewed Management per urology --Sepsis; secondary to UTI/decubitus ulcer Empiric antibiotics, follow cultures, ID evaluation if needed --Hypotension/septic shock; blood pressures low-normal Start Levophed if no improvement --Leukocytosis; secondary to sepsis, trending down --End-stage renal disease; on hemodialysis per schedule Nephrology following --History of PEG in place; PEG care and PEG feeds per protocol --Type 2 diabetes mellitus Accu-Chek sliding scale coverage and ADA diet and insulin --History of BPH; on prazosin[Minipress] held due to hypotension --Stage IV sacral decubitus ulcers; continue wound care, s/p surgical debridement, evacuation of abscesses --DVT prophylaxis; SCD, no pharmacologic anticoagulation in view of anemia, and hematuria --Full CODE STATUS Patient is critically ill with multiple medical problems Prognosis guarded, family aware I again addressed the CODE STATUS. Plan of care reviewed with the patient,s family and her nurse Disposition: [id number] HOME UNDER HOME [facility] Time spent for discharge: 32 Core Measure Documentation - Palliative Care Palliative Care/ Comfort Measures: Not Applicable - Core Measures Any of the following diagnoses?: none Exam - Constitutional Vitals: Temp Pulse Resp BP Pulse Ox 97.9 F 111 H 18 127/66 99 01/16/19 12:45 01/16/19 13:45 01/16/19 12:45 01/16/19 13:45 01/16/19 12:00 General appearance: Present: no acute distress, well-nourished - EENT Eyes: Present: PERRL, EOM intact - Neck Neck: Present: supple, normal ROM - Respiratory Respiratory effort: normal Respiratory: bilateral: diminished, rhonchi, negative: rales, wheezing - Cardiovascular Rhythm: regular Heart Sounds: Present: S1 & S2 - Extremities Extremities: no ischemia, abnormal (chronic changes) Plan Activity: advance as tolerated, fall precautions Diet: renal Wound: per wound nurse instructions Additional Instructions: Hold the BP Medications, pressures are in the lower range, Resume when needed. Her dialysis per schedule. Wound Care. Do not remove Avila catheter. f/u Urologist on Sunday01/20/19 Follow up with: PRIMARY MD ARNOL [Primary Care Provider] - 3-5 Days DANIELA LOPEZ MD [Staff Physician] - 01/20/19 JOHN SHIELDS DO [Staff Physician] - 7 Days ALBA ZULETA MD [Staff Physician] - 7 Days Prescriptions: cephALEXin [Keflex] 500 mg PO Q6HR #28 capsule
[2019-01-16 17:51] VITALS: BP 136/71
== END 2019-01-16 18:10 | disposition home health service (06) | DRG 853 ==
LOC: ED 15:16 → CC1 18:26 → IMCU 01-12 08:15
PROVIDERS: ADMIT Internal Medicine; ATTEND Internal Medicine
PROC: 02HV33Z Insertion of Infusion Device into Superior Vena Cava, Percutaneous Approach (ICD-10-PCS; 2019-01-10)
PROC: B548ZZA Ultrasonography of Superior Vena Cava, Guidance (ICD-10-PCS; 2019-01-10)
PROC: 30233N1 Transfusion of Nonautologous Red Blood Cells into Peripheral Vein, Percutaneous Approach (ICD-10-PCS; 2019-01-11)
PROC: 4A033R1 Measurement of Arterial Saturation, Peripheral, Percutaneous Approach (ICD-10-PCS; 2019-01-13)
PROC: 0JB70ZZ Excision of Back Subcutaneous Tissue and Fascia, Open Approach (ICD-10-PCS; principal; 2019-01-14)
PROC: 5A1D70Z Performance of Urinary Filtration, Intermittent, Less than 6 Hours Per Day (ICD-10-PCS; 2019-01-16)
DX: A41.9 Sepsis, unspecified organism (principal); L89.154 Pressure ulcer of sacral region, stage 4; N18.6 End stage renal disease; J96.01 Acute respiratory failure with hypoxia; R65.21 Severe sepsis with septic shock; G93.40 Encephalopathy, unspecified; I12.0 Hypertensive chronic kidney disease with stage 5 chronic kidney disease or end stage renal disease; N17.9 Acute kidney failure, unspecified; D62 Acute posthemorrhagic anemia; N39.0 Urinary tract infection, site not specified; Z86.73 Personal history of transient ischemic attack (TIA), and cerebral infarction without residual deficits; Z79.4 Long term (current) use of insulin; E11.22 Type 2 diabetes mellitus with diabetic chronic kidney disease; Z99.2 Dependence on renal dialysis; E78.00 Pure hypercholesterolemia, unspecified; F03.90 Unspecified dementia, unspecified severity, without behavioral disturbance, psychotic disturbance, mood disturbance, and anxiety; Z87.891 Personal history of nicotine dependence; D64.9 Anemia, unspecified; Z83.3 Family history of diabetes mellitus; Z82.49 Family history of ischemic heart disease and other diseases of the circulatory system; D63.1 Anemia in chronic kidney disease; R31.9 Hematuria, unspecified; N40.0 Benign prostatic hyperplasia without lower urinary tract symptoms; R33.9 Retention of urine, unspecified
CPT/HCPCS: 36415; 36600; 71045; 74176; 76770; 80048; 80053; 80076; 80202; 81001; 82140; 82803; 82805; 82962; 83036; 83735; 84100; 85007; 85014; 85018; 85025; 85610; 86850; 86900; 86901; 86920; 87040; 87075; 87086; 87116; 93005; 93010; 94760; G0378; A6260; J0692; J0885; J1644; J1815; J3370; J7030; J7040; P9016